=== PATIENT | male | born 1960 | race Caucasian/White ===

== ENCOUNTER → 2017-11-03 08:56 | Outpatient (CLI) | payer MEDICAID, SELFPAY ==
--- NOTE | 2017-11-03 09:01 | ECHOCS_ITS ---
Reason For Study: CHF Procedure This was a 2D Doppler, Color Flow transthoracic echocardiogram. The exam was of poor technical quality due to due to body habitus & patient position.. The study was technically difficult. Contrast injection was performed. Exam performed in department. Left Ventricle Mild concentric left ventricular hypertrophy. Based upon the 2D echocardiographic and contrast enhanced images obtained there appears to be grossly normal left ventricular size, wall motion, and systolic function. The estimated ejection fraction is 65 %. Right Ventricle Based upon the 2D echocardiographic and contrast enhanced images obtained there appears to be grossly normal right ventricular size and systolic function. Atria No doppler evidence for ASD. Mitral Valve Mitral valve not well visualized. Tricuspid Valve The tricuspid valve is not well visualized. Aortic Valve The aortic valve is not well visualized. Pulmonic Valve The pulmonic valve is not well visualized. Great Vessels The aortic root is not well visualized. Pericardium/Pleural No pericardial effusion. Medication 22 gauge I.V. with prn adaptor inserted into right arm. Diluted definity 5.0ml given slow IV push to enhance endocardial definition. MMode/2D Measurements & Calculations LVIDd: 5.7 cm IVSd: 1.3 cm LAV(MOD-bp): 61.6 ml LVIDs: 4.2 cm LVPWd: 1.5 cm LAV(MOD-bp) Indexed: 21.6 ml/m2 FS: 25.3 % LAV(MOD-sp2): 59.9 ml LAV(MOD-sp4): 55.9 ml LA A4 area: 21.0 cm2 RA A4 area: 16.7 cm2 Doppler Measurements & Calculations MV E max mehran: 105.2 cm/sec Lat Peak E' Mehran: 9.7 cm/sec Med Peak E' Mehran: 9.0 cm/sec MV A max mehran: 76.8 cm/sec E/E' lat: 10.9 E/E' med: 11.7 MV E/A: 1.4 Ao V2 max: 163.7 cm/sec LV V1 max: 121.9 cm/sec Ao max P.7 mmHg LV V1 max P.9 mmHg Interpretation Summary The study was technically difficult. Contrast injection was performed. Based upon the 2D echocardiographic and contrast enhanced images obtained there appears to be grossly normal left ventricular size, wall motion, and systolic function. The estimated ejection fraction is 65 %. Mild concentric left ventricular hypertrophy. Diastolic function: considered indeterminate. Ordering Physician: Duc Thomson Referring Physician: Duc Thomson Performed By: Karissa Duffy, HARRIET, RVT
== END ==
PROVIDERS: Family Provider Family Medicine; PCP Family Medicine; Visit Provider Internal Medicine Cardiovascular Disease
DX: I50.9 Heart failure, unspecified (principal)
CPT/HCPCS: 93306; Q9957; A4216; C8929

== ENCOUNTER 2018-03-14 09:44 | Inpatient (IN) | payer MEDICAID, SELFPAY ==
[2018-03-14] VITALS (17 sets, daily range): BP systolic 100–135; BP diastolic 42–67; PULSE 59–83; RESP 14–220; TEMP 36.7–37.3; O2SAT 87–94; BMI 53.6; BMI 50.5; BMI 53.7
--- NOTE | 2018-03-14 09:53 | EKG12_ITS ---
Test Reason : SOB Blood Pressure : / mmHG Vent. Rate : 083 BPM Atrial Rate : 083 BPM P-R Int : 166 ms QRS Dur : 094 ms QT Int : 496 ms P-R-T Axes : 064 050 054 degrees QTc Int : 582 ms Normal sinus rhythm Prolonged QT Abnormal ECG Confirmed by ISAURA FRAZIER, CELY ([id number]), editor at large YASSINE HARTMAN ([id number]) on 03/21/2018 2:12:35 PM Referred By: JHONNY Confirmed By:CELY DELAROSA MD
[2018-03-14 10:11] LABS: Bedside Glucose 159 mg/dL (70-110)
[2018-03-14] MEDS: Albuterol 2.5 MG/3 ML VIAL.NEB. INHALATION ×3 (10:16→10:35)
[2018-03-14] MEDS: Ipratropium/Albuterol Sulfate 3 ML AMPUL.NEB INHALATION ×4 (10:16→23:21)
[2018-03-14 10:30] LABS: Absolute Lymphocyte Count 0.58 X10^3/ul (0.83-4.51); Absolute Neutrophil Count 16.6 X10^3/uL (2.0-7.7); Basophil# 0.02 X10^3/uL; Basophil% 0.1 % (0-1); Differential Indicated SCAN CRITERIA MET; Eosinophil# 0.01 X10^3/uL; Eosinophils% 0.1 % (0-5); Hematocrit 43.8 % (40-54); Hemoglobin 13.5 g/dl (13.0-16.5); Lymphocyte # 0.58 X10^3/ul (4.0); Lymphocyte % 3.3 % (19-41); Mean Corp Hgb Conc 30.8 g/gl (32-36); Mean Corpuscular Volume 90.9 fL (80-94); Mean Platelet Vol. 9.1 fl (6.2-12.0); Monocyte# 0.45 X10^3/uL; Monocyte% 2.5 % (0-10); Neutrophil # 16.58 X10^3/uL (2.7-7.7); Neutrophil % 93.9 % (47-70); POSITIVE COUNT NO; POSITIVE DIFFERENTIAL YES; POSITIVE MORPHOLOGY NO; Platelet Count 216 K/mm3 (150-450); RBC Distribution Width CV 14.1 % (11.6-14.6); RBC Distribution Width SD 46.4 fl (35.1-43.9); Red Blood Count 4.82 M/mm3 (4.6-6.2); White Blood Count 17.7 K/mm3 (4.4-11.0)
[2018-03-14 10:36] LABS: Base Excess 13 mmol/L (-2 to +2); Bicarbonate 36.2 mmol/L (22-26); Blood Gas Specimen Type ART; O2 Delivery Device Nasal Can; PO2 60 mmHG (75-100); SITE R Radial; SO2 92 % (95-99); Time Given 1020; Total Carbon Dioxide 38 mmol/L; pCO2 48.8 mmHg (35-45); pH 7.48 (7.35-7.45)
[2018-03-14 10:47] LABS: Anion Gap 8 (5-15); BUN 6 mg/dL (7-18); BUN/Creat Ratio 5.5 RATIO (10-20); Calcium,Total 8.7 mg/dL (8.5-10.1); Chloride 95 mmol/L (98-107); Creatinine, Serum 1.09 mg/dL (0.70-1.30); EST Glomerular Filtration Rate 74 mL/min (>60); Est Glom Filt Rate - Afr Amer 89 mL/min (>60); Estimated Creatinine Clearance 78.68 ml/min; Glucose 160 mg/dL (74-106); Lactic Acid 3.1 mmol/L (0.4-2.0); Potassium 2.7 mmol/L (3.5-5.1); Sodium Level 138 mmol/L (136-145)
[2018-03-14 10:49] LABS: Differential Comment SCANNED
--- NOTE | 2018-03-14 11:00 | RAD_ITS ---
STUDY: X-RAY CHEST REASON FOR EXAM: Male, 57 years old. Shortness of breath. Weakness and headaches. TECHNIQUE: Single AP portable view of the chest. COMPARISON: Comparison is made with prior examination dated May 17, 2017. FINDINGS: EKG electrodes are seen. There is evidence of vascular congestion with increased markings at the lung bases with areas of confluence. This is suggestive of mild degree of CHF with bibasilar atelectasis. There is no demonstrated pleural abnormality. There is mild cardiac enlargement. Normal mediastinum and liban. Normal visualized pulmonary arteries. Normal visualized aortic arch and descending thoracic aorta. There are diffuse degenerative changes of the visualized thoracic spine. Normal visualized ribs, clavicles, and shoulders. There is no demonstrated abnormality of the visualized soft tissue structures of the upper abdomen. RAD/Chest 1 View (Portable) IMPRESSION: Master congestion. Increased markings at the lung bases with areas of confluence suggestive of a mild degree of CHF with bibasilar atelectasis. Electronically Signed: Howie Dong MD at 11:15 EDT Tel [phone], Service support ,
--- NOTE | 2018-03-14 11:30 | NURSING ---
DR GIANG FOR DR WATSON
--- NOTE | 2018-03-14 11:33 | ED.DCSUM_ITS ---
- ER Visit Summary Date of Service: 03/14/18 Chief Complaint: Shortness of breath, productive cough History of Present Illness: The patient is a 57 M who resides in a senior living because he is unable to care for himself presents with subjective fever, nasal congestion for greater than 1 week, dyspnea, productive cough of green colored sputum with dyspnea on exertion. He denies chest pain, palpitations, orthopnea or PND. He denies history of congestive heart failure. He does have history of coronary artery disease. He does have obstructive sleep apnea and does wear oxygen at night 2-3 L. He denies abdominal pain, nausea or vomiting. He does report chronic diarrhea. He has an indwelling Goetz. He does report generalized weakness and being depressed. He is on no anticoagulant. He does have history of COPD. Please read written note for complete detail Physical Examination: Vital signs noted. Of note patient O2 sat is 90% on 6 L by nasal cannula. BMI is 53.7. He has not well groomed. HEENT exam is unremarkable. Heart is regular without murmur, gallop or rub. Lungs revealed diminished breath sounds bilaterally with expiratory wheezing bilaterally. There is also rales and rhonchi noted right greater than left. Expiratory phase is increased. Abdomen is soft nontender. Bowel sounds are present. Skin appears slightly pale. Legs appear edematous however they are not pitting in nature. Neuro exam is nonfocal. Test Results: EKG sinus rhythm rate of 83 with prolonged QT interval. LA interval, QRS duration normal. [place] normal. No ischemic changes. Single view chest x-ray is rotated. In my opinion and interpretation there is an infiltrate on the right possibly increased interstitial markings on the left. White count is 17.7 thousand with 94 segs no bands. Potassium is 2.7. CO2 is elevated at 35. Glucose is 160. ABG was obtained because of concern for CO2 retention. PH 7.48, PCO2 38, PaO2 60 with a 92% saturations 6 L by nasal cannula. Lactate is elevated at 3.1. The hospitalist was paged for admission. She informed me that the radiologist read the film as congestive heart failure. I informed her he has no history of heart failure, denies orthopnea or PND. And his history is consistent with pneumonia. Emergency Department Course and Treatment: EKG, chest x-ray appropriate blood work was obtained to evaluate patient's complaint of productive cough with mayur rtness of breath. Since he is hypoxic and has history of elevated CO2 will obtain blood gas to assess acid-base status. Because there is concern for pneumonia a lactate was ordered. Since lactate was elevated blood cultures were obtained. He was treated with Zosyn and vancomycin for healthcare acquired pneumonia. Furthermore would not treat with quinolones since his QT interval is prolonged. Patient does not have severe sepsis since he only has 1 of the 5 SIRS criteria. Treatment Plan: DuoNeb followed by albuterol and antibiotics for healthcare acquired pneumonia. He received p.o. potassium for his hypokalemia. Disposition: PCU stepdown in light of patient's respiratory status and concern for deterioration Impression: 1. Respiratory failure with hypoxia 2. Healthcare acquired pneumonia 3. Exacerbation COPD with bronchospasm 4. Lactic acidosis 5. Hypokalemia 6. Hyperglycemia This note was generated with [employer] dictation software. It may contain incorrect words, spelling, and punctuation that were not noted in review of the chart prior to signing ED Disposition - Plan for ED Patient: Chief Complaint: Shortness of Breath Referrals: Nas Cadena [Primary Care Provider] -
--- NOTE | 2018-03-14 11:36 | NURSING ---
PCU RESP FAILURE, WITH HYPOXIA, HCAP, BRONCHOSPASM, COPD, LACTIC ACIDOSIS PAINTSIL
--- NOTE | 2018-03-14 12:44 | HP.PCM_ITS ---
Problem List (1) Acute and chronic respiratory failure with hypoxia Status: Acute (2) COPD with acute exacerbation Status: Acute (3) Lactic acidosis Status: Acute (4) Hypertension Status: Chronic Qualifiers: Hypertension type: essential hypertension Qualified Code(s): I10 - Essential (primary) hypertension (5) Hyperlipidemia Status: Chronic Qualifiers: Hyperlipidemia type: unspecified Qualified Code(s): E78.5 - Hyperlipidemia, unspecified (6) COPD (chronic obstructive pulmonary disease) Status: Chronic Qualifiers: COPD type: unspecified COPD Qualified Code(s): J44.9 - Chronic obstructive pulmonary disease, unspecified (7) Tobacco use disorder Status: Chronic (8) Morbid obesity Status: Chronic History of Present Illness Date of Admission: 03/14/18 Chief Complaint: Shortness of breath, cough, productive of greenish sputum- 1 day The patient is a 57 year old M with multiple comorbidities including COPD on 2 L of oxygen at night, history of CAD status post CABG, stent, DAVION , hypertension, hyperlipidemia, chronic indwelling Goetz catheter of unknown etiology who comes in with complaints of shortness of breath and cough productive of greenish sputum that started 1 day prior to admission. Patient has been progressively short of breath, been coughing up greenish sputum. Denies any fever or chills. He lives in a senior living, admits to upper respiratory symptoms with congestion . He denied any sick contacts recently. Vitals in the ED showed temperature of 90 9.1F, heart rate 83, blood pressure 111/ 7, respiratory rate was 14, SPO2 was 87% on 5 L, improved to 90% on 6 L. Medicine blood work showed WBC count of 17.7, Hb 13.5, platelet 216, BUN 38, potassium 3.7, bicarbonate 35, chloride 95, BUN 6, creatinine 1.09 Lactic acid on admission was 3.1, repeat was 4.4 Chest x-ray on admission reports evidence of vascular congestion, no pneumonia was reported Past Medical History Past Medical History (Chronic Problems): Chronic Problems (Last Reviewed 10/26/17 @ 10:26 by Maria Teresa Stewart) Presence of stent in coronary artery (Chronic) PTCA/BSM of Mid CX and PTCA of OM2 08/31/06; PTCA/PELON of the mid RCA ; Thrombectomy and angioplasty of the pre existing stent of the mid LCX 02/18/13 Hypertension (Chronic) Hyperlipidemia (Chronic) Atherosclerotic heart disease of [place] coronary artery without angina pectoris (Chronic) PTCA/BSM of Mid CX and PTCA of OM2 08/31/06; PTCA/PELON of the mid RCA 08/06/10; Thrombectomy and angioplasty of the pre existing stent of the mid LCX 02/18/13 COPD (chronic obstructive pulmonary disease) (Chronic) Tobacco use disorder (Chronic) Morbid obesity (Chronic) Medical History: Medical History (Last Reviewed 10/26/17 @ 10:26 by Maria Teresa Stewart) Acute MA, inferior wall (Acute) I21.19 Acute inferolateral myocardial infarction (Acute) I21.19 Hypertension (Chronic) I10 Hyperlipidemia (Chronic) E78.5 Atherosclerotic heart disease of [place] coronary artery without angina pectoris (Chronic) I25.10 PTCA/BSM of Mid CX and PTCA of OM2 08/31/06; PTCA/PELON of the mid RCA 08/06/10; Thrombectomy and angioplasty of the pre existing stent of the mid LCX 02/18/13 COPD (chronic obstructive pulmonary disease) (Chronic) J44.9 Tobacco use disorder (Chronic) F17.200 Morbid obesity (Chronic) E66.01 DDD (degenerative disc disease) Metabolic syndrome E88.81 DAVION (obstructive sleep apnea) G47.33 RLS (restless legs syndrome) G25.81 Open breast wound (Inactive) S21.009A Pure hypercholesterolemia (Inactive) E78.00 Respiratory failure with hypoxia and hypercapnia (Inactive) J96.91, J96.92 UTI (urinary tract infection) (Inactive) N39.0 Allergies rofecoxib Adverse Reaction (Unknown, Verified 03/14/18 09:49) Unknown Home Medications: Ambulatory Orders Medication Instructions Recorded RX: Clopidogrel Bisulfate [Plavix] 75 mg PO DAILY 02/11/13 RX: Isosorbide Mononitrate [Imdur] 30 mg PO DAILY 02/11/13 RX: Nitroglycerin [Nitrostat] 0.4 mg SUBLINGUAL Q5M PRN 02/11/13 RX: Albuterol Inhaler [Ventolin 2 puff INHALATION Q4H PRN PRN 09/07/13 Hfa] RX: Gabapentin 600 mg PO TID 12/20/13 RX: Sertraline HCl [Zoloft] 100 mg PO DAILY 03/06/14 RX: Ipratropium/Albuterol Sulfate 3 ml INHALATION BID 12/20/15 [Duoneb] RX: Metoprolol Tartrate [Lopressor 25 mg PO BID 12/20/15 (beta mike)] RX: Lisinopril [Zestril] 5 mg PO DAILY 12/28/16 RX: Methadone HCl 10 mg PO Q8H 12/28/16 RX: Ondansetron HCl [Zofran] 4 mg PO BID 12/28/16 RX: Acetaminophen [Tylenol] 650 mg PO Q4H PRN PRN 05/17/17 RX: Allopurinol 100 mg PO DAILY 05/17/17 RX: Aspirin [Aspirin, Baby] 81 mg PO DAILY@0800 05/17/17 RX: Loratadine 10 mg PO DAILY 05/17/17 RX: Lorazepam [Ativan] 1 mg PO QHS PRN PRN 05/17/17 RX: Oxycodone [Oxyir] 5 mg PO BID 05/17/17 cholecalciferol (vitamin D3) 50,000 unit PO TOBAR 10/26/17 50,000 unit capsule finasteride 5 mg tablet 5 mg PO QDAY 10/26/17 fludrocortisone 0.1 mg tablet 0.1 mg PO QDAY 10/26/17 guaifenesin ER 600 mg tablet, 600 mg PO Q12H 10/26/17 extended release 12 hr ipratropium-albuterol 0.5 mg-3 3 ml INHALATION Q6H PRN 10/26/17 mg(2.5 mg base)/3 mL nebulization soln metformin 500 mg tablet 500 mg PO BID 10/26/17 morphine 30 mg immediate release 30 mg PO BID tab 10/26/17 tablet omeprazole 20 mg capsule,delayed 20 mg PO QDAY cap 10/26/17 release sodium chloride 1 gram tablet 1 tab PO QDAY tab 10/26/17 tizanidine 2 mg tablet 2 mg PO TID PRN 10/26/17 Bumetanide [Bumex] 1 mg PO BID 03/14/18 Calcium Carbonate [Calcium] 500 mg PO BID 03/14/18 Ciprofloxacin 0.3% [Ciloxan] 4 drop EACH EAR BID 03/14/18 Diclofenac Sodium [Voltaren] 1 applic TOPICAL BID 03/14/18 Fluticasone 0.05% [Flonase Nasal 2 spray NASAL DAILY 03/14/18 [place]] Fluticasone/Vilanterol [Breo 1 each IH DAILY 03/14/18 Ellipta Inhaler] Guaifenesin [Cough Syrup] 10 ml PO Q6H PRN PRN 03/14/18 Linacolotide [Linzess] 145 mcg PO DAILY 03/14/18 Magnesium Hydroxide [Milk Of 30 ml PO DAILY PRN PRN 03/14/18 Magnesia] Pravastatin [Pravachol] 80 mg PO DAILY 03/14/18 RX: Potassium Chloride 10 meq PO DAILY 03/14/18 RX: Tamsulosin HCl 0.4 mg PO BID 03/14/18 Spironolactone [Aldactone] 25 mg PO BID 03/14/18 Surgical History: Surgical History (Last Reviewed 10/26/17 @ 10:26 by Maria Teresa Stewart) Presence of stent in coronary artery (Chronic) Z95.5 PTCA/BSM of Mid CX and PTCA of OM2 08/31/06; PTCA/PELON of the mid RCA 08/06/10; Thrombectomy and angioplasty of the pre existing stent of the mid LCX 02/18/13 Postsurgical percutaneous transluminal coronary angioplasty (PTCA) status Z98.61 PTCA/BSM of Mid CX and PTCA of OM2 08/31/06; PTCA/PELON of the mid RCA 08/06/10; Thrombectomy and angioplasty of the pre existing stent of the mid LCX 02/18/13 History of inguinal hernia repair Z98.890, Z87.19 History of tonsillectomy Z90.89 Surgical History: - - Thyroidectomy, septoplasty, cardiac stents x4 2007, hernia repair 2013 Psychiatric History: No pertinent psych hx Lives: Group Home Smoking Status: Former smoker Tobacco Use: Non-smoker Alcohol: None Drugs: None - *Family History Maternal Family History: Family History (Last Reviewed 10/26/17 @ 10:26 by Maria Teresa Stewart) Father Myocardial infarction, Onset Age: 39 Brother Hypertension Uncle CAD (coronary artery disease) Uncle Myocardial infarction History Items: Cancer - skin CA Paternal Family History: Family History (Last Reviewed 10/26/17 @ 10:26 by Maria Teresa Stewart) Father Myocardial infarction, Onset Age: 39 Brother Hypertension Uncle CAD (coronary artery disease) Uncle Myocardial infarction History Items: Heart Disease Sibling Family History: Family History (Last Reviewed 10/26/17 @ 10:26 by Maria Teresa Stewart) Father Myocardial infarction, Onset Age: 39 Brother Hypertension Uncle CAD (coronary artery disease) Uncle Myocardial infarction History Items: Hypertension Review of Systems Constitutional: Reports: Anorexia, Weakness, Fatigue. Denies: Chills, Fever, Weight Change Eyes: Denies: Blurred vision, Cataracts, Conjunctivae Inflammation, Pain, Redness HEENT: Denies: Difficulty Hearing, Difficulty Swallowing, Head Aches, Hearing Changes, Sinus Congestion, Sinus Drainage Cardiovascular: Reports: Orthopnea. Denies: Chest Pain, Claudication, Edema, Light Headedness, Palpitations, Paroxysmal Noc. Dyspnea Respiratory: Reports: Shortness of Breath, Shortness of breath at rest, Shortness of breath upon exertion, Sputum production, Wheezing. Denies: Cough, Hemoptysis Gastrointestinal: Denies: Abdominal Pain, Constipation, Dyspepsia, Hematemesis, Hematochezia, Nausea, Melena, Vomiting Genitourinary: Denies: Dysuria, Frequency, Incontinence, Retention Musculoskeletal: Denies: Joint Pain, Joint stiffness, Joint swelling, Joint Tenderness Skin: Denies: Rash, Wounds Neurological: Denies: Numbness, Tingling, Focal weakness Psychiatric: Denies: Anxiety, Depression, Homicidal Ideations, Suicidal Ideations Hematologic/ Lymphatic: Denies: Easy Bruising, Easy Bleeding VTE Information - Inpt Only VTE Present on Admission: No VTE Pharm Prophylaxis ordered?: Yes Patient Problems: Active and Suspected Problems (Last Reviewed 10/26/17 @ 10:26 by Maria Teresa Stewart) Acute and chronic respiratory failure with hypoxia (Acute) COPD with acute exacerbation (Acute) Lactic acidosis (Acute) - Physical Exam General: Alert, Oriented x3, Cooperative, No apparent distress, - - Obese HEENT: Atraumatic, PERRLA, EOMI, Normocephalic Oral: Moist Mucosa Neck: Supple, No JVD, Negative Carotid Bruits Lungs: Normal air movement, Diminished, Wheezes Cardiovascular: Regular rate, Regular Rhythm, Normal S1, Normal S2 Abdomen: Bowel Sounds Present, Soft, Non Tender, Non-Distended, No Hepato- splenomegaly, - - Goetz catheter in situ, tubing appears dirty Extremities: No edema Skin: No rashes, No breakdown Musculoskeletal: No Tenderness to Palpation of Joints or Extremities Lymphatic: No Cervical, Supraclavicular, or Inguinal Adenopathy Neurological: Cranial nerves II-XII grossly intact, Neuro grossly intact Psych/Mental Status: Normal Affect, Appropriate Vital Signs Temp Pulse Resp BP Pulse Ox 99.1 F 81 19 H 119/54 L 90 03/14/18 09:48 03/14/18 11:56 03/14/18 11:56 03/14/18 11:56 03/14/18 11:56 Oxygen Flow Rate (L/min) 6 Oxygen Delivery Method Nasal Cannula Weight: 174.633 kg Body Mass Index (BMI) 53.6 Finger Stick Blood Glucose 159 Laboratory Tests Past 24 Hrs 03/14/18 03/14/18 03/14/18 10:00 10:00 10:00 WBC 17.7 H RBC 4.82 Hgb 13.5 Hct 43.8 MCV 90.9 MCH 28.0 MCHC 30.8 L RDW 14.1 RDW Differential 46.4 H Plt Count 216 MPV 9.1 Immature Gran % (Auto) 0.100 Neut % (Auto) 93.9 H Lymph % (Auto) 3.3 L [place] % (Auto) 2.5 Eos % (Auto) 0.1 Baso % (Auto) 0.1 Absolute Neuts (auto) 16.6 H Absolute Lymphs (auto) 0.58 L Total Counted Not Reportable Differential Comment SCANNED Specimen Type Sample Site pH Bicarbonate Actual POC Total CO2 Base Excess O2 Saturation ABG pCO2 ABG pO2 [place] Test O2 Delivery Device Liter Flow Blood Gas Notified Whom Blood Gas Notified Time Sodium 138 Potassium 2.7 L* Chloride 95 L Carbon Dioxide 35.0 H Anion Gap 8 BUN 6 L Creatinine 1.09 Estim Creat Clear Calc 78.68 Est GFR (MDRD) Af Amer 89 Est GFR (MDRD) Non-Af 74 BUN/Creatinine Ratio 5.5 L Glucose 160 H Lactic Acid 3.1 H Calcium 8.7 03/14/18 10:29 WBC RBC Hgb Hct MCV MCH MCHC RDW RDW Differential Plt Count MPV Immature Gran % (Auto) Neut % (Auto) Lymph % (Auto) [place] % (Auto) Eos % (Auto) Baso % (Auto) Absolute Neuts (auto) Absolute Lymphs (auto) Total Counted Differential Comment Specimen Type ART Sample Site R Radial pH 7.48 H Bicarbonate Actual 36.2 H POC Total CO2 38 Base Excess 13 H O2 Saturation 92 L ABG pCO2 48.8 H ABG pO2 60 L [place] Test NA O2 Delivery Device Nasal Can Liter Flow 5.0 Blood Gas Notified Whom ED MD Blood Gas Notified Time 1020 Sodium Potassium Chloride Carbon Dioxide Anion Gap BUN Creatinine Estim Creat Clear Calc Est GFR (MDRD) Af Amer Est GFR (MDRD) Non-Af BUN/Creatinine Ratio Glucose Lactic Acid Calcium POC Glucose 03/14/18 10:03 POC Glucose 159 H Assessment/Plan All Active Problems (Last Reviewed 10/26/17 @ 10:26 by Maria Teresa Stewart) Acute and chronic respiratory failure with hypoxia (Acute) COPD with acute exacerbation (Acute) Lactic acidosis (Acute) Acute MA, inferior wall (Acute) Acute inferolateral myocardial infarction (Acute) 57 year old M with multiple comorbidities including COPD on 2 L of oxygen at night, history of CAD status post CABG, stent, DAVION , hypertension, hyperlipidemia, chronic indwelling Goetz catheter of unknown etiology who comes in with complaints of shortness of breath and cough productive of greenish sputum that started 1 day prior to admission. 1. Acute hypoxic respiratory failure secondary to acute COPD exacerbation, possible acute on chronic systolic CHF, EF 55%, on 2 L of oxygen at night, currently on 6 L, will continue same, wean off oxygen 2. Acute COPD exacerbation, doubt pneumonia, repeat x-ray in a.m., given IV vancomycin and Zosyn, will continue with IV Levaquin, IV steroids, breathing treatment as needed 3. Acute on chronic systolic CHF, EF 55%, last 2D echo was in 2017, Bnpep is 200.4, patient is super morbidly obese will get 2D echo, will give 1 dose of Lasix 40 mg IV x1, will continue on home Lasix dose, daily weight, strict I's and O's, CHF protocol 4. Hypokalemia, severe, replaced in the ED, recheck 5. Hypomagnesemia, mild, replace, recheck in a.m. 6. Hypertension, controlled, continue home regimen 7. Gout on allopurinol 8. Chronic indwelling Goetz catheter, unclear reason, will continue same, continue also on Flomax 9. Elevated lactic acid likely related to hypoxia, doubt septic shock, will trend lactic acid, patient received IV vancomycin and Zosyn, repeat chest x-ray in the a.m., blood cultures are pending 10. Type II DM, on metformin, metformin held, will start on insulin sliding scale with Accu-Cheks 11. CAD status post stents, status post CABG, on aspirin, Plavix, isosorbide mononitrate, lisinopril, 12. Orthostatic hypotension, on fludrocortisone, continue same 13. Super morbid obesity, BMI 50.5, diet and exercise is recommended 14. Chronic Pain syndrome, on methadone, morphine, gabapentin, will monitor for lethargy 15. DVT PPx -heparin subcu Code Visit Inpatient E&M: 28786 Init Hosp L3
[2018-03-14 14:10] LABS: Reflex Lactate? Y
[2018-03-14 15:09] LABS: Lactic Acid 4.4 mmol/L (0.4-2.0)
[2018-03-14 15:17] LABS: Magnesium 1.7 mg/dL (1.6-2.6)
[2018-03-14 15:27] LABS: BNP,B-Type NATRIURETIC PEPTIDE 200.4 pg/mL (0-100)
[2018-03-14 17:01] LABS: Bedside Glucose 147 mg/dL (70-110)
[2018-03-14] MEDS: levoFLOXacin IV 500 MG/100 ML BAG 100 MG IV (17:15)
[2018-03-14] MEDS: Tamsulosin HCl 0.4 MG Capsule PO (17:20)
[2018-03-14] MEDS: Calcium (Elemental) 500 MG Tablet PO (17:20)
[2018-03-14] MEDS: Gabapentin 600 MG Tablet PO ×2 (17:20→21:17)
[2018-03-14] MEDS: Furosemide 40 MG/4 ML Vial IV (18:54)
[2018-03-14 19:27] LABS: Anion Gap 7 (5-15); BUN 9 mg/dL (7-18); Calcium,Total 8.3 mg/dL (8.5-10.1); Chloride 95 mmol/L (98-107); EST Glomerular Filtration Rate 81 mL/min (>60); Est Glom Filt Rate - Afr Amer 99 mL/min (>60); Estimated Creatinine Clearance 85.76 ml/min; Glucose 164 mg/dL (74-106); Potassium 2.8 mmol/L (3.5-5.1); Sodium Level 138 mmol/L (136-145)
[2018-03-14] MEDS: Acetaminophen 325 MG Tablet 650 MG PO (20:13)
[2018-03-14] MEDS: Ondansetron ODT 4 MG Tablet PO (20:23)
[2018-03-14 21:06] LABS: Bedside Glucose 190 mg/dL (70-110)
[2018-03-14] MEDS: guaiFENesin 600 MG Tablet PO (21:17)
[2018-03-14] MEDS: Spironolactone 25 MG Tablet PO (21:17)
[2018-03-14] MEDS: Pravastatin 80 MG Tablet PO (21:17)
[2018-03-14] MEDS: Metoprolol Tartrate 25 MG Tablet PO (21:17)
[2018-03-15] VITALS (18 sets, daily range): BP systolic 122–151; BP diastolic 52–82; PULSE 49–66; RESP 16–19; TEMP 36.5–36.7; O2SAT 91–96
[2018-03-15] MEDS: LORazepam 1 MG Tablet PO (00:22)
[2018-03-15] MEDS: Gabapentin 600 MG Tablet PO ×3 (05:33→22:24)
--- NOTE | 2018-03-15 05:55 | RAD_ITS ---
STUDY: X-RAY CHEST REASON FOR EXAM: Male, 57 years old. Shortness of breath. TECHNIQUE: Single AP portable view of the chest. COMPARISON: Comparison is made with prior study dated March 14, 2018. FINDINGS: EKG electrodes are seen. Persistent mild degree of CHF. I suspect a loculated fluid in the medial aspect of the right major fissure. Persistent mild degree of increased markings at the lung bases suggestive basilar atelectasis. There is mild cardiac enlargement. Normal mediastinum and liban. Normal visualized pulmonary arteries. Normal visualized aortic arch and descending thoracic aorta. There are diffuse degenerative changes of the visualized thoracic spine. Normal visualized ribs, clavicles, and shoulders. There is no demonstrated abnormality of the visualized soft tissue structures of the upper abdomen. RAD/Chest 1 View (Portable) IMPRESSION: Findings in keeping with a mild degree of CHF with bibasilar atelectasis. This is essentially unchanged. A rounded soft tissue density seen in the medial aspect of the right midlung suggestive of a possible loculated fluid in the right major fissure. Follow-up is recommended. Electronically Signed: Howie Dong MD at 9:35 EDT Tel [phone], Service support ,
[2018-03-15] MEDS: Linacolotide 145 MCG CAPSULE PO (06:52)
[2018-03-15 06:56] LABS: Bedside Glucose 159 mg/dL (70-110)
[2018-03-15] MEDS: Ipratropium/Albuterol Sulfate 3 ML AMPUL.NEB INHALATION ×5 (07:03→23:30)
[2018-03-15 07:08] LABS: Albumin, Serum 2.5 g/dL (3.2-5.0); Anion Gap 7 (5-15); BUN 11 mg/dL (7-18); BUN/Creat Ratio 12.1 RATIO (10-20); Calcium,Total 8.7 mg/dL (8.5-10.1); Chloride 99 mmol/L (98-107); Creatinine, Serum 0.91 mg/dL (0.70-1.30); EST Glomerular Filtration Rate 91 mL/min (>60); Est Glom Filt Rate - Afr Amer 110 mL/min (>60); Estimated Creatinine Clearance 94.24 ml/min; Glucose 141 mg/dL (74-106); Magnesium 2.4 mg/dL (1.6-2.6); Potassium 3.4 mmol/L (3.5-5.1); Sodium Level 140 mmol/L (136-145)
[2018-03-15] MEDS: Allopurinol 100 MG Tablet PO (08:43)
[2018-03-15] MEDS: Acetaminophen 325 MG Tablet 650 MG PO ×2 (08:43→14:28)
[2018-03-15] MEDS: Aspirin 81 MG TAB.CHEW PO (08:43)
[2018-03-15] MEDS: Tamsulosin HCl 0.4 MG Capsule PO ×2 (08:43→16:46)
[2018-03-15] MEDS: Calcium (Elemental) 500 MG Tablet PO ×2 (08:44→16:46)
[2018-03-15] MEDS: Spironolactone 25 MG Tablet PO ×2 (08:47→22:25)
[2018-03-15] MEDS: Finasteride 5 MG Tablet PO (08:47)
[2018-03-15] MEDS: Clopidogrel Bisulfate 75 MG Tablet PO (08:47)
[2018-03-15] MEDS: Pantoprazole Sodium 20 MG Tablet PO (08:47)
[2018-03-15] MEDS: Isosorbide Mononitrate 30 MG Tablet PO (08:48)
[2018-03-15] MEDS: guaiFENesin 600 MG Tablet PO ×2 (08:48→22:24)
[2018-03-15] MEDS: Fludrocortisone Acetate 0.1 MG Tablet PO (08:49)
[2018-03-15] MEDS: Ondansetron ODT 4 MG Tablet PO ×2 (08:49→22:34)
[2018-03-15] MEDS: Sertraline 100 MG Tablet PO (08:49)
[2018-03-15] MEDS: Metoprolol Tartrate 25 MG Tablet PO (08:51)
--- NOTE | 2018-03-15 11:51 | CASEMGMT ---
Updates faxed to Izabella Hunt, PT/OT pending. LIANE Bonilla, DATA REPORT ANALYST
--- NOTE | 2018-03-15 13:46 | CASEMGMT ---
RAMSEY spoke with Barbra at [facility] and let her know patient will probably return in a day or two per physician. Plan: d/c back to [facility] under intermediate level of care when ready. Jodi NORMAN MSW
--- NOTE | 2018-03-15 14:05 | PCM.PN.HOSP ---
Patient Problems: Active and Suspected Problems (Last Reviewed 10/26/17 @ 10:26 by Maria Teresa Stewart) Acute and chronic respiratory failure with hypoxia (Acute) COPD with acute exacerbation (Acute) Lactic acidosis (Acute) Subjective: Patient was seen and examined. Denied any new complaints. Feels slightly better. No acute events overnight. Objective: Physical Exam General: Alert, Oriented x3, Cooperative, No apparent distress, - - Obese, on 6 L oxygen HEENT: Atraumatic, PERRLA, EOMI, Normocephalic Oral: Moist Mucosa Neck: Supple, No JVD, Negative Carotid Bruits Lungs: Normal air movement, Diminished, Wheezes Cardiovascular: Regular rate, Regular Rhythm, Normal S1, Normal S2 Abdomen: Bowel Sounds Present, Soft, Non Tender, Non-Distended, No Hepato-splenomegaly, - - Goetz catheter in situ, tubing appears dirty Extremities: No edema Skin: No rashes, No breakdown Musculoskeletal: No Tenderness to Palpation of Joints or Extremities Lymphatic: No Cervical, Supraclavicular, or Inguinal Adenopathy Neurological: Cranial nerves II-XII grossly intact, Neuro grossly intact Psych/Mental Status: Normal Affect, Appropriate Vitals/I&O's: Vital Signs Temp Pulse Resp BP Pulse Ox 97.7 F L 55 L 18 137/54 H 91 03/15/18 10:16 03/15/18 11:10 03/15/18 11:10 03/15/18 10:16 03/15/18 11:10 Oxygen Flow Rate (L/min) 6 Oxygen Delivery Method Nasal Cannula Weight: 164.2 kg Body Mass Index (BMI) 50.5 Finger Stick Blood Glucose 159 Intake and Output for Last 24 Hours 03/13/18 03/14/18 03/15/18 23:59 23:59 23:59 Intake Total 820 / 820 300 / 300 Output Total 4500 / 4500 950 / 950 Balance -3680 / -3680 -650 / -650 Microbiology Past 72 Hours 03/14/18 19:10 Mucosa - Nose Respiratory Panel (PCR) - Final Laboratory Results 03/14/18 10:00: B-Natriuretic Peptide 200.4 H 03/14/18 10:00: Magnesium 1.7 03/14/18 14:20: Lactic Acid 4.4 H* 03/14/18 16:54: POC Glucose 147 H 03/14/18 18:46: Sodium 138, Potassium 2.8 L, Chloride 95 L, Carbon Dioxide 36.0 H, Anion Gap 7, BUN 9, Creatinine 1.00, Estim Creat Clear Calc 85.76, Est GFR (MDRD) Af Amer 99, Est GFR (MDRD) Non-Af 81, BUN/Creatinine Ratio 9.0 L, Glucose 164 H, Calcium 8.3 L 03/14/18 21:01: POC Glucose 190 H 03/15/18 06:10: Sodium 140, Potassium 3.4 L, Chloride 99, Carbon Dioxide 34.0 H, Anion Gap 7, BUN 11, Creatinine 0.91, Estim Creat Clear Calc 94.24, Est GFR (MDRD) Af Amer 110, Est GFR (MDRD) Non-Af 91, BUN/Creatinine Ratio 12.1, Glucose 141 H, Calcium 8.7, Magnesium 2.4, Albumin 2.5 L 03/15/18 06:50: POC Glucose 159 H Current Medications Acetaminophen (Tylenol) 650 mg PO Q4H PRN PRN PRN Reason: PAIN.FEVER Last Admin: 03/15/18 08:43 Dose: 650 mg Albuterol/Ipratropium (Duoneb) 3 ml INHALATION Q6H PRN PRN Reason: SOB &/OR WHEEZING Albuterol/Ipratropium (Duoneb) 3 ml INHALATION Q4H.RT [facility] Last Admin: 03/15/18 11:10 Dose: 3 ml [facility] Last Admin: 03/15/18 08:43 Dose: 100 mg Aspirin (Aspirin, Baby) 81 mg PO DAILY@0800 [facility] Last Admin: 03/15/18 08:43 Dose: 81 mg Calcium Carbonate (Os-Roberto 500) [facility] Last Admin: 03/15/18 08:44 Dose: 500 mg Clopidogrel Bisulfate (Plavix) 75 mg PO DAILY [facility] Last Admin: 03/15/18 08:47 Dose: 75 mg Ergocalciferol (Vitamin D) 50,000 unit PO Howell@1000 [facility] Finasteride (Proscar) 5 mg PO DAILY [facility] Last Admin: 03/15/18 08:47 Dose: 5 mg Fludrocortisone Acetate (Florinef) 0.1 mg PO DAILY [facility] Last Admin: 03/15/18 08:49 Dose: 0.1 mg Furosemide (Lasix) 40 mg IV BID@1000,1800 [facility] Gabapentin (Neurontin) 600 mg PO TID [facility] Last Admin: 03/15/18 05:33 Dose: 600 mg Guaifenesin (Robitussin) 10 ml PO Q6H PRN PRN PRN Reason: COUGH Guaifenesin (Mucinex) 600 mg PO Q12H [facility] Last Admin: 03/15/18 08:48 Dose: 600 mg Levofloxacin (Levaquin Iv) 500 mg in 100 mls @ 100 mls/hr IV Q24H [facility] Last Admin: 03/14/18 17:15 Dose: 100 mls/hr Isosorbide Mononitrate (Imdur) 30 mg PO DAILY [facility] Last Admin: 03/15/18 08:48 Dose: 30 mg Linaclotide (Linzess) 145 mcg PO DAILY@0730 [facility] Last Admin: 03/15/18 06:52 Dose: 145 mcg Lorazepam (Ativan) 1 mg PO QHS PRN PRN PRN Reason: SLEEP Last Admin: 03/15/18 00:22 Dose: 1 mg Magnesium Hydroxide (Milk Of Magnesia) 30 ml PO DAILY PRN PRN PRN Reason: Constipation Methylprednisolone (Solu-Medrol) 40 mg IV Q8 [facility] Last Admin: 03/15/18 05:33 Dose: 40 mg Metoprolol Tartrate (Lopressor (Beta Tyron)) 25 mg PO BID [facility] Last Admin: 03/15/18 08:51 Dose: 25 mg Morphine Sulfate (Ms Contin) 30 mg PO BID [facility] Last Admin: 03/15/18 09:00 Dose: 30 mg Nitroglycerin (Nitrostat) 0.4 mg SUBLINGUAL Q5M PRN PRN Reason: Chest Pain Ondansetron HCl (Zofran Odt) 4 mg PO BID [facility] Last Admin: 03/15/18 08:49 Dose: 4 mg Pantoprazole Sodium (Protonix) 20 mg PO DAILY [facility] Last Admin: 03/15/18 08:47 Dose: 20 mg Potassium Chloride (K-Dur) [facility] Pravastatin Sodium (Pravachol) 80 mg PO 2200 [facility] Last Admin: 03/14/18 21:17 Dose: 80 mg Sertraline HCl (Zoloft) 100 mg PO DAILY [facility] Last Admin: 03/15/18 08:49 Dose: 100 mg Sodium Chloride () 5 - 30 ml IV UD PRN PRN Reason: SALINE FLUSH Spironolactone (Aldactone) 25 mg PO BID [facility] Last Admin: 03/15/18 08:47 Dose: 25 mg Tamsulosin HCl (Flomax) [facility] Last Admin: 03/15/18 08:43 Dose: 0.4 mg Tizanidine HCl (Zanaflex) 2 mg PO TID PRN PRN Reason: MUSCLE SPASM Medical Necessity - Tobacco Use Smoking Status: Former smoker Tobacco Use: Non-smoker Assessment/Plan All Active Problems (Last Reviewed 10/26/17 @ 10:26 by Maria Teresa Stewart) Acute and chronic respiratory failure with hypoxia (Acute) COPD with acute exacerbation (Acute) Lactic acidosis (Acute) Acute NE, inferior wall (Acute) Acute inferolateral myocardial infarction (Acute) 57 year old M with multiple comorbidities including COPD on 2 L of oxygen at night, history of CAD status post CABG, stent, DAVION , hypertension, hyperlipidemia, chronic indwelling Goetz catheter of unknown etiology who comes in with complaints of shortness of breath and cough productive of greenish sputum that started 1 day prior to admission. 1. Acute hypoxic respiratory failure secondary to acute COPD exacerbation, possible acute on chronic systolic CHF, EF 55%, on 2 L of oxygen at night, remains on 6 L, will continue same, wean off oxygen 2. Acute COPD exacerbation, doubt pneumonia, repeat x-ray does not confirm pneumonia, will continue with IV Levaquin, IV steroids, breathing treatment as needed 3. Acute on chronic systolic CHF, EF 55%, last 2D echo was in 2017, Bnpep is 200.4, patient is super morbidly obese Diuresed well, will continue on Lasix 40 mg IV twice daily, daily weights, strict I's and O's, CHF protocol 4. Hypokalemia, 3.4 today, will replace, recheck in a.m. 5. Hypomagnesemia, resolved 6. Hypertension, controlled, continue home regimen 7. Gout on allopurinol 8. Chronic indwelling Goetz catheter, unclear reason, will continue same, continue also on Flomax 9. Elevated lactic acid likely related to hypoxia, doubt septic shock, stable 10. Type II DM, on metformin, metformin held, sugars are stable, continue on insulin sliding scale with Accu-Cheks 11. CAD status post stents, status post CABG, on aspirin, Plavix, isosorbide mononitrate, lisinopril, 12. Orthostatic hypotension, on fludrocortisone, continue same 13. Super morbid obesity, BMI 50.5, diet and exercise is recommended 14. Chronic Pain syndrome, on methadone, morphine, gabapentin, will monitor for lethargy 15. DVT PPx -heparin subcu Code Visit Inpatient E&M: 84045 Subs Hosp L2
--- NOTE | 2018-03-15 14:10 | PN_ITS ---
Patient Problems: Active and Suspected Problems (Last Reviewed 10/26/17 @ 10:26 by Maria Teresa Stewart) Acute and chronic respiratory failure with hypoxia (Acute) COPD with acute exacerbation (Acute) Lactic acidosis (Acute) Subjective: Patient was seen and examined. Denied any new complaints. Feels slightly better. No acute events overnight. Objective: Physical Exam General: Alert, Oriented x3, Cooperative, No apparent distress, - - Obese, on 6 L oxygen HEENT: Atraumatic, PERRLA, EOMI, Normocephalic Oral: Moist Mucosa Neck: Supple, No JVD, Negative Carotid Bruits Lungs: Normal air movement, Diminished, Wheezes Cardiovascular: Regular rate, Regular Rhythm, Normal S1, Normal S2 Abdomen: Bowel Sounds Present, Soft, Non Tender, Non-Distended, No Hepato- splenomegaly, - - Goetz catheter in situ, tubing appears dirty Extremities: No edema Skin: No rashes, No breakdown Musculoskeletal: No Tenderness to Palpation of Joints or Extremities Lymphatic: No Cervical, Supraclavicular, or Inguinal Adenopathy Neurological: Cranial nerves II-XII grossly intact, Neuro grossly intact Psych/Mental Status: Normal Affect, Appropriate Vitals/I&O's: Vital Signs Temp Pulse Resp BP Pulse Ox 97.7 F L 55 L 18 137/54 H 91 03/15/18 10:16 03/15/18 11:10 03/15/18 11:10 03/15/18 10:16 03/15/18 11:10 Oxygen Flow Rate (L/min) 6 Oxygen Delivery Method Nasal Cannula Weight: 164.2 kg Body Mass Index (BMI) 50.5 Finger Stick Blood Glucose 159 Intake and Output for Last 24 Hours 03/13/18 03/14/18 03/15/18 23:59 23:59 23:59 Intake Total 820 / 820 300 / 300 Output Total 4500 / 4500 950 / 950 Balance -3680 / -3680 -650 / -650 Microbiology Past 72 Hours 03/14/18 19:10 Mucosa - Nose Respiratory Panel (PCR) - Final Laboratory Results 03/14/18 10:00: B-Natriuretic Peptide 200.4 H 03/14/18 10:00: Magnesium 1.7 03/14/18 14:20: Lactic Acid 4.4 H* 03/14/18 16:54: POC Glucose 147 H 03/14/18 18:46: Sodium 138, Potassium 2.8 L, Chloride 95 L, Carbon Dioxide 36.0 H, Anion Gap 7, BUN 9, Creatinine 1.00, Estim Creat Clear Calc 85.76, Est GFR (MDRD) Af Amer 99, Est GFR (MDRD) Non-Af 81, BUN/Creatinine Ratio 9.0 L, Glucose 164 H, Calcium 8.3 L 03/14/18 21:01: POC Glucose 190 H 03/15/18 06:10: Sodium 140, Potassium 3.4 L, Chloride 99, Carbon Dioxide 34.0 H, Anion Gap 7, BUN 11, Creatinine 0.91, Estim Creat Clear Calc 94.24, Est GFR (MDRD) Af Amer 110, Est GFR (MDRD) Non-Af 91, BUN/Creatinine Ratio 12.1, Glucose 141 H, Calcium 8.7, Magnesium 2.4, Albumin 2.5 L 03/15/18 06:50: POC Glucose 159 H Current Medications Acetaminophen (Tylenol) 650 mg PO Q4H PRN PRN PRN Reason: PAIN.FEVER Last Admin: 03/15/18 08:43 Dose: 650 mg Albuterol/Ipratropium (Duoneb) 3 ml INHALATION Q6H PRN PRN Reason: SOB &/OR WHEEZING Albuterol/Ipratropium (Duoneb) 3 ml INHALATION Q4H.RT [facility] Last Admin: 03/15/18 11:10 Dose: 3 ml Allopurin[facility] ([facility]oprim) [facility] Last Admin: 03/15/18 08:43 Dose: 100 mg Aspirin (Aspirin, Baby) 81 mg PO DAILY@0800 [facility] Last Admin: 03/15/18 08:43 Dose: 81 mg Calcium Carbonate (Os-Roberto 500) [facility] Last Admin: 03/15/18 08:44 Dose: 500 mg Clopidogrel Bisulfate (Plavix) 75 mg PO DAILY [facility] Last Admin: 03/15/18 08:47 Dose: 75 mg Ergocalciferol (Vitamin D) 50,000 unit PO Howell@1000 [facility] Finasteride (Proscar) 5 mg PO DAILY [facility] Last Admin: 03/15/18 08:47 Dose: 5 mg Fludrocortisone Acetate (Florinef) 0.1 mg PO DAILY [facility] Last Admin: 03/15/18 08:49 Dose: 0.1 mg Furosemide (Lasix) 40 mg IV BID@1000,1800 [facility] Gabapentin (Neurontin) 600 mg PO TID [facility] Last Admin: 03/15/18 05:33 Dose: 600 mg Guaifenesin (Robitussin) 10 ml PO Q6H PRN PRN PRN Reason: COUGH Guaifenesin (Mucinex) 600 mg PO Q12H [facility] Last Admin: 03/15/18 08:48 Dose: 600 mg Levofloxacin (Levaquin Iv) 500 mg in 100 mls @ 100 mls/hr IV Q24H [facility] Last Admin: 03/14/18 17:15 Dose: 100 mls/hr Isosorbide Mononitrate (Imdur) 30 mg PO DAILY [facility] Last Admin: 03/15/18 08:48 Dose: 30 mg Linaclotide (Linzess) 145 mcg PO DAILY@0730 [facility] Last Admin: 03/15/18 06:52 Dose: 145 mcg Lorazepam (Ativan) 1 mg PO QHS PRN PRN PRN Reason: SLEEP Last Admin: 03/15/18 00:22 Dose: 1 mg Magnesium Hydroxide (Milk Of Magnesia) 30 ml PO DAILY PRN PRN PRN Reason: Constipation Methylprednisolone (Solu-Medrol) 40 mg IV Q8 [facility] Last Admin: 03/15/18 05:33 Dose: 40 mg Metoprolol Tartrate (Lopressor (Beta Tyron)) 25 mg PO BID [facility] Last Admin: 03/15/18 08:51 Dose: 25 mg Morphine Sulfate (Ms Contin) 30 mg PO BID [facility] Last Admin: 03/15/18 09:00 Dose: 30 mg Nitroglycerin (Nitrostat) 0.4 mg SUBLINGUAL Q5M PRN PRN Reason: Chest Pain Ondansetron HCl (Zofran Odt) 4 mg PO BID [facility] Last Admin: 03/15/18 08:49 Dose: 4 mg Pantoprazole Sodium (Protonix) 20 mg PO DAILY [facility] Last Admin: 03/15/18 08:47 Dose: 20 mg Potassium Chloride (K-Dur) [facility]q [facility] Pravastatin Sodium (Pravachol) 80 mg PO 2200 [facility] Last Admin: 03/14/18 21:17 Dose: 80 mg Sertraline HCl (Zoloft) 100 mg PO DAILY [facility] Last Admin: 03/15/18 08:49 Dose: 100 mg Sodium Chloride () 5 - 30 ml IV UD PRN PRN Reason: SALINE FLUSH Spironolactone (Aldactone) 25 mg PO BID [facility] Last Admin: 03/15/18 08:47 Dose: 25 mg Tamsulosin HCl (Flomax) 0.[facility] Last Admin: 03/15/18 08:43 Dose: 0.4 mg Tizanidine HCl (Zanaflex) 2 mg PO TID PRN PRN Reason: MUSCLE SPASM Medical Necessity - Tobacco Use Smoking Status: Former smoker Tobacco Use: Non-smoker Assessment/Plan All Active Problems (Last Reviewed 10/26/17 @ 10:26 by Maria Teresa Stewart) Acute and chronic respiratory failure with hypoxia (Acute) COPD with acute exacerbation (Acute) Lactic acidosis (Acute) Acute [place], inferior wall (Acute) Acute inferolateral myocardial infarction (Acute) 57 year old M with multiple comorbidities including COPD on 2 L of oxygen at night, history of CAD status post CABG, stent, DAVION , hypertension, hyperlipidemia, chronic indwelling Goetz catheter of unknown etiology who comes in with complaints of shortness of breath and cough productive of greenish sputum that started 1 day prior to admission. 1. Acute hypoxic respiratory failure secondary to acute COPD exacerbation, possible acute on chronic systolic CHF, EF 55%, on 2 L of oxygen at night, remains on 6 L, will continue same, wean off oxygen 2. Acute COPD exacerbation, doubt pneumonia, repeat x-ray does not confirm pneumonia, will continue with IV Levaquin, IV steroids, breathing treatment as needed 3. Acute on chronic systolic CHF, EF 55%, last 2D echo was in 2017, Bnpep is 200.4, patient is super morbidly obese Diuresed well, will continue on Lasix 40 mg IV twice daily, daily weights, strict I's and O's, CHF protocol 4. Hypokalemia, 3.4 today, will replace, recheck in a.m. 5. Hypomagnesemia, resolved 6. Hypertension, controlled, continue home regimen 7. Gout on allopurinol 8. Chronic indwelling Goetz catheter, unclear reason, will continue same, continue also on Flomax 9. Elevated lactic acid likely related to hypoxia, doubt septic shock, stable 10. Type II DM, on metformin, metformin held, sugars are stable, continue on insulin sliding scale with Accu-Cheks 11. CAD status post stents, status post CABG, on aspirin, Plavix, isosorbide mononitrate, lisinopril, 12. Orthostatic hypotension, on fludrocortisone, continue same 13. Super morbid obesity, BMI 50.5, diet and exercise is recommended 14. Chronic Pain syndrome, on methadone, morphine, gabapentin, will monitor for lethargy 15. DVT PPx -heparin subcu Code Visit Inpatient E&M: 26639 Subs Hosp L2
[2018-03-15] MEDS: 0.9% NaCl Peripheral Flush Adult/Peds IV ×3 (14:17→22:24)
[2018-03-15] MEDS: Furosemide 40 MG/4 ML Vial IV (17:20)
[2018-03-15] MEDS: levoFLOXacin IV 500 MG/100 ML BAG 100 MG IV (22:23)
[2018-03-15] MEDS: Heparin Injection (Vial) 5,000 UNIT/ML VIAL 5000 UNIT SC (22:24)
[2018-03-15] MEDS: Pravastatin 80 MG Tablet PO (22:24)
[2018-03-15 23:16] LABS: Bedside Glucose 192 mg/dL (70-110)
[2018-03-16] VITALS (8 sets, daily range): BP systolic 100–153; BP diastolic 45–67; PULSE 55–68; RESP 16–18; TEMP 36.6–36.7; O2SAT 90–95
[2018-03-16] MEDS: Acetaminophen 325 MG Tablet 650 MG PO (00:12)
[2018-03-16] MEDS: LORazepam 1 MG Tablet PO (00:12)
[2018-03-16] MEDS: Gabapentin 600 MG Tablet PO (05:42)
[2018-03-16] MEDS: Heparin Injection (Vial) 5,000 UNIT/ML VIAL 5000 UNIT SC (05:42)
[2018-03-16] MEDS: tiZANidine HCl 2 MG Tablet PO (05:42)
[2018-03-16] MEDS: 0.9% NaCl Peripheral Flush Adult/Peds IV ×2 (05:42→08:20)
[2018-03-16 06:02] LABS: Absolute Lymphocyte Count 0.76 X10^3/ul (0.83-4.51); Absolute Neutrophil Count 11.8 X10^3/uL (2.0-7.7); Basophil# 0.01 X10^3/uL; Basophil% 0.1 % (0-1); Hematocrit 40.7 % (40-54); Hemoglobin 12.6 g/dl (13.0-16.5); Lymphocyte # 0.76 X10^3/ul (4.0); Lymphocyte % 5.9 % (19-41); Mean Corpuscular Volume 90.4 fL (80-94); Mean Platelet Vol. 9.2 fl (6.2-12.0); Monocyte# 0.31 X10^3/uL; Monocyte% 2.4 % (0-10); Neutrophil # 11.81 X10^3/uL (2.7-7.7); Neutrophil % 91.4 % (47-70); Platelet Count 229 K/mm3 (150-450); RBC Distribution Width CV 13.9 % (11.6-14.6); RBC Distribution Width SD 45.4 fl (35.1-43.9); White Blood Count 12.9 K/mm3 (4.4-11.0)
[2018-03-16 06:03] LABS: POSITIVE COUNT NO; POSITIVE DIFFERENTIAL NO; POSITIVE MORPHOLOGY NO
[2018-03-16 06:28] LABS: Anion Gap 7 (5-15); BUN 18 mg/dL (7-18); BUN/Creat Ratio 20.3 RATIO (10-20); Calcium,Total 8.6 mg/dL (8.5-10.1); Chloride 97 mmol/L (98-107); Creatinine, Serum 0.89 mg/dL (0.70-1.30); EST Glomerular Filtration Rate 94 mL/min (>60); Est Glom Filt Rate - Afr Amer 113 mL/min (>60); Estimated Creatinine Clearance 96.36 ml/min; Glucose 150 mg/dL (74-106); Sodium Level 139 mmol/L (136-145)
[2018-03-16 07:01] LABS: Bedside Glucose 136 mg/dL (70-110)
[2018-03-16] MEDS: Ipratropium/Albuterol Sulfate 3 ML AMPUL.NEB INHALATION ×2 (07:12→10:43)
[2018-03-16] MEDS: Aspirin 81 MG TAB.CHEW PO (08:01)
[2018-03-16] MEDS: Linacolotide 145 MCG CAPSULE PO (08:02)
[2018-03-16] MEDS: Calcium (Elemental) 500 MG Tablet PO (08:02)
[2018-03-16] MEDS: Tamsulosin HCl 0.4 MG Capsule PO (08:03)
[2018-03-16] MEDS: Allopurinol 100 MG Tablet PO (08:03)
[2018-03-16] MEDS: Spironolactone 25 MG Tablet PO (08:04)
[2018-03-16] MEDS: Fludrocortisone Acetate 0.1 MG Tablet PO (08:04)
[2018-03-16] MEDS: Pantoprazole Sodium 20 MG Tablet PO (08:04)
[2018-03-16] MEDS: Finasteride 5 MG Tablet PO (08:05)
[2018-03-16] MEDS: guaiFENesin 600 MG Tablet PO (08:05)
[2018-03-16] MEDS: Metoprolol Tartrate 25 MG Tablet PO (08:05)
[2018-03-16] MEDS: Furosemide 40 MG/4 ML Vial IV (08:06)
[2018-03-16] MEDS: Isosorbide Mononitrate 30 MG Tablet PO (08:06)
[2018-03-16] MEDS: Ondansetron ODT 4 MG Tablet PO (08:07)
[2018-03-16] MEDS: Clopidogrel Bisulfate 75 MG Tablet PO (08:07)
[2018-03-16] MEDS: Sertraline 100 MG Tablet PO (08:07)
--- NOTE | 2018-03-16 11:32 | CPS ---
Nurse made me aware that pt. is weaning down oxygen, per order from physician. Weaned from 6L to 4L and then to 2L before entering the room. Pulse ox check at 2L was 90%. Around 11:12 pt. was took off oxygen nurse made me aware again of change
[2018-03-16 11:35] LABS: Bedside Glucose 240 mg/dL (70-110)
--- NOTE | 2018-03-16 12:22 | NURSING ---
gradually weaned o2 current pulse ox 89% on ra dr martinez notified
--- NOTE | 2018-03-16 12:40 | PCM.TXEXTCAR ---
- Diet 03/14/18 15:03 Diabetic [Diet: Calorie Controlled] Is pt able to select menu?: Yes How many daily calories?: 1800 calorie - Routine Orders/Code Status O2 Liters per Minute: 0-2L especially at night O2 Frequency: Continuous Keep PO Greater than or Equal to (%): 94 Routine Lab Work: CBC - within 3 days, BMP - within 3 days - Wound(s) Right inner thigh Wound Type: Area of concern-no visible open wound Coccyx Wound Type: No visible wound - Therapies Weight Bearing: Weight bearing as tolerated Physical Therapy: Eval and Treat Occupational Therapy: Eval and Treat Speech Therapy: Eval and Treat - Problem/Diagnosis (1) Acute and chronic respiratory failure with hypoxia Status: Acute Current Visit: Yes (2) COPD with acute exacerbation Status: Acute Current Visit: Yes (3) Lactic acidosis Status: Acute Current Visit: Yes (4) Hypertension Status: Chronic Current Visit: No (5) Hyperlipidemia Status: Chronic Current Visit: No (6) COPD (chronic obstructive pulmonary disease) Status: Chronic Current Visit: No (7) Tobacco use disorder Status: Chronic Current Visit: No (8) Morbid obesity Status: Chronic Current Visit: No - Allergies/Procedures Done in Hospital Allergies/Adverse Reactions: Allergies rofecoxib Adverse Reaction (Unknown, Verified 03/14/18 09:49) Unknown Procedures: None - Type of Care/Length of Stay Estimated LOS: More Than 30 Days Type of Care Needed: Intermediate Rehab Potential: Fair Prognosis: Fair - Additional Orders/Day of Discharge Additional Orders: Daily weights, low salt diet, fluid restriction to 1800mls. Encourage use of incentive spirometer Day of Discharge: 03/16/18 - Dietary and Speech Recommendations Dietitian Recommendations/Changes: Rec diet change to 1800 calorie controlled, cardiac, low sodium. Rec outpatient wt loss program if pt interested. - Follow Up Care Primary Care Physician: Nas Cadena [Primary Care Provider] - Please follow up with your Primary Care Physician in: within 2 weeks
--- NOTE | 2018-03-16 12:51 | PCM.DC.SUM ---
Discharge Date and Diagnosis Date of Admission: 03/14/18 Date of Discharge: 03/16/18 - Primary Discharge Diagnosis Active and Suspected Problems (Last Reviewed 10/26/17 @ 10:26 by Maria Teresa Stewart) Acute and chronic respiratory failure with hypoxia (Acute) COPD with acute exacerbation (Acute) Lactic acidosis (Acute) Acute COPD exacerbation Acute on chronic systolic CHF - Secondary Discharge Diagnosis Chronic Problems (Last Reviewed 10/26/17 @ 10:26 by Maria Teresa Stewart) Presence of stent in coronary artery (Chronic) PTCA/BSM of Mid CX and PTCA of OM2 08/31/06; PTCA/PELON of the mid RCA 08/06/10; Thrombectomy and angioplasty of the pre existing stent of the mid LCX 02/18/13 Hypertension (Chronic) Hyperlipidemia (Chronic) Atherosclerotic heart disease of [place] coronary artery without angina pectoris (Chronic) PTCA/BSM of Mid CX and PTCA of OM2 08/31/06; PTCA/PELON of the mid RCA 08/06/10; Thrombectomy and angioplasty of the pre existing stent of the mid LCX 02/18/13 COPD (chronic obstructive pulmonary disease) (Chronic) Tobacco use disorder (Chronic) Morbid obesity (Chronic) Hospital Course and Treatment Imaging Results: Clinical Impression(s) from Imaging Studies Chest X-Ray 03/14/18 11:00 IMPRESSION: Master congestion. Increased markings at the lung bases with areas of confluence suggestive of a mild degree of CHF with bibasilar atelectasis. Electronically Signed: Howie Dong MD at 11:15 EDT Tel [phone], Service support , Chest X-Ray 03/15/18 05:55 IMPRESSION: Findings in keeping with a mild degree of CHF with bibasilar atelectasis. This is essentially unchanged. A rounded soft tissue density seen in the medial aspect of the right midlung suggestive of a possible loculated fluid in the right major fissure. Follow-up is recommended. Electronically Signed: Howie Dong MD at 9:35 EDT Tel [phone], Service support , None Operations: None Procedures: None Summary of Care Provided: 57 year old M with multiple comorbidities including COPD on 2 L of oxygen at night, history of CAD status post CABG, stent, DAVION , hypertension, hyperlipidemia, chronic indwelling Goetz catheter of unknown etiology who comes in with complaints of shortness of breath and cough productive of greenish sputum that started 1 day prior to admission. His management was as follows: 1. Acute hypoxic respiratory failure secondary to acute COPD exacerbation, possible acute on chronic systolic CHF, EF 55%, on 2 L of oxygen at night, resolved with diuresis, IV steroids and breathing treatments. 2. Acute COPD exacerbation, no HCAP seen on chest x-ray x 2, managed on IV Levaquin, and discharged to complete 5 days total antibiotic 3. Acute on chronic systolic CHF, EF 55%, last 2D echo was in 2017, Bnpep is 200.4, patient is super morbidly obese, diuresed well on IV Lasix, discharged on Bumex 2 mg p.o. twice daily, will need to continue daily weights, strict I's and O's, CHF protocol 4. Hypokalemia, resolved with replacement. 5. Hypomagnesemia, resolved Subjective: Patient was seen and examined. He feels better. No more SOB, chest pain or fever or chills. Diuresing very well. Patient had progressively improved to room air, saturating at 89% Objective: Physical Exam General: Alert, Oriented x3, Cooperative, No apparent distress, on room air, saturating well HEENT: Atraumatic, PERRLA, EOMI, Normocephalic Oral: Moist Mucosa Neck: Supple, No JVD, Negative Carotid Bruits Lungs: Normal air movement, Diminished, Wheezes Cardiovascular: Regular rate, Regular Rhythm, Normal S1, Normal S2 Abdomen: Bowel Sounds Present, Soft, Non Tender, Non-Distended, No Hepato-splenomegaly, - - Goetz catheter in situ, tubing appears dirty Extremities: No edema Skin: No rashes, No breakdown Musculoskeletal: No Tenderness to Palpation of Joints or Extremities Lymphatic: No Cervical, Supraclavicular, or Inguinal Adenopathy Neurological: Cranial nerves II-XII grossly intact, Neuro grossly intact Psych/Mental Status: Normal Affect, Appropriate - Physical Exam Vital Signs Temp Pulse Resp BP Pulse Ox 98.1 F 61 18 153/59 H 90 03/16/18 10:00 03/16/18 10:43 03/16/18 10:43 03/16/18 10:00 03/16/18 10:43 Oxygen Flow Rate (L/min) 2 Oxygen Delivery Method Nasal Cannula Weight: 164.2 kg Body Mass Index (BMI) 50.5 Finger Stick Blood Glucose 159 Intake and Output for Last 24 Hours 03/14/18 03/15/18 03/16/18 23:59 23:59 23:59 Intake Total 820 / 820 1478 / 1478 500 / 500 Output Total 4500 / 4500 3450 / 3450 2750 / 2750 Balance -3680 / -3680 -1972 / -1971 -2250 / -2250 Microbiology Past 72 Hours 03/14/18 19:10 Respiratory Panel (PCR) - Final Mucosa - Nose Laboratory Tests Past 24 Hrs 03/16/18 03/16/18 05:40 05:40 WBC 12.9 H RBC 4.50 L Hgb 12.6 L Hct 40.7 MCV 90.4 MCH 28.0 MCHC 31.0 L RDW 13.9 RDW Differential 45.4 H Plt Count 229 MPV 9.2 Immature Gran % (Auto) 0.200 Neut % (Auto) 91.4 H Lymph % (Auto) 5.9 L [place] % (Auto) 2.4 Eos % (Auto) 0.0 Baso % (Auto) 0.1 Absolute Neuts (auto) 11.8 H Absolute Lymphs (auto) 0.76 L Total Counted Not Reportable Sodium 139 Potassium 4.0 Chloride 97 L Carbon Dioxide 35.0 H Anion Gap 7 BUN 18 Creatinine 0.89 Estim Creat Clear Calc 96.36 Est GFR (MDRD) Af Amer 113 Est GFR (MDRD) Non-Af 94 BUN/Creatinine Ratio 20.3 H Glucose 150 H Calcium 8.6 POC Glucose 03/16/18 03/16/18 03/15/18 11:23 06:46 22:06 POC Glucose 240 H 136 H 192 H Discharge Diet: Low fat/ Low Cholesterol, 6 Cup Fluid Restriction, 2000 mg Sodium Diet Home Medications: Medications to take at Discharge Clopidogrel Bisulfate [Plavix] 75 mg PO DAILY 02/11/13 Isosorbide Mononitrate [Imdur] 30 mg PO DAILY 02/11/13 Nitroglycerin [Nitrostat] 0.4 mg SUBLINGUAL Q5M PRN 02/11/13 Albuterol Inhaler [Ventolin Hfa] 2 puff INHALATION Q4H PRN PRN 09/07/13 Gabapentin 600 mg PO TID 12/20/13 Sertraline HCl [Zoloft] 100 mg PO DAILY 03/06/14 Ipratropium/Albuterol Sulfate [Duoneb] 3 ml INHALATION BID 12/20/15 Metoprolol Tartrate [Lopressor (beta mike)] 25 mg PO BID 12/20/15 Lisinopril [Zestril] 5 mg PO DAILY 12/28/16 Methadone HCl 10 mg PO Q8H 12/28/16 Ondansetron HCl [Zofran] 4 mg PO BID 12/28/16 Acetaminophen [Tylenol] 650 mg PO Q4H PRN PRN 05/17/17 Allopurinol 100 mg PO DAILY 05/17/17 Aspirin [Aspirin, Baby] 81 mg PO DAILY@0800 05/17/17 Loratadine 10 mg PO DAILY 05/17/17 Lorazepam [Ativan] 1 mg PO QHS PRN PRN 05/17/17 Oxycodone [Oxyir] 5 mg PO BID 05/17/17 cholecalciferol (vitamin D3) 50,000 unit capsule 50,000 unit PO TOBAR 10/26/17 finasteride 5 mg tablet 5 mg PO QDAY 10/26/17 fludrocortisone 0.1 mg tablet 0.1 mg PO QDAY 10/26/17 guaifenesin ER 600 mg tablet, extended release 12 hr 600 mg PO Q12H 10/26/17 ipratropium-albuterol 0.5 mg-3 mg(2.5 mg base)/3 mL nebulization soln 3 ml INHALATION Q6H PRN 10/26/17 metformin 500 mg tablet 500 mg PO BID 10/26/17 morphine 30 mg immediate release tablet 30 mg PO BID tab 10/26/17 omeprazole 20 mg capsule,delayed release 20 mg PO QDAY cap 10/26/17 sodium chloride 1 gram tablet 1 tab PO QDAY tab 10/26/17 tizanidine 2 mg tablet 2 mg PO TID PRN 10/26/17 Calcium Carbonate [Calcium] 500 mg PO BID 03/14/18 Ciprofloxacin 0.3% [Ciloxan] 4 drop EACH EAR BID 03/14/18 Diclofenac Sodium [Voltaren] 1 applic TOPICAL BID 03/14/18 Fluticasone 0.05% [Flonase Nasal [place]] 2 spray NASAL DAILY 03/14/18 Fluticasone/Vilanterol [Breo Ellipta 100-25 Mcg INH] 1 each IH DAILY 03/14/18 Guaifenesin [Cough Syrup] 10 ml PO Q6H PRN PRN 03/14/18 Linacolotide [Linzess] 145 mcg PO DAILY 03/14/18 Magnesium Hydroxide [Milk Of Magnesia] 30 ml PO DAILY PRN PRN 03/14/18 Potassium Chloride 10 meq PO DAILY 03/14/18 Pravastatin [Pravachol] 80 mg PO DAILY 03/14/18 Spironolactone [Aldactone] 25 mg PO BID 03/14/18 Tamsulosin HCl 0.4 mg PO BID 03/14/18 Bumetanide [Bumex] 2 mg PO BID #60 tablet 03/16/18 Prednisone 10 mg PO UD #30 tablet 03/16/18 Following Prescrptions Were Given to Patient: Prednisone 10 mg PO UD #30 tablet Bumetanide [Bumex] 2 mg PO BID #60 tablet Primary Care Physician: Nas Cadena [Primary Care Provider] - Please follow up with your Primary Care Physician in: within 2 weeks Disposition: [facility] facility Minutes spent on discharge:: 45 Patient Condition:: Stable Medical Necessity - Tobacco Use Smoking Status: Former smoker Tobacco Use: Non-smoker Meaningful Use Info Meaningful Use Diagnoses (Choose all that apply): CHF - CHF SVETA/ARB ordered at discharge?: Yes Documented LVEF (%): 55 Code Visit Inpatient E&M: 97862 Disch Hosp
--- NOTE | 2018-03-16 13:06 | NURSING ---
report called to lavelle @[facility] for transfer back
== END 2018-03-16 14:00 | disposition intermediate care facility (04) | DRG 133 ==
LOC: ED 10:49 → PCU 11:50
PROVIDERS: Admitting Provider Internal Medicine; Emergency Provider Emergency Medicine; Family Provider Family Medicine; PCP Family Medicine; Visit Provider Internal Medicine
DX: J96.21 Acute and chronic respiratory failure with hypoxia (principal); Z99.81 Dependence on supplemental oxygen; J44.1 Chronic obstructive pulmonary disease with (acute) exacerbation; I11.0 Hypertensive heart disease with heart failure; I50.23 Acute on chronic systolic (congestive) heart failure; E66.01 Morbid (severe) obesity due to excess calories; Z68.43 Body mass index [BMI] 50.0-59.9, adult; E83.42 Hypomagnesemia; E87.2 Acidosis; E87.6 Hypokalemia; E11.9 Type 2 diabetes mellitus without complications; M10.9 Gout, unspecified; G89.4 Chronic pain syndrome; I25.10 Atherosclerotic heart disease of native coronary artery without angina pectoris; Z95.5 Presence of coronary angioplasty implant and graft; Z79.891 Long term (current) use of opiate analgesic; E78.5 Hyperlipidemia, unspecified; Z95.1 Presence of aortocoronary bypass graft; G47.33 Obstructive sleep apnea (adult) (pediatric); Z79.84 Long term (current) use of oral hypoglycemic drugs; Z87.891 Personal history of nicotine dependence; I95.1 Orthostatic hypotension
CPT/HCPCS: 36415; 36600; 71045; 80048; 82040; 82803; 82962; 83605; 83735; 83880; 85025; 87040; 87633; 93005; 94640; 97162; 97165; 99285; 99406; J7040; J7050; A4216; J1940

== ENCOUNTER 2018-07-09 21:13 | Inpatient (IN) | payer MEDICAID, SELFPAY ==
[2018-04-23 10:14] VITALS: BMI 47.1
[2018-07-09 21:14] VITALS: BP 102/55; PULSE 52; RESP 18; TEMP 36.6; O2SAT 91; BMI 47.7
--- NOTE | 2018-07-09 21:26 | EKG12_ITS ---
Test Reason : SOB Blood Pressure : / mmHG Vent. Rate : 049 BPM Atrial Rate : 049 BPM P-R Int : 148 ms QRS Dur : 092 ms QT Int : 486 ms P-R-T Axes : 055 055 035 degrees QTc Int : 439 ms Sinus bradycardia Otherwise normal ECG Confirmed by RAJ FRAZIER, MARIA ISABEL ([id number]), editor managing newspaper FABI GHOTRA ([id number]) on 07/11/2018 10:08:35 AM Referred By: JHONNY Confirmed By:MARIA ISABEL ANTHONY MD
--- NOTE | 2018-07-09 21:40 | RAD_ITS ---
STUDY: X-RAY CHEST REASON FOR EXAM: Male, 57 years old. Confusion TECHNIQUE: Single frontal view of the chest. COMPARISON: March 15, 2018 FINDINGS: Mild edema. There is no demonstrated pleural abnormality. Mild cardiomegaly. Normal mediastinum and liban. Normal visualized pulmonary arteries. Normal visualized aortic arch and descending thoracic aorta. Normal visualized thoracic spine. Normal visualized ribs, clavicles, and shoulders. There is no demonstrated abnormality of the visualized soft tissue structures of the upper abdomen. RAD/Chest 1 View (Portable) IMPRESSION: Mild CHF Electronically Signed: Juan C Trinidad MD at 22:18 EST , Service support ,
[2018-07-09 21:46] LABS: Allen Test POS; Base Excess 5 mmol/L (-2 to +2); Bicarbonate 30.8 mmol/L (22-26); Blood Gas Specimen Type ART; O2 Delivery Device Nasal Can; PO2 82 mmHG (75-100); SITE R Radial; SO2 95 % (95-99); Total Carbon Dioxide 32 mmol/L; pCO2 54.9 mmHg (35-45); pH 7.36 (7.35-7.45)
[2018-07-09 22:00] LABS: Anion Gap 7 (5-15); BUN 51 mg/dL (7-18); BUN/Creat Ratio 32.3 RATIO (10-20); Calcium,Total 8.3 mg/dL (8.5-10.1); Chloride 97 mmol/L (98-107); Creatinine, Serum 1.58 mg/dL (0.70-1.30); EST Glomerular Filtration Rate 48 mL/min (>60); Est Glom Filt Rate - Afr Amer 58 mL/min (>60); Estimated Creatinine Clearance 52.62 ml/min; Glucose 105 mg/dL (74-106); Potassium 4.3 mmol/L (3.5-5.1); Sodium Level 133 mmol/L (136-145)
[2018-07-09 22:06] LABS: Absolute Lymphocyte Count 0.83 X10^3/ul (0.83-4.51); Absolute Neutrophil Count 4.9 X10^3/uL (2.0-7.7); Basophil# 0.02 X10^3/uL; Basophil% 0.3 % (0-1); Eosinophil# 0.02 X10^3/uL; Eosinophils% 0.3 % (0-5); Hematocrit 34.5 % (40-54); Lymphocyte # 0.83 X10^3/ul (4.0); Lymphocyte % 13.8 % (19-41); Mean Corp Hgb Conc 31.9 g/gl (32-36); Mean Corpuscular Hgb 27.8 pg (27.0-32.0); Mean Corpuscular Volume 87.1 fL (80-94); Mean Platelet Vol. 9.2 fl (6.2-12.0); Monocyte# 0.24 X10^3/uL; Neutrophil % 81.3 % (47-70); Platelet Count 155 K/mm3 (150-450); RBC Distribution Width CV 14.1 % (11.6-14.6); RBC Distribution Width SD 44.2 fl (35.1-43.9); Red Blood Count 3.96 M/mm3 (4.6-6.2)
[2018-07-09 22:07] LABS: POSITIVE COUNT NO; POSITIVE DIFFERENTIAL NO; POSITIVE MORPHOLOGY NO
[2018-07-09 22:16] VITALS: BP 111/65; PULSE 52; RESP 16; TEMP 36.6; O2SAT 94
[2018-07-09 22:25] LABS: Lactic Acid 1.1 mmol/L (0.4-2.0)
--- NOTE | 2018-07-09 22:45 | ED.VIS.GEN ---
History of Present Illness Chief Complaint: General Illness Detail of Chief Complaint: Not feeling well and confusion Informant: Patient, Family, Desktop Publisher, SNF Onset: Days Context: Gradual Onset Timing: Continuous, Intermittent, - - Not feeling well has been since Monday. Confusion was noted today by family and nursing staff. Also had systolic blood pressure of 80 at the [facility]. Quality: Generalized vague symptoms Location: Nursing facility Current Severity: Mild Maximum Severity: Moderate Worsened by: Unknown Relieved by: Nothing Associated Symptoms: Cough slightly productive Narrative: Patient is a middle-aged male with multiple medical problems which include coronary disease with multiple stents, congestive heart failure, obstructive sleep apnea, COPD, acute on chronic CO2 retention and hypoxia requiring oxygen at 3 L, diabetes type 2, hypertension, hypercholesterolemia. He presents with not feeling well since Monday. Today he was noted to be confused. He has really no complaints other than I do not feel well and cough. He was unaware that he was confused. He resides at a [facility]. He states he is unable to ambulate. He is not a good informant. Prior similar symptoms: Yes Recent Illness/Hospitalization: No Past Medical History - Allergies and Home Meds Allergies/Adverse Reactions: Allergies rofecoxib Adverse Reaction (Unknown, Verified 04/23/18 10:14) Unknown Primary Care Physician: Dav Wright,Out of [Primary Care Provider] - Past Medical History: - - Coronary disease, congestive heart failure, hypertension, hypercholesterolemia, type 2 diabetes, respiratory failure with chronic hypercapnia and hypoxia, inability to ambulate Surgical History: - - Thyroidectomy, septoplasty, cardiac stents x4 2007, hernia repair 2013 Lives: Jail Smoking Status: Former smoker - Family History Sibling Family History: Family History (Last Reviewed 04/23/18 @ 10:24 by Maria Teresa Stewart) Father Myocardial infarction, Onset Age: 39 Brother Hypertension Uncle CAD (coronary artery disease) Uncle Myocardial infarction Family History: Reports: Hypertension Maternal Family History: Family History (Last Reviewed 04/23/18 @ 10:24 by Maria Teresa Stewart) Father Myocardial infarction, Onset Age: 39 Brother Hypertension Uncle CAD (coronary artery disease) Uncle Myocardial infarction Family History: Reports: Cancer - skin CA Paternal Family History: Family History (Last Reviewed 04/23/18 @ 10:24 by Maria Teresa Stewart) Father Myocardial infarction, Onset Age: 39 Brother Hypertension Uncle CAD (coronary artery disease) Uncle Myocardial infarction Family History: Reports: Heart Disease Review of Systems ROS: Unable to Obtain General: Reports: Malaise Respiratory: Reports: Dyspnea, Cough, Sputum Neurological: Reports: Weakness Psych: Reports: Depression Hematologic: Denies: Easy bruising Allergy: Denies: Uticaria, Swelling of the mouth, Swelling of the tongue Physical Exam Vital Signs/Narrative: Vital Signs Temp Pulse Resp BP Pulse Ox 07/09/18 22:16 97.8 F 52 L 16 111/65 94 07/09/18 21:14 97.9 F 52 L 18 102/55 L 91 Inital Vital Signs reviewed: Yes General: Well nourished, Well developed, Obese, Unkempt Head: Normocephalic, Atraumatic Eyes: Perrl, EOMI, Pale conjunctiva. Negative for: Scleral icterus ENT: Moist mucous membranes, No rhinorrhea, TM's clear, Nasal congestion, Sinus tenderness Neck: Supple, Nontender, No lymphadenopathy Cardiovascular: Regular rhythm, No murmurs, Normal S1, Normal S2, Bradycardia Respiratory: CTA bilaterally - End inspiratory rales consistent with COPD, Decreased Air Movement. Negative for: No distress, Rhonchi, Wheezing, Chest tenderness Abdomen: Soft, Nontender, Nondistended, Normal bowel sounds Back: Nontender Extremities: Nontender, Edema. Negative for: Calf Tenderness Skin: No rash, Pallor. Negative for: Cyanosis, Jaundice Neurological: Alert, Cranial nerves II-XII grossly intact, Normal Strength - Upper extremities. Bilateral weakness lower extremities, chronic, Confused. Negative for: Oriented x3, Normal Gait Psychological: Normal affect Diagnostic/Tx/Re-eval Chest X-Ray - ED: 1 View, Read by ED Physician, Cardiomegaly, CHF ABG reveals a pH 7.36, PCO2 of 54.9, PaO2 of 82 bicarb of 31 with an O2 saturation 93% on 5 L by nasal cannula. This is consistent with chronic CO2 retention and chronic hypoxia. Creatinine was 0.89 March 16, 2018. Today the creatinine is 1.58. Troponin is normal. Lactate is normal. BNP was added. - EKG Initial EKG Interpretation: Sinus Rhythm - Ventricular rate 49 with a normal [place] interval, Q jain and QT interval. [place] is normal. There is no ischemic changes noted. - Medical Decision Making To evaluate patient's hypoxia and confusion will obtain ABG to determine if patient is retaining CO2. Chest x-ray was obtained in light of history of CHF and COPD with end inspiratory rales. Patient appears pale will obtain a CBC with differential to assess H&H as well as white count and differential. Since patient is hypotensive we will obtain electrolytes to assess renal function and to assess electrolytes since he complains of vague symptoms. Because patient became hypotensive after 500 cc bolus and x-ray reveals CHF contacted Dr. Robert regarding treatment with dopamine since he is bradycardic. He requested not to initiate dopamine. He agrees with not treating with Lasix even though clinically patient is fluid overloaded. Agrees with placement and stepdown unit for close monitoring. - Critical Care Time Critical care time (excluding procedures): 30-74 minutes, Discussing w/Patient &/or Family/Endoscopy Support Specialist, Discussing w/Consultants ED Disposition - Plan for ED Patient: Disposition: Acute Care Hospital [facility] Diagnosis: Hypotension arterial, Acute exacerbation of congestive heart failure, Acute kidney injury, Respiratory failure with hypoxia and hypercapnia Referrals: [facility] Doctor,Out of [Primary Care Provider] -
--- NOTE | 2018-07-09 22:48 | HP.PCM_ITS ---
Problem List (1) Acute encephalopathy Status: Acute (2) Heart failure Status: Acute History of Present Illness Date of Admission: 07/09/18 Chief Complaint: confusion and hypotension The patient is a 57 year old M who lives at a correction in for a significant history of CAD status post stent; his COPD on chronic oxygen therapy; hypertension; hyperlipidemia; morbid obesity with metabolic syndrome; obstructive sleep apnea; chronic pain on multiple pain medications; and restless leg syndrome who presented to the emergency department with a 1 week history of confusion and hypotension. His family reported that patient has been talking weird. Emergency department doctor reported that the patient's heart rate was in the emergency department was in the 40s and his systolic blood pressure was in the 80s for which reason patient received IV bolus of normal saline. ABG showed PO2 of 82+ patient was on 5 L. PCO2 was 54.9. Case was discussed with cardiology Dr. Robert and a decision was made to get a BNP and to admit patient to PCU stepdown unit. Because of low blood pressure patient did not get Lasix at the ED but rather was given IV fluid bolus. The patient is a 57 year old M who lives at a correction in for a significant history of CAD status post stent; his COPD on chronic oxygen therapy; hypertension; hyperlipidemia; morbid obesity with metabolic syndrome; obstructive sleep apnea; chronic pain on multiple pain medications; and restless leg syndrome who presented to the emergency department with a 1 week history of confusion and hypotension and found to have bilateral opacities on chest x-ray; severely elevated creatinine; bradycardia and hypotension. Probable exacerbation of heart failure with preserved ejection fraction. From review of old records: Echocardiogram on 11/03/2017 showed a left ventricular ejection fraction of 65%. Because of body habitus the exams was of poor technical quality. BNP is pending. Will order echocardiogram. Discussed putting patient on a BiPAP but he declined stating that in the past and has not been able to tolerate BiPAP. We discussed the case with cardiology. Acute encephalopathy Diagnosis diagnosis include encephalopathy from multiple sedating pain medication; heart failure; or metabolic derangements. Notably his BUN is elevated and cannot rule out encephalopathy from uremia. We will obtain a TSH; and vitamin B12 Trend BMP. AK I On admission his creatinine was 1.58 Review of old records shows baseline creatinine of around 1 Likely prerenal or intrinsic renal from cardiorenal syndrome. Management of heart failure as above Trend BMP. Avoid nephrotoxins. Anemia On presentation his hemoglobin was 11.0. Review of old records shows baseline hemoglobin around 13.5-14.5. We will get iron studies including ferritin. Vitamin B12 ordered. TSH ordered. Hyponatremia On presentation his sodium was 133. Review of old records shows pretty much a normal sodium. On home sodium will hold because of CHF. Chronic pain Patient reports chronic pain in the right hip. On home methadone; morphine; oxycodone; gabapentin and tizanidine. Would hold metformin, oxycodone. Tizanidine. We will reduce the dose of methadone at this time. We will reduce gabapentin dose especially as patient has VARSHA. Titrate pain medication as necessary. Diabetes mellitus On presentation blood glucose was within goal. Since it is too early in admission we will hold home metformin. Placed on correction scale insulin. Prophylaxis Subcutaneous heparin Past Medical History Past Medical History (Chronic Problems): Chronic Problems (Last Reviewed 07/09/18 @ 23:48 by Mick Choi MD) Acute exacerbation of congestive heart failure (Chronic) Presence of stent in coronary artery (Chronic) PTCA/BSM of Mid CX and PTCA of OM2 08/31/06; PTCA/PELON of the mid RCA 08/06/10; Thrombectomy and angioplasty of the pre existing stent of the mid LCX 02/18/13 Hypertension (Chronic) Hyperlipidemia (Chronic) Atherosclerotic heart disease of nikolai coronary artery without angina pectoris (Chronic) PTCA/BSM of Mid CX and PTCA of OM2 08/31/06; PTCA/PELON of the mid RCA 08/06/10; Thrombectomy and angioplasty of the pre existing stent of the mid LCX 02/18/13 COPD (chronic obstructive pulmonary disease) (Chronic) Tobacco use disorder (Chronic) Morbid obesity (Chronic) Medical History: Medical History (Last Reviewed 07/09/18 @ 23:48 by Mick Choi MD) Acute VT, inferior wall (Acute) I21.19 Acute inferolateral myocardial infarction (Acute) I21.19 Hypertension (Chronic) I10 Hyperlipidemia (Chronic) E78.5 Atherosclerotic heart disease of nikolai coronary artery without angina pectoris (Chronic) I25.10 PTCA/BSM of Mid CX and PTCA of OM2 08/31/06; PTCA/PELON of the mid RCA 08/06/10; Thrombectomy and angioplasty of the pre existing stent of the mid LCX 02/18/13 COPD (chronic obstructive pulmonary disease) (Chronic) J44.9 Tobacco use disorder (Chronic) F17.200 Morbid obesity (Chronic) E66.01 DDD (degenerative disc disease) Metabolic syndrome E88.81 DAVION (obstructive sleep apnea) G47.33 RLS (restless legs syndrome) G25.81 Open breast wound (Inactive) S21.009A Pure hypercholesterolemia (Inactive) E78.00 Respiratory failure with hypoxia and hypercapnia (Inactive) J96.91, J96.92 UTI (urinary tract infection) (Inactive) N39.0 Allergies rofecoxib Adverse Reaction (Unknown, Verified 04/23/18 10:14) Unknown Home Medications: Ambulatory Orders Medication Instructions Recorded Clopidogrel Bisulfate [Plavix] 75 mg PO DAILY 02/11/13 Isosorbide Mononitrate [Imdur] 30 mg PO DAILY 02/11/13 Nitroglycerin [Nitrostat] 0.4 mg SUBLINGUAL Q5M PRN 02/11/13 Gabapentin 600 mg PO TID 12/20/13 Sertraline HCl [Zoloft] 100 mg PO DAILY 03/06/14 Ipratropium/Albuterol Sulfate 3 ml INHALATION BID 12/20/15 [Duoneb] Lisinopril [Zestril] 5 mg PO DAILY 12/28/16 Methadone HCl 10 mg PO Q8H 12/28/16 Ondansetron HCl [Zofran] 4 mg PO BID 12/28/16 Acetaminophen [Tylenol] 650 mg PO Q4H PRN PRN 05/17/17 Allopurinol 100 mg PO DAILY 05/17/17 Aspirin [Aspirin, Baby] 81 mg PO DAILY@0800 05/17/17 Loratadine 10 mg PO DAILY 05/17/17 Lorazepam [Ativan] 1 mg PO QHS PRN PRN 05/17/17 Oxycodone [Oxyir] 5 mg PO BID 05/17/17 finasteride 5 mg tablet 5 mg PO QDAY 10/26/17 fludrocortisone 0.1 mg tablet 0.1 mg PO QDAY 10/26/17 ipratropium-albuterol 0.5 mg-3 3 ml INHALATION Q6H PRN 10/26/17 mg(2.5 mg base)/3 mL nebulization soln morphine 30 mg immediate release 30 mg PO BID tab 10/26/17 tablet omeprazole 20 mg capsule,delayed 20 mg PO QDAY cap 10/26/17 release sodium chloride 1 gram tablet 1 tab PO QDAY tab 10/26/17 tizanidine 2 mg tablet 2 mg PO TID PRN 10/26/17 Fluticasone 0.05% [Flonase Nasal 2 spray NASAL DAILY 03/14/18 [place]] Guaifenesin [Cough Syrup] 10 ml PO Q6H PRN PRN 03/14/18 Linacolotide [Linzess] 145 mcg PO DAILY 03/14/18 Magnesium Hydroxide [Milk Of 30 ml PO DAILY PRN PRN 03/14/18 Magnesia] Potassium Chloride 10 meq PO DAILY 03/14/18 Pravastatin [Pravachol] 80 mg PO DAILY 03/14/18 Spironolactone [Aldactone] 25 mg PO BID 03/14/18 Bumetanide [Bumex] 2 mg PO BID #60 tab 03/16/18 fluticasone 100 mcg-vilanterol 25 1 inh INHALATION DAILY 04/23/18 mcg/dose powder for inhalation metformin 500 mg tablet 1,000 mg PO BID tab 04/23/18 metoprolol tartrate 25 mg tablet 25 mg PO BID 04/23/18 tamsulosin 0.4 mg capsule 0.4 mg PO BID cap 04/23/18 Albuterol Inhaler [Ventolin Hfa 1 puff INHALATION Q4H PRN PRN 07/09/18 (SP)] Ergocalciferol [Vitamin D] 50,000 unit PO Q7D 07/09/18 Surgical History: Surgical History (Last Reviewed 07/09/18 @ 23:48 by Mick Choi MD) Presence of stent in coronary artery (Chronic) Z95.5 PTCA/BSM of Mid CX and PTCA of OM2 08/31/06; PTCA/PELON of the mid RCA 08/06/10; Thrombectomy and angioplasty of the pre existing stent of the mid LCX 02/18/13 Postsurgical percutaneous transluminal coronary angioplasty (PTCA) status Z98.61 PTCA/BSM of Mid CX and PTCA of OM2 08/31/06; PTCA/PELON of the mid RCA 08/06/10; Thrombectomy and angioplasty of the pre existing stent of the mid LCX 02/18/13 History of inguinal hernia repair Z98.890, Z87.19 History of tonsillectomy Z90.89 Surgical History: - - Thyroidectomy, septoplasty, cardiac stents x4 2007, hernia repair 2012 Psychiatric History: No pertinent psych hx Lives: Group Home Smoking Status: Former smoker - *Family History Sibling Family History: Family History (Last Reviewed 07/09/18 @ 23:48 by Mick Choi MD) Father Myocardial infarction, Onset Age: 39 Brother Hypertension Uncle CAD (coronary artery disease) Uncle Myocardial infarction History Items: Hypertension Maternal Family History: Family History (Last Reviewed 07/09/18 @ 23:48 by Mick Choi MD) Father Myocardial infarction, Onset Age: 39 Brother Hypertension Uncle CAD (coronary artery disease) Uncle Myocardial infarction History Items: Cancer - skin CA Paternal Family History: Family History (Last Reviewed 07/09/18 @ 23:48 by Mick Choi MD) Father Myocardial infarction, Onset Age: 39 Brother Hypertension Uncle CAD (coronary artery disease) Uncle Myocardial infarction History Items: Heart Disease Review of Systems Constitutional: Denies: Chills, Fever HEENT: Denies: Head Aches, Sinus Congestion, Sinus Drainage Cardiovascular: Denies: Chest Pain, Palpitations Respiratory: Reports: Cough, Sputum production Gastrointestinal: Denies: Abdominal Pain, Nausea, Vomiting Genitourinary: Denies: Dysuria Musculoskeletal: Denies: Joint Pain, Joint Tenderness Skin: Denies: Rash, Wounds Neurological: Denies: Numbness, Tingling, Focal weakness Psychiatric: Denies: Anxiety, Depression, Homicidal Ideations, Suicidal Ideations Hematologic/ Lymphatic: Denies: Easy Bruising, Easy Bleeding VTE Information - Inpt Only VTE Present on Admission: No VTE Mechan Device Prophylaxis: None VTE Pharm Prophylaxis ordered?: Yes Patient Problems: Active and Suspected Problems (Last Reviewed 07/09/18 @ 23:48 by Mick hCoi MD) Hypotension arterial (Acute) Acute kidney injury (Acute) Respiratory failure with hypoxia and hypercapnia (Acute) Acute encephalopathy (Acute) Heart failure (Acute) - Physical Exam General: Alert, Oriented x3, Cooperative HEENT: Atraumatic, PERRLA, EOMI, Normocephalic Neck: Supple, No JVD, Negative Carotid Bruits Lungs: Normal air movement, Rales Cardiovascular: No murmurs, Bradycardic Abdomen: Bowel Sounds Present, Soft, Non Tender, Obese Extremities: No edema, Capillary Refill Less than 3 Seconds Skin: No rashes, No breakdown Musculoskeletal: No Tenderness to Palpation of Joints or Extremities Neurological: Neuro grossly intact Psych/Mental Status: Depressed Vital Signs Temp Pulse Resp BP Pulse Ox 97.8 F 52 L 16 111/65 94 07/09/18 22:16 07/09/18 22:16 07/09/18 22:16 07/09/18 22:16 07/09/18 22:16 Oxygen Flow Rate (L/min) 5 Oxygen Delivery Method Nasal Cannula Weight: 151.1 kg Body Mass Index (BMI) 47.7 Finger Stick Blood Glucose 159 Laboratory Tests Past 24 Hrs 07/09/18 07/09/18 07/09/18 21:38 21:38 21:38 WBC 6.0 RBC 3.96 L Hgb 11.0 L Hct 34.5 L MCV 87.1 MCH 27.8 MCHC 31.9 L RDW 14.1 RDW Differential 44.2 H Plt Count 155 MPV 9.2 Immature Gran % (Auto) 0.300 Neut % (Auto) 81.3 H Lymph % (Auto) 13.8 L [place] % (Auto) 4.0 Eos % (Auto) 0.3 Baso % (Auto) 0.3 Absolute Neuts (auto) 4.9 Absolute Lymphs (auto) 0.83 Total Counted Not Reportable Specimen Type Sample Site pH Bicarbonate Actual POC Total CO2 Base Excess O2 Saturation ABG pCO2 ABG pO2 [place] Test O2 Delivery Device Liter Flow Blood Gas Notified Whom Sodium 133 L Potassium 4.3 Chloride 97 L Carbon Dioxide 29.0 Anion Gap 7 BUN 51 H Creatinine 1.58 H Estim Creat Clear Calc 52.62 Est GFR (MDRD) Af Amer 58 L Est GFR (MDRD) Non-Af 48 L BUN/Creatinine Ratio 32.3 H Glucose 105 Lactic Acid 1.1 Calcium 8.3 L 07/09/18 21:41 WBC RBC Hgb Hct MCV MCH MCHC RDW RDW Differential Plt Count MPV Immature Gran % (Auto) Neut % (Auto) Lymph % (Auto) [place] % (Auto) Eos % (Auto) Baso % (Auto) Absolute Neuts (auto) Absolute Lymphs (auto) Total Counted Specimen Type ART Sample Site R Radial pH 7.36 Bicarbonate Actual 30.8 H POC Total CO2 32 Base Excess 5 H O2 Saturation 95 ABG pCO2 54.9 H ABG pO2 82 [place] Test POS O2 Delivery Device Nasal Can Liter Flow 5.0 Blood Gas Notified Whom ED Sodium Potassium Chloride Carbon Dioxide Anion Gap BUN Creatinine Estim Creat Clear Calc Est GFR (MDRD) Af Amer Est GFR (MDRD) Non-Af BUN/Creatinine Ratio Glucose Lactic Acid Calcium Assessment/Plan All Active Problems (Last Reviewed 07/09/18 @ 23:48 by Mick Choi MD) Acute and chronic respiratory failure with hypoxia (Acute) COPD with acute exacerbation (Acute) Lactic acidosis (Acute) Hypotension arterial (Acute) Acute kidney injury (Acute) Respiratory failure with hypoxia and hypercapnia (Acute) Acute encephalopathy (Acute) Heart failure (Acute) Acute VT, inferior wall (Acute) Acute inferolateral myocardial infarction (Acute) The patient is a 57 year old M who lives at a correction and with a significant history of CAD status post stent; COPD on chronic oxygen therapy; hypertension; hyperlipidemia; morbid obesity with metabolic syndrome; obstructive sleep apnea; chronic pain on multiple pain medications; and restless leg syndrome who presented to the emergency department with a 1 week history of confusion and hypotension and found to have bilateral opacities on chest x-ray; severely elevated creatinine; bradycardia and hypotension. Probable exacerbation of heart failure with preserved ejection fraction. Independent review of chest x-ray showed mild bilateral infiltrates and cardiomegaly. Review of previous chest x-ray shows chronic cardiomegaly and mild bilateral infiltrates . From review of old records: Echocardiogram on 11/03/2017 showed a left ventricular ejection fraction of 65%. Because of body habitus the exams was of poor technical quality. BNP is 121.1 review of old records shows that on 03/14/2018 his BNP was 200.4. Previous BNP has been unremarkable. Will order echocardiogram. Discussed putting patient on a BiPAP but he declined stating that in the past and has not been able to tolerate BiPAP. Patient was discuss with cardiology. Would hold diuretics and beta-blockers at this time and cardiology will see patient in a.m. Daily weights Strict intake and output. Since his blood pressure picked up somewhat to 103/53 fluid restriction of 1,500ml/day was initiated. Acute encephalopathy Diagnosis diagnosis include encephalopathy from multiple sedating pain medication; heart failure; or metabolic derangements. Notably his BUN is elevated and cannot rule out encephalopathy from uremia. We will obtain a TSH; and vitamin B12 Trend BMP. VARSHA On admission his creatinine was 1.58 Review of old records shows baseline creatinine of around 1 Likely prerenal or intrinsic renal from cardiorenal syndrome. Management of heart failure as above Trend BMP. Avoid nephrotoxins. Anemia On presentation his hemoglobin was 11.0. Review of old records shows baseline hemoglobin around 13.5-14.5. We will get iron studies including ferritin. Vitamin B12 ordered. TSH ordered. Hyponatremia On presentation his sodium was 133. Review of old records shows pretty much a normal sodium. On home sodium will hold because of CHF. Chronic pain Patient reports chronic pain in the right hip. On home methadone; morphine; oxycodone; gabapentin and tizanidine. Would hold morphine, oxycodone and prn Tizanidine. We will reduce the dose of methadone at this time. We will reduce gabapentin dose especially as patient has VARSHA. Titrate pain medication as necessary. Diabetes mellitus On presentation blood glucose was within goal. Since it is too early in admission we will hold home metformin. We will do Accu-Chek q. before meals at bedtime and place on correction scale insulin regimen. COPD Does not appear to be in exacerbation. As needed DuoNeb continued. Adrenal insufficiency Florinef continued Would hold home salt tablets because of CHF. BPH Tamsulosin, held because of hypotension Finasteride continued Gout Allopurinol continued CAD with stent Dual antiplatelet therapy with aspirin and Plavix continued Imdur, metoprolol; lisinopril and Aldactone held because of hypotension Irritable bowel disease Linzess continued Depression Zoloft continued DVT Prophylaxis Subcutaneous heparin Code Visit Inpatient E&M: 08723 Init Hosp L3
--- NOTE | 2018-07-09 22:49 | ED.DCSUM_ITS ---
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 Confusion was noted today by family and nursing staff. Also had systolic blood pressure of 80 at the care home. Quality: Generalized vague symptoms Location: Nursing facility Current Severity: Mild Maximum Severity: Moderate Worsened by: Unknown Relieved by: Nothing Associated Symptoms: Cough slightly productive Narrative: Patient is a middle-aged male with multiple medical problems which include coronary disease with multiple stents, congestive heart failure, obstructive sleep apnea, COPD, acute on chronic CO2 retention and hypoxia requiring oxygen at 3 L, diabetes type 2, hypertension, hypercholesterolemia. He presents with not feeling well since Monday. Today he was noted to be confused. He has really no complaints other than I do not feel well and cough. He was unaware that he was confused. He resides at a care home. He states he is unable to ambulate. He is not a good informant. Prior similar symptoms: Yes Recent Illness/Hospitalization: No Past Medical History - Allergies and Home Meds Allergies/Adverse Reactions: Allergies rofecoxib Adverse Reaction (Unknown, Verified 04/23/18 10:14) Unknown Primary Care Physician: Dav Wright,Out of [Primary Care Provider] - Past Medical History: - - Coronary disease, congestive heart failure, hypertension, hypercholesterolemia, type 2 diabetes, respiratory failure with chronic hypercapnia and hypoxia, inability to ambulate Surgical History: - - Thyroidectomy, septoplasty, cardiac stents x4 2007, hernia repair 2013 Lives: Skilled Nursing Smoking Status: Former smoker - Family History Sibling Family History: Family History (Last Reviewed 04/23/18 @ 10:24 by Maria Teresa Stewart) Father Myocardial infarction, Onset Age: 39 Brother Hypertension Uncle CAD (coronary artery disease) Uncle Myocardial infarction Family History: Reports: Hypertension Maternal Family History: Family History (Last Reviewed 04/23/18 @ 10:24 by Maria Teresa Stewart) Father Myocardial infarction, Onset Age: 39 Brother Hypertension Uncle CAD (coronary artery disease) Uncle Myocardial infarction Family History: Reports: Cancer - skin CA Paternal Family History: Family History (Last Reviewed 04/23/18 @ 10:24 by Maria Teresa Stewart) Father Myocardial infarction, Onset Age: 39 Brother Hypertension Uncle CAD (coronary artery disease) Uncle Myocardial infarction Family History: Reports: Heart Disease Review of Systems ROS: Unable to Obtain General: Reports: Malaise Respiratory: Reports: Dyspnea, Cough, Sputum Neurological: Reports: Weakness Psych: Reports: Depression Hematologic: Denies: Easy bruising Allergy: Denies: Uticaria, Swelling of the mouth, Swelling of the tongue Physical Exam Vital Signs/Narrative: Vital Signs Temp Pulse Resp BP Pulse Ox 07/09/18 22:16 97.8 F 52 L 16 111/65 94 07/09/18 21:14 97.9 F 52 L 18 102/55 L 91 Inital Vital Signs reviewed: Yes General: Well nourished, Well developed, Obese, Unkempt Head: Normocephalic, Atraumatic Eyes: Perrl, EOMI, Pale conjunctiva. Negative for: Scleral icterus ENT: Moist mucous membranes, No rhinorrhea, TM's clear, Nasal congestion, Sinus tenderness Neck: Supple, Nontender, No lymphadenopathy Cardiovascular: Regular rhythm, No murmurs, Normal S1, Normal S2, Bradycardia Respiratory: CTA bilaterally - End inspiratory rales consistent with COPD, Decreased Air Movement. Negative for: No distress, Rhonchi, Wheezing, Chest tenderness Abdomen: Soft, Nontender, Nondistended, Normal bowel sounds Back: Nontender Extremities: Nontender, Edema. Negative for: Calf Tenderness Skin: No rash, Pallor. Negative for: Cyanosis, Jaundice Neurological: Alert, Cranial nerves II-XII grossly intact, Normal Strength - Upper extremities. Bilateral weakness lower extremities, chronic, Confused. Negative for: Oriented x3, Normal Gait Psychological: Normal affect Diagnostic/Tx/Re-eval Chest X-Ray - ED: 1 View, Read by ED Physician, Cardiomegaly, CHF ABG reveals a pH 7.36, PCO2 of 54.9, PaO2 of 82 bicarb of 31 with an O2 saturation 93% on 5 L by nasal cannula. This is consistent with chronic CO2 retention and chronic hypoxia. Creatinine was 0.89 March 16, 2018. Today the creatinine is 1.58. Troponin is normal. Lactate is normal. BNP was added. - EKG Initial EKG Interpretation: Sinus Rhythm - Ventricular rate 49 with a normal ND interval, Q adventism and QT interval. [place] is normal. There is no ischemic changes noted. - Medical Decision Making To evaluate patient's hypoxia and confusion will obtain ABG to determine if patient is retaining CO2. Chest x-ray was obtained in light of history of CHF and COPD with end inspiratory rales. Patient appears pale will obtain a CBC with differential to assess H&H as well as white count and differential. Since patient is hypotensive we will obtain electrolytes to assess renal function and to assess electrolytes since he complains of vague symptoms. Because patient became hypotensive after 500 cc bolus and x-ray reveals CHF contacted Dr. Robert regarding treatment with dopamine since he is bradycardic. He requested not to initiate dopamine. He agrees with not treating with Lasix even though clinically patient is fluid overloaded. Agrees with placement and stepdown unit for close monitoring. 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 Doctor,Out of [Primary Care Provider] -
[2018-07-09 23:33] VITALS: BP 103/53; PULSE 55; RESP 16; TEMP 36.4; O2SAT 92
[2018-07-09 23:35] LABS: BNP,B-Type NATRIURETIC PEPTIDE 121.1 pg/mL (0-100)
[2018-07-10] VITALS (18 sets, daily range): BP systolic 101–130; BP diastolic 51–67; PULSE 53–81; RESP 16–20; TEMP 35.6–36.9; O2SAT 90–94; BMI 44.4
--- NOTE | 2018-07-10 00:03 | ECHOCS_ITS ---
Reason For Study: CHF Procedure This was a 2D Doppler, Color Flow transthoracic echocardiogram. Technically difficult study due to patient body habitus. Patient was scanned supine. The study was technically difficult. Contrast injection was performed. Exam performed portable in patient room. Left Ventricle Normal LV size. Left ventricular systolic function is normal. The estimated ejection fraction is 65 %. Unable to assess diastolic dysfunction. No regional wall motion abnormalities noted. Right Ventricle Normal RV size. Normal systolic function. Atria Normal left atrium. Normal right atrium. No doppler evidence for ASD. Mitral Valve There is no mitral annular calcification. Normal mitral valve. Tricuspid Valve Normal tricuspid valve. Aortic Valve The aortic valve is not well visualized. Pulmonic Valve The pulmonic valve is not well visualized. Great Vessels The aortic root is not well visualized. Pericardium/Pleural No pericardial effusion. Medication Diluted definity 4ml given slow IV push to enhance endocardial definition. MMode/2D Measurements & Calculations LVIDd: 5.1 cm FS: 37.7 % LAV(MOD-sp4): 80.7 ml LVIDs: 3.2 cm LA A4 area: 24.6 cm2 Time Measurements MV dec time: 0.26 sec Doppler Measurements & Calculations MV E max mehran: 108.4 cm/sec Lat Peak E' Mehran: 11.9 cm/sec Med Peak E' Mehran: 8.4 cm/sec MV A max mehran: 93.6 cm/sec E/E' lat: 9.1 E/E' med: 12.9 MV E/A: 1.2 MV V2 max: 123.3 cm/sec MV P1/2t max mehran: 120.4 cm/sec Ao V2 max: 174.3 cm/sec MV max P.1 mmHg MV P1/2t: 123.0 msec Ao max P.2 mmHg MV V2 mean: 72.5 cm/sec MV dec slope: 286.6 cm/sec2 MV mean P.4 mmHg MV V2 VTI: 45.1 cm MVA(P1/2t): 1.8 cm2 PA V2 max: 158.9 cm/sec Interpretation Summary The study was technically difficult. Contrast injection was performed. Left ventricular systolic function is normal. The estimated ejection fraction is 65 %. Unable to assess diastolic dysfunction. Ordering Physician: Mick Choi Referring Physician: Toi Cadena Performed By: Javier Bettencourt RCS
[2018-07-10] MEDS: Acetaminophen 325 MG Tablet 650 MG PO ×2 (01:09→21:39)
--- NOTE | 2018-07-10 01:40 | NURSING ---
Dr. Robert called in and was given update on pt. No new orders.
[2018-07-10 03:36] LABS: Bedside Glucose 98 mg/dL (70-110)
[2018-07-10 07:00] LABS: Anion Gap 10 (5-15); BUN 45 mg/dL (7-18); BUN/Creat Ratio 36.6 RATIO (10-20); Calcium,Total 8.2 mg/dL (8.5-10.1); Chloride 100 mmol/L (98-107); Creatinine, Serum 1.23 mg/dL (0.70-1.30); EST Glomerular Filtration Rate 64 mL/min (>60); Est Glom Filt Rate - Afr Amer 78 mL/min (>60); Estimated Creatinine Clearance 69.72 ml/min; Ferritin 831 ng/mL (26-388); Glucose 81 mg/dL (74-106); Iron 27 ug/dL (65-175); Iron Binding Capacity,Total 214 ug/dL (250-450); PERCENT IRON SATURATION 12.6 % (15.0-55.0); Potassium 4.1 mmol/L (3.5-5.1); Sodium Level 140 mmol/L (136-145); Thyroid Stim Hormone (TSH) 1.67 uIU/mL (0.358-3.74)
[2018-07-10] MEDS: Albuterol 2.5 MG/3 ML VIAL.NEB. INHALATION ×3 (07:00→18:56)
[2018-07-10] MEDS: Budesonide Respules 0.5 MG/2 ML AMPUL.NEB. INHALATION ×2 (07:00→18:56)
[2018-07-10] MEDS: Heparin Injection (Vial) 5,000 UNIT/ML VIAL 5000 UNIT SC ×3 (07:10→21:37)
--- NOTE | 2018-07-10 07:13 | PCM.CONS.C ---
Reason for Consult Date of Consultation: 07/10/18 Reason for Consultation: Evaluation of cardiac status History of Present Illness: The patient is a 57 year old M with a past medical history consisting of coronary artery disease, obesity, obstructive lung disease who presented to the emergency room yesterday brought in from the intermediate after generally not feeling well. He denied any chest pain, but he had some shortness of breath. He had no dizziness or diaphoresis no near syncope or syncope. He generally felt weak. He has been compliant with his medications. As you know he does have a history of coronary artery diseasewith angioplasty and bare-metal stenting of the mid circumflex artery and PTCA of the second obtuse marginal branch in 2006, drug-eluting stent placement to the mid right coronary artery in 2010, and angioplasty of the circumflex artery in 2012. His last echocardiogram was in 2018 which demonstrated preserved ejection fraction of 65%. I was called from the emergency room because he was mildly hypotensive but minimally symptomatic and also bradycardic. A decision was made to place him in the progressive care unit. He had a mildly elevated natruretic peptide level. His blood pressure improved with a fluid bolus. This morning he appears to be much more alert and feeling better. [] Past Medical History Allergies/Adverse Reactions: Allergies rofecoxib Adverse Reaction (Unknown, Verified 04/23/18 10:14) Unknown Home Medications: Ambulatory Orders Medication Instructions Recorded Clopidogrel Bisulfate [Plavix] 75 mg PO DAILY 02/11/13 Isosorbide Mononitrate [Imdur] 30 mg PO DAILY 02/11/13 Nitroglycerin [Nitrostat] 0.4 mg SUBLINGUAL Q5M PRN 02/11/13 Gabapentin 600 mg PO TID 12/20/13 Sertraline HCl [Zoloft] 100 mg PO DAILY 03/06/14 Ipratropium/Albuterol Sulfate 3 ml INHALATION BID 12/20/15 [Duoneb] Lisinopril [Zestril] 5 mg PO DAILY 12/28/16 Methadone HCl 10 mg PO Q8H 12/28/16 Ondansetron HCl [Zofran] 4 mg PO BID 12/28/16 Acetaminophen [Tylenol] 650 mg PO Q4H PRN PRN 05/17/17 Allopurinol 100 mg PO DAILY 05/17/17 Aspirin [Aspirin, Baby] 81 mg PO DAILY@0800 05/17/17 Loratadine 10 mg PO DAILY 05/17/17 Lorazepam [Ativan] 1 mg PO QHS PRN PRN 05/17/17 Oxycodone [Oxyir] 5 mg PO BID 05/17/17 finasteride 5 mg tablet 5 mg PO QDAY 10/26/17 fludrocortisone 0.1 mg tablet 0.1 mg PO QDAY 10/26/17 ipratropium-albuterol 0.5 mg-3 3 ml INHALATION Q6H PRN 10/26/17 mg(2.5 mg base)/3 mL nebulization soln morphine 30 mg immediate release 30 mg PO BID tab 10/26/17 tablet omeprazole 20 mg capsule,delayed 20 mg PO QDAY cap 10/26/17 release sodium chloride 1 gram tablet 1 tab PO QDAY tab 10/26/17 tizanidine 2 mg tablet 2 mg PO TID PRN 10/26/17 Fluticasone 0.05% [Flonase Nasal 2 spray NASAL DAILY 03/14/18 [place]] Guaifenesin [Cough Syrup] 10 ml PO Q6H PRN PRN 03/14/18 Linacolotide [Linzess] 145 mcg PO DAILY 03/14/18 Magnesium Hydroxide [Milk Of 30 ml PO DAILY PRN PRN 03/14/18 Magnesia] Potassium Chloride 10 meq PO DAILY 03/14/18 Pravastatin [Pravachol] 80 mg PO DAILY 03/14/18 Spironolactone [Aldactone] 25 mg PO BID 03/14/18 Bumetanide [Bumex] 2 mg PO BID #60 tab 03/16/18 fluticasone 100 mcg-vilanterol 25 1 inh INHALATION DAILY 04/23/18 mcg/dose powder for inhalation metformin 500 mg tablet 1,000 mg PO BID tab 04/23/18 metoprolol tartrate 25 mg tablet 25 mg PO BID 04/23/18 tamsulosin 0.4 mg capsule 0.4 mg PO BID cap 04/23/18 Albuterol Inhaler [Ventolin Hfa 1 puff INHALATION Q4H PRN PRN 07/09/18 (SP)] Ergocalciferol [Vitamin D] 50,000 unit PO Q7D 07/09/18 Past Medical History (Chronic Problems): Chronic Problems (Last Reviewed 07/09/18 @ 23:48 by Mick Choi MD) Acute exacerbation of congestive heart failure (Chronic) Presence of stent in coronary artery (Chronic) PTCA/BSM of Mid CX and PTCA of OM2 08/31/06; PTCA/PELON of the mid RCA 08/06/10; Thrombectomy and angioplasty of the pre existing stent of the mid LCX 02/18/13 Hypertension (Chronic) Hyperlipidemia (Chronic) Atherosclerotic heart disease of [place] coronary artery without angina pectoris (Chronic) PTCA/BSM of Mid CX and PTCA of OM2 08/31/06; PTCA/PELON of the mid RCA 08/06/10; Thrombectomy and angioplasty of the pre existing stent of the mid LCX 02/18/13 COPD (chronic obstructive pulmonary disease) (Chronic) Tobacco use disorder (Chronic) Morbid obesity (Chronic) Surgical History: - - Thyroidectomy, septoplasty, cardiac stents x4 2007, hernia repair 2012 Psychiatric History: No pertinent psych hx - *Family History Sibling Family History: Family History (Last Reviewed 07/09/18 @ 23:48 by Mick Choi MD) Father Myocardial infarction, Onset Age: 39 Brother Hypertension Uncle CAD (coronary artery disease) Uncle Myocardial infarction History Items: Hypertension Maternal Family History: Family History (Last Reviewed 07/09/18 @ 23:48 by Mick Choi MD) Father Myocardial infarction, Onset Age: 39 Brother Hypertension Uncle CAD (coronary artery disease) Uncle Myocardial infarction History Items: Cancer - skin CA Paternal Family History: Family History (Last Reviewed 07/09/18 @ 23:48 by Mick Choi MD) Father Myocardial infarction, Onset Age: 39 Brother Hypertension Uncle CAD (coronary artery disease) Uncle Myocardial infarction History Items: Heart Disease Lives: Care Home Smoking Status: Former smoker Alcohol: None Drugs: None Review of Systems - Review of Systems General: Reports: Fatigue, Malaise. Denies: Fever, Night Sweats HEENT: Denies: Vision Change Cardiovascular: Denies: Chest Discomfort, Shortness of Breath, Orthopnea, PND, Peripheral Edema, Palpitations, Lightheadedness, Dizziness, Near Syncope, Syncope Respiratory: Denies: Cough, Sputum Production, Hemoptysis Gastrointestinal: Denies: Hematemesis, Hematochezia, Melena Genitourinary: Denies: Dysuria, Hematuria Muscoloskeletal: Denies: Myalgias Skin: Denies: Rash Neurological: Denies: Dizziness Psychiatric: Denies: Anxiety Endocrine: Denies: Unexplained Weight Loss Hematologic/ Lymphatic: Denies: Anemia Subjectve: Pleasant gentleman in no apparent distress lying in bed on 5 L O2 Objective: Vital Signs Temp Pulse Resp BP Pulse Ox 97.9 F 61 18 118/61 92 07/10/18 04:35 07/10/18 04:35 07/10/18 04:35 07/10/18 04:35 07/10/18 04:35 Oxygen Flow Rate (L/min) 4 Oxygen Delivery Method Nasal Cannula Weight: 328 lb 0.765 oz Body Mass Index (BMI) 44.4 Finger Stick Blood Glucose 159 General: Awake, Alert, Oriented x 3 HEENT: PERRL, EOMI, Sclera Non Icteric Neck: Supple, Good ROM, No Lymph Node Enlargement Lungs: Rhonchi Cardiovascular: Regular Rhythm, Normal S1, Normal S2, No Murmurs, No Rubs, No Gallops Vascular: No Carotid Bruits, Normal Femoral Pulses, Normal Radial Pulses, Normal Dorsalis Pedal Pulse, Normal Posterior Tibial Pulses Abdomen: Bowel Sounds Present, Soft, Non Tender, No HSM, No Organomegaly, Obese Extremities: No Cyanosis, No Clubbing, Bilateral Edema +1 Neurological: No Focal Motor or Sensory Deficit Psych/Mental Status: Appropriate 07/09/18 21:38: WBC 6.0, RBC 3.96 L, Hgb 11.0 L, Hct 34.5 L, MCV 87.1, MCH 27.8, MCHC 31.9 L, RDW 14.1, RDW Differential 44.2 H, Plt Count 155, MPV 9.2, Immature Gran % (Auto) 0.300, Neut % (Auto) 81.3 H, Lymph % (Auto) 13.8 L, [place] % (Auto) 4.0, Eos % (Auto) 0.3, Baso % (Auto) 0.3, Absolute Neuts (auto) 4.9, Total Counted Not Reportable 07/09/18 21:38: Sodium 133 L, Potassium 4.3, Chloride 97 L, Carbon Dioxide 29.0, Anion Gap 7, BUN 51 H, Creatinine 1.58 H, Est GFR (MDRD) Af Amer 58 L, Est GFR (MDRD) Non-Af 48 L, BUN/Creatinine Ratio 32.3 H, Glucose 105, Calcium 8.3 L 07/09/18 21:38: Lactic Acid 1.1 07/09/18 21:38: B-Natriuretic Peptide 121.1 H 07/09/18 21:41: pH 7.36, Bicarbonate Actual 30.8 H, POC Total CO2 32, Base Excess 5 H, O2 Saturation 95, ABG pCO2 54.9 H, ABG pO2 82, Henrique Test POS 07/10/18 05:40: Sodium 140, Potassium 4.1, Chloride 100, Carbon Dioxide 30.0, Anion Gap 10, BUN 45 H, Creatinine 1.23, Est GFR (MDRD) Af Amer 78, Est GFR (MDRD) Non-Af 64, BUN/Creatinine Ratio 36.6 H, Glucose 81, Calcium 8.2 L, Iron 27 L, TIBC 214 L, Iron Saturation 12.6 L, Ferritin 831 H Rhythm: EKG: ECHO: Stress Test: Cardiac Cath: PCI: CT Surgery: Holter monitor: EPS: PPM: CXR: Chest CT Scan: Assessment/Plan 1. Mild hypotension I suspect that even though his natruretic peptide is elevated he may be on the dehydrated side. He appears to have improved with a fluid bolus with improvement in his renal indices as well as his blood pressure. I would recommend that we reduce his blood pressure medication and optimize his therapy and see how he is doing. 2. Coronary artery disease Patient has known coronary artery disease. However the above does not appear to be a manifestation of that. We will continue to optimize medical care. 3. Shortness of breath I suspect the above is on the basis of obstructive lung disease as well as mild diastolic dysfunction. Need a repeat echocardiogram to reassess his left ventricular function. Thank you for allowing me to participate in the care of your patient. Please don't hesitate to call if any issues arise
--- NOTE | 2018-07-10 07:18 | CON.PCM_ITS ---
Reason for Consult Date of Consultation: 07/10/18 Reason for Consultation: Evaluation of cardiac status History of Present Illness: The patient is a 57 year old M with a past medical history consisting of coronary artery disease, obesity, obstructive lung disease who presented to the emergency room yesterday brought in from the care home after generally not feeling well. He denied any chest pain, but he had some shortness of breath. He had no dizziness or diaphoresis no near syncope or syncope. He generally felt weak. He has been compliant with his medications. As you know he does have a history of coronary artery diseasewith angioplasty and bare-metal stenting of the mid circumflex artery and PTCA of the second obtuse marginal branch in 2006, drug-eluting stent placement to the mid right coronary artery in 2010, and angioplasty of the circumflex artery in 2012. His last echocardiogram was in 2018 which demonstrated preserved ejection fraction of 65%. I was called from the emergency room because he was mildly hypotensive but minimally symptomatic and also bradycardic. A decision was made to place him in the progressive care unit. He had a mildly elevated natruretic peptide level. His blood pressure improved with a fluid bolus. This morning he appears to be much more alert and feeling better. [] Past Medical History Allergies/Adverse Reactions: Allergies rofecoxib Adverse Reaction (Unknown, Verified 04/23/18 10:14) Unknown Home Medications: Ambulatory Orders Medication Instructions Recorded Clopidogrel Bisulfate [Plavix] 75 mg PO DAILY 02/11/13 Isosorbide Mononitrate [Imdur] 30 mg PO DAILY 02/11/13 Nitroglycerin [Nitrostat] 0.4 mg SUBLINGUAL Q5M PRN 02/11/13 Gabapentin 600 mg PO TID 12/20/13 Sertraline HCl [Zoloft] 100 mg PO DAILY 03/06/14 Ipratropium/Albuterol Sulfate 3 ml INHALATION BID 12/20/15 [Duoneb] Lisinopril [Zestril] 5 mg PO DAILY 12/28/16 Methadone HCl 10 mg PO Q8H 12/28/16 Ondansetron HCl [Zofran] 4 mg PO BID 12/28/16 Acetaminophen [Tylenol] 650 mg PO Q4H PRN PRN 05/17/17 Allopurinol 100 mg PO DAILY 05/17/17 Aspirin [Aspirin, Baby] 81 mg PO DAILY@0800 05/17/17 Loratadine 10 mg PO DAILY 05/17/17 Lorazepam [Ativan] 1 mg PO QHS PRN PRN 05/17/17 Oxycodone [Oxyir] 5 mg PO BID 05/17/17 finasteride 5 mg tablet 5 mg PO QDAY 10/26/17 fludrocortisone 0.1 mg tablet 0.1 mg PO QDAY 10/26/17 ipratropium-albuterol 0.5 mg-3 3 ml INHALATION Q6H PRN 10/26/17 mg(2.5 mg base)/3 mL nebulization soln morphine 30 mg immediate release 30 mg PO BID tab 10/26/17 tablet omeprazole 20 mg capsule,delayed 20 mg PO QDAY cap 10/26/17 release sodium chloride 1 gram tablet 1 tab PO QDAY tab 10/26/17 tizanidine 2 mg tablet 2 mg PO TID PRN 10/26/17 Fluticasone 0.05% [Flonase Nasal 2 spray NASAL DAILY 03/14/18 [place]] Guaifenesin [Cough Syrup] 10 ml PO Q6H PRN PRN 03/14/18 Linacolotide [Linzess] 145 mcg PO DAILY 03/14/18 Magnesium Hydroxide [Milk Of 30 ml PO DAILY PRN PRN 03/14/18 Magnesia] Potassium Chloride 10 meq PO DAILY 03/14/18 Pravastatin [Pravachol] 80 mg PO DAILY 03/14/18 Spironolactone [Aldactone] 25 mg PO BID 03/14/18 Bumetanide [Bumex] 2 mg PO BID #60 tab 03/16/18 fluticasone 100 mcg-vilanterol 25 1 inh INHALATION DAILY 04/23/18 mcg/dose powder for inhalation metformin 500 mg tablet 1,000 mg PO BID tab 04/23/18 metoprolol tartrate 25 mg tablet 25 mg PO BID 04/23/18 tamsulosin 0.4 mg capsule 0.4 mg PO BID cap 04/23/18 Albuterol Inhaler [Ventolin Hfa 1 puff INHALATION Q4H PRN PRN 07/09/18 (SP)] Ergocalciferol [Vitamin D] 50,000 unit PO Q7D 07/09/18 Past Medical History (Chronic Problems): Chronic Problems (Last Reviewed 07/09/18 @ 23:48 by Mick Choi MD) Acute exacerbation of congestive heart failure (Chronic) Presence of stent in coronary artery (Chronic) PTCA/BSM of Mid CX and PTCA of OM2 08/31/06; PTCA/PELON of the mid RCA 08/06/10; Thrombectomy and angioplasty of the pre existing stent of the mid LCX 02/18/13 Hypertension (Chronic) Hyperlipidemia (Chronic) Atherosclerotic heart disease of [place] coronary artery without angina pectoris (Chronic) PTCA/BSM of Mid CX and PTCA of OM2 08/31/06; PTCA/PELON of the mid RCA 08/06/10; Thrombectomy and angioplasty of the pre existing stent of the mid LCX 02/18/13 COPD (chronic obstructive pulmonary disease) (Chronic) Tobacco use disorder (Chronic) Morbid obesity (Chronic) Surgical History: - - Thyroidectomy, septoplasty, cardiac stents x4 2007, hernia repair 2012 Psychiatric History: No pertinent psych hx - *Family History Sibling Family History: Family History (Last Reviewed 07/09/18 @ 23:48 by Mick Choi MD) Father Myocardial infarction, Onset Age: 39 Brother Hypertension Uncle CAD (coronary artery disease) Uncle Myocardial infarction History Items: Hypertension Maternal Family History: Family History (Last Reviewed 07/09/18 @ 23:48 by Mick Choi MD) Father Myocardial infarction, Onset Age: 39 Brother Hypertension Uncle CAD (coronary artery disease) Uncle Myocardial infarction History Items: Cancer - skin CA Paternal Family History: Family History (Last Reviewed 07/09/18 @ 23:48 by Mick Choi MD) Father Myocardial infarction, Onset Age: 39 Brother Hypertension Uncle CAD (coronary artery disease) Uncle Myocardial infarction History Items: Heart Disease Lives: [facility] Smoking Status: Former smoker Alcohol: None Drugs: None Review of Systems - Review of Systems General: Reports: Fatigue, Malaise. Denies: Fever, Night Sweats HEENT: Denies: Vision Change Cardiovascular: Denies: Chest Discomfort, Shortness of Breath, Orthopnea, PND, Peripheral Edema, Palpitations, Lightheadedness, Dizziness, Near Syncope, Syncope Respiratory: Denies: Cough, Sputum Production, Hemoptysis Gastrointestinal: Denies: Hematemesis, Hematochezia, Melena Genitourinary: Denies: Dysuria, Hematuria Muscoloskeletal: Denies: Myalgias Skin: Denies: Rash Neurological: Denies: Dizziness Psychiatric: Denies: Anxiety Endocrine: Denies: Unexplained Weight Loss Hematologic/ Lymphatic: Denies: Anemia Subjectve: Pleasant gentleman in no apparent distress lying in bed on 5 L O2 Objective: Vital Signs Temp Pulse Resp BP Pulse Ox 97.9 F 61 18 118/61 92 07/10/18 04:35 07/10/18 04:35 07/10/18 04:35 07/10/18 04:35 07/10/18 04:35 Oxygen Flow Rate (L/min) 4 Oxygen Delivery Method Nasal Cannula Weight: 328 lb 0.765 oz Body Mass Index (BMI) 44.4 Finger Stick Blood Glucose 159 General: Awake, Alert, Oriented x 3 HEENT: PERRL, EOMI, Sclera Non Icteric Neck: Supple, Good ROM, No Lymph Node Enlargement Lungs: Rhonchi Cardiovascular: Regular Rhythm, Normal S1, Normal S2, No Murmurs, No Rubs, No Gallops Vascular: No Carotid Bruits, Normal Femoral Pulses, Normal Radial Pulses, Normal Dorsalis Pedal Pulse, Normal Posterior Tibial Pulses Abdomen: Bowel Sounds Present, Soft, Non Tender, No HSM, No Organomegaly, Obese Extremities: No Cyanosis, No Clubbing, Bilateral Edema +1 Neurological: No Focal Motor or Sensory Deficit Psych/Mental Status: Appropriate 07/09/18 21:38: WBC 6.0, RBC 3.96 L, Hgb 11.0 L, Hct 34.5 L, MCV 87.1, MCH 27.8, MCHC 31.9 L, RDW 14.1, RDW Differential 44.2 H, Plt Count 155, MPV 9.2, Immature Gran % (Auto) 0.300, Neut % (Auto) 81.3 H, Lymph % (Auto) 13.8 L, [place] % (Auto) 4.0, Eos % (Auto) 0.3, Baso % (Auto) 0.3, Absolute Neuts (auto) 4.9, Total Counted Not Reportable 07/09/18 21:38: Sodium 133 L, Potassium 4.3, Chloride 97 L, Carbon Dioxide 29.0, Anion Gap 7, BUN 51 H, Creatinine 1.58 H, Est GFR (MDRD) Af Amer 58 L, Est GFR (MDRD) Non-Af 48 L, BUN/Creatinine Ratio 32.3 H, Glucose 105, Calcium 8.3 L 07/09/18 21:38: Lactic Acid 1.1 07/09/18 21:38: B-Natriuretic Peptide 121.1 H 07/09/18 21:41: pH 7.36, Bicarbonate Actual 30.8 H, POC Total CO2 32, Base Excess 5 H, O2 Saturation 95, ABG pCO2 54.9 H, ABG pO2 82, Henrique Test POS 07/10/18 05:40: Sodium 140, Potassium 4.1, Chloride 100, Carbon Dioxide 30.0, Anion Gap 10, BUN 45 H, Creatinine 1.23, Est GFR (MDRD) Af Amer 78, Est GFR (MDRD) Non-Af 64, BUN/Creatinine Ratio 36.6 H, Glucose 81, Calcium 8.2 L, Iron 27 L, TIBC 214 L, Iron Saturation 12.6 L, Ferritin 831 H Rhythm: EKG: ECHO: Stress Test: Cardiac Cath: PCI: CT Surgery: Holter monitor: EPS: PPM: CXR: Chest CT Scan: Assessment/Plan 1. Mild hypotension * I suspect that even though his natruretic peptide is elevated he may be on the dehydrated side. He appears to have improved with a fluid bolus with improvement in his renal indices as well as his blood pressure. I would recommend that we reduce his blood pressure medication and optimize his therapy and see how he is doing. * 2. Coronary artery disease * Patient has known coronary artery disease. However the above does not appear to be a manifestation of that. * We will continue to optimize medical care. * 3. Shortness of breath * I suspect the above is on the basis of obstructive lung disease as well as mild diastolic dysfunction. * Need a repeat echocardiogram to reassess his left ventricular function. * * Thank you for allowing me to participate in the care of your patient. Please don't hesitate to call if any issues arise
[2018-07-10 07:20] LABS: Bedside Glucose 96 mg/dL (70-110)
[2018-07-10] MEDS: Aspirin 81 MG TAB.CHEW PO (08:30)
[2018-07-10] MEDS: Allopurinol 100 MG Tablet PO (08:30)
[2018-07-10] MEDS: Gabapentin 100 MG Capsule PO ×3 (08:31→17:11)
[2018-07-10] MEDS: Linacolotide 145 MCG CAPSULE PO (08:31)
[2018-07-10] MEDS: Menthol/Lanolin/Calamine/Znox 113 GM Tube 1 APPLIC TOPICAL ×2 (09:37→21:37)
[2018-07-10] MEDS: Loratadine 10 MG Tablet PO (09:38)
[2018-07-10] MEDS: Finasteride 5 MG Tablet PO (09:38)
[2018-07-10] MEDS: Fludrocortisone Acetate 0.1 MG Tablet PO (09:38)
[2018-07-10] MEDS: Clopidogrel Bisulfate 75 MG Tablet PO (09:38)
[2018-07-10] MEDS: Fluticasone 0.05% 1 SPRAY NASAL.SRY 2 SPRAY NASAL (09:38)
[2018-07-10] MEDS: Nystatin Powder 15gm Bottle 1 APPLIC TOPICAL ×2 (09:38→21:37)
[2018-07-10] MEDS: Sertraline 100 MG Tablet PO (09:39)
[2018-07-10] MEDS: Ondansetron ODT 4 MG Tablet PO ×2 (09:39→21:38)
[2018-07-10] MEDS: Pantoprazole Sodium 20 MG Tablet PO (09:56)
--- NOTE | 2018-07-10 10:40 | CASEMGMT ---
Patient is from [facility]. faxed updates to [facility]. Jodi [employer]
--- NOTE | 2018-07-10 10:44 | PN_ITS ---
Patient Problems: Active and Suspected Problems (Last Reviewed 07/09/18 @ 23:48 by Mick Choi MD) Hypotension arterial (Acute) Acute kidney injury (Acute) Respiratory failure with hypoxia and hypercapnia (Acute) Acute encephalopathy (Acute) Heart failure (Acute) Subjective: The patient is a 57-year-old male with a past medical history of coronary artery disease, depression, multiple stents, COPD, chronic respiratory failure on chronic oxygen therapy, hypertension, hyperlipidemia, audible bowel syndrome, morbid obesity, DAVION, osteoarthritis with chronic pain syndrome(on MS Contin, oxycodone and Methadone) and restless leg who presented to the emergency department at [facility] on 07/09/2018 with a one-week history of confusion and hypotension. He lives in a senior living. No signs of presentation to the emergency room are temperature 97.9, pulse rate 52, blood pressure 102/55, respiratory rate 18 and he was 91% saturated on a 4 L nasal cannula. CBC showed a normal white blood cell count of 6.0 with 81% neutrophils. Hemoglobin was low at 11 and the platelets were within normal limits at 155,000. There were normochromic normocytic indices and the RDW was normal. An ABG done on a 5 L nasal cannula showed a pH of 7.36, PCO2 of 55 and a PO2 of 82. Sodium was low at 133 and the BUN was 51 with a creatinine of 1.58. Creatinine in March 2018 was 0.89. BNP was 121. TSH was normal. Chest x-ray showed increased pulmonary vascular congestion vs diffuse interstitial infiltrates......BNP is only 121. He is on Bumex 2 mg BID at the AR and also on Aldactone. He was admitted to the hospital and the Metoprolol and Bumex were held and IV fluids were ordered. Narcotics were held and the Gabapentin was decreased to 100 mg TID. He was seen in consult by Dr. Robert today. He feels he was dehydrated and the pt has improved with fluids. ARF has improved. States he is feeling better today. Tells me that he has been having a cough productive of dark yellow sputum....did not cough while I was in the room. - Physical Exam General: Alert, Oriented x3, Cooperative, No apparent distress, Well developed, Well nourished - morbidly obese, - - watching TV, looks much older that stated age HEENT: Atraumatic, PERRLA, EOMI, Normocephalic Oral: Dry Mucosa Lungs: Clear to auscultation - anterior and lateral Cardiovascular: Regular rate, Regular Rhythm, Normal S1, Normal S2, No murmurs Abdomen: Soft, Non Tender, Non-Distended, Obese Extremities: No clubbing, No cyanosis, Edema - 1+ BL Skin: No rashes, No breakdown Neurological: Cranial nerves II-XII grossly intact, Neuro grossly intact Psych/Mental Status: Flat Affect Vital Signs Temp Pulse Resp BP Pulse Ox 97.5 F L 60 16 109/53 L 91 07/10/18 09:15 07/10/18 09:15 07/10/18 09:15 07/10/18 09:15 07/10/18 09:15 Oxygen Flow Rate (L/min) 4 Oxygen Delivery Method Nasal Cannula Weight: 328 lb 0.765 oz Body Mass Index (BMI) 44.4 Finger Stick Blood Glucose 159 Intake and Output for Last 24 Hours 07/08/18 07/09/18 07/10/18 23:59 23:59 23:59 Intake Total 240 / 240 Output Total 1350 / 1350 Balance -1110 / -1110 Laboratory Tests Past 24 Hrs 07/09/18 07/09/18 07/09/18 21:38 21:38 21:38 WBC 6.0 RBC 3.96 L Hgb 11.0 L Hct 34.5 L MCV 87.1 MCH 27.8 MCHC 31.9 L RDW 14.1 RDW Differential 44.2 H Plt Count 155 MPV 9.2 Immature Gran % (Auto) 0.300 Neut % (Auto) 81.3 H Lymph % (Auto) 13.8 L [place] % (Auto) 4.0 Eos % (Auto) 0.3 Baso % (Auto) 0.3 Absolute Neuts (auto) 4.9 Absolute Lymphs (auto) 0.83 Total Counted Not Reportable Specimen Type Sample Site pH Bicarbonate Actual POC Total CO2 Base Excess O2 Saturation ABG pCO2 ABG pO2 [place] Test O2 Delivery Device Liter Flow Blood Gas Notified Whom Sodium 133 L Potassium 4.3 Chloride 97 L Carbon Dioxide 29.0 Anion Gap 7 BUN 51 H Creatinine 1.58 H Estim Creat Clear Calc 52.62 Est GFR (MDRD) Af Amer 58 L Est GFR (MDRD) Non-Af 48 L BUN/Creatinine Ratio 32.3 H Glucose 105 Lactic Acid 1.1 Calcium 8.3 L Iron TIBC Iron Saturation Ferritin B-Natriuretic Peptide Vitamin B12 Folate TSH 07/09/18 07/09/18 07/10/18 21:38 21:41 05:40 WBC RBC Hgb Hct MCV MCH MCHC RDW RDW Differential Plt Count MPV Immature Gran % (Auto) Neut % (Auto) Lymph % (Auto) [place] % (Auto) Eos % (Auto) Baso % (Auto) Absolute Neuts (auto) Absolute Lymphs (auto) Total Counted Specimen Type ART Sample Site R Radial pH 7.36 Bicarbonate Actual 30.8 H POC Total CO2 32 Base Excess 5 H O2 Saturation 95 ABG pCO2 54.9 H ABG pO2 82 [place] Test POS O2 Delivery Device Nasal Can Liter Flow 5.0 Blood Gas Notified Whom ED MD Sodium Potassium Chloride Carbon Dioxide Anion Gap BUN Creatinine Estim Creat Clear Calc Est GFR (MDRD) Af Amer Est GFR (MDRD) Non-Af BUN/Creatinine Ratio Glucose Lactic Acid Calcium Iron TIBC Iron Saturation Ferritin B-Natriuretic Peptide 121.1 H Vitamin B12 Pending Folate TSH 07/10/18 05:40 WBC RBC Hgb Hct MCV MCH MCHC RDW RDW Differential Plt Count MPV Immature Gran % (Auto) Neut % (Auto) Lymph % (Auto) [place] % (Auto) Eos % (Auto) Baso % (Auto) Absolute Neuts (auto) Absolute Lymphs (auto) Total Counted Specimen Type Sample Site pH Bicarbonate Actual POC Total CO2 Base Excess O2 Saturation ABG pCO2 ABG pO2 [place] Test O2 Delivery Device Liter Flow Blood Gas Notified Whom Sodium 140 Potassium 4.1 Chloride 100 Carbon Dioxide 30.0 Anion Gap 10 BUN 45 H Creatinine 1.23 Estim Creat Clear Calc 69.72 Est GFR (MDRD) Af Amer 78 Est GFR (MDRD) Non-Af 64 BUN/Creatinine Ratio 36.6 H Glucose 81 Lactic Acid Calcium 8.2 L Iron 27 L TIBC 214 L Iron Saturation 12.6 L Ferritin 831 H B-Natriuretic Peptide Vitamin B12 Folate 4.50 TSH 1.67 POC Glucose 07/10/18 07/10/18 07:07 03:25 POC Glucose 96 98 Medical Necessity - Tobacco Use Smoking Status: Former smoker Assessment/Plan All Active Problems (Last Reviewed 07/09/18 @ 23:48 by Mick Choi MD) Acute and chronic respiratory failure with hypoxia (Acute) COPD with acute exacerbation (Acute) Lactic acidosis (Acute) Hypotension arterial (Acute) Acute kidney injury (Acute) Respiratory failure with hypoxia and hypercapnia (Acute) Acute encephalopathy (Acute) Heart failure (Acute) Acute [place], inferior wall (Acute) Acute inferolateral myocardial infarction (Acute) Impression 1. confusion/toxic encephalopathy associated with bradycardia and hypotension - suspect secondary to dehydration resulting in ARF that lead to to accumulation of MS Contin. Improving with hydration 2. Coronary artery disease 3. Depression 4. History of multiple PTCAs/stents in the past 5. Morbid obesity 6. COPD 7. Chronic combined respiratory failure on oxygen 8. DAVION 9. Osteoarthritis 10. Chronic pain syndrome on methadone, oxycodone and MS Contin routinely 11. Restless leg 12. Hypertension 13. Hyperlipidemia 14. Irritable bowel syndrome 15. Hypotension due to dehydration and likely to unintentional OD with MS Contin due to ARF 16. Normochromic normocytic anemia with a normal RDW - likely anemia of CD......iron studies are not consistent with iron deficiency. Can be worked up as an OP 17. ARF due to dehydration Continue to hold the MS Contin continue Methadone continue the reduced dose of Gabapentin Restart the Lopressor when the HR improves recheck lab in the a.m. Titrate the oxygen to maintain his oxygen saturation between 89 and 93% Bumex will likely hang around for a while due to the ARF.....continue the NS at 60 cc/hr X 2 Liters. Fluid balance is actually been negative since admission. Sputum culture and respiratory panel Code Visit Inpatient E&M: 82476 Subs Hosp L3
[2018-07-10 11:22] LABS: Vitamin B12 513 pg/mL (211-911)
[2018-07-10 13:31] LABS: Bedside Glucose 115 mg/dL (70-110)
[2018-07-10] MEDS: 0.9% Normal Saline 1,000 ML 60 ML IV (15:43)
[2018-07-10 17:51] LABS: Bedside Glucose 117 mg/dL (70-110)
[2018-07-10] MEDS: Pravastatin 80 MG Tablet PO (21:38)
[2018-07-10 22:11] LABS: Bedside Glucose 110 mg/dL (70-110)
[2018-07-11] VITALS (17 sets, daily range): BP systolic 135–163; BP diastolic 61–107; PULSE 52–90; RESP 18–25; TEMP 35.8–36.4; O2SAT 91–94
[2018-07-11] MEDS: Acetaminophen 325 MG Tablet 650 MG PO (04:30)
[2018-07-11] MEDS: Heparin Injection (Vial) 5,000 UNIT/ML VIAL 5000 UNIT SC ×3 (05:02→22:18)
[2018-07-11 06:05] LABS: Bedside Glucose 109 mg/dL (70-110)
[2018-07-11 06:46] LABS: Anion Gap 10 (5-15); BUN 18 mg/dL (7-18); Calcium,Total 8.6 mg/dL (8.5-10.1); Chloride 103 mmol/L (98-107); Creatinine, Serum 0.72 mg/dL (0.70-1.30); EST Glomerular Filtration Rate 119 mL/min (>60); Est Glom Filt Rate - Afr Amer 144 mL/min (>60); Estimated Creatinine Clearance 119.11 ml/min; Glucose 120 mg/dL (74-106); Phosphorus 2.1 mg/dL (2.5-4.9); Potassium 3.9 mmol/L (3.5-5.1); Sodium Level 142 mmol/L (136-145)
[2018-07-11] MEDS: Albuterol 2.5 MG/3 ML VIAL.NEB. INHALATION ×3 (06:54→19:13)
[2018-07-11] MEDS: Budesonide Respules 0.5 MG/2 ML AMPUL.NEB. INHALATION ×2 (06:54→19:13)
[2018-07-11] MEDS: Fluticasone 0.05% 1 SPRAY NASAL.SRY 2 SPRAY NASAL (08:06)
[2018-07-11] MEDS: Clopidogrel Bisulfate 75 MG Tablet PO (08:07)
[2018-07-11] MEDS: Ondansetron ODT 4 MG Tablet PO ×2 (08:07→22:14)
[2018-07-11] MEDS: Allopurinol 100 MG Tablet PO (08:07)
[2018-07-11] MEDS: Sertraline 100 MG Tablet PO (08:07)
[2018-07-11] MEDS: 0.9% Normal Saline 1,000 ML 60 ML IV (08:07)
[2018-07-11] MEDS: Loratadine 10 MG Tablet PO (08:08)
[2018-07-11] MEDS: Linacolotide 145 MCG CAPSULE PO (08:08)
[2018-07-11] MEDS: Aspirin 81 MG TAB.CHEW PO (08:08)
[2018-07-11] MEDS: Fludrocortisone Acetate 0.1 MG Tablet PO (08:08)
[2018-07-11] MEDS: Gabapentin 100 MG Capsule PO (08:08)
[2018-07-11] MEDS: Finasteride 5 MG Tablet PO (08:10)
[2018-07-11] MEDS: Menthol/Lanolin/Calamine/Znox 113 GM Tube 1 APPLIC TOPICAL ×2 (08:10→22:16)
[2018-07-11] MEDS: Nystatin Powder 15gm Bottle 1 APPLIC TOPICAL ×2 (08:10→22:15)
[2018-07-11] MEDS: Pantoprazole Sodium 20 MG Tablet PO (09:21)
--- NOTE | 2018-07-11 10:42 | PN.CARD_ITS ---
Subjectve: The patient states he feels better overall. He notes his main concern at this time is being uncomfortable in his current air mattress/bed. Objective: Vital Signs Temp Pulse Resp BP Pulse Ox 96.5 F L 55 L 18 135/63 H 92 07/11/18 09:26 07/11/18 09:26 07/11/18 09:26 07/11/18 09:26 07/11/18 09:26 Oxygen Flow Rate (L/min) 3 Oxygen Delivery Method Nasal Cannula Weight: 320 lb 5.306 oz Body Mass Index (BMI) 44.4 Finger Stick Blood Glucose 159 Intake and Output for Last 24 Hours 07/09/18 07/10/18 07/11/18 23:59 23:59 23:59 Intake Total 1545 / 1545 462 / 462 Output Total 3575 / 3575 575 / 575 Balance -2029 / -2029 -113 / -113 General: Awake, Alert, Oriented x 3, Cooperative, No Acute Distress, Obese HEENT: Atraumatic, Normocephalic, PERRL, EOMI, Sclera Non Icteric Oral: Moist Mucosa Neck: Supple, Good ROM, No JVD Lungs: - - No obvious rales or rhonchi Cardiovascular: Regular Rhythm, Normal S1, Normal S2 Abdomen: Bowel Sounds Present, Soft, Non Tender, Obese Extremities: No edema Psych/Mental Status: Appropriate 07/11/18 05:55: Sodium 142, Potassium 3.9, Chloride 103, Carbon Dioxide 29.0, Anion Gap 10, BUN 18, Creatinine 0.72, Est GFR (MDRD) Af Amer 144, Est GFR (MD RD) Non-Af 119, BUN/Creatinine Ratio 25.0 H, Glucose 120 H, Calcium 8.6, Phosphorus 2.1 L, Magnesium 2.0 Rhythm: Sinus rhythm Echocardiogram: Interpretation Summary The study was technically difficult. Contrast injection was performed. Left ventricular systolic function is normal. The estimated ejection fraction is 65 %. Unable to assess diastolic dysfunction. Medical Necessity - Tobacco Use Smoking Status: Former smoker Assessment/Plan 1. CAD status post PCI-remote The present time the patient does not appear to have any acute symptoms with respect to his underlying CAD process. He has been evaluated with a transthoracic echocardiogram. His overall left ventricular wall motion and systolic function appear to be preserved. At the present time he should continue risk factor modification medical therapy as deemed appropriate. 2. Hyperlipidemia He will need to continue risk factor evaluation and care. 3. Hypertension He will need to continue medical management with adjustment of medicines as deemed appropriate as he progresses through his current clinical course. 4. COPD He will continue evaluation care by internal medicine. 5. Hypotension/dehydration The patient appears to be improving with gentle IV hydration with both his vital signs and his renal function. Overall, from a cardiac standpoint, the patient does not appear at this time to require additional cardiac diagnostic studies/therapeutic intervention. Once he is stabilized from his noncardiac conditions then he can continue cardiovascular medical therapy with adjustment based upon his vital signs, renal function, etc. This note was generated using a voice recognition system and there may be incorrect words, spelling or punctuation that were not noted when reviewing the office note prior to saving.
[2018-07-11 11:45] LABS: Bedside Glucose 131 mg/dL (70-110)
--- NOTE | 2018-07-11 11:51 | CASEMGMT ---
RAMSEY faxed updates to [facility] letting them know patient is positive for the Flu. Jodi NORMAN SHAKER WASHER
--- NOTE | 2018-07-11 14:07 | CASEMGMT ---
Patient does not have a Healthcare POA or Healthcare LW Jodi NORMAN PURSE SEINING HAND
--- NOTE | 2018-07-11 18:13 | PCM.PROGNOTE ---
Patient Problems: Active and Suspected Problems (Last Reviewed 07/09/18 @ 23:48 by Mick Choi MD) Hypotension arterial (Acute) Acute kidney injury (Acute) Respiratory failure with hypoxia and hypercapnia (Acute) Acute encephalopathy (Acute) Heart failure (Acute) Subjective: All events of the past 24 hours of been reviewed. Afebrile since admission Hypotension has resolved the blood pressure is starting to climb. The most recent blood pressure was 163/69. He is 93% saturated on 3 L nasal cannula which is his baseline Fluid balance since admission is -2103. All lab was personally reviewed. BMP is unremarkable and the creatinine today is 0.72, down from 1.58 at admission. The BUN/creatinine ratio is still 25. Respiratory panel was positive for influenza A-subtype H3 Telemetry shows normal sinus rhythm with one 5 beat run of nonsustained ventricular tachycardia last evening. He is complaining of diarrhea but he had a formed stool today and although he c/o nausea to me he did not complain of this to nursing He is c/o not being comfortable in the bed. His cough is weak and he has a poor inspiratory effort. Echocardiogram was a technically very difficult study secondary to the patient's body habitus and inability to move in the bed. The ejection fraction was normal at 65%. Objective: PHYSICAL EXAM: GENERAL: alert, many somatic complaints today, does not appear to be in any distress, weak cough ORAL: moist mucosa, no mucosal lesions NECK: supple, trachea midline LUNGS: CTA anterior, symmetric chest expansion, poor inspiratory effort, weak cough, no conversational dyspnea, not tachypneic, no accessory muscle use HEART: RRR, Normal S1 and S2, no rub, no gallop, distant heart sounds ABDOMEN: soft, complaining of tenderness in the left upper quadrant but has no guarding, ND, BS present, no masses appreciated EXTREMITIES: no edema, no cyanosis, no calf tenderness, stasis hyperpigmentation of both lower extremities distally SKIN: No rashes, no breakdown NEUROLOGIC: no focal neurologic deficits PSYCH: Flat affect - Physical Exam Vital Signs Temp Pulse Resp BP Pulse Ox 97.0 F L 52 L 18 163/69 H 93 07/11/18 16:02 07/11/18 16:20 07/11/18 16:02 07/11/18 16:02 07/11/18 16:02 Oxygen Flow Rate (L/min) 3 Oxygen Delivery Method Nasal Cannula Weight: 320 lb 5.306 oz Body Mass Index (BMI) 44.4 Finger Stick Blood Glucose 159 Intake and Output for Last 24 Hours 07/09/18 07/10/18 07/11/18 23:59 23:59 23:59 Intake Total 1545 / 1545 1102 / 1102 Output Total 3575 / 3575 1175 / 1175 Balance -2030 / -2030 -73 / -73 Microbiology Past 72 Hours 07/11/18 09:20 Gram Stain - Final Sputum, Expectorated/Coughed 07/10/18 13:40 Respiratory Panel (PCR) - Final Mucosa - Nasopharyngeal Influenza A (Subtype H3) Laboratory Tests Past 24 Hrs 07/11/18 05:55 Sodium 142 Potassium 3.9 Chloride 103 Carbon Dioxide 29.0 Anion Gap 10 BUN 18 Creatinine 0.72 Estim Creat Clear Calc 119.11 Est GFR (MDRD) Af Amer 144 Est GFR (MDRD) Non-Af 119 BUN/Creatinine Ratio 25.0 H Glucose 120 H Calcium 8.6 Phosphorus 2.1 L Magnesium 2.0 POC Glucose 07/11/18 07/11/18 07/10/18 11:27 04:58 21:44 POC Glucose 131 H 109 110 Medical Necessity - Tobacco Use Smoking Status: Former smoker Assessment/Plan All Active Problems (Last Reviewed 07/09/18 @ 23:48 by Mick Choi MD) Acute and chronic respiratory failure with hypoxia (Acute) COPD with acute exacerbation (Acute) Lactic acidosis (Acute) Hypotension arterial (Acute) Acute kidney injury (Acute) Respiratory failure with hypoxia and hypercapnia (Acute) Acute encephalopathy (Acute) Heart failure (Acute) Acute [place], inferior wall (Acute) Acute inferolateral myocardial infarction (Acute) Impression 1. confusion/toxic encephalopathy associated with bradycardia and hypotension - suspect secondary to dehydration resulting in ARF that lead to to accumulation of MS Contin. Improving with hydration.....seems to be back to his baseline 2. Coronary artery disease 3. Depression 4. History of multiple PTCAs/stents in the past 5. Morbid obesity 6. COPD 7. Chronic combined respiratory failure on oxygen 8. DAVION 9. Osteoarthritis 10. Chronic pain syndrome on methadone, oxycodone and MS Contin routinely 11. Restless leg 12. Hypertension 13. Hyperlipidemia 14. Irritable bowel syndrome 15. Hypotension due to dehydration and likely to unintentional OD with MS Contin due to ARF 16. Normochromic normocytic anemia with a normal RDW - likely anemia of CD......iron studies are not consistent with iron deficiency. Can be worked up as an OP 17. ARF due to dehydration - resolved 18. NSVT restart MS Contin at 15 mg Q12H Restart Flomax, lisinopril, DC Go[place] in the a.m. for voiding trial Pt is ready for DC back to the NH....if they will take him back with the FLU SX were present for 1 week prior to presenting to the ER so Tamiflu is not indicated Appreciate Dr. Thomson's input today Code Visit Inpatient E&M: 17936 Subs Hosp L2
[2018-07-11] MEDS: Ondansetron 4 MG/2 ML Vial IV (20:04)
[2018-07-11 21:50] LABS: Bedside Glucose 108 mg/dL (70-110)
[2018-07-11] MEDS: Pravastatin 80 MG Tablet PO (22:15)
[2018-07-11] MEDS: Tamsulosin HCl 0.4 MG Capsule PO (22:18)
[2018-07-11 22:40] LABS: Bedside Glucose 109 mg/dL (70-110)
[2018-07-12] VITALS (18 sets, daily range): BP systolic 137–169; BP diastolic 57–74; PULSE 48–66; RESP 18–24; TEMP 36.1–36.8; O2SAT 86–95
[2018-07-12] MEDS: Ondansetron 4 MG/2 ML Vial IV ×2 (04:32→18:06)
[2018-07-12] MEDS: 0.9% NaCl Peripheral Flush Adult/Peds IV (04:33)
[2018-07-12] MEDS: Heparin Injection (Vial) 5,000 UNIT/ML VIAL 5000 UNIT SC ×3 (05:01→22:56)
[2018-07-12] MEDS: Budesonide Respules 0.5 MG/2 ML AMPUL.NEB. INHALATION ×2 (05:14→19:24)
[2018-07-12] MEDS: Albuterol 2.5 MG/3 ML VIAL.NEB. INHALATION ×3 (05:14→19:24)
[2018-07-12] MEDS: Linacolotide 145 MCG CAPSULE PO (06:01)
[2018-07-12 07:01] LABS: Bedside Glucose 139 mg/dL (70-110)
--- NOTE | 2018-07-12 09:17 | PCM.PN.CARD ---
Subjectve: The patient denies any ongoing chest discomfort or worsening shortness of breath or dyspnea. Objective: Vital Signs Temp Pulse Resp BP Pulse Ox 97.3 F L 56 L 24 H 151/71 H 94 07/12/18 04:00 07/12/18 07:39 07/12/18 05:15 07/12/18 04:00 07/12/18 05:16 Oxygen Flow Rate (L/min) 4 Oxygen Delivery Method Nasal Cannula Weight: 319 lb 14.252 oz Body Mass Index (BMI) 44.4 Finger Stick Blood Glucose 159 Intake and Output for Last 24 Hours 07/10/18 07/11/18 07/12/18 23:59 23:59 23:59 Intake Total 1545 / 1545 1810 / 1810 275 / 275 Output Total 3575 / 3575 1425 / 1425 350 / 350 Balance -2029 / -2030 385 / 385 -75 / -75 General: Awake, Alert, Oriented x 3, Cooperative, No Acute Distress, Obese HEENT: Atraumatic, Normocephalic, PERRL, EOMI, Sclera Non Icteric Oral: Moist Mucosa Neck: Supple, Good ROM, No JVD Lungs: - - No obvious rales or rhonchi Cardiovascular: Regular Rhythm, Normal S1, Normal S2 Abdomen: Bowel Sounds Present, Soft, Non Tender Extremities: No edema Psych/Mental Status: Appropriate Rhythm:sinus rhythm Medical Necessity - Tobacco Use Smoking Status: Former smoker Assessment/Plan 1. CAD status post PCI-remote The present time the patient does not appear to have any acute symptoms with respect to his underlying CAD process. He has been evaluated with a transthoracic echocardiogram. His overall left ventricular wall motion and systolic function appear to be preserved. At the present time he should continue risk factor modification medical therapy as deemed appropriate. 2. Hyperlipidemia He will need to continue risk factor evaluation and care. 3. Hypertension He will need to continue medical management with adjustment of medicines as deemed appropriate as he progresses through his current clinical course. 4. COPD He will continue evaluation care by internal medicine. 5. Hypotension/dehydration The patient appears to be improving with gentle IV hydration with both his vital signs and his renal function. overall, he will continue medical management. Temporally made to reintroduce his beta mike therapy-at low dose-with followup of his heart rate and blood pressure. This note was generated using a voice recognition system and there may be incorrect words, spelling or punctuation that were not noted when reviewing the office note prior to saving.
[2018-07-12] MEDS: Metoprolol Tartrate 25 MG Tablet 12.5 MG PO ×2 (10:48→22:59)
[2018-07-12] MEDS: Gabapentin 100 MG Capsule PO ×3 (10:48→18:06)
[2018-07-12] MEDS: Fluticasone 0.05% 1 SPRAY NASAL.SRY 2 SPRAY NASAL (10:48)
[2018-07-12] MEDS: Aspirin 81 MG TAB.CHEW PO (10:48)
[2018-07-12] MEDS: Lisinopril 5 MG Tablet PO (10:49)
[2018-07-12] MEDS: Allopurinol 100 MG Tablet PO (10:49)
[2018-07-12] MEDS: Fludrocortisone Acetate 0.1 MG Tablet PO (10:49)
[2018-07-12] MEDS: Finasteride 5 MG Tablet PO (10:49)
[2018-07-12] MEDS: Tamsulosin HCl 0.4 MG Capsule PO ×2 (10:49→22:58)
[2018-07-12] MEDS: morphine SR 15 MG Tablet PO ×2 (10:49→22:58)
[2018-07-12] MEDS: Sertraline 100 MG Tablet PO (10:49)
[2018-07-12] MEDS: Loratadine 10 MG Tablet PO (10:49)
[2018-07-12] MEDS: Clopidogrel Bisulfate 75 MG Tablet PO (10:49)
[2018-07-12] MEDS: Isosorbide Mononitrate 30 MG Tablet PO (10:49)
[2018-07-12] MEDS: Ondansetron ODT 4 MG Tablet PO ×2 (10:49→22:58)
[2018-07-12] MEDS: Menthol/Lanolin/Calamine/Znox 113 GM Tube 1 APPLIC TOPICAL ×2 (10:50→22:53)
[2018-07-12] MEDS: Nystatin Powder 15gm Bottle 1 APPLIC TOPICAL ×2 (10:50→22:52)
[2018-07-12] MEDS: Pantoprazole Sodium 20 MG Tablet PO (10:56)
[2018-07-12 12:10] LABS: Bedside Glucose 127 mg/dL (70-110)
--- NOTE | 2018-07-12 13:11 | CASEMGMT ---
RAMSEY called and left a message for Barbra to call RAMSEY back. RAMSEY will inquire if they are able to take patient back with the flu. Jodi NORMAN MSW
--- NOTE | 2018-07-12 14:42 | CASEMGMT ---
Barbra from [facility] called back and said pt is fine to discharge back to [facility] with the flu. RAMSEY let Barbra know pt will return today, just waiting for discharge orders. Once orders are completed SW will fax and set up transport to take pt back. LIANE Bonilla, [employer] OUTFITTING SUPERVISOR
[2018-07-12 16:21] LABS: Bedside Glucose 111 mg/dL (70-110)
--- NOTE | 2018-07-12 16:39 | PN_ITS ---
Patient Problems: Active and Suspected Problems (Last Reviewed 07/09/18 @ 23:48 by Mick Choi MD) Hypotension arterial (Acute) Acute kidney injury (Acute) Respiratory failure with hypoxia and hypercapnia (Acute) Acute encephalopathy (Acute) Heart failure (Acute) Subjective: All events of the past 24 hours of been reviewed. Sputum culture has 3+ white blood cells and is growing staph aureus- sensitivities are pending Afebrile since admission Vital signs stable 93% on a 4 L nasal cannula Fluid balance since admission is -1650 NAD, lying in bed, breathing is not labored. Objective: PHYSICAL EXAM: GENERAL: alert, oriented X 3, Cooperative, NAD looks older than stated age ORAL: moist mucosa, no mucosal lesions NECK: No JVD, supple, trachea midline LUNGS: CTA, symmetric chest expansion, diminished, no conversational dyspnea, shallow respirations, no accessory muscle use, not tachypneic HEART: RRR, Normal S1 and S2, no rub, no gallop ABDOMEN: soft, NT, ND, BS present, no guarding with palpation, obese EXTREMITIES: no edema, no cyanosis, no calf tenderness SKIN: No rashes, no breakdown NEUROLOGIC: no focal neurologic deficits PSYCH: Flat affect, does not do much to help himself and relies on nursing for any change in position.....has not been up to a chair - Physical Exam Vital Signs Temp Pulse Resp BP Pulse Ox 96.9 F L 55 L 18 137/61 H 93 07/12/18 15:04 07/12/18 15:45 07/12/18 15:04 07/12/18 15:04 07/12/18 15:04 Oxygen Flow Rate (L/min) 4 Oxygen Delivery Method Nasal Cannula Weight: 319 lb 14.252 oz Body Mass Index (BMI) 44.4 Finger Stick Blood Glucose 159 Intake and Output for Last 24 Hours 07/10/18 07/11/18 07/12/18 23:59 23:59 23:59 Intake Total 1545 / 1545 1810 / 1810 645 / 645 Output Total 3575 / 3575 1425 / 1425 650 / 650 Balance -2029 / -2029 385 / 385 -5 / -5 Microbiology Past 72 Hours 07/11/18 09:20 Gram Stain - Final Sputum, Expectorated/Coughed Respiratory Culture - Preliminary Staphylococcus aureus 07/10/18 13:40 Respiratory Panel (PCR) - Final Mucosa - Nasopharyngeal Influenza A (Subtype H3) POC Glucose 07/12/18 07/12/18 07/12/18 16:14 11:50 06:53 POC Glucose 111 H 127 H 139 H 07/11/18 07/11/18 22:13 16:26 POC Glucose 109 108 Medical Necessity - Tobacco Use Smoking Status: Former smoker Assessment/Plan All Active Problems (Last Reviewed 07/09/18 @ 23:48 by Mick Choi MD) Acute and chronic respiratory failure with hypoxia (Acute) COPD with acute exacerbation (Acute) Lactic acidosis (Acute) Hypotension arterial (Acute) Acute kidney injury (Acute) Respiratory failure with hypoxia and hypercapnia (Acute) Acute encephalopathy (Acute) Heart failure (Acute) Acute [place], inferior wall (Acute) Acute inferolateral myocardial infarction (Acute) Impression 1. confusion/toxic encephalopathy associated with bradycardia and hypotension - suspect secondary to dehydration resulting in ARF that lead to to accumulation of MS Contin. Improving with hydration.....seems to be back to his baseline. To lerating the restart of MS Contin at a lower dose with no change in the mental status 2. Coronary artery disease 3. Depression 4. History of multiple PTCAs/stents in the past 5. Morbid obesity 6. COPD 7. Chronic combined respiratory failure on oxygen 8. DAVION 9. Osteoarthritis 10. Chronic pain syndrome on methadone, oxycodone and MS Contin routinely 11. Restless leg 12. Hypertension 13. Hyperlipidemia 14. Irritable bowel syndrome 15. Hypotension due to dehydration and likely to unintentional OD with MS Contin due to ARF 16. Normochromic normocytic anemia with a normal RDW - likely anemia of CD......iron studies are not consistent with iron deficiency. Can be worked up as an OP 17. ARF due to dehydration - resolved 18. NSVT 19. Influenza A not started on Tamiflu because he had had symptoms for at least one week prior to being brought to the emergency room 20. Staph aureus in the sputum with 3+ white blood cells 21. Diabetes mellitus type 2-blood sugars have been well controlled in the hospital 22. Chronic narcotic dependence Consult pharmacy to start vancomycin -await the sensitivities CXR in the AM Recheck lab in the a.m. Continues to decrease despite holding Bumex.
--- NOTE | 2018-07-12 16:47 | PCM.RX.CS ---
Consult Pharmacy has been consulted to manage selected antiobiotic: Vancomycin Type of Consult: New start Suspected Infection: Other Prior Doses of Antibiotics Received/Current Regimen: NONE Labs: Sodium 142 mmol/L (136-145) 07/11/18 05:55 Potassium 3.9 mmol/L (3.5-5.1) 07/11/18 05:55 Chloride 103 mmol/L (98-107) 07/11/18 05:55 Carbon Dioxide 29.0 mmol/L (21.0-32.0) 07/11/18 05:55 Anion Gap 10 (5-15) 07/11/18 05:55 BUN 18 mg/dL (7-18) 07/11/18 05:55 Creatinine 0.72 mg/dL (0.70-1.30) 07/11/18 05:55 Est GFR (MDRD) Af Amer 144 mL/min (>60) 07/11/18 05:55 Est GFR (MDRD) Non-Af 119 mL/min (>60) 07/11/18 05:55 BUN/Creatinine Ratio 25.0 RATIO (10-20) H 07/11/18 05:55 Glucose 120 mg/dL (74-106) H 07/11/18 05:55 Microbiology: Microbiology 07/11/18 09:20 Sputum, Expectorated/Coughed Gram Stain - Final 07/11/18 09:20 Sputum, Expectorated/Coughed Respiratory Culture - Preliminary Staphylococcus aureus 07/10/18 13:40 Mucosa - Nasopharyngeal Respiratory Panel (PCR) - Final Influenza A (Subtype H3) Weight used for dosin kg Estimated Creatinine Clearance: 119 ML/MIN Goal Trough: 15-20 mcg/mL Pharmacy Plan for Drug Dosing: PLAN/RECOMMENDATIONS 1. Vancomycin 2000mg Loading dose 07/12/18 @ 1700 (administering 2- 1000mg bags over 1hr x2 times) 2. Scheduled vancomycin 1500mg IV Q8hr per protocol 3. Trough scheduled 07/13/18 @1630, prior to 4th total vancomycin dose 4. Pharmacy Service will continue to monitor and adjust dosing as required.
[2018-07-12] MEDS: Acetaminophen 325 MG Tablet 650 MG PO (18:17)
[2018-07-12 22:55] LABS: Bedside Glucose 122 mg/dL (70-110)
[2018-07-12] MEDS: Pravastatin 80 MG Tablet PO (22:58)
[2018-07-13] VITALS (18 sets, daily range): BP systolic 144–153; BP diastolic 60–75; PULSE 54–75; RESP 16–18; TEMP 36.6–37.2; O2SAT 91–96
[2018-07-13] MEDS: Acetaminophen 325 MG Tablet 650 MG PO (01:19)
--- NOTE | 2018-07-13 05:55 | RAD_ITS ---
STUDY: X-RAY CHEST REASON FOR EXAM: Male, 57 years old. Shortness of breath. TECHNIQUE: Single AP portable view of the chest. COMPARISON: Comparison is made with prior study dated July 09, 2018. FINDINGS: EKG electrodes are seen. Since prior examination, there has been progressive infiltrate at the left lung base as well as in the lateral aspect of the left upper lobe. Stable appearance of the right lung. There is no demonstrated pleural abnormality. Normal size heart. Normal mediastinum and liban. Normal visualized pulmonary arteries. Normal visualized aortic arch and descending thoracic aorta. There are diffuse degenerative changes of the visualized thoracic spine. Normal visualized ribs, clavicles, and shoulders. There is no demonstrated abnormality of the visualized soft tissue structures of the upper abdomen. RAD/Chest 1 View (Portable) IMPRESSION: Progressive infiltrate in the left lung base as well as in the lateral aspect of the left upper lobe. Electronically Signed: Howie Dong, at 10:09 EST , Service support ,
[2018-07-13] MEDS: Heparin Injection (Vial) 5,000 UNIT/ML VIAL 5000 UNIT SC ×3 (06:14→21:13)
[2018-07-13] MEDS: Budesonide Respules 0.5 MG/2 ML AMPUL.NEB. INHALATION ×2 (06:44→20:40)
[2018-07-13] MEDS: Albuterol 2.5 MG/3 ML VIAL.NEB. INHALATION ×3 (06:44→20:30)
[2018-07-13 07:05] LABS: Bedside Glucose 137 mg/dL (70-110)
[2018-07-13 07:09] LABS: Absolute Neutrophil Count 11.3 X10^3/uL (2.0-7.7); Basophil# 0.02 X10^3/uL; Basophil% 0.2 % (0-1); Hematocrit 41.7 % (40-54); Lymphocyte % 5.6 % (19-41); Mean Corp Hgb Conc 31.2 g/gl (32-36); Mean Corpuscular Hgb 27.4 pg (27.0-32.0); Mean Corpuscular Volume 87.8 fL (80-94); Mean Platelet Vol. 9.1 fl (6.2-12.0); Monocyte# 0.47 X10^3/uL; Monocyte% 3.7 % (0-10); Platelet Count 311 K/mm3 (150-450); RBC Distribution Width CV 14.6 % (11.6-14.6); RBC Distribution Width SD 46.4 fl (35.1-43.9); Red Blood Count 4.75 M/mm3 (4.6-6.2); White Blood Count 12.6 K/mm3 (4.4-11.0)
[2018-07-13 07:13] LABS: POSITIVE COUNT NO; POSITIVE DIFFERENTIAL NO; POSITIVE MORPHOLOGY NO
[2018-07-13 07:15] LABS: ALB/GLOB Ratio 0.4 RATIO (0.9-2.4); AST(SGOT) 43 U/L (15-37); Alanine Aminotransfer ALT/SGPT 20 U/L (16-61); Albumin, Serum 2.6 g/dL (3.2-5.0); Alkaline Phosphatase 185 U/L (45-117); Anion Gap 9 (5-15); BUN 11 mg/dL (7-18); BUN/Creat Ratio 10.1 RATIO (10-20); Calcium,Total 8.5 mg/dL (8.5-10.1); Chloride 105 mmol/L (98-107); Creatinine, Serum 1.09 mg/dL (0.70-1.30); EST Glomerular Filtration Rate 74 mL/min (>60); Est Glom Filt Rate - Afr Amer 89 mL/min (>60); Estimated Creatinine Clearance 78.68 ml/min; Globulin 5.8 g/dL (2.2-4.2); Glucose 119 mg/dL (74-106); Magnesium 1.7 mg/dL (1.6-2.6); Phosphorus 2.7 mg/dL (2.5-4.9); Potassium 3.7 mmol/L (3.5-5.1); Protein, Total 8.4 g/dL (6.4-8.2); Sodium Level 141 mmol/L (136-145)
--- NOTE | 2018-07-13 08:28 | PN.CARD_ITS ---
Subjectve: The patient denies ongoing chest discomfort. He has a cough. He states he has felt warm. Objective: Vital Signs Temp Pulse Resp BP Pulse Ox 98.2 F 73 18 153/60 H 91 07/13/18 03:01 07/13/18 07:44 07/13/18 07:37 07/13/18 03:01 07/13/18 06:44 Oxygen Flow Rate (L/min) 4 Oxygen Delivery Method Nasal Cannula Weight: 316 lb 5.813 oz Body Mass Index (BMI) 44.4 Finger Stick Blood Glucose 159 Intake and Output for Last 24 Hours 07/11/18 07/12/18 07/13/18 23:59 23:59 23:59 Intake Total 1810 / 1810 1380 / 1380 1157 / 1157 Output Total 1425 / 1425 950 / 950 225 / 225 Balance 385 / 385 430 / 430 932 / 932 General: Awake, Alert, Oriented x 3, Cooperative, No Acute Distress, Obese HEENT: Atraumatic, Normocephalic, PERRL, EOMI, Sclera Non Icteric Oral: Moist Mucosa Neck: Supple, Good ROM, No JVD Lungs: Expiratory Wheezes-Rashid Cardiovascular: Regular Rhythm, Normal S1, Normal S2 Abdomen: Bowel Sounds Present, Soft, Non Tender, Obese Extremities: No edema Psych/Mental Status: Appropriate 07/13/18 06:25: WBC 12.6 H, RBC 4.75, Hgb 13.0, Hct 41.7, MCV 87.8, MCH 27.4, MCHC 31.2 L, RDW 14.6, RDW Differential 46.4 H, Plt Count 311, MPV 9.1, Immature Gran % (Auto) 0.500, Neut % (Auto) 90.0 H, Lymph % (Auto) 5.6 L, [place] % (Auto) 3.7, Eos % (Auto) 0.0, Baso % (Auto) 0.2, Absolute Neuts (auto) 11.3 H, Total Counted Not Reportable 07/13/18 06:25: Sodium 141, Potassium 3.7, Chloride 105, Carbon Dioxide 27.0, Anion Gap 9, BUN 11, Creatinine 1.09, Est GFR (MDRD) Af Amer 89, Est GFR (MDRD) Non-Af 74, BUN/Creatinine Ratio 10.1, Glucose 119 H, Calcium 8.5, Phosphorus 2.7, Magnesium 1.7, Total Bilirubin 0.70 Rhythm:Sinus rhythm Medical Necessity - Tobacco Use Smoking Status: Former smoker Assessment/Plan 1. CAD status post PCI-remote The present time the patient does not appear to have any acute symptoms with respect to his underlying CAD process. He has been evaluated with a transthoracic echocardiogram. His overall left ventricular wall motion and systolic function appear to be preserved. At the present time he should continue risk factor modification medical therapy as deemed appropriate. 2. Hyperlipidemia He will need to continue risk factor evaluation and care. 3. Hypertension He will need to continue medical management with adjustment of medicines as deemed appropriate as he progresses through his current clinical course. 4. COPD He will continue evaluation care by internal medicine. 5. Hypotension/dehydration The patient appears to be improving with gentle IV hydration with both his vital signs and his renal function. overall, he will continue medical management. His beta blockers have been reintroduced. Thus far there has been no adverse ev ents. Overall he will continue cardiovascular medical management with adjustment as needed. There were no immediate plans for additional cardiac diagnostic studies or therapeutic intervention. He can be reassessed from a cardiovascular standpoint as needed. This note was generated using a voice recognition system and there may be incorrect words, spelling or punctuation that were not noted when reviewing the office note prior to saving.
[2018-07-13] MEDS: morphine SR 15 MG Tablet PO ×2 (10:00→21:13)
[2018-07-13] MEDS: Gabapentin 100 MG Capsule PO ×3 (10:01→17:07)
[2018-07-13] MEDS: Allopurinol 100 MG Tablet PO (10:01)
[2018-07-13] MEDS: Aspirin 81 MG TAB.CHEW PO (10:01)
[2018-07-13] MEDS: Fluticasone 0.05% 1 SPRAY NASAL.SRY 2 SPRAY NASAL (10:02)
[2018-07-13] MEDS: Loratadine 10 MG Tablet PO (10:02)
[2018-07-13] MEDS: Fludrocortisone Acetate 0.1 MG Tablet PO (10:02)
[2018-07-13] MEDS: Sertraline 100 MG Tablet PO (10:02)
[2018-07-13] MEDS: Clopidogrel Bisulfate 75 MG Tablet PO (10:03)
[2018-07-13] MEDS: Metoprolol Tartrate 25 MG Tablet PO ×2 (10:03→21:13)
[2018-07-13] MEDS: Ondansetron ODT 4 MG Tablet PO ×2 (10:04→21:14)
[2018-07-13] MEDS: Finasteride 5 MG Tablet PO (10:04)
[2018-07-13] MEDS: Lisinopril 5 MG Tablet PO (10:04)
[2018-07-13] MEDS: Nystatin Powder 15gm Bottle 1 APPLIC TOPICAL ×2 (10:07→21:12)
[2018-07-13] MEDS: Pantoprazole Sodium 20 MG Tablet PO (10:07)
[2018-07-13] MEDS: Tamsulosin HCl 0.4 MG Capsule PO ×2 (10:09→21:13)
[2018-07-13] MEDS: Isosorbide Mononitrate 30 MG Tablet PO (10:09)
[2018-07-13] MEDS: Menthol/Lanolin/Calamine/Znox 113 GM Tube 1 APPLIC TOPICAL ×2 (10:10→21:12)
--- NOTE | 2018-07-13 10:56 | PCM.PROGNOTE ---
Patient Problems: Active and Suspected Problems (Last Reviewed 07/09/18 @ 23:48 by Mick Choi MD) Hypotension arterial (Acute) Acute kidney injury (Acute) Respiratory failure with hypoxia and hypercapnia (Acute) Acute encephalopathy (Acute) Heart failure (Acute) Subjective: Day #2 vancomycin All events of the past 24 hours of been reviewed. Afebrile since admission. Blood pressures are ranging from 137/61-160 9/74. Oral intake is still poor Telemetry shows normal sinus rhythm/sinus bradycardia with occasional PVC Currently 91% on 4 L nasal cannula Chest x-ray shows new infiltrates in the left base and lateral aspect of the left upper lobe. No pleural effusions. No significant pulmonary vascular congestion. Sputum culture is positive for 3+ MRSA White blood cell count today is up to 12.6 with 90% neutrophils. Hemoglobin and platelets are within normal limits. BMP is unremarkable. Blood sugars are very well controlled Objective: GENERAL: alert, oriented X 3, Cooperative, NAD looks older than stated age, flat affect ORAL: moist mucosa, no mucosal lesions NECK: No JVD, supple, trachea midline LUNGS: CTA, symmetric chest expansion, diminished, no conversational dyspnea, shallow respirations, no accessory muscle use, not tachypneic, not coughing while I am in the room HEART: RRR, Normal S1 and S2, no rub, no gallop ABDOMEN: soft, NT, ND, BS present, no guarding with palpation, obese EXTREMITIES: no edema, no cyanosis, no calf tenderness SKIN: No rashes, no breakdown NEUROLOGIC: no focal neurologic deficits PSYCH: Flat affect, does not do much to help himself and relies on nursing for any change in position.....has not been up to a chair - Physical Exam Vital Signs Temp Pulse Resp BP Pulse Ox 98.2 F 62 18 149/75 H 91 07/13/18 03:01 07/13/18 10:03 07/13/18 07:37 07/13/18 10:03 07/13/18 06:44 Oxygen Flow Rate (L/min) 4 Oxygen Delivery Method Nasal Cannula Weight: 316 lb 5.813 oz Body Mass Index (BMI) 44.4 Finger Stick Blood Glucose 159 Intake and Output for Last 24 Hours 07/11/18 07/12/18 07/13/18 23:59 23:59 23:59 Intake Total 1810 / 1810 1380 / 1380 1157 / 1157 Output Total 1425 / 1425 950 / 950 225 / 225 Balance 385 / 385 430 / 430 932 / 932 Microbiology Past 72 Hours 07/11/18 09:20 Gram Stain - Final Sputum, Expectorated/Coughed Respiratory Culture - Final Meth. resistant Staph. aureus 07/10/18 13:40 Respiratory Panel (PCR) - Final Mucosa - Nasopharyngeal Influenza A (Subtype H3) Laboratory Tests Past 24 Hrs 07/13/18 07/13/18 06:25 06:25 WBC 12.6 H RBC 4.75 Hgb 13.0 Hct 41.7 MCV 87.8 MCH 27.4 MCHC 31.2 L RDW 14.6 RDW Differential 46.4 H Plt Count 311 MPV 9.1 Immature Gran % (Auto) 0.500 Neut % (Auto) 90.0 H Lymph % (Auto) 5.6 L [place] % (Auto) 3.7 Eos % (Auto) 0.0 Baso % (Auto) 0.2 Absolute Neuts (auto) 11.3 H Absolute Lymphs (auto) 0.70 L Total Counted Not Reportable Sodium 141 Potassium 3.7 Chloride 105 Carbon Dioxide 27.0 Anion Gap 9 BUN 11 Creatinine 1.09 Estim Creat Clear Calc 78.68 Est GFR (MDRD) Af Amer 89 Est GFR (MDRD) Non-Af 74 BUN/Creatinine Ratio 10.1 Glucose 119 H Calcium 8.5 Phosphorus 2.7 Magnesium 1.7 Total Bilirubin 0.70 AST 43 H ALT 20 Alkaline Phosphatase 185 H Total Protein 8.4 H Albumin 2.6 L Globulin 5.8 H Albumin/Globulin Ratio 0.4 L POC Glucose 07/13/18 07/12/18 07/12/18 06:58 22:48 16:14 POC Glucose 137 H 122 H 111 H 07/12/18 11:50 POC Glucose 127 H Medical Necessity - Tobacco Use Smoking Status: Former smoker Assessment/Plan All Active Problems (Last Reviewed 07/09/18 @ 23:48 by Mick Choi MD) Acute and chronic respiratory failure with hypoxia (Acute) COPD with acute exacerbation (Acute) Lactic acidosis (Acute) Hypotension arterial (Acute) Acute kidney injury (Acute) Respiratory failure with hypoxia and hypercapnia (Acute) Acute encephalopathy (Acute) Heart failure (Acute) Acute VT, inferior wall (Acute) Acute inferolateral myocardial infarction (Acute) Impression 1. confusion/toxic encephalopathy associated with bradycardia and hypotension - suspect secondary to dehydration resulting in ARF that lead to to accumulation of MS Contin. Improving with hydration.....seems to be back to his baseline. Tolerating the restart of MS Contin at a lower dose with no change in the mental status. Tolerating restarting the MS Contin at 15 mg every 12 hours without any altered mental status in the past 24 hours 2. Coronary artery disease 3. Depression 4. History of multiple PTCAs/stents in the past 5. Morbid obesity 6. COPD 7. Chronic combined respiratory failure on oxygen 8. DAVION 9. Osteoarthritis 10. Chronic pain syndrome on methadone, oxycodone and MS Contin routinely 11. Restless leg 12. Hypertension 13. Hyperlipidemia 14. Irritable bowel syndrome 15. Hypotension due to dehydration and likely to unintentional OD with MS Contin due to ARF 16. Normochromic normocytic anemia with a normal RDW - likely anemia of CD......iron studies are not consistent with iron deficiency. Can be worked up as an OP 17. ARF due to dehydration - resolved 18. NSVT 19. Influenza A not started on Tamiflu because he had had symptoms for at least one week prior to being brought to the emergency room 20. MRSA pneumonia post influenza 21. Chronic narcotic dependence Continue vancomycin Continue current care Transition to Zyvox in the a.m. if doing well Code Visit Inpatient E&M: 25019 Subs Hosp L2
[2018-07-13 11:30] LABS: Bedside Glucose 122 mg/dL (70-110)
--- NOTE | 2018-07-13 14:01 | CASEMGMT ---
RAMSEY called [facility] and spoke with Stuart. RAMSEY let her know patient may be coming back over the weekend. RAMSEY She thanked RAMSEY for the update. Green sheet on chart. Plan: d/c back to [facility] when ready. Jodi NORMAN MSW
[2018-07-13 16:26] LABS: Bedside Glucose 100 mg/dL (70-110)
[2018-07-13 18:14] LABS: Vancomycin, Trough Level 35.7 ug/mL (5.0-15.0)
--- NOTE | 2018-07-13 19:55 | PCM.RX.CS ---
Consult Pharmacy has been consulted to manage selected antiobiotic: Vancomycin Type of Consult: Follow-up Suspected Infection: Pneumonia Prior Doses of Antibiotics Received/Current Regimen: Vancomycin 2000mg IV x1 dose 07/12/18 and Vancomycin 1500mg IV q8h x3 doses Labs: Sodium 141 mmol/L (136-145) 07/13/18 06:25 Potassium 3.7 mmol/L (3.5-5.1) 07/13/18 06:25 Chloride 105 mmol/L (98-107) 07/13/18 06:25 Carbon Dioxide 27.0 mmol/L (21.0-32.0) 07/13/18 06:25 Anion Gap 9 (5-15) 07/13/18 06:25 BUN 11 mg/dL (7-18) 07/13/18 06:25 Creatinine 1.09 mg/dL (0.70-1.30) 07/13/18 06:25 Est GFR (MDRD) Af Amer 89 mL/min (>60) 07/13/18 06:25 Est GFR (MDRD) Non-Af 74 mL/min (>60) 07/13/18 06:25 BUN/Creatinine Ratio 10.1 RATIO (10-20) 07/13/18 06:25 Glucose 119 mg/dL (74-106) H 07/13/18 06:25 Vancomycin Trough 35.7 ug/mL (5.0-15.0) H 07/13/18 16:55 Microbiology: Microbiology 07/11/18 09:20 Sputum, Expectorated/Coughed Gram Stain - Final 07/11/18 09:20 Sputum, Expectorated/Coughed Respiratory Culture - Final Meth. resistant Staph. aureus 07/10/18 13:40 Mucosa - Nasopharyngeal Respiratory Panel (PCR) - Final Influenza A (Subtype H3) Weight used for dosin kg Estimated Creatinine Clearance: 78.7ml/min Goal Trough: 15-20 mcg/mL Pharmacy Plan for Drug Dosing: Recommend holding Vancomycin and checking a random level on 07/14/18 at 1200 due to trough level of 35.7 Pharmacy Service will continue to monitor and adjust dosing as required. Follow-Up Labs: Trough Vancomycin - random level Labs to be done on [date and time ordered]: vancomycin random level 07/14/18 at 1200
[2018-07-13] MEDS: Pravastatin 80 MG Tablet PO (21:14)
[2018-07-13 21:25] LABS: Bedside Glucose 126 mg/dL (70-110)
[2018-07-14] VITALS (17 sets, daily range): BP systolic 140–170; BP diastolic 59–99; PULSE 51–80; RESP 16–20; TEMP 36.2–37.2; O2SAT 86–93
--- NOTE | 2018-07-14 05:55 | EKG12_ITS ---
Test Reason : Blood Pressure : / mmHG Vent. Rate : 058 BPM Atrial Rate : 258 BPM P-R Int : 000 ms QRS Dur : 090 ms QT Int : 506 ms P-R-T Axes : 000 060 048 degrees QTc Int : 496 ms Normal sinus rhythm Prolonged QT Abnormal ECG When compared with ECG of 09-JUL-2018 21:33, Junctional rhythm has replaced Sinus rhythm Non-specific change in ST segment in Lateral leads QT has lengthened Confirmed by ISAURA FRAZIER, CELY ([id number]), editorial assistant YASSINE HARTMAN ([id number]) on 07/17/2018 1:16:19 PM Referred By: Confirmed By:CELY DELAROSA MD
[2018-07-14] MEDS: Heparin Injection (Vial) 5,000 UNIT/ML VIAL 5000 UNIT SC ×3 (06:00→23:56)
[2018-07-14 07:05] LABS: Bedside Glucose 117 mg/dL (70-110)
[2018-07-14] MEDS: Albuterol 2.5 MG/3 ML VIAL.NEB. INHALATION ×3 (07:17→21:18)
[2018-07-14] MEDS: Budesonide Respules 0.5 MG/2 ML AMPUL.NEB. INHALATION ×2 (07:18→21:18)
[2018-07-14] MEDS: Aspirin 81 MG TAB.CHEW PO (10:07)
[2018-07-14] MEDS: Loratadine 10 MG Tablet PO (10:08)
[2018-07-14] MEDS: Allopurinol 100 MG Tablet PO (10:08)
[2018-07-14] MEDS: Fluticasone 0.05% 1 SPRAY NASAL.SRY 2 SPRAY NASAL (10:08)
[2018-07-14] MEDS: Menthol/Lanolin/Calamine/Znox 113 GM Tube 1 APPLIC TOPICAL ×2 (10:08→23:52)
[2018-07-14] MEDS: Gabapentin 100 MG Capsule PO ×3 (10:08→17:33)
[2018-07-14] MEDS: Tamsulosin HCl 0.4 MG Capsule PO ×2 (10:08→23:55)
[2018-07-14] MEDS: Fludrocortisone Acetate 0.1 MG Tablet PO (10:09)
[2018-07-14] MEDS: Isosorbide Mononitrate 30 MG Tablet PO (10:09)
[2018-07-14] MEDS: Metoprolol Tartrate 25 MG Tablet PO ×2 (10:09→23:54)
[2018-07-14] MEDS: Sertraline 100 MG Tablet PO (10:10)
[2018-07-14] MEDS: morphine SR 15 MG Tablet PO ×2 (10:10→23:55)
[2018-07-14] MEDS: Ondansetron ODT 4 MG Tablet PO (10:10)
[2018-07-14] MEDS: Lisinopril 5 MG Tablet PO (10:10)
[2018-07-14] MEDS: Finasteride 5 MG Tablet PO (10:10)
[2018-07-14] MEDS: Clopidogrel Bisulfate 75 MG Tablet PO (10:10)
[2018-07-14] MEDS: Nystatin Powder 15gm Bottle 1 APPLIC TOPICAL ×2 (10:11→23:52)
[2018-07-14] MEDS: Pantoprazole Sodium 20 MG Tablet PO (10:11)
[2018-07-14 11:41] LABS: Bedside Glucose 99 mg/dL (70-110)
[2018-07-14 12:58] LABS: Vancomycin, Random Level 15.6 ug/mL (0.0-15.0)
--- NOTE | 2018-07-14 13:07 | CPS ---
Patient stopped the treatment after a few minutes.
--- NOTE | 2018-07-14 14:55 | PCM.RX.CS ---
Consult Pharmacy has been consulted to manage selected antiobiotic: Vancomycin Type of Consult: Follow-up Suspected Infection: Other Prior Doses of Antibiotics Received/Current Regimen: Previously, the patient was on 1500mg IV q8h but this has been held since yesterday as the trough that was drawn came back as 35.7 yesterday. The last dose of 1500mg was given yesterday at 17:07. Labs: Sodium 141 mmol/L (136-145) 07/13/18 06:25 Potassium 3.7 mmol/L (3.5-5.1) 07/13/18 06:25 Chloride 105 mmol/L (98-107) 07/13/18 06:25 Carbon Dioxide 27.0 mmol/L (21.0-32.0) 07/13/18 06:25 Anion Gap 9 (5-15) 07/13/18 06:25 BUN 11 mg/dL (7-18) 07/13/18 06:25 Creatinine 1.09 mg/dL (0.70-1.30) 07/13/18 06:25 Est GFR (MDRD) Af Amer 89 mL/min (>60) 07/13/18 06:25 Est GFR (MDRD) Non-Af 74 mL/min (>60) 07/13/18 06:25 BUN/Creatinine Ratio 10.1 RATIO (10-20) 07/13/18 06:25 Glucose 119 mg/dL (74-106) H 07/13/18 06:25 Vancomycin Trough 35.7 ug/mL (5.0-15.0) H 07/13/18 16:55 Random Vancomycin 15.6 ug/mL (0.0-15.0) H 07/14/18 11:40 Microbiology: Microbiology 07/11/18 09:20 Sputum, Expectorated/Coughed Gram Stain - Final 07/11/18 09:20 Sputum, Expectorated/Coughed Respiratory Culture - Final Meth. resistant Staph. aureus 07/10/18 13:40 Mucosa - Nasopharyngeal Respiratory Panel (PCR) - Final Influenza A (Subtype H3) Goal Trough: 15-20 mcg/mL Pharmacy Plan for Drug Dosing: The random level that was drawn today at 11:40 came back as 15.6. Since it is now back below 20 mg/L, per protocol, we can restart at a newly calculated dose of 1000mg IV q12h. A trough will be obtained before the 4th dose. Pharmacy Service will continue to monitor and adjust dosing as required. Follow-Up Labs: Trough Vancomycin Labs to be done on [date and time ordered]: 07/16/18 at 03:30
--- NOTE | 2018-07-14 15:17 | PCM.PROGNOTE ---
Patient Problems: Active and Suspected Problems (Last Reviewed 07/09/18 @ 23:48 by Mick Choi MD) Hypotension arterial (Acute) Acute kidney injury (Acute) Respiratory failure with hypoxia and hypercapnia (Acute) Acute encephalopathy (Acute) Heart failure (Acute) Subjective: Day #3 vancomycin All events the past 24 hours been reviewed. Systolic blood pressures are mildly increased. He is 91%-92% saturated on a 4 L nasal cannula with a respiratory rate of 18. He was 86% on room air at rest. Oral intake continues to be poor. His weight continues to decrease from 328 pounds on 07/10/2018 to 314 pounds today. Rare cough No complaints Objective: - Physical Exam General: Alert, Oriented x3, Cooperative, flat affect, watching TV in bed HEENT: Atraumatic, PERRLA, EOMI, Normocephalic Neck: Supple, No JVD, Negative Carotid Bruits Lungs: Diminished breath sounds with poor inspiratory effort, Cardiovascular: No murmurs, Bradycardic Abdomen: Bowel Sounds Present, Soft, Non Tender, Obese Extremities: No edema, Capillary Refill Less than 3 Seconds Skin: No rashes, No breakdown Musculoskeletal: No Tenderness to Palpation of Joints or Extremities Neurological: Neuro grossly intact Psych/Mental Status: Depressed - Physical Exam Vital Signs Temp Pulse Resp BP Pulse Ox 98.9 F 54 L 18 170/72 H 91 07/14/18 10:04 07/14/18 13:07 07/14/18 13:07 07/14/18 10:04 07/14/18 13:08 Oxygen Flow Rate (L/min) 4 Oxygen Delivery Method Nasal Cannula Weight: 313 lb 15.012 oz Body Mass Index (BMI) 44.4 Finger Stick Blood Glucose 159 Intake and Output for Last 24 Hours 07/12/18 07/13/18 07/14/18 23:59 23:59 23:59 Intake Total 1380 / 1380 2958 / 2958 420 / 420 Output Total 950 / 950 1000 / 1000 550 / 550 Balance 430 / 430 1957 / 1957 -130 / -130 Microbiology Past 72 Hours 07/11/18 09:20 Gram Stain - Final Sputum, Expectorated/Coughed Respiratory Culture - Final Meth. resistant Staph. aureus Laboratory Tests Past 24 Hrs 07/13/18 07/14/18 16:55 11:40 Vancomycin Trough 35.7 H Random Vancomycin 15.6 H POC Glucose 07/14/18 07/14/18 07/13/18 11:32 06:39 21:11 POC Glucose 99 117 H 126 H 07/13/18 16:20 POC Glucose 100 Medical Necessity - Tobacco Use Smoking Status: Former smoker Assessment/Plan All Active Problems (Last Reviewed 07/09/18 @ 23:48 by Mick Choi MD) Acute and chronic respiratory failure with hypoxia (Acute) COPD with acute exacerbation (Acute) Lactic acidosis (Acute) Hypotension arterial (Acute) Acute kidney injury (Acute) Respiratory failure with hypoxia and hypercapnia (Acute) Acute encephalopathy (Acute) Heart failure (Acute) Acute PA, inferior wall (Acute) Acute inferolateral myocardial infarction (Acute) Impression 1. confusion/toxic encephalopathy associated with bradycardia and hypotension - suspect secondary to dehydration resulting in ARF that lead to to accumulation of MS Contin. Improving with hydration.....seems to be back to his baseline. Tolerating the restart of MS Contin at a lower dose with no change in the mental status. Tolerating restarting the MS Contin at 15 mg every 12 hours without any altered mental status in the past 24 hours 2. Coronary artery disease 3. Depression 4. History of multiple PTCAs/stents in the past 5. Morbid obesity 6. COPD 7. Chronic combined respiratory failure on oxygen 8. DAVION 9. Osteoarthritis 10. Chronic pain syndrome on methadone, oxycodone and MS Contin routinely 11. Restless leg 12. Hypertension 13. Hyperlipidemia 14. Irritable bowel syndrome 15. Hypotension due to dehydration and likely to unintentional OD with MS Contin due to ARF 16. Normochromic normocytic anemia with a normal RDW - likely anemia of CD......iron studies are not consistent with iron deficiency. Can be worked up as an OP 17. ARF due to dehydration - resolved 18. NSVT 19. Influenza A not started on Tamiflu because he had had symptoms for at least one week prior to being brought to the emergency room 20. MRSA pneumonia post influenza 21. Chronic narcotic dependence Continue vancomycin Will need 7 more days of Vanco - will have a PICC line inserted tomorrow. Recheck the lab in the AM Repeat CXR in the AM DC the accuchecks and the SSI Possible transfer to the [place] tomorrow to finish a 10 day course of Vanco
[2018-07-14] MEDS: Vancomycin IV 1,000 MG/200 ML BAG 200 MG IV (16:07)
[2018-07-14] MEDS: Pravastatin 80 MG Tablet PO (23:55)
[2018-07-15] VITALS (16 sets, daily range): BP systolic 128–151; BP diastolic 58–67; PULSE 50–64; RESP 16–20; TEMP 36.2–37.2; O2SAT 91–95
[2018-07-15] MEDS: Ondansetron ODT 4 MG Tablet PO ×2 (00:24→09:42)
--- NOTE | 2018-07-15 00:51 | RAD_ITS ---
HISTORY: Line placement. EXAM/TECHNIQUE: XR Chest 1 View: COMPARISON: 07/13/18 CXR FINDINGS: # of images incl. paperwork: 2 Interval placement of right PICC, tip distal SVC. No apparent pneumothorax. Multifocal pulmonary opacities bilaterally are similar to previous. RAD/CXR for Line Placement IMPRESSION: Interval placement of right PICC, tip distal SVC. at 0153 Reported and signed by: Yasir Crump MD Electronically Signed: Yasir Crump, at 1:52 EST Tel , Service support ,
[2018-07-15] MEDS: Vancomycin IV 1,000 MG/200 ML BAG 200 MG IV ×2 (03:40→18:38)
[2018-07-15 06:30] LABS: Erythrocyte Sedimentation Rate 80 mm/hr (0-20)
[2018-07-15 06:35] LABS: Absolute Lymphocyte Count 0.85 X10^3/ul (0.83-4.51); Absolute Neutrophil Count 11.3 X10^3/uL (2.0-7.7); Basophil# 0.02 X10^3/uL; Basophil% 0.2 % (0-1); Eosinophil# 0.02 X10^3/uL; Eosinophils% 0.2 % (0-5); Hematocrit 36.6 % (40-54); Hemoglobin 11.3 g/dl (13.0-16.5); Lymphocyte # 0.85 X10^3/ul (4.0); Lymphocyte % 6.7 % (19-41); Mean Corp Hgb Conc 30.9 g/gl (32-36); Mean Corpuscular Hgb 26.6 pg (27.0-32.0); Mean Corpuscular Volume 86.1 fL (80-94); Mean Platelet Vol. 9.2 fl (6.2-12.0); Monocyte# 0.53 X10^3/uL; Monocyte% 4.2 % (0-10); Neutrophil # 11.25 X10^3/uL (2.7-7.7); Neutrophil % 88.2 % (47-70); Platelet Count 287 K/mm3 (150-450); RBC Distribution Width CV 14.6 % (11.6-14.6); RBC Distribution Width SD 45.8 fl (35.1-43.9); Red Blood Count 4.25 M/mm3 (4.6-6.2); White Blood Count 12.7 K/mm3 (4.4-11.0)
[2018-07-15 06:37] LABS: POSITIVE COUNT NO; POSITIVE DIFFERENTIAL NO; POSITIVE MORPHOLOGY NO
[2018-07-15] MEDS: Heparin Injection (Vial) 5,000 UNIT/ML VIAL 5000 UNIT SC ×3 (06:40→23:25)
[2018-07-15 06:58] LABS: Anion Gap 11 (5-15); BUN 15 mg/dL (7-18); BUN/Creat Ratio 19.3 RATIO (10-20); Calcium,Total 8.3 mg/dL (8.5-10.1); Chloride 106 mmol/L (98-107); Creatinine, Serum 0.78 mg/dL (0.70-1.30); EST Glomerular Filtration Rate 109 mL/min (>60); Est Glom Filt Rate - Afr Amer 132 mL/min (>60); Estimated Creatinine Clearance 108.61 ml/min; Glucose 109 mg/dL (74-106); Magnesium 1.8 mg/dL (1.6-2.6); Phosphorus 3.5 mg/dL (2.5-4.9); Potassium 3.1 mmol/L (3.5-5.1); Sodium Level 143 mmol/L (136-145)
[2018-07-15] MEDS: Albuterol 2.5 MG/3 ML VIAL.NEB. INHALATION ×2 (08:19→19:15)
[2018-07-15] MEDS: Budesonide Respules 0.5 MG/2 ML AMPUL.NEB. INHALATION ×2 (08:19→19:15)
[2018-07-15] MEDS: Fludrocortisone Acetate 0.1 MG Tablet PO (09:41)
[2018-07-15] MEDS: Loratadine 10 MG Tablet PO (09:41)
[2018-07-15] MEDS: Aspirin 81 MG TAB.CHEW PO (09:41)
[2018-07-15] MEDS: Isosorbide Mononitrate 30 MG Tablet PO (09:41)
[2018-07-15] MEDS: Finasteride 5 MG Tablet PO (09:41)
[2018-07-15] MEDS: morphine SR 15 MG Tablet PO ×2 (09:41→23:27)
[2018-07-15] MEDS: Pantoprazole Sodium 20 MG Tablet PO (09:41)
[2018-07-15] MEDS: Clopidogrel Bisulfate 75 MG Tablet PO (09:41)
[2018-07-15] MEDS: Sertraline 100 MG Tablet PO (09:41)
[2018-07-15] MEDS: Allopurinol 100 MG Tablet PO (09:41)
[2018-07-15] MEDS: Lisinopril 5 MG Tablet PO (09:41)
[2018-07-15] MEDS: Tamsulosin HCl 0.4 MG Capsule PO ×2 (09:42→23:26)
[2018-07-15] MEDS: Fluticasone 0.05% 1 SPRAY NASAL.SRY 2 SPRAY NASAL (09:42)
[2018-07-15] MEDS: Menthol/Lanolin/Calamine/Znox 113 GM Tube 1 APPLIC TOPICAL ×2 (09:42→23:25)
[2018-07-15] MEDS: Metoprolol Tartrate 25 MG Tablet PO ×2 (09:42→23:26)
[2018-07-15] MEDS: Gabapentin 100 MG Capsule PO ×2 (09:42→13:28)
[2018-07-15] MEDS: Nystatin Powder 15gm Bottle 1 APPLIC TOPICAL ×2 (09:43→23:25)
--- NOTE | 2018-07-15 15:56 | PN_ITS ---
Patient Problems: Active and Suspected Problems (Last Reviewed 07/09/18 @ 23:48 by Mick Choi MD) Hypotension arterial (Acute) Acute kidney injury (Acute) Respiratory failure with hypoxia and hypercapnia (Acute) Acute encephalopathy (Acute) Heart failure (Acute) Subjective: The patient is a 57-year-old male with a past medical history of coronary artery disease, depression, multiple stents, COPD, chronic respiratory failure on chronic oxygen therapy, hypertension, hyperlipidemia, audible bowel syndrome, morbid obesity, DAVION, osteoarthritis with chronic pain syndrome(on MS Contin, oxycodone and Methadone) and restless leg who presented to the emergency department at [facility] on 07/09/2018 with a one-week history of confusion and hypotension. He lives in a half-way. He was diagnosed with Influenza a In the ED. The confusion was though to be due to dehydration with ARF in a pt on MS Contin......The drug was held for a few days and restarted at a lower dose and the mental status changes have resolved. Sputum culture grew MRSA and CXR showed new infiltrates and he has been on Vancomycin. PICC line was inserted on 3.. All events the past 24 hours been reviewed. Afebrile since admission. Blood pressures are stable with systolic mildly increased. 93% on a 4 L nasal cannula today with a respiratory rate of 18. Fluid balance is +982 since admission. White blood cell count today is 12.7 with 88% neutrophils. Hemoglobin is 11.3 which is stable. Sed rate today is 80. Platelets are within normal limits. Potassium is low at 3.1 but the remainder of the BMP is unremarkable. - Physical Exam General: Alert, Oriented x3, Cooperative HEENT: PERRLA, EOMI, Normocephalic, - - the left parotid gland is swollen and firm and swelling extends into the tragus of the left ear and down into the neck. The Left EAC is patent and there is no DC from the ear. the canal is reddened and dry and flakey. The TM appears normal Oral: No Gingival or Mucosal Lesions/ Ulcerations, Dry Mucosa, - - edentulous. The floor of the mouth is soft and there is no swelling of the uvula. Lungs: Clear to auscultation, No rhonchi, No wheeze, No rales, Diminished Cardiovascular: Regular rate, Regular Rhythm, Normal S1, Normal S2, No Gallop Abdomen: Bowel Sounds Present, Soft, Non Tender, Non-Distended, Obese Extremities: No clubbing, No cyanosis, Edema - mild Skin: No rashes, No breakdown Neurological: Cranial nerves II-XII grossly intact, Neuro grossly intact Psych/Mental Status: Normal Affect, Appropriate Vital Signs Temp Pulse Resp BP Pulse Ox 97.5 F L 50 L 18 149/67 H 93 07/15/18 09:48 07/15/18 15:00 07/15/18 09:48 07/15/18 09:48 07/15/18 09:48 Oxygen Flow Rate (L/min) 4 Oxygen Delivery Method Nasal Cannula Weight: 316 lb 2.286 oz Body Mass Index (BMI) 44.4 Finger Stick Blood Glucose 159 Intake and Output for Last 24 Hours 07/13/18 07/14/18 07/15/18 23:59 23:59 23:59 Intake Total 2958 / 2958 850 / 850 989 / 989 Output Total 1000 / 1000 825 / 825 775 / 775 Balance 1957 / 1957 25 214 / 214 Microbiology Past 72 Hours 07/11/18 09:20 Gram Stain - Final Sputum, Expectorated/Coughed Respiratory Culture - Final Meth. resistant Staph. aureus Laboratory Tests Past 24 Hrs 07/15/18 07/15/18 05:25 05:25 WBC 12.7 H RBC 4.25 L Hgb 11.3 L Hct 36.6 L MCV 86.1 MCH 26.6 L MCHC 30.9 L RDW 14.6 RDW Differential 45.8 H Plt Count 287 MPV 9.2 Immature Gran % (Auto) 0.500 Neut % (Auto) 88.2 H Lymph % (Auto) 6.7 L [place] % (Auto) 4.2 Eos % (Auto) 0.2 Baso % (Auto) 0.2 Absolute Neuts (auto) 11.3 H Absolute Lymphs (auto) 0.85 Total Counted Not Reportable ESR 80 H Sodium 143 Potassium 3.1 L Chloride 106 Carbon Dioxide 26.0 Anion Gap 11 BUN 15 Creatinine 0.78 Estim Creat Clear Calc 108.61 Est GFR (MDRD) Af Amer 132 Est GFR (MDRD) Non-Af 109 BUN/Creatinine Ratio 19.3 Glucose 109 H Calcium 8.3 L Phosphorus 3.5 Magnesium 1.8 Medical Necessity - Tobacco Use Smoking Status: Former smoker Assessment/Plan All Active Problems (Last Reviewed 07/09/18 @ 23:48 by Mick Choi MD) Acute and chronic respiratory failure with hypoxia (Acute) COPD with acute exacerbation (Acute) Lactic acidosis (Acute) Hypotension arterial (Acute) Acute kidney injury (Acute) Respiratory failure with hypoxia and hypercapnia (Acute) Acute encephalopathy (Acute) Heart failure (Acute) Acute LA, inferior wall (Acute) Acute inferolateral myocardial infarction (Acute) Impression 1. confusion/toxic encephalopathy associated with bradycardia and hypotension - suspect secondary to dehydration resulting in ARF that lead to to accumulation of MS Contin. Improving with hydration.....seems to be back to his baseline. Tolerating the restart of MS Contin at a lower dose with no change in the mental status. Tolerating restarting the MS Contin at 15 mg every 12 hours without any altered mental status in the past 24 hours 2. Coronary artery disease 3. Depression 4. History of multiple PTCAs/stents in the past 5. Morbid obesity 6. COPD 7. Chronic combined respiratory failure on oxygen 8. DAVION 9. Osteoarthritis 10. Chronic pain syndrome on methadone, oxycodone and MS Contin routinely 11. Restless leg 12. Hypertension 13. Hyperlipidemia 14. Irritable bowel syndrome 15. Hypotension due to dehydration and likely to unintentional OD with MS Contin due to ARF 16. Normochromic normocytic anemia with a normal RDW - likely anemia of CD......iron studies are not consistent with iron deficiency. Can be worked up as an OP 17. ARF due to dehydration - resolved 18. NSVT 19. Influenza A not started on Tamiflu because he had had symptoms for at least one week prior to being brought to the emergency room 20. MRSA pneumonia post influenza 21. Chronic narcotic dependence 22. Sialadenitis - due to abscess? due to sialolith? MRSA? 23. Hypokalemia-will supplement Continue vancomycin And cefepime 2 g IV every 12 hours Blood cultures x2 now CT scan of the neck and parotid gland N.p.o. Increase methadone to 10 mg p.o. every 8 hours. Add IV fentanyl for pain control Q 3H consult Dr. Ballesteros in the AM May need to consult ENT Good mouth care Supplement potassium Recheck lab in the a.m. PT/PTT now Code Visit Inpatient E&M: 63569 Subs Hosp L3
--- NOTE | 2018-07-15 16:54 | CT_ITS ---
STUDY: CT SOFT TISSUE NECK WITHOUT CONTRAST REASON FOR EXAM: Male, 58 years old. Neck swelling extending from the parotid gland to the left ear RADIATION DOSAGE (If Supplied By Facility): CTDIvol = ( 23.95 ) mGy, DLP = ( 1375.58 ) mGycm TECHNIQUE: The patient was scanned in a multi-detector CT scanner. High resolution transaxial imaging was performed without the administration of intravenous contrast material. Sagittal and coronal images were reconstructed. Incomplete imaging of the left side of the face and neck (including parotid gland). Limited by patient motion. Patient refused additional imaging. Individualized dose optimization techniques were used for this CT. COMPARISON: None. FINDINGS: Asymmetric enlargement of the left parotid gland with adjacent fat stranding with thickening of the left platysma muscle. No focal fluid collection. Mild amount of inflammation extends to the left submandibular gland although this is likely secondary. No salivary duct calcifications are seen. Normal bilateral weave room supervisor spaces. Normal bilateral parapharyngeal spaces. Normal bilateral carotid spaces. Normal bilateral sublingual and submandibular glands and spaces. Normal visualized nasopharynx. Normal retropharyngeal space. Normal perivertebral space. Normal visualized bilateral faucial tonsils. The visualized tongue, tongue base and oropharynx are normal. The visualized cervical lymph nodes (levels I-) are within normal size limits, and maintain normal morphology. There is no demonstrated solid or cystic mass lesion. Normal epiglottis, bilateral vallecula and hypopharynx. The pre-epiglottic and paraglottic adipose spaces are normal. Normal visualized bilateral piriform sinuses, aryepiglottic folds, vocal cords, and arytenoid-cricoid articulations. Normal subglottic trachea. Normal bilateral lobes of the thyroid gland. Normal visualized paranasal sinuses. There is multilevel degenerative changes of the cervical spine. There are patchy infiltrates involving the bilateral upper lobes, partially visualized. CT/Soft Tissue Neck without Contr IMPRESSION: 1. Left parotiditis and adjacent reactive inflammation such but no focal fluid collection. No salivary duct calcifications are seen. 2. Patchy bilateral pulmonary infiltrates partially visualized. Electronically Signed: Earl Huang MD at 19:12 EST , Service support ,
[2018-07-15] MEDS: fentaNYL 100 MCG/2 ML Ampul 25 MCG IV (17:38)
[2018-07-15 18:07] LABS: International Normalized Ratio 1.6; Prothrombin Time (Protime)PT. 18.7 SECONDS (11.7-14.9)
[2018-07-15 18:08] LABS: Partial Thromboplast Time 36.7 Seconds (24.1-36.2)
[2018-07-15] MEDS: Pravastatin 80 MG Tablet PO (23:26)
[2018-07-15] MEDS: Methadone 10 MG Tablet PO (23:27)
[2018-07-16] VITALS (14 sets, daily range): BP systolic 120–146; BP diastolic 59–74; PULSE 53–86; RESP 16–18; TEMP 36.6–36.8; O2SAT 92–95
[2018-07-16 03:47] LABS: Hematocrit 34.2 % (40-54); Hemoglobin 10.7 g/dl (13.0-16.5); Mean Corp Hgb Conc 31.3 g/gl (32-36); Mean Corpuscular Hgb 27.1 pg (27.0-32.0); Mean Corpuscular Volume 86.6 fL (80-94); Mean Platelet Vol. 8.5 fl (6.2-12.0); Platelet Count 273 K/mm3 (150-450); RBC Distribution Width CV 14.5 % (11.6-14.6); Red Blood Count 3.95 M/mm3 (4.6-6.2); White Blood Count 12.4 K/mm3 (4.4-11.0)
[2018-07-16 03:48] LABS: Scan Indicated on CBC? Y/N NO
[2018-07-16 03:59] LABS: ALB/GLOB Ratio 0.4 RATIO (0.9-2.4); AST(SGOT) 35 U/L (15-37); Alanine Aminotransfer ALT/SGPT 21 U/L (16-61); Albumin, Serum 2.1 g/dL (3.2-5.0); Alkaline Phosphatase 208 U/L (45-117); Anion Gap 9 (5-15); BUN 14 mg/dL (7-18); BUN/Creat Ratio 18.4 RATIO (10-20); Chloride 106 mmol/L (98-107); Creatinine, Serum 0.76 mg/dL (0.70-1.30); EST Glomerular Filtration Rate 112 mL/min (>60); Est Glom Filt Rate - Afr Amer 135 mL/min (>60); Estimated Creatinine Clearance 111.46 ml/min; Globulin 5.3 g/dL (2.2-4.2); Glucose 110 mg/dL (74-106); Magnesium 1.8 mg/dL (1.6-2.6); Phosphorus 3.7 mg/dL (2.5-4.9); Potassium 3.3 mmol/L (3.5-5.1); Protein, Total 7.4 g/dL (6.4-8.2); Sodium Level 142 mmol/L (136-145)
[2018-07-16 04:07] LABS: Vancomycin, Trough Level 14.6 ug/mL (5.0-15.0)
[2018-07-16] MEDS: Vancomycin IV 1,000 MG/200 ML BAG 200 MG IV (04:08)
--- NOTE | 2018-07-16 04:54 | PCM.RX.CS ---
Consult Pharmacy has been consulted to manage selected antiobiotic: Vancomycin Type of Consult: Follow-up Suspected Infection: Pneumonia Labs: Sodium 142 mmol/L (136-145) 07/16/18 03:26 Potassium 3.3 mmol/L (3.5-5.1) L 07/16/18 03:26 Chloride 106 mmol/L (98-107) 07/16/18 03:26 Carbon Dioxide 27.0 mmol/L (21.0-32.0) 07/16/18 03:26 Anion Gap 9 (5-15) 07/16/18 03:26 BUN 14 mg/dL (7-18) 07/16/18 03:26 Creatinine 0.76 mg/dL (0.70-1.30) 07/16/18 03:26 Est GFR (MDRD) Af Amer 135 mL/min (>60) 07/16/18 03:26 Est GFR (MDRD) Non-Af 112 mL/min (>60) 07/16/18 03:26 BUN/Creatinine Ratio 18.4 RATIO (10-20) 07/16/18 03:26 Glucose 110 mg/dL (74-106) H 07/16/18 03:26 Vancomycin Trough 14.6 ug/mL (5.0-15.0) 07/16/18 03:26 Random Vancomycin 15.6 ug/mL (0.0-15.0) H 07/14/18 11:40 Microbiology: Microbiology 07/11/18 09:20 Sputum, Expectorated/Coughed Gram Stain - Final 07/11/18 09:20 Sputum, Expectorated/Coughed Respiratory Culture - Final Meth. resistant Staph. aureus 07/10/18 13:40 Mucosa - Nasopharyngeal Respiratory Panel (PCR) - Final Influenza A (Subtype H3) Goal Trough: 15-20 mcg/mL Pharmacy Plan for Drug Dosing: Pharmacy Service will continue to monitor and adjust dosing as required. Medications Vancomycin HCl (Vancomycin) 1,000 mg in 200 mls @ 200 mls/hr IV Q12H KATE Last Admin: 07/16/18 04:08 Dose: 200 mls/hr TROUGH 14.6 NO CHANGES Follow-Up Labs: Trough Vancomycin Labs to be done on [date and time ordered]: 07/20 @ 0400
[2018-07-16] MEDS: Heparin Injection (Vial) 5,000 UNIT/ML VIAL 5000 UNIT SC ×3 (05:23→23:04)
[2018-07-16] MEDS: Methadone 10 MG Tablet PO ×3 (05:23→23:04)
[2018-07-16] MEDS: Albuterol 2.5 MG/3 ML VIAL.NEB. INHALATION ×2 (07:21→13:19)
[2018-07-16] MEDS: Budesonide Respules 0.5 MG/2 ML AMPUL.NEB. INHALATION (07:21)
[2018-07-16] MEDS: Lisinopril 5 MG Tablet PO (09:25)
[2018-07-16] MEDS: Clopidogrel Bisulfate 75 MG Tablet PO (09:25)
[2018-07-16] MEDS: Pantoprazole Sodium 20 MG Tablet PO (09:30)
[2018-07-16] MEDS: morphine SR 15 MG Tablet PO ×2 (09:31→23:04)
[2018-07-16] MEDS: Loratadine 10 MG Tablet PO (09:33)
[2018-07-16] MEDS: Metoprolol Tartrate 25 MG Tablet PO ×2 (09:33→23:04)
[2018-07-16] MEDS: Isosorbide Mononitrate 30 MG Tablet PO (09:33)
[2018-07-16] MEDS: Allopurinol 100 MG Tablet PO (09:33)
[2018-07-16] MEDS: Menthol/Lanolin/Calamine/Znox 113 GM Tube 1 APPLIC TOPICAL ×2 (09:33→23:02)
[2018-07-16] MEDS: Sertraline 100 MG Tablet PO (09:33)
[2018-07-16] MEDS: Fludrocortisone Acetate 0.1 MG Tablet PO (09:33)
[2018-07-16] MEDS: Tamsulosin HCl 0.4 MG Capsule PO ×2 (09:33→23:05)
[2018-07-16] MEDS: Gabapentin 100 MG Capsule PO ×3 (09:33→16:19)
[2018-07-16] MEDS: Aspirin 81 MG TAB.CHEW PO (09:33)
[2018-07-16] MEDS: Fluticasone 0.05% 1 SPRAY NASAL.SRY 2 SPRAY NASAL (09:34)
[2018-07-16] MEDS: Nystatin Powder 15gm Bottle 1 APPLIC TOPICAL ×2 (09:34→23:03)
[2018-07-16] MEDS: Finasteride 5 MG Tablet PO (09:38)
--- NOTE | 2018-07-16 13:55 | PCM.HP.ID ---
Problem List (1) Acute encephalopathy Status: Acute Reason for Consult: parotitis Consulted by: Dr. Rodriguez History of Present Illness: The patient is a 58 [facility] who presented 07/09 with one week of cough with sputum, SOB, headache, aches, nausea, and fever. Had L sided facial pain, swelling, induration as well start around that time. No drain seen. Admitted here, dx with VARSHA, encephalopathy. Flu (+), but not treated. Found to have MRSA pneumonia, on vanc. Cefepime added for parotitis yesterday. Overall feeling better, does not think his face is improved. No prior h/o parotiditis. Full ROS performed and neg except as noted above. - Medical History Past Medical History (Chronic Problems): Chronic Problems (Last Reviewed 07/09/18 @ 23:48 by Mick Choi MD) Acute exacerbation of congestive heart failure (Chronic) Presence of stent in coronary artery (Chronic) PTCA/BSM of Mid CX and PTCA of OM2 08/31/06; PTCA/PELON of the mid RCA 08/06/10; Thrombectomy and angioplasty of the pre existing stent of the mid LCX 02/18/13 Hypertension (Chronic) Hyperlipidemia (Chronic) Atherosclerotic heart disease of [place] coronary artery without angina pectoris (Chronic) PTCA/BSM of Mid CX and PTCA of OM2 08/31/06; PTCA/PELON of the mid RCA 08/06/10; Thrombectomy and angioplasty of the pre existing stent of the mid LCX 02/18/13 COPD (chronic obstructive pulmonary disease) (Chronic) Tobacco use disorder (Chronic) Morbid obesity (Chronic) Allergies/Adverse Reactions: Allergies rofecoxib Adverse Reaction (Unknown, Verified 04/23/18 10:14) Unknown Home Medications: Ambulatory Orders Medication Instructions Recorded Clopidogrel Bisulfate [Plavix] 75 mg PO DAILY 02/11/13 Isosorbide Mononitrate [Imdur] 30 mg PO DAILY 02/11/13 Nitroglycerin [Nitrostat] 0.4 mg SUBLINGUAL Q5M PRN 02/11/13 Gabapentin 600 mg PO TID 12/20/13 Sertraline HCl [Zoloft] 100 mg PO DAILY 03/06/14 Ipratropium/Albuterol Sulfate 3 ml INHALATION BID 12/20/15 [Duoneb] Lisinopril [Zestril] 5 mg PO DAILY 12/28/16 Methadone HCl 10 mg PO Q8H 12/28/16 Ondansetron HCl [Zofran] 4 mg PO BID 12/28/16 Acetaminophen [Tylenol] 650 mg PO Q4H PRN PRN 05/17/17 Allopurinol 100 mg PO DAILY 05/17/17 Aspirin [Aspirin, Baby] 81 mg PO DAILY@0800 05/17/17 Loratadine 10 mg PO DAILY 05/17/17 Lorazepam [Ativan] 1 mg PO QHS PRN PRN 05/17/17 Oxycodone [Oxyir] 5 mg PO BID 05/17/17 finasteride 5 mg tablet 5 mg PO QDAY 10/26/17 fludrocortisone 0.1 mg tablet 0.1 mg PO QDAY 10/26/17 ipratropium-albuterol 0.5 mg-3 3 ml INHALATION Q6H PRN 10/26/17 mg(2.5 mg base)/3 mL nebulization soln morphine 30 mg immediate release 30 mg PO BID tab 10/26/17 tablet omeprazole 20 mg capsule,delayed 20 mg PO QDAY cap 10/26/17 release sodium chloride 1 gram tablet 1 tab PO QDAY tab 10/26/17 tizanidine 2 mg tablet 2 mg PO TID PRN 10/26/17 Fluticasone 0.05% [Flonase Nasal 2 spray NASAL DAILY 03/14/18 [place]] Guaifenesin [Cough Syrup] 10 ml PO Q6H PRN PRN 03/14/18 Linacolotide [Linzess] 145 mcg PO DAILY 03/14/18 Magnesium Hydroxide [Milk Of 30 ml PO DAILY PRN PRN 03/14/18 Magnesia] Potassium Chloride 10 meq PO DAILY 03/14/18 Pravastatin [Pravachol] 80 mg PO DAILY 03/14/18 Spironolactone [Aldactone] 25 mg PO BID 03/14/18 Bumetanide [Bumex] 2 mg PO BID #60 tab 03/16/18 fluticasone 100 mcg-vilanterol 25 1 inh INHALATION DAILY 04/23/18 mcg/dose powder for inhalation metformin 500 mg tablet 1,000 mg PO BID tab 04/23/18 metoprolol tartrate 25 mg tablet 25 mg PO BID 04/23/18 tamsulosin 0.4 mg capsule 0.4 mg PO BID cap 04/23/18 Albuterol Inhaler [Ventolin Hfa 1 puff INHALATION Q4H PRN PRN 07/09/18 (SP)] Ergocalciferol [Vitamin D] 50,000 unit PO Q7D 07/09/18 - Social History SMOKING STATUS:: Former smoker Vital Signs Temp Pulse Resp BP Pulse Ox 97.9 F 56 L 16 145/59 H 92 07/16/18 09:20 07/16/18 13:20 07/16/18 13:20 07/16/18 09:33 07/16/18 09:20 Oxygen Flow Rate (L/min) 4 Oxygen Delivery Method Nasal Cannula Weight: 144.3 kg Body Mass Index (BMI) 44.4 Finger Stick Blood Glucose 159 Laboratory Tests Past 24 Hrs 07/15/18 07/16/18 07/16/18 17:45 03:26 03:26 WBC 12.4 H RBC 3.95 L Hgb 10.7 L Hct 34.2 L MCV 86.6 MCH 27.1 MCHC 31.3 L RDW 14.5 RDW Differential 46.0 H Plt Count 273 MPV 8.5 PT 18.7 H INR 1.6 APTT 36.7 H Sodium Potassium Chloride Carbon Dioxide Anion Gap BUN Creatinine Estim Creat Clear Calc Est GFR (MDRD) Af Amer Est GFR (MDRD) Non-Af BUN/Creatinine Ratio Glucose Calcium Phosphorus Magnesium Total Bilirubin AST ALT Alkaline Phosphatase Total Protein Albumin Globulin Albumin/Globulin Ratio Vancomycin Trough 14.6 07/16/18 03:26 WBC RBC Hgb Hct MCV MCH MCHC RDW RDW Differential Plt Count MPV PT INR APTT Sodium 142 Potassium 3.3 L Chloride 106 Carbon Dioxide 27.0 Anion Gap 9 BUN 14 Creatinine 0.76 Estim Creat Clear Calc 111.46 Est GFR (MDRD) Af Amer 135 Est GFR (MDRD) Non-Af 112 BUN/Creatinine Ratio 18.4 Glucose 110 H Calcium 8.0 L Phosphorus 3.7 Magnesium 1.8 Total Bilirubin 0.70 AST 35 ALT 21 Alkaline Phosphatase 208 H Total Protein 7.4 Albumin 2.1 L Globulin 5.3 H Albumin/Globulin Ratio 0.4 L Vancomycin Trough - Other Studies Radiology: [] reviewed Other Studies: [] Route of nutrition/ use of supplements: [] Nutritional Intake: [] IV Site: [] Goetz Catheter: [] - Physical Exam General: Alert, Oriented x3, Cooperative, No apparent distress HEENT: Atraumatic, PERRLA, EOMI, - - L parotid area with diffuse redness, induration, mild tenderness Neck: Supple, No Nodes Lungs: Rhonchi, Wheezes Cardiovascular: No murmurs, Tachycardic Abdomen: Soft, Non Tender, Non-Distended Extremities: No edema Skin: No rashes IV Site: Peripheral, without redness Musculoskeletal: No Tenderness to Palpation of Joints or Extremities Neurological: Cranial nerves II-XII grossly intact - Assessment/Plan Antibiotics: [] Assessment/Plan: [] Active and Suspected Problems (Last Reviewed 07/09/18 @ 23:48 by Mick Choi MD) Hypotension arterial (Acute) Acute kidney injury (Acute) Respiratory failure with hypoxia and hypercapnia (Acute) Acute encephalopathy (Acute) Heart failure (Acute) MRSA pneumonia - on vanc, improving flu A - was not treated given duration of sx prior to presentation parotitis - no purulence, could be due to flu or MRSA. He reports this started prior to hospitalization, so low suspicion for pseudomonas. Will consult ENT for eval. Narrow cefepime to ceftriaxone and add flagyl for anaerobic coverage. VARSHA - improved Will follow.
--- NOTE | 2018-07-16 14:44 | PCM.PN.BLA ---
Progress Note Asked to see the patient at the request of Dr. Coley for parotitis. HPI: 58 yo white male was admitted for heart failure and pneumonia. Sputum grew MRSA. He reports having facial swelling since before the admission (approximately 1-2 weeks). [facility] He has never had this facial swelling before. He has been treated with vancomycin and recently cefepime. ID has been consulted. He also had a CT of the neck. Past Medical History Past Medical History (Chronic Problems): Chronic Problems (Last Reviewed 07/09/18 @ 23:48 by Mick Choi MD) Acute exacerbation of congestive heart failure (Chronic) Presence of stent in coronary artery (Chronic) PTCA/BSM of Mid CX and PTCA of OM2 08/31/06; PTCA/PELON of the mid RCA 08/06/10; Thrombectomy and angioplasty of the pre existing stent of the mid LCX 02/18/13 Hypertension (Chronic) Hyperlipidemia (Chronic) Atherosclerotic heart disease of [place] coronary artery without angina pectoris (Chronic) PTCA/BSM of Mid CX and PTCA of OM2 08/31/06; PTCA/PELON of the mid RCA 08/06/10; Thrombectomy and angioplasty of the pre existing stent of the mid LCX 02/18/13 COPD (chronic obstructive pulmonary disease) (Chronic) Tobacco use disorder (Chronic) Morbid obesity (Chronic) Medical History: Medical History (Last Reviewed 07/09/18 @ 23:48 by Mick Choi MD) Acute [place], inferior wall (Acute) I21.19 Acute inferolateral myocardial infarction (Acute) I21.19 Hypertension (Chronic) I10 Hyperlipidemia (Chronic) E78.5 Atherosclerotic heart disease of [place] coronary artery without angina pectoris (Chronic) I25.10 PTCA/BSM of Mid CX and PTCA of OM2 08/31/06; PTCA/PELON of the mid RCA 08/06/10; Thrombectomy and angioplasty of the pre existing stent of the mid LCX 02/18/13 COPD (chronic obstructive pulmonary disease) (Chronic) J44.9 Tobacco use disorder (Chronic) F17.200 Morbid obesity (Chronic) E66.01 DDD (degenerative disc disease) Metabolic syndrome E88.81 DAVION (obstructive sleep apnea) G47.33 RLS (restless legs syndrome) G25.81 Open breast wound (Inactive) S21.009A Pure hypercholesterolemia (Inactive) E78.00 Respiratory failure with hypoxia and hypercapnia (Inactive) J96.91, J96.92 UTI (urinary tract infection) (Inactive) N39.0 Allergies rofecoxib Adverse Reaction (Unknown, Verified 04/23/18 10:14) Unknown Home Medications: Ambulatory Orders Medication Instructions Recorded Clopidogrel Bisulfate [Plavix] 75 mg PO DAILY 02/11/13 Isosorbide Mononitrate [Imdur] 30 mg PO DAILY 02/11/13 Nitroglycerin [Nitrostat] 0.4 mg SUBLINGUAL Q5M PRN 02/11/13 Gabapentin 600 mg PO TID 12/20/13 Sertraline HCl [Zoloft] 100 mg PO DAILY 03/06/14 Ipratropium/Albuterol Sulfate 3 ml INHALATION BID 12/20/15 [Duoneb] Lisinopril [Zestril] 5 mg PO DAILY 12/28/16 Methadone HCl 10 mg PO Q8H 12/28/16 Ondansetron HCl [Zofran] 4 mg PO BID 12/28/16 Acetaminophen [Tylenol] 650 mg PO Q4H PRN PRN 05/17/17 Allopurinol 100 mg PO DAILY 05/17/17 Aspirin [Aspirin, Baby] 81 mg PO DAILY@0800 05/17/17 Loratadine 10 mg PO DAILY 05/17/17 Lorazepam [Ativan] 1 mg PO QHS PRN PRN 05/17/17 Oxycodone [Oxyir] 5 mg PO BID 05/17/17 finasteride 5 mg tablet 5 mg PO QDAY 10/26/17 fludrocortisone 0.1 mg tablet 0.1 mg PO QDAY 10/26/17 ipratropium-albuterol 0.5 mg-3 3 ml INHALATION Q6H PRN 10/26/17 mg(2.5 mg base)/3 mL nebulization soln morphine 30 mg immediate release 30 mg PO BID tab 10/26/17 tablet omeprazole 20 mg capsule,delayed 20 mg PO QDAY cap 10/26/17 release sodium chloride 1 gram tablet 1 tab PO QDAY tab 10/26/17 tizanidine 2 mg tablet 2 mg PO TID PRN 10/26/17 Fluticasone 0.05% [Flonase Nasal 2 spray NASAL DAILY 10/31/18 [place]] Guaifenesin [Cough Syrup] 10 ml PO Q6H PRN PRN 03/14/18 Linacolotide [Linzess] 145 mcg PO DAILY 03/14/18 Magnesium Hydroxide [Milk Of 30 ml PO DAILY PRN PRN 03/14/18 Magnesia] Potassium Chloride 10 meq PO DAILY 03/14/18 Pravastatin [Pravachol] 80 mg PO DAILY 03/14/18 Spironolactone [Aldactone] 25 mg PO BID 03/14/18 Bumetanide [Bumex] 2 mg PO BID #60 tab 03/16/18 fluticasone 100 mcg-vilanterol 25 1 inh INHALATION DAILY 04/23/18 mcg/dose powder for inhalation metformin 500 mg tablet 1,000 mg PO BID tab 04/23/18 metoprolol tartrate 25 mg tablet 25 mg PO BID 04/23/18 tamsulosin 0.4 mg capsule 0.4 mg PO BID cap 04/23/18 Albuterol Inhaler [Ventolin Hfa 1 puff INHALATION Q4H PRN PRN 07/09/18 (SP)] Ergocalciferol [Vitamin D] 50,000 unit PO Q7D 07/09/18 Surgical History: Surgical History (Last Reviewed 07/09/18 @ 23:48 by Mick Choi MD) Presence of stent in coronary artery (Chronic) Z95.5 PTCA/BSM of Mid CX and PTCA of OM2 08/31/06; PTCA/PELON of the mid RCA 08/06/10; Thrombectomy and angioplasty of the pre existing stent of the mid LCX 02/18/13 Postsurgical percutaneous transluminal coronary angioplasty (PTCA) status Z98.61 PTCA/BSM of Mid CX and PTCA of OM2 08/31/06; PTCA/PELON of the mid RCA 08/06/10; Thrombectomy and angioplasty of the pre existing stent of the mid LCX 02/18/13 History of inguinal hernia repair Z98.890, Z87.19 History of tonsillectomy Z90.89 Surgical History: - - Thyroidectomy, septoplasty, cardiac stents x4 2007, hernia repair 2012 Psychiatric History: No pertinent psych hx Lives: [facility] Smoking Status: Former smoker - *Family History Sibling Family History: Family History (Last Reviewed 07/09/18 @ 23:48 by Mick Choi MD) Father Myocardial infarction, Onset Age: 39 Brother Hypertension Uncle CAD (coronary artery disease) Uncle Myocardial infarction History Items: Hypertension Maternal Family History: Family History (Last Reviewed 07/09/18 @ 23:48 by Mick Choi MD) Father Myocardial infarction, Onset Age: 39 Brother Hypertension Uncle CAD (coronary artery disease) Uncle Myocardial infarction History Items: Cancer - skin CA Paternal Family History: Family History (Last Reviewed 07/09/18 @ 23:48 by Mick Choi MD) Father Myocardial infarction, Onset Age: 39 Brother Hypertension Uncle CAD (coronary artery disease) Uncle Myocardial infarction History Items: Heart Disease Review of Systems Constitutional: Denies: Chills, Fever HEENT: Denies: Head Aches, Sinus Congestion, Sinus Drainage Cardiovascular: Denies: Chest Pain, Palpitations Respiratory: Reports: Cough, Sputum production Gastrointestinal: Denies: Abdominal Pain, Nausea, Vomiting Genitourinary: Denies: Dysuria Musculoskeletal: Denies: Joint Pain, Joint Tenderness Skin: Denies: Rash, Wounds Neurological: Denies: Numbness, Tingling, Focal weakness Psychiatric: Denies: Anxiety, Depression, Homicidal Ideations, Suicidal Ideations Hematologic/ Lymphatic: Denies: Easy Bruising, Easy Bleeding PE: awake alert NAD Facial nerve is intact bilaterally. Ears- wnl nose-dry mucosa m/op very dry mucosa. + pus expressed from Stensen's duct on the left. No palpable stones. Face- Intense induration and swelling of the left parotid. Mild erythema of the skin at the lobule. CT neck- Large, inflamed parotid. No evidence of neoplasm, stone or abscess A: Acute parotitis P: He would benefit from sialagogues, hydration, parotid massage. I will defer the antibiotic choice to Infectious Disease (vancomycin has not been curative). I have instructed him on parotid massage.
--- NOTE | 2018-07-16 14:50 | PN_ITS ---
Progress Note Asked to see the patient at the request of Dr. Coley for parotitis. HPI: 58 yo white male was admitted for heart failure and pneumonia. Sputum grew MRSA. He reports having facial swelling since before the admission (approximately 1-2 weeks). He lives in a [facility]. He has never had this facial swelling before. He has been treated with vancomycin and recently cefepime. ID has been consulted. He also had a CT of the neck. Past Medical History Past Medical History (Chronic Problems): Chronic Problems (Last Reviewed 07/09/18 @ 23:48 by Mick Choi MD) Acute exacerbation of congestive heart failure (Chronic) Presence of stent in coronary artery (Chronic) PTCA/BSM of Mid CX and PTCA of OM2 08/31/06; PTCA/PELON of the mid RCA 08/06/10; Thrombectomy and angioplasty of the pre existing stent of the mid LCX 02/18/13 Hypertension (Chronic) Hyperlipidemia (Chronic) Atherosclerotic heart disease of [place] coronary artery without angina pectoris (Chronic) PTCA/BSM of Mid CX and PTCA of OM2 08/31/06; PTCA/PELON of the mid RCA 08/06/10; Thrombectomy and angioplasty of the pre existing stent of the mid LCX 02/18/13 COPD (chronic obstructive pulmonary disease) (Chronic) Tobacco use disorder (Chronic) Morbid obesity (Chronic) Medical History: Medical History (Last Reviewed 07/09/18 @ 23:48 by Mick Choi MD) Acute [place], inferior wall (Acute) I21.19 Acute inferolateral myocardial infarction (Acute) I21.19 Hypertension (Chronic) I10 Hyperlipidemia (Chronic) E78.5 Atherosclerotic heart disease of [place] coronary artery without angina pectoris (Chronic) I25.10 PTCA/BSM of Mid CX and PTCA of OM2 08/31/06; PTCA/PELON of the mid RCA 0 08/06/10; Thrombectomy and angioplasty of the pre existing stent of the mid LCX 02/18/13 COPD (chronic obstructive pulmonary disease) (Chronic) J44.9 Tobacco use disorder (Chronic) F17.200 Morbid obesity (Chronic) E66.01 DDD (degenerative disc disease) Metabolic syndrome E88.81 DAVION (obstructive sleep apnea) G47.33 RLS (restless legs syndrome) G25.81 Open breast wound (Inactive) S21.009A Pure hypercholesterolemia (Inactive) E78.00 Respiratory failure with hypoxia and hypercapnia (Inactive) J96.91, J96.92 UTI (urinary tract infection) (Inactive) N39.0 Allergies rofecoxib Adverse Reaction (Unknown, Verified 04/23/18 10:14) Unknown Home Medications: Ambulatory Orders Medication Instructions Recorded Clopidogrel Bisulfate [Plavix] 75 mg PO DAILY 02/11/13 Isosorbide Mononitrate [Imdur] 30 mg PO DAILY 02/11/13 Nitroglycerin [Nitrostat] 0.4 mg SUBLINGUAL Q5M PRN 02/11/13 Gabapentin 600 mg PO TID 12/20/13 Sertraline HCl [Zoloft] 100 mg PO DAILY 03/06/14 Ipratropium/Albuterol Sulfate 3 ml INHALATION BID 12/20/15 [Duoneb] Lisinopril [Zestril] 5 mg PO DAILY 12/28/16 Methadone HCl 10 mg PO Q8H 12/28/16 Ondansetron HCl [Zofran] 4 mg PO BID 12/28/16 Acetaminophen [Tylenol] 650 mg PO Q4H PRN PRN 05/17/17 Allopurinol 100 mg PO DAILY 05/17/17 Aspirin [Aspirin, Baby] 81 mg PO DAILY@0800 05/17/17 Loratadine 10 mg PO DAILY 05/17/17 Lorazepam [Ativan] 1 mg PO QHS PRN PRN 05/17/17 Oxycodone [Oxyir] 5 mg PO BID 05/17/17 finasteride 5 mg tablet 5 mg PO QDAY 10/26/17 fludrocortisone 0.1 mg tablet 0.1 mg PO QDAY 10/26/17 ipratropium-albuterol 0.5 mg-3 3 ml INHALATION Q6H PRN 10/26/17 mg(2.5 mg base)/3 mL nebulization soln morphine 30 mg immediate release 30 mg PO BID tab 10/26/17 tablet omeprazole 20 mg capsule,delayed 20 mg PO QDAY cap 10/26/17 release sodium chloride 1 gram tablet 1 tab PO QDAY tab 10/26/17 tizanidine 2 mg tablet 2 mg PO TID PRN 10/26/17 Fluticasone 0.05% [Flonase Nasal 2 spray NASAL DAILY 03/14/18 [place]] Guaifenesin [Cough Syrup] 10 ml PO Q6H PRN PRN 03/14/18 Linacolotide [Linzess] 145 mcg PO DAILY 03/14/18 Magnesium Hydroxide [Milk Of 30 ml PO DAILY PRN PRN 03/14/18 Magnesia] Potassium Chloride 10 meq PO DAILY 03/14/18 Pravastatin [Pravachol] 80 mg PO DAILY 03/14/18 Spironolactone [Aldactone] 25 mg PO BID 03/14/18 Bumetanide [Bumex] 2 mg PO BID #60 tab 03/16/18 fluticasone 100 mcg-vilanterol 25 1 inh INHALATION DAILY 04/23/18 mcg/dose powder for inhalation metformin 500 mg tablet 1,000 mg PO BID tab 04/23/18 metoprolol tartrate 25 mg tablet 25 mg PO BID 04/23/18 tamsulosin 0.4 mg capsule 0.4 mg PO BID cap 04/23/18 Albuterol Inhaler [Ventolin Hfa 1 puff INHALATION Q4H PRN PRN 07/09/18 (SP)] Ergocalciferol [Vitamin D] 50,000 unit PO Q7D 07/09/18 Surgical History: Surgical History (Last Reviewed 07/09/18 @ 23:48 by Mick Choi MD) Presence of stent in coronary artery (Chronic) Z95.5 PTCA/BSM of Mid CX and PTCA of OM2 08/31/06; PTCA/PELON of the mid RCA 08/06/10; Thrombectomy and angioplasty of the pre existing stent of the mid L CX 02/18/13 Postsurgical percutaneous transluminal coronary angioplasty (PTCA) status Z98.61 PTCA/BSM of Mid CX and PTCA of OM2 08/31/06; PTCA/PELON of the mid RCA 08/06/10; Thrombectomy and angioplasty of the pre existing stent of the mid LCX 02/18/13 History of inguinal hernia repair Z98.890, Z87.19 History of tonsillectomy Z90.89 Surgical History: - - Thyroidectomy, septoplasty, cardiac stents x4 2007, hernia repair 2012 Psychiatric History: No pertinent psych hx Lives: [facility] Smoking Status: Former smoker - *Family History Sibling Family History: Family History (Last Reviewed 07/09/18 @ 23:48 by Mick Choi MD) Father Myocardial infarction, Onset Age: 39 Brother Hypertension Uncle CAD (coronary artery disease) Uncle Myocardial infarction History Items: Hypertension Maternal Family History: Family History (Last Reviewed 07/09/18 @ 23:48 by Mick Choi MD) Father Myocardial infarction, Onset Age: 39 Brother Hypertension Uncle CAD (coronary artery disease) Uncle Myocardial infarction History Items: Cancer - skin CA Paternal Family History: Family History (Last Reviewed 07/09/18 @ 23:48 by Mick Choi MD) Father Myocardial infarction, Onset Age: 39 Brother Hypertension Uncle CAD (coronary artery disease) Uncle Myocardial infarction History Items: Heart Disease Review of Systems Constitutional: Denies: Chills, Fever HEENT: Denies: Head Aches, Sinus Congestion, Sinus Drainage Cardiovascular: Denies: Chest Pain, Palpitations Respiratory: Reports: Cough, Sputum production Gastrointestinal: Denies: Abdominal Pain, Nausea, Vomiting Genitourinary: Denies: Dysuria Musculoskeletal: Denies: Joint Pain, Joint Tenderness Skin: Denies: Rash, Wounds Neurological: Denies: Numbness, Tingling, Focal weakness Psychiatric: Denies: Anxiety, Depression, Homicidal Ideations, Suicidal Ideations Hematologic/ Lymphatic: Denies: Easy Bruising, Easy Bleeding PE: awake alert NAD Facial nerve is intact bilaterally. Ears- wnl nose-dry mucosa m/op very dry mucosa. + pus expressed from Stensen's duct on the left. No palpable stones. Face- Intense induration and swelling of the left parotid. Mild erythema of the skin at the lobule. CT neck- Large, inflamed parotid. No evidence of neoplasm, stone or abscess A: Acute parotitis P: He would benefit from sialagogues, hydration, parotid massage. I will defer the antibiotic choice to Infectious Disease (vancomycin has not been curative). I have instructed him on parotid massage.
--- NOTE | 2018-07-16 18:14 | PCM.PN.HOSP ---
Patient Problems: Active and Suspected Problems (Last Reviewed 07/09/18 @ 23:48 by Mick Choi MD) Hypotension arterial (Acute) Acute kidney injury (Acute) Respiratory failure with hypoxia and hypercapnia (Acute) Acute encephalopathy (Acute) Heart failure (Acute) Subjective: Feels a little bit better than he did on admission, but he does continue to have left face swelling. Denies any chest pain, shortness of breath. Vitals/I&O's: Vital Signs Temp Pulse Resp BP Pulse Ox 98.1 F 54 L 18 120/66 93 07/16/18 14:57 07/16/18 16:00 07/16/18 14:57 07/16/18 14:57 07/16/18 14:57 Oxygen Flow Rate (L/min) 4 Oxygen Delivery Method Nasal Cannula Weight: 318 lb 2.032 oz Body Mass Index (BMI) 44.4 Finger Stick Blood Glucose 159 Intake and Output for Last 24 Hours 07/14/18 07/15/18 07/16/18 23:59 23:59 23:59 Intake Total 850 / 850 989 / 989 1844 / 1844 Output Total 825 / 825 1125 / 1125 1025 / 1025 Balance -136 / -136 819 / 819 General: Alert, Oriented x3, Cooperative, No apparent distress HEENT: Atraumatic, PERRLA, EOMI, - - Left facial swelling with induration over the parotid gland Oral: Moist Mucosa Neck: Supple, No JVD, Trachea Midline Lungs: Clear to auscultation, Normal air movement, No rhonchi, No wheeze, No rales Cardiovascular: Regular rate, Regular Rhythm, Normal S1, Normal S2, No murmurs Abdomen: Soft, Non Tender, Non-Distended, No Hepato-splenomegaly Extremities: Capillary Refill Less than 3 Seconds, Edema Skin: No rashes, No breakdown Neurological: Neuro grossly intact, Sensory exam intact to light touch and pain Psych/Mental Status: Normal Affect, Appropriate Laboratory Results 07/16/18 03:26: Vancomycin Trough 14.6 07/16/18 03:26: WBC 12.4 H, RBC 3.95 L, Hgb 10.7 L, Hct 34.2 L, MCV 86.6, MCH 27.1, MCHC 31.3 L, RDW 14.5, RDW Differential 46.0 H, Plt Count 273, MPV 8.5 07/16/18 03:26: Sodium 142, Potassium 3.3 L, Chloride 106, Carbon Dioxide 27.0, Anion Gap 9, BUN 14, Creatinine 0.76, Estim Creat Clear Calc 111.46, Est GFR (MDRD) Af Amer 135, Est GFR (MDRD) Non-Af 112, BUN/Creatinine Ratio 18.4, Glucose 110 H, Calcium 8.0 L, Phosphorus 3.7, Magnesium 1.8, Total Bilirubin 0.70, AST 35, ALT 21, Alkaline Phosphatase 208 H, Total Protein 7.4, Albumin 2.1 L, Globulin 5.3 H, Albumin/Globulin Ratio 0.4 L Current Medications Acetaminophen (Tylenol) 650 mg PO Q4H PRN PRN PRN Reason: PAIN.FEVER Last Admin: 07/13/18 01:19 Dose: 650 mg Albuterol Sulfate (Ventolin Aerosols) 2.5 mg INHALATION Q6HWA.RT [facility] Last Admin: 07/16/18 13:19 Dose: 2.5 mg Albuterol/Ipratropium (Duoneb) 3 ml INHALATION Q4H PRN PRN Reason: sob/wheezing Allopurinol (Zyloprim) 100 mg PO DAILYCM [facility] Last Admin: 07/16/18 09:33 Dose: 100 mg Aspirin (Aspirin, Baby) 81 mg PO DAILY@0800 [facility] Last Admin: 07/16/18 09:33 Dose: 81 mg Budesonide (Pulmicort Aerosol) 0.5 mg INHALATION BID.RT [facility] Last Admin: 07/16/18 07:21 Dose: 0.5 mg Calamine/Phenol (Calmoseptine Ointment) 1 applic TOPICAL BID [facility]; Protocol Last Admin: 07/16/18 09:33 Dose: 1 applic Clopidogrel Bisulfate (Plavix) 75 mg PO DAILY [facility] Last Admin: 07/16/18 09:25 Dose: 75 mg Ergocalciferol (Vitamin D) 50,000 unit PO Q7D [facility] Last Admin: 07/15/18 09:41 Dose: 50,000 unit Fentanyl Citrate (Sublimaze (100mcg Ampule)) 25 mcg IV Q3H PRN PRN PRN Reason: severe 8-10 pain Finasteride (Proscar) 5 mg PO DAILY [facility] Last Admin: 07/16/18 09:38 Dose: 5 mg Fludrocortisone Acetate (Florinef) 0.1 mg PO DAILY [facility] Last Admin: 07/16/18 09:33 Dose: 0.1 mg Fluticasone Propionate (Flonase Nasal [place]) 2 spray NASAL DAILY [facility] Last Admin: 07/16/18 09:34 Dose: 2 spray Gabapentin (Neurontin) 100 mg PO TIDCM [facility] Last Admin: 07/16/18 16:19 Dose: 100 mg Guaifenesin (Robitussin) 10 ml PO Q6H PRN PRN PRN Reason: COUGH Heparin Sodium (Porcine) (Heparin Na) 5,000 unit SC Q8 [facility] Last Admin: 07/16/18 12:56 Dose: 5,000 unit Vancomycin IV Pharmacy to Dose (1 ea/ Sodium Chloride) 500 mls @ 250 mls/hr IV PRN PRN; Protocol PRN Reason: Rx to Dose Vancomycin HCl 1,000 mg/ (Dextrose) 200 mls @ 200 mls/hr IV Q12H [facility] Last Admin: 07/16/18 16:19 Dose: 200 mls/hr Ceftriaxone Sodium 2 gm/ (Sodium Chloride) 50 mls @ 100 mls/hr IV Q24 [facility] Last Admin: 07/16/18 15:07 Dose: 100 mls/hr Isosorbide Mononitrate (Imdur) 30 mg PO DAILY [facility] Last Admin: 07/16/18 09:33 Dose: 30 mg Lisinopril (Zestril) 5 mg PO DAILY [facility] Last Admin: 07/16/18 09:25 Dose: 5 mg Loratadine (Claritin) 10 mg PO DAILY [facility] Last Admin: 07/16/18 09:33 Dose: 10 mg Magnesium Hydroxide (Milk Of Magnesia) 30 ml PO DAILY PRN PRN Reason: Constipation Methadone HCl () 10 mg PO Q8 [facility] Last Admin: 07/16/18 12:56 Dose: 10 mg Metoprolol Tartrate (Lopressor (Beta Tyron)) 25 mg PO BID [facility] Last Admin: 07/16/18 09:33 Dose: 25 mg Metronidazole (Flagyl) 500 mg PO TID [facility] Morphine Sulfate (Ms Contin) 15 mg PO BID [facility] Last Admin: 07/16/18 09:31 Dose: 15 mg Nystatin (Mycostatin Powder) 1 applic TOPICAL BID [facility]; Protocol Last Admin: 07/16/18 09:34 Dose: 1 applic Pantoprazole Sodium (Protonix) 20 mg PO DAILY [facility] Last Admin: 07/16/18 09:30 Dose: 20 mg Pravastatin Sodium (Pravachol) 80 mg PO DAILY@2200 [facility] Last Admin: 07/15/18 23:26 Dose: 80 mg Sertraline HCl (Zoloft) 100 mg PO DAILY [facility] Last Admin: 07/16/18 09:33 Dose: 100 mg Sodium Chloride () 5 - 15 ml IV UD PRN PRN Reason: SALINE FLUSH Last Admin: 07/12/18 04:33 Dose: 10 ml Tamsulosin HCl (Flomax) 0.4 mg PO BID [facility] Last Admin: 07/16/18 09:33 Dose: 0.4 mg Medical Necessity - Tobacco Use Smoking Status: Former smoker Assessment/Plan All Active Problems (Last Reviewed 07/09/18 @ 23:48 by Mick Choi MD) Acute and chronic respiratory failure with hypoxia (Acute) COPD with acute exacerbation (Acute) Lactic acidosis (Acute) Hypotension arterial (Acute) Acute kidney injury (Acute) Respiratory failure with hypoxia and hypercapnia (Acute) Acute encephalopathy (Acute) Heart failure (Acute) Acute [place], inferior wall (Acute) Acute inferolateral myocardial infarction (Acute) 1. Acute hypoxic and hypercapnic respiratory failure secondary to left lower lobe pneumonia from MRSA/left parotitis/COPD -Continue with IV vancomycin, Rocephin, Flagyl -Appreciate recommendations from ID -Nothing to do for the left parotitis continue with lemon drops and facial massage -Speech therapy to evaluate patient since he was made n.p.o. if cleared by speech can resume diet -Continue with his home inhalers 2. Confusion with toxic encephalopathy has resolved 3. HTN/HLD/CAD status post stent/nonsustained VT -Appreciate cardiology input -EF is preserved -No further interventions at this time -Continue with home medications -Continue with aspirin, Plavix, lisinopril, isosorbide mononitrate, metoprolol, pravastatin 4. Chronic pain -He is on methadone which was increased to 10 mg every 8 hours -Also IV fentanyl was added for pain control every 3 hours as needed -We will likely resume his home medications on discharge 5. Gout -Stable -Continue with allopurinol 6. Depression -Stable -Tinea with Zoloft DVT: Heparin Code Visit Inpatient E&M: 90440 Subs Hosp L2
--- NOTE | 2018-07-16 18:25 | PN_ITS ---
Patient Problems: Active and Suspected Problems (Last Reviewed 07/09/18 @ 23:48 by Mick Choi MD) Hypotension arterial (Acute) Acute kidney injury (Acute) Respiratory failure with hypoxia and hypercapnia (Acute) Acute encephalopathy (Acute) Heart failure (Acute) Subjective: Feels a little bit better than he did on admission, but he does continue to have left face swelling. Denies any chest pain, shortness of breath. Vitals/I&O's: Vital Signs Temp Pulse Resp BP Pulse Ox 98.1 F 54 L 18 120/66 93 07/16/18 14:57 07/16/18 16:00 07/16/18 14:57 07/16/18 14:57 07/16/18 14:57 Oxygen Flow Rate (L/min) 4 Oxygen Delivery Method Nasal Cannula Weight: 318 lb 2.032 oz Body Mass Index (BMI) 44.4 Finger Stick Blood Glucose 159 Intake and Output for Last 24 Hours 07/14/18 07/15/18 07/16/18 23:59 23:59 23:59 Intake Total 850 / 850 989 / 989 1844 / 1844 Output Total 825 / 825 1125 / 1125 1025 / 1025 Balance -136 / -136 819 / 819 General: Alert, Oriented x3, Cooperative, No apparent distress HEENT: Atraumatic, PERRLA, EOMI, - - Left facial swelling with induration over the parotid gland Oral: Moist Mucosa Neck: Supple, No JVD, Trachea Midline Lungs: Clear to auscultation, Normal air movement, No rhonchi, No wheeze, No rales Cardiovascular: Regular rate, Regular Rhythm, Normal S1, Normal S2, No murmurs Abdomen: Soft, Non Tender, Non-Distended, No Hepato-splenomegaly Extremities: Capillary Refill Less than 3 Seconds, Edema Skin: No rashes, No breakdown Neurological: Neuro grossly intact, Sensory exam intact to light touch and pain Psych/Mental Status: Normal Affect, Appropriate Laboratory Results 07/16/18 03:26: Vancomycin Trough 14.6 07/16/18 03:26: WBC 12.4 H, RBC 3.95 L, Hgb 10.7 L, Hct 34.2 L, MCV 86.6, MCH 27.1, MCHC 31.3 L, RDW 14.5, RDW Differential 46.0 H, Plt Count 273, MPV 8.5 07/16/18 03:26: Sodium 142, Potassium 3.3 L, Chloride 106, Carbon Dioxide 27.0, Anion Gap 9, BUN 14, Creatinine 0.76, Estim Creat Clear Calc 111.46, Est GFR (MDRD) Af Amer 135, Est GFR (MDRD) Non-Af 112, BUN/Creatinine Ratio 18.4, Glucose 110 H, Calcium 8.0 L, Phosphorus 3.7, Magnesium 1.8, Total Bilirubin 0.70, AST 35, ALT 21, Alkaline Phosphatase 208 H, Total Protein 7.4, Albumin 2.1 L, Globulin 5.3 H, Albumin/Globulin Ratio 0.4 L Current Medications Acetaminophen (Tylenol) 650 mg PO Q4H PRN PRN PRN Reason: PAIN.FEVER Last Admin: 07/13/18 01:19 Dose: 650 mg Albuterol Sulfate (Ventolin Aerosols) 2.5 mg INHALATION Q6HWA.RT [facility] Last Admin: 07/16/18 13:19 Dose: 2.5 mg Albuterol/Ipratropium (Duoneb) 3 ml INHALATION Q4H PRN PRN Reason: sob/wheezing Allopurinol (Zyloprim) 100 mg PO DAILYCM [facility] Last Admin: 07/16/18 09:33 Dose: 100 mg Aspirin (Aspirin, Baby) 81 mg PO DAILY@0800 [facility] Last Admin: 07/16/18 09:33 Dose: 81 mg Budesonide (Pulmicort Aerosol) 0.5 mg INHALATION BID.RT [facility] Last Admin: 07/16/18 07:21 Dose: 0.5 mg Calamine/Phenol (Calmoseptine Ointment) 1 applic TOPICAL BID [facility]; Protocol Last Admin: 07/16/18 09:33 Dose: 1 applic Clopidogrel Bisulfate (Plavix) 75 mg PO DAILY [facility] Last Admin: 07/16/18 09:25 Dose: 75 mg Ergocalciferol (Vitamin D) 50,000 unit PO Q7D [facility] Last Admin: 07/15/18 09:41 Dose: 50,000 unit Fentanyl Citrate (Sublimaze (100mcg Ampule)) 25 mcg IV Q3H PRN PRN PRN Reason: severe 8-10 pain Finasteride (Proscar) 5 mg PO DAILY [facility] Last Admin: 07/16/18 09:38 Dose: 5 mg Fludrocortisone Acetate (Florinef) 0.1 mg PO DAILY [facility] Last Admin: 07/16/18 09:33 Dose: 0.1 mg Fluticasone Propionate (Flonase Nasal [place]) 2 spray NASAL DAILY [facility] Last Admin: 07/16/18 09:34 Dose: 2 spray Gabapentin (Neurontin) 100 mg PO TIDCM [facility] Last Admin: 07/16/18 16:19 Dose: 100 mg Guaifenesin (Robitussin) 10 ml PO Q6H PRN PRN PRN Reason: COUGH Heparin Sodium (Porcine) (Heparin Na) 5,000 unit SC Q8 [facility] Last Admin: 07/16/18 12:56 Dose: 5,000 unit Vancomycin IV Pharmacy to Dose (1 ea/ Sodium Chloride) 500 mls @ 250 mls/hr IV PRN PRN; Protocol PRN Reason: Rx to Dose Vancomycin HCl 1,000 mg/ (Dextrose) 200 mls @ 200 mls/hr IV Q12H [facility] Last Admin: 07/16/18 16:19 Dose: 200 mls/hr Ceftriaxone Sodium 2 gm/ (Sodium Chloride) 50 mls @ 100 mls/hr IV Q24 [facility] Last Admin: 07/16/18 15:07 Dose: 100 mls/hr Isosorbide Mononitrate (Imdur) 30 mg PO DAILY [facility] Last Admin: 07/16/18 09:33 Dose: 30 mg Lisinopril (Zestril) 5 mg PO DAILY [facility] Last Admin: 07/16/18 09:25 Dose: 5 mg Loratadine (Claritin) 10 mg PO DAILY [facility] Last Admin: 07/16/18 09:33 Dose: 10 mg Magnesium Hydroxide (Milk Of Magnesia) 30 ml PO DAILY PRN PRN Reason: Constipation Methadone HCl () 10 mg PO Q8 [facility] Last Admin: 07/16/18 12:56 Dose: 10 mg Metoprolol Tartrate (Lopressor (Beta Tyron)) 25 mg PO BID [facility] Last Admin: 07/16/18 09:33 Dose: 25 mg Metronidazole (Flagyl) 500 mg PO TID [facility] Morphine Sulfate (Ms Contin) 15 mg PO BID [facility] Last Admin: 07/16/18 09:31 Dose: 15 mg Nystatin (Mycostatin Powder) 1 applic TOPICAL BID [facility]; Protocol Last Admin: 07/16/18 09:34 Dose: 1 applic Pantoprazole Sodium (Protonix) 20 mg PO DAILY [facility] Last Admin: 07/16/18 09:30 Dose: 20 mg Pravastatin Sodium (Pravachol) 80 mg PO DAILY@2200 [facility] Last Admin: 07/15/18 23:26 Dose: 80 mg Sertraline HCl (Zoloft) 100 mg PO DAILY [facility] Last Admin: 07/16/18 09:33 Dose: 100 mg Sodium Chloride () 5 - 15 ml IV UD PRN PRN Reason: SALINE FLUSH Last Admin: 07/12/18 04:33 Dose: 10 ml Tamsulosin HCl (Flomax) 0.4 mg PO BID [facility] Last Admin: 07/16/18 09:33 Dose: 0.4 mg Medical Necessity - Tobacco Use Smoking Status: Former smoker Assessment/Plan All Active Problems (Last Reviewed 07/09/18 @ 23:48 by Mick Choi MD) Acute and chronic respiratory failure with hypoxia (Acute) COPD with acute exacerbation (Acute) Lactic acidosis (Acute) Hypotension arterial (Acute) Acute kidney injury (Acute) Respiratory failure with hypoxia and hypercapnia (Acute) Acute encephalopathy (Acute) Heart failure (Acute) Acute CT, inferior wall (Acute) Acute inferolateral myocardial infarction (Acute) 1. Acute hypoxic and hypercapnic respiratory failure secondary to left lower lobe pneumonia from MRSA/left parotitis/COPD -Continue with IV vancomycin, Rocephin, Flagyl -Appreciate recommendations from ID -Nothing to do for the left parotitis continue with lemon drops and facial massage -Speech therapy to evaluate patient since he was made n.p.o. if cleared by speech can resume diet -Continue with his home inhalers 2. Confusion with toxic encephalopathy has resolved 3. HTN/HLD/CAD status post stent/nonsustained VT -Appreciate cardiology input -EF is preserved -No further interventions at this time -Continue with home medications -Continue with aspirin, Plavix, lisinopril, isosorbide mononitrate, metoprolol, pravastatin 4. Chronic pain -He is on methadone which was increased to 10 mg every 8 hours -Also IV fentanyl was added for pain control every 3 hours as needed -We will likely resume his home medications on discharge 5. Gout -Stable -Continue with allopurinol 6. Depression -Stable -Tinea with Zoloft DVT: Heparin Code Visit Inpatient E&M: 63026 Subs Hosp L2
--- NOTE | 2018-07-16 19:11 | PN.CARD_ITS ---
Subjectve: The patient is awake and alert. He denies ongoing symptoms of palpitations or rapid rates. There has been no near syncope or syncope. He has had no other concerns with respect to new chest discomfort. He continues with a cough and an element of shortness of breath/dyspnea. Objective: Vital Signs Temp Pulse Resp BP Pulse Ox 98.1 F 54 L 18 120/66 93 07/16/18 14:57 07/16/18 16:00 07/16/18 14:57 07/16/18 14:57 07/16/18 14:57 Oxygen Flow Rate (L/min) 4 Oxygen Delivery Method Nasal Cannula Weight: 318 lb 2.032 oz Body Mass Index (BMI) 44.4 Finger Stick Blood Glucose 159 Intake and Output for Last 24 Hours 07/14/18 07/15/18 07/16/18 23:59 23:59 23:59 Intake Total 850 / 850 989 / 989 1844 / 1844 Output Total 825 / 825 1125 / 1125 1025 / 1025 Balance -136 / -136 819 / 819 General: Awake, Alert, Oriented x 3, Cooperative, No Acute Distress, Obese HEENT: Atraumatic, Normocephalic, PERRL, EOMI, Sclera Non Icteric Oral: Moist Mucosa Neck: Supple, Good ROM, No JVD Lungs: Rhonchi Cardiovascular: Regular Rhythm, Premature Ectopic Beats, Normal S1, Normal S2 Abdomen: Bowel Sounds Present, Soft, Non Tender Extremities: No edema Psych/Mental Status: Appropriate 07/16/18 03:26: WBC 12.4 H, RBC 3.95 L, Hgb 10.7 L, Hct 34.2 L, MCV 86.6, MCH 27.1, MCHC 31.3 L, RDW 14.5, RDW Differential 46.0 H, Plt Count 273, MPV 8.5 07/16/18 03:26: Sodium 142, Potassium 3.3 L, Chloride 106, Carbon Dioxide 27.0, Anion Gap 9, BUN 14, Creatinine 0.76, Est GFR (MDRD) Af Amer 135, Est GFR (MDRD) Non-Af 112, BUN/Creatinine Ratio 18.4, Glucose 110 H, Calcium 8.0 L, Phosphorus 3.7, Magnesium 1.8, Total Bilirubin 0.70 Rhythm:Sinus rhythm; an episode appearing compatible with ectopic atrial rhythm sinus tachycardia; an episode of a somewhat irregular none sustained wide- complex tachycardia-status post review-appearing compatible with artifact Medical Necessity - Tobacco Use Smoking Status: Former smoker Assessment/Plan 1. CAD status post PCI-remote The present time the patient does not appear to have any acute symptoms with respect to his underlying CAD process. He has been evaluated with a transthoracic echocardiogram. His overall left ventricular wall motion and systolic function appear to be preserved. At the present time he should continue risk factor modification medical therapy as deemed appropriate. 2. Hyperlipidemia He will need to continue risk factor evaluation and care. 3. Hypertension He will need to continue medical management with adjustment of medicines as deemed appropriate as he progresses through his current clinical course. 4. COPD He will continue evaluation care by internal medicine. 5. Cardiac ectopy/dysrhythmia At the present time he does have evidence of a brief episode of an ectopic atrial rhythm/tachycardia. There was also a report of a nonsustained wide complex tachycardia which status post review appeared compatible with artifact. His aforementioned findings with respect to the atrial dysrhythmia maybe secondary to his electrolyte abnormalities noticing has hypokalemia. This would be recommended he have appropriate potassium supplementation and continue his beta mkie therapy at this time. His cardiac rate and rhythm can be followed as needed. This note was generated using a voice recognition system and there may be incorrect words, spelling or punctuation that were not noted when reviewing the office note prior to saving.
[2018-07-16] MEDS: Pravastatin 80 MG Tablet PO (23:04)
[2018-07-16] MEDS: metroNIDAZOLE 500 MG Tablet PO (23:05)
[2018-07-17] VITALS (12 sets, daily range): BP systolic 119–151; BP diastolic 57–70; PULSE 51–59; RESP 16–18; TEMP 36.1–36.7; O2SAT 92–94
[2018-07-17] MEDS: metroNIDAZOLE 500 MG Tablet PO (06:06)
[2018-07-17] MEDS: Heparin Injection (Vial) 5,000 UNIT/ML VIAL 5000 UNIT SC ×2 (06:06→13:01)
[2018-07-17] MEDS: Methadone 10 MG Tablet PO ×2 (06:06→13:01)
[2018-07-17] MEDS: 0.9% NaCl Peripheral Flush Adult/Peds IV ×2 (06:50→06:54)
[2018-07-17] MEDS: Albuterol 2.5 MG/3 ML VIAL.NEB. INHALATION ×2 (07:00→13:27)
[2018-07-17] MEDS: Budesonide Respules 0.5 MG/2 ML AMPUL.NEB. INHALATION (07:00)
[2018-07-17 07:11] LABS: Absolute Lymphocyte Count 0.91 X10^3/ul (0.83-4.51); Absolute Neutrophil Count 8.4 X10^3/uL (2.0-7.7); Basophil# 0.02 X10^3/uL; Basophil% 0.2 % (0-1); Eosinophil# 0.11 X10^3/uL; Eosinophils% 1.1 % (0-5); Hematocrit 33.9 % (40-54); Hemoglobin 10.6 g/dl (13.0-16.5); Lymphocyte # 0.91 X10^3/ul (4.0); Lymphocyte % 9.1 % (19-41); Mean Corp Hgb Conc 31.3 g/gl (32-36); Mean Corpuscular Hgb 27.2 pg (27.0-32.0); Mean Corpuscular Volume 87.1 fL (80-94); Mean Platelet Vol. 8.5 fl (6.2-12.0); Monocyte# 0.57 X10^3/uL; Monocyte% 5.7 % (0-10); Neutrophil # 8.41 X10^3/uL (2.7-7.7); Neutrophil % 83.6 % (47-70); Platelet Count 260 K/mm3 (150-450); RBC Distribution Width CV 14.5 % (11.6-14.6); Red Blood Count 3.89 M/mm3 (4.6-6.2); White Blood Count 10.1 K/mm3 (4.4-11.0)
[2018-07-17 07:16] LABS: Anion Gap 8 (5-15); BUN 10 mg/dL (7-18); BUN/Creat Ratio 13.8 RATIO (10-20); Calcium,Total 7.9 mg/dL (8.5-10.1); Chloride 103 mmol/L (98-107); Creatinine, Serum 0.72 mg/dL (0.70-1.30); EST Glomerular Filtration Rate 118 mL/min (>60); Est Glom Filt Rate - Afr Amer 143 mL/min (>60); Estimated Creatinine Clearance 117.66 ml/min; Glucose 108 mg/dL (74-106); Potassium 2.9 mmol/L (3.5-5.1); Sodium Level 142 mmol/L (136-145)
[2018-07-17 07:18] LABS: POSITIVE COUNT NO; POSITIVE DIFFERENTIAL NO; POSITIVE MORPHOLOGY NO
[2018-07-17] MEDS: Gabapentin 100 MG Capsule PO ×3 (08:28→16:00)
[2018-07-17] MEDS: Clopidogrel Bisulfate 75 MG Tablet PO (08:28)
[2018-07-17] MEDS: Fludrocortisone Acetate 0.1 MG Tablet PO (08:28)
[2018-07-17] MEDS: Loratadine 10 MG Tablet PO (08:28)
[2018-07-17] MEDS: Tamsulosin HCl 0.4 MG Capsule PO (08:28)
[2018-07-17] MEDS: Lisinopril 5 MG Tablet PO (08:28)
[2018-07-17] MEDS: Isosorbide Mononitrate 30 MG Tablet PO (08:28)
[2018-07-17] MEDS: Allopurinol 100 MG Tablet PO (08:28)
[2018-07-17] MEDS: Finasteride 5 MG Tablet PO (08:28)
[2018-07-17] MEDS: Aspirin 81 MG TAB.CHEW PO (08:28)
[2018-07-17] MEDS: Sertraline 100 MG Tablet PO (08:28)
[2018-07-17] MEDS: Metoprolol Tartrate 25 MG Tablet PO (08:29)
[2018-07-17] MEDS: Nystatin Powder 15gm Bottle 1 APPLIC TOPICAL (08:37)
[2018-07-17] MEDS: Menthol/Lanolin/Calamine/Znox 113 GM Tube 1 APPLIC TOPICAL (08:37)
[2018-07-17] MEDS: morphine SR 15 MG Tablet PO (11:15)
[2018-07-17] MEDS: Pantoprazole Sodium 20 MG Tablet PO (11:16)
--- NOTE | 2018-07-17 11:16 | PCM.PN.ID ---
Patient Problems: Active and Suspected Problems (Last Reviewed 07/09/18 @ 23:48 by Mick Choi MD) Hypotension arterial (Acute) Acute kidney injury (Acute) Respiratory failure with hypoxia and hypercapnia (Acute) Acute encephalopathy (Acute) Heart failure (Acute) Subjective: Feeling better, breathing improved, face now less swollen and sore. - Physical Exam General: Alert, Cooperative, No apparent distress Lungs: Rhonchi - scattered Cardiovascular: Regular rate, Regular Rhythm Abdomen: Soft, Non Tender, Non-Distended Skin: - - L face redness and induration improved Vital Signs Temp Pulse Resp BP Pulse Ox 97.5 F L 53 L 16 133/65 H 92 07/17/18 08:17 07/17/18 08:29 07/17/18 08:17 07/17/18 08:29 07/17/18 09:59 Oxygen Flow Rate (L/min) 4 Oxygen Delivery Method Nasal Cannula Weight: 142.9 kg Body Mass Index (BMI) 44.4 Finger Stick Blood Glucose 159 Intake and Output for Last 24 Hours 07/15/18 07/16/18 07/17/18 23:59 23:59 23:59 Intake Total 989 / 989 2423 / 2423 335 / 335 Output Total 1125 / 1125 1675 / 1675 450 / 450 Balance -136 / -136 748 / 748 -115 / -115 Laboratory Tests Past 24 Hrs 07/17/18 07/17/18 06:55 06:55 WBC 10.1 RBC 3.89 L Hgb 10.6 L Hct 33.9 L MCV 87.1 MCH 27.2 MCHC 31.3 L RDW 14.5 RDW Differential 46.0 H Plt Count 260 MPV 8.5 Immature Gran % (Auto) 0.300 Neut % (Auto) 83.6 H Lymph % (Auto) 9.1 L [place] % (Auto) 5.7 Eos % (Auto) 1.1 Baso % (Auto) 0.2 Absolute Neuts (auto) 8.4 H Absolute Lymphs (auto) 0.91 Total Counted Not Reportable Sodium 142 Potassium 2.9 L Chloride 103 Carbon Dioxide 31.0 Anion Gap 8 BUN 10 Creatinine 0.72 Estim Creat Clear Calc 117.66 Est GFR (MDRD) Af Amer 143 Est GFR (MDRD) Non-Af 118 BUN/Creatinine Ratio 13.8 Glucose 108 H Calcium 7.9 L Medical Necessity - Tobacco Use Smoking Status: Former smoker Route of nutrition/ use of supplements: [] Nutritional Intake: [] IV Site: [] Goetz Catheter: [] - Assessment/Plan Antibiotics: [] Assessment/Plan: [] Active and Suspected Problems (Last Reviewed 07/09/18 @ 23:48 by Mick Choi MD) Hypotension arterial (Acute) Acute kidney injury (Acute) Respiratory failure with hypoxia and hypercapnia (Acute) Acute encephalopathy (Acute) Heart failure (Acute) MRSA pneumonia - on vanc, improving. Will change to po doxy. Ok for d/c home on doxycycline 100mg bid for 5 more days. flu A - was not treated given duration of sx prior to presentation parotitis - no purulence, could be due to flu or MRSA. Much improved today. On ceftriaxone/flagyl. Will change to po. Plan on d/c home on augmentin for 5 more days. VARSHA - improved Will follow.
[2018-07-17] MEDS: Fluticasone 0.05% 1 SPRAY NASAL.SRY 2 SPRAY NASAL (11:17)
[2018-07-17] MEDS: Amox/Clavulanate 875 MG Tablet PO (12:46)
[2018-07-17] MEDS: Doxycycline 100 MG CAPSULE PO (12:46)
--- NOTE | 2018-07-17 13:45 | PCM.TXEXTCAR ---
- Diet 07/16/18 17:03 Diet: Cardiac/Low Cholesterol Food consistency:: Puree Liquid Consistency:: Regular/Thin Dietary Modifications:: Pureed Diet Is pt able to select menu?: No Diet Comments: likes mac & cheese, no applesauce - Routine Orders/Code Status Routine Lab Work: BMP - Wound(s) Above R breast Wound Type: scabbed area groin folds Wound Type: excoriation posterior upper thighs Wound Type: Pressure Injury buttocks Wound Type: few small sheared areas - Allergies/Procedures Done in Hospital Allergies/Adverse Reactions: Allergies rofecoxib Adverse Reaction (Unknown, Verified 04/23/18 10:14) Unknown - Type of Care/Length of Stay Estimated LOS: More Than 30 Days Type of Care Needed: Intermediate Rehab Potential: Good Prognosis: Good - Additional Orders/Day of Discharge Day of Discharge: 07/17/18 - Dietary and Speech Recommendations Dietitian Recommendations/Changes: Suggest 1800 calorie/cardiac/low sodium with 1500 ml FR as able to tolerate PO nutrition. Consider consult to speech therapy as indicated. - Follow Up Care Primary Care Physician: Dav Wright,Out of [NON-STAFF] - Please follow up with your Primary Care Physician in: 3-5 days
--- NOTE | 2018-07-17 13:53 | PCM.DC.SUM ---
Discharge Date and Diagnosis - Problem List Patient Problems: Active and Suspected Problems (Last Reviewed 07/09/18 @ 23:48 by Mick Choi MD) Hypotension arterial (Acute) Acute kidney injury (Acute) Respiratory failure with hypoxia and hypercapnia (Acute) Acute encephalopathy (Acute) Heart failure (Acute) Date of Admission: 07/09/18 Date of Discharge: 07/17/18 - Primary Discharge Diagnosis Active and Suspected Problems (Last Reviewed 07/09/18 @ 23:48 by Mick Choi MD) Hypotension arterial (Acute) Acute kidney injury (Acute) Respiratory failure with hypoxia and hypercapnia (Acute) Acute encephalopathy (Acute) Heart failure (Acute) - Secondary Discharge Diagnosis Chronic Problems (Last Reviewed 07/09/18 @ 23:48 by Mick Choi MD) Acute exacerbation of congestive heart failure (Chronic) Presence of stent in coronary artery (Chronic) PTCA/BSM of Mid CX and PTCA of OM2 08/31/06; PTCA/PELON of the mid RCA 08/06/10; Thrombectomy and angioplasty of the pre existing stent of the mid LCX 02/18/13 Hypertension (Chronic) Hyperlipidemia (Chronic) Atherosclerotic heart disease of [place] coronary artery without angina pectoris (Chronic) PTCA/BSM of Mid CX and PTCA of OM2 08/31/06; PTCA/PELON of the mid RCA 08/06/10; Thrombectomy and angioplasty of the pre existing stent of the mid LCX 02/18/13 COPD (chronic obstructive pulmonary disease) (Chronic) Tobacco use disorder (Chronic) Morbid obesity (Chronic) Hospital Course and Treatment Imaging Results: CXR: IMPRESSION: Mild CHF CXR: IMPRESSION: Progressive infiltrate in the left lung base as well as in the lateral aspect of the left upper lobe. CT Neck: IMPRESSION: 1. Left parotiditis and adjacent reactive inflammation such but no focal fluid collection. No salivary duct calcifications are seen. 2. Patchy bilateral pulmonary infiltrates partially visualized. 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 Contrast injection was performed. Left ventricular systolic function is normal. The estimated ejection fraction is 65 %. Unable to assess diastolic dysfunction. Summary of Care Provided: Per HPI: The patient is a 57 year old M who lives at a snf in for a significant history of CAD status post stent; his COPD on chronic oxygen therapy; hypertension; hyperlipidemia; morbid obesity with metabolic syndrome; obstructive sleep apnea; chronic pain on multiple pain medications; and restless leg syndrome who presented to the emergency department with a 1 week history of confusion and hypotension. His family reported that patient has been talking weird. Emergency department doctor reported that the patient's heart rate was in the emergency department was in the 40s and his systolic blood pressure was in the 80s for which reason patient received IV bolus of normal saline. ABG showed PO2 of 82+ patient was on 5 L. PCO2 was 54.9. Case was discussed with cardiology Dr. Robert and a decision was made to get a BNP and to admit patient to PCU stepdown unit. Because of low blood pressure patient did not get Lasix at the ED but rather was given IV fluid bolus. Hospital Course: 1. Acute hypoxic and hypercapnic respiratory failure secondary to left lower lobe pneumonia from MRSA/left parotitis/COPD/metabolic [id number] male who lives in a snf with significant history of CAD status post stent as well as COPD on chronic oxygen presented with confusion and metabolic encephalopathy. Initially thought to be a CHF exacerbation, however his BNP was barely elevated and his echo had a normal ejection fraction. Also he did improve with fluids and cardiology did not feel that he was likely in any type of CHF exacerbation. He was continued on his cardiac meds and did have on occasion nonsustained wide-complex tachycardia which would resolve on its own. And was felt to be secondary to electrolyte abnormalities as he has had difficulty maintaining a potassium greater than 3.5. He was given a dose of potassium chloride this morning for a potassium of 2.9. Of note, infectious disease and ENT were consulted for the for the left parotitis and left MRSA pneumonia. He did receive multiple doses of vancomycin and infectious disease feels like he could be discharged on p.o. doxycycline as well as p.o. Augmentin for 5 more days. ENT did evaluate him and stated that he did not have an abscess and would likely need lemon drops and parotid massage for improvement of his left parotitis. With improvement in his oxygen saturations and his pneumonia, his metabolic encephalopathy resolved. 2. His other medical diagnoses were evaluated and his home medications were continued where appropriate Patient Problems: Active and Suspected Problems (Last Reviewed 07/09/18 @ 23:48 by Mick Choi MD) Hypotension arterial (Acute) Acute kidney injury (Acute) Respiratory failure with hypoxia and hypercapnia (Acute) Acute encephalopathy (Acute) Heart failure (Acute) Objective: General: Alert, Oriented x3, Cooperative, No apparent distress HEENT: Atraumatic, PERRLA, EOMI, - - Left facial swelling with induration over the parotid gland-improved Oral: Moist Mucosa Neck: Supple, No JVD, Trachea Midline Lungs: Clear to auscultation, Normal air movement, No rhonchi, No wheeze, No rales Cardiovascular: Regular rate, Regular Rhythm, Normal S1, Normal S2, No murmurs Abdomen: Soft, Non Tender, Non-Distended, No Hepato-splenomegaly Extremities: Capillary Refill Less than 3 Seconds, Edema Skin: No rashes, No breakdown Neurological: Neuro grossly intact, Sensory exam intact to light touch and pain Psych/Mental Status: Normal Affect, Appropriate - Physical Exam Vital Signs Temp Pulse Resp BP Pulse Ox 97.5 F L 52 L 16 133/65 H 92 07/17/18 08:17 07/17/18 13:27 07/17/18 13:27 07/17/18 08:29 07/17/18 09:59 Oxygen Flow Rate (L/min) 4 Oxygen Delivery Method Nasal Cannula Weight: 315 lb 0.649 oz Body Mass Index (BMI) 44.4 Finger Stick Blood Glucose 159 Intake and Output for Last 24 Hours 07/15/18 07/16/18 07/17/18 23:59 23:59 23:59 Intake Total 989 / 989 2423 / 2423 797 / 797 Output Total 1125 / 1125 1675 / 1675 750 / 750 Balance -136 / -136 748 / 748 47 / 47 Laboratory Tests Past 24 Hrs 07/17/18 07/17/18 06:55 06:55 WBC 10.1 RBC 3.89 L Hgb 10.6 L Hct 33.9 L MCV 87.1 MCH 27.2 MCHC 31.3 L RDW 14.5 RDW Differential 46.0 H Plt Count 260 MPV 8.5 Immature Gran % (Auto) 0.300 Neut % (Auto) 83.6 H Lymph % (Auto) 9.1 L [place] % (Auto) 5.7 Eos % (Auto) 1.1 Baso % (Auto) 0.2 Absolute Neuts (auto) 8.4 H Absolute Lymphs (auto) 0.91 Total Counted Not Reportable Sodium 142 Potassium 2.9 L Chloride 103 Carbon Dioxide 31.0 Anion Gap 8 BUN 10 Creatinine 0.72 Estim Creat Clear Calc 117.66 Est GFR (MDRD) Af Amer 143 Est GFR (MDRD) Non-Af 118 BUN/Creatinine Ratio 13.8 Glucose 108 H Calcium 7.9 L Home Medications: Medications to take at Discharge Clopidogrel Bisulfate [Plavix] 75 mg PO DAILY 02/11/13 Isosorbide Mononitrate [Imdur] 30 mg PO DAILY 02/11/13 Nitroglycerin [Nitrostat] 0.4 mg SUBLINGUAL Q5M PRN 02/11/13 Gabapentin 600 mg PO TID 12/20/13 Sertraline HCl [Zoloft] 100 mg PO DAILY 03/06/14 Ipratropium/Albuterol Sulfate [Duoneb] 3 ml INHALATION BID 12/20/15 Lisinopril [Zestril] 5 mg PO DAILY 12/28/16 Methadone HCl 10 mg PO Q8H 12/28/16 Ondansetron HCl [Zofran] 4 mg PO BID 12/28/16 Acetaminophen [Tylenol] 650 mg PO Q4H PRN PRN 05/17/17 Allopurinol 100 mg PO DAILY 05/17/17 Aspirin [Aspirin, Baby] 81 mg PO DAILY@0800 05/17/17 Loratadine 10 mg PO DAILY 05/17/17 Lorazepam [Ativan] 1 mg PO QHS PRN PRN 05/17/17 Oxycodone [Oxyir] 5 mg PO BID 05/17/17 finasteride 5 mg tablet 5 mg PO QDAY 10/26/17 fludrocortisone 0.1 mg tablet 0.1 mg PO QDAY 10/26/17 ipratropium-albuterol 0.5 mg-3 mg(2.5 mg base)/3 mL nebulization soln 3 ml INHALATION Q6H PRN 10/26/17 morphine 30 mg immediate release tablet 30 mg PO BID tab 10/26/17 omeprazole 20 mg capsule,delayed release 20 mg PO QDAY cap 10/26/17 sodium chloride 1 gram tablet 1 tab PO QDAY tab 10/26/17 tizanidine 2 mg tablet 2 mg PO TID PRN 10/26/17 Fluticasone 0.05% [Flonase Nasal [place]] 2 spray NASAL DAILY 03/14/18 Guaifenesin [Cough Syrup] 10 ml PO Q6H PRN PRN 03/14/18 Linacolotide [Linzess] 145 mcg PO DAILY 03/14/18 Magnesium Hydroxide [Milk Of Magnesia] 30 ml PO DAILY PRN PRN 03/14/18 Potassium Chloride 10 meq PO DAILY 03/14/18 Pravastatin [Pravachol] 80 mg PO DAILY 03/14/18 Spironolactone [Aldactone] 25 mg PO BID 03/14/18 Bumetanide [Bumex] 2 mg PO BID #60 tab 03/16/18 fluticasone 100 mcg-vilanterol 25 mcg/dose powder for inhalation 1 inh INHALATION DAILY 04/23/18 metformin 500 mg tablet 1,000 mg PO BID tab 04/23/18 metoprolol tartrate 25 mg tablet 25 mg PO BID 04/23/18 tamsulosin 0.4 mg capsule 0.4 mg PO BID cap 04/23/18 Albuterol Inhaler [Ventolin Hfa] 1 puff INHALATION Q4H PRN PRN 07/09/18 Ergocalciferol [Vitamin D] 50,000 unit PO Q7D 07/09/18 Amox/Clavulanate Tablet [Augmentin Tablet] 875 mg PO BID #10 tablet 07/17/18 Doxycycline 100 mg PO BID #10 capsule 07/17/18 Following Prescrptions Were Given to Patient: Amox/Clavulanate Tablet [Augmentin Tablet] 875 mg PO BID #10 tablet Doxycycline 100 mg PO BID #10 capsule Primary Care Physician: [facility] Doctor,Out of [NON-STAFF] - Please follow up with your Primary Care Physician in: 3-5 days Disposition: Assisted facility Minutes spent on discharge:: 35 Patient Condition:: Stable Medical Necessity - Tobacco Use Smoking Status: Former smoker Meaningful Use Info Meaningful Use Diagnoses (Choose all that apply): None applicable Code Visit Inpatient E&M: 78595 Disch Hosp
--- NOTE | 2018-07-17 14:00 | CASEMGMT ---
Per physician patient is ready for discharge. RAMSEY called Izabella Hunt and let Stuart know this information. Jodi NORMAN MSW
--- NOTE | 2018-07-17 14:45 | CASEMGMT ---
SW spoke with patient and he is aware he is going back to [facility] today. SW offered to call family and he said that he already told his mom. He said it wasn't necessary to call family when a time is set up. Green sheet left on chart. Plan: d/c back to [facility] under intermediate level of care. Jodi NORMAN MSW
== END 2018-07-17 17:24 | disposition intermediate care facility (04) | DRG 137 ==
LOC: ED 22:58 → PCU 23:27
PROVIDERS: Internal Medicine; Admitting Provider Hospitalist; Emergency Provider Emergency Medicine; Family Provider Family Medicine; PCP Family Medicine; Visit Provider Family Medicine
DX: J15.212 Pneumonia due to Methicillin resistant Staphylococcus aureus (principal); N17.9 Acute kidney failure, unspecified; J11.08 Influenza due to unidentified influenza virus with specified pneumonia; J96.22 Acute and chronic respiratory failure with hypercapnia; E87.1 Hypo-osmolality and hyponatremia; G93.41 Metabolic encephalopathy; E66.01 Morbid (severe) obesity due to excess calories; Z68.41 Body mass index [BMI] 40.0-44.9, adult; I47.2 Ventricular tachycardia; E86.0 Dehydration; J96.21 Acute and chronic respiratory failure with hypoxia; K11.21 Acute sialoadenitis; J10.1 Influenza due to other identified influenza virus with other respiratory manifestations; E87.6 Hypokalemia; M19.90 Unspecified osteoarthritis, unspecified site; M10.9 Gout, unspecified; N40.0 Benign prostatic hyperplasia without lower urinary tract symptoms; G89.4 Chronic pain syndrome; I25.10 Atherosclerotic heart disease of native coronary artery without angina pectoris; G47.33 Obstructive sleep apnea (adult) (pediatric); F32.9 Major depressive disorder, single episode, unspecified; K58.9 Irritable bowel syndrome, unspecified; E78.5 Hyperlipidemia, unspecified; D64.9 Anemia, unspecified; J44.0 Chronic obstructive pulmonary disease with (acute) lower respiratory infection; G25.81 Restless legs syndrome; Z87.891 Personal history of nicotine dependence; Z79.82 Long term (current) use of aspirin; Z79.891 Long term (current) use of opiate analgesic; Z79.02 Long term (current) use of antithrombotics/antiplatelets; Z79.899 Other long term (current) drug therapy; Z95.5 Presence of coronary angioplasty implant and graft; Z99.81 Dependence on supplemental oxygen; E27.40 Unspecified adrenocortical insufficiency
CPT/HCPCS: 36415; 36569; 36600; 70490; 71045; 80048; 80053; 80202; 82607; 82728; 82746; 82803; 82962; 83540; 83550; 83605; 83735; 83880; 84100; 84443; 85025; 85027; 85610; 85652; 85730; 87040; 87070; 87077; 87186; 87205; 87633; 92526; 92610; 93005; 93306; 94640; 97110; 97162; 97166; 97530; 97535; 99251; 99285; J7030; J7040; J7050; Q9957; A4216; C8929; G0463; J0696; J2405

== ENCOUNTER 2018-11-26 08:49 | Inpatient (IN) | payer MEDICAID, SELFPAY ==
[2018-07-10 00:39] VITALS: BMI 44.4
[2018-11-26] VITALS (16 sets, daily range): BP systolic 91–142; BP diastolic 45–71; PULSE 46–81; RESP 15–22; TEMP 36.6–39.6; O2SAT 87–96; BMI 43.7; BMI 42.6
--- NOTE | 2018-11-26 09:01 | EKG12_ITS ---
Test Reason : FEVER Blood Pressure : / mmHG Vent. Rate : 083 BPM Atrial Rate : 083 BPM P-R Int : 154 ms QRS Dur : 088 ms QT Int : 456 ms P-R-T Axes : 063 054 069 degrees QTc Int : 535 ms Normal sinus rhythm Nonspecific T wave abnormality Prolonged QT Abnormal ECG Confirmed by RAJ FRAZIER, MARIA ISABEL ([id number]), editor trade journal MIS TORRES ([id number]) on 11/28/2018 11:30:23 AM Referred By: AQUILINO/SAAD Confirmed By:MARIA ISABEL ANTHONY MD
--- NOTE | 2018-11-26 09:06 | ED.VISSUMM ---
- ER Visit Summary Date of Service: 11/26/18 Chief Complaint: Fevers History of Present Illness: The patient is a 58 M who presents from his nursing facility for fevers. He had a temp of 103 today. She does report some chest pain, cough, and sore throat. No other associated symptoms. Patient denies any recent illnesses or fevers. Patient has an extensive past medical history including coronary disease with stents, HI, CHF, COPD, hypertension, hyperlipidemia, respiratory failure, acute kidney injury, encephalopathy, hernia surgery, tonsil surgery. He is a former smoker. Resides in a nursing facility. Physical Examination: Temp is 103.3 and blood pressure 91/61. Heart rate 88 and respiratory rate 22. Pulse ox 90% on 4 L. Patient is alert and oriented. No acute distress. HEENT exam unremarkable. Heart regular. Lungs show wheezing with expiration and diminished breath sounds in all [place]. Abdomen soft and nontender. Goetz in place. Extremities edematous, symmetric, nontender. Back unremarkable. Moves all extremities. Test Results: EKG, sepsis labs, chest x-ray pending. Emergency Department Course and Treatment: IV access obtained. Patient placed on oxygen and monitor. Treated with IV fluid bolus, 1 L. Also received Tylenol, DuoNeb, Solu-Medrol. Repeat blood pressure 100/51, mean arterial pressure 67. We will continue to monitor. Lactate 2.9. White count 11.5. He has a UTI. Cultures are pending. Chest x-ray showed vascular congestion. Otherwise labs fairly unremarkable. His potassium was 2.7 however. Magnesium pending. He was treated with potassium replacement. Started on Rocephin. Patient will need admission for his UTI with severe sepsis and hypokalemia. Hospitalist was contacted. He appears to be stable. Treatment Plan: As above Disposition: Admission Impression: 1. UTI is concerned 2. Severe sepsis 3. Hypokalemia This note was generated with [employer] dictation software. It may contain incorrect words, spelling, and punctuation that were not noted in review of the chart prior to signing ED Disposition - Plan for ED Patient: Referrals: Nas Cadena [Primary Care Provider] -
--- NOTE | 2018-11-26 09:07 | RAD_ITS ---
STUDY: X-RAY CHEST REASON FOR EXAM: Male, 58 years old. Cough. TECHNIQUE: Single AP portable view of the chest. COMPARISON: Comparison is made with prior study dated July 13, 2018. FINDINGS: EKG electrodes are seen. Mild degree of vascular congestion. There is no demonstrated pleural abnormality. There is mild cardiac enlargement. Normal mediastinum and liban. Normal visualized pulmonary arteries. Normal visualized aortic arch and descending thoracic aorta. There are diffuse degenerative changes of the visualized thoracic spine. Normal visualized ribs, clavicles, and shoulders. There is no demonstrated abnormality of the visualized soft tissue structures of the upper abdomen. RAD/Chest 1 View (Portable) IMPRESSION: Mild degree of vascular congestion. Electronically Signed: Howie Dong, at 9:27 EDT , Service support ,
[2018-11-26] MEDS: MethylPREDNISolone 125 MG/2 ML Vial IV (09:10)
[2018-11-26] MEDS: 0.9% Normal Saline 1,000 ML 999 ML IV (09:10)
[2018-11-26] MEDS: Acetaminophen 500 MG Tablet 1000 MG PO (09:10)
[2018-11-26 09:18] LABS: Mucous, Urine 0 SEEN /hpf (<or=2+)
[2018-11-26 09:21] LABS: Color, Urine Yellow (Yellow); Glucose, Dipstick Normal (Normal); Ketone-Dipstick 5 mg/dl (Negative); Leukocyte Esterase-Dipstick 500 /ul (Negative); Nitrite-Dipstick Positive (Negative); Occult Blood-Urine 250 /ul (Negative); Protein-Dipstick 30 mg/dl (Negative); Urine Bilirubin Dipstick Negative (Negative); Urine Clarity Sl. Cloudy (Clear); Urine Urobilinogen 1 mg/dl (Normal); Urine pH 6.5 (5.0 - 8.0)
[2018-11-26 09:22] LABS: Absolute Lymphocyte Count 1.15 X10^3/ul (0.83-4.51); Absolute Neutrophil Count 9.9 X10^3/uL (2.0-7.7); Basophil# 0.02 X10^3/uL; Basophil% 0.2 % (0-1); Eosinophil# 0.04 X10^3/uL; Eosinophils% 0.3 % (0-5); Hematocrit 38.7 % (40-54); Hemoglobin 12.4 g/dl (13.0-16.5); Lymphocyte # 1.15 X10^3/ul (4.0); Mean Corpuscular Hgb 27.9 pg (27.0-32.0); Mean Platelet Vol. 8.2 fl (6.2-12.0); Monocyte# 0.34 X10^3/uL; Neutrophil # 9.93 X10^3/uL (2.7-7.7); Neutrophil % 86.2 % (47-70); Platelet Count 219 K/mm3 (150-450); RBC Distribution Width CV 15.9 % (11.6-14.6); RBC Distribution Width SD 49.6 fl (35.1-43.9); Red Blood Count 4.45 M/mm3 (4.6-6.2); White Blood Count 11.5 K/mm3 (4.4-11.0)
[2018-11-26 09:23] LABS: POSITIVE COUNT NO; POSITIVE DIFFERENTIAL NO; POSITIVE MORPHOLOGY NO
[2018-11-26 09:25] LABS: Prothrombin Time (Protime)PT. 13.4 SECONDS (11.7-14.9)
[2018-11-26 09:28] LABS: Bacteria 2+ /hpf (None Seen); Red Blood Cells-Urine 25-50 SEEN /hpf (0-5); Squamous Epithelial Cells - UA 0-5 SEEN /hpf (0-5); White Blood Cells 25-50 SEEN /hpf (0-5)
[2018-11-26] MEDS: Ceftriaxone 1 GM/50 ML BAG IV (09:45)
[2018-11-26 09:49] LABS: ALB/GLOB Ratio 0.6 RATIO (0.9-2.4); AST(SGOT) 25 U/L (15-37); Alanine Aminotransfer ALT/SGPT 28 U/L (16-61); Alkaline Phosphatase 169 U/L (45-117); Anion Gap 5 (5-15); BUN 9 mg/dL (7-18); BUN/Creat Ratio 8.2 RATIO (10-20); Calcium,Total 8.9 mg/dL (8.5-10.1); Chloride 88 mmol/L (98-107); EST Glomerular Filtration Rate 73 mL/min (>60); Est Glom Filt Rate - Afr Amer 88 mL/min (>60); Estimated Creatinine Clearance 77.01 ml/min; Glucose 100 mg/dL (74-106); Lactic Acid 2.9 mmol/L (0.4-2.0); Potassium 2.7 mmol/L (3.5-5.1); Sodium Level 133 mmol/L (136-145)
--- NOTE | 2018-11-26 09:54 | ED.RN ---
LAB CALL WITH CRITICAL RESULTS OF POTASSIUM 2.7, LACTIC ACID 2.9. RESULTS VERBALLY GIVEN TO DR. ROLLE AND SUSIE CH.
--- NOTE | 2018-11-26 10:07 | HP.PCM_ITS ---
Problem List (1) Severe sepsis Status: Acute (2) Complicated UTI (urinary tract infection) Status: Acute (3) COPD exacerbation Status: Chronic (4) Hypokalemia Status: Acute (5) Hyponatremia Status: Acute (6) CAD (coronary artery disease) Status: Chronic Qualifiers: Coronary Disease-Associated Artery/Lesion type: unspecified vessel or lesion type [place] vs. transplanted heart: unspecified whether [place] or transplanted heart Associated angina: angina presence unspecified Qualified Code(s): I25.10 - Atherosclerotic heart disease of [place] coronary artery without angina pectoris (7) Diastolic CHF Status: Chronic Qualifiers: Heart failure chronicity: chronic Qualified Code(s): I50.32 - Chronic diastolic (congestive) heart failure (8) Anxiety and depression Status: Chronic (9) DAVION (obstructive sleep apnea) Status: Chronic (10) Hypertension Status: Chronic Qualifiers: Hypertension type: essential hypertension Qualified Code(s): I10 - Essential (primary) hypertension (11) Hyperlipidemia Status: Chronic Qualifiers: Hyperlipidemia type: unspecified Qualified Code(s): E78.5 - Hyperlipidemia, unspecified (12) COPD (chronic obstructive pulmonary disease) Status: Chronic Qualifiers: COPD type: unspecified COPD Qualified Code(s): J44.9 - Chronic obstructive pulmonary disease, unspecified (13) Tobacco use disorder Status: Resolved (14) Morbid obesity Status: Chronic History of Present Illness Date of Admission: 11/26/18 Chief Complaint: Nausea, emesis, fever The patient is a 58 y/o M from [facility] w/ PMHx: Diabetes mellitus type II, Chronic Normocytic Anemia, Morbid Obesity, Chronic COPD with Chronic Hypoxic Respiratory Failure (3L-4L NC), HTN, HLD, History of Tobacco use, DAVION, CAD s/p PTCA/BSM of Mid CX and PTCA of OM2 08/31/06; PTCA/PELON of the mid RCA 08/06/10; Thrombectomy and angioplasty of the pre-existing stent of the mid LCX 02/18/13, Diastolic CHF, History of MRSA PNA who presents to the [facility] ED on 11/26/18 with history of fevers, mild cough with complaint of loose minimally productive sputum x ~ 24-48 hours with nausea as well as emesis AM prior to presentation. In the ED included T103.2, heart rate 81, BP 100/51, respiratory rate 15, 92% on 6 L nasal cannula, CBC with WC 11.5, hemoglobin 12.4, platelet 212 with left shift, unremarkable coags, CMP with sodium 133, potassium 2.7, chloride 88, carbon dioxide 40, lactic acid 2.9, alkaline phosphatase 169, troponin less than 0.015 urinalysis notable for acute UTI with pending urine culture x1 as well as blood culture x 2 per ED chest x-ray with mild evidence of vascular congestion, EKG with no acute evidence of ischemia, presented with ojeda which he has required x 3 years, cannot give last change timeline. In the ED patient ministered normal saline, Solu-Medrol, Rocephin, Tylenol, potassium 40 mg once IV initiated. Requested also ojeda catheter be changed in the ED prior to admission. Past Medical History Past Medical History (Chronic Problems): Chronic Problems (Last Reviewed 07/09/18 @ 23:48 by Mick Choi MD) Acute exacerbation of congestive heart failure (Chronic) COPD exacerbation (Chronic) CAD (coronary artery disease) (Chronic) Diastolic CHF (Chronic) Anxiety and depression (Chronic) DAVION (obstructive sleep apnea) (Chronic) Presence of stent in coronary artery (Chronic) PTCA/BSM of Mid CX and PTCA of OM2 08/31/06; PTCA/PELON of the mid RCA 08/06/10; Thrombectomy and angioplasty of the pre existing stent of the mid LCX 02/18/13 Hypertension (Chronic) Hyperlipidemia (Chronic) Atherosclerotic heart disease of [place] coronary artery without angina pectoris (Chronic) PTCA/BSM of Mid CX and PTCA of OM2 08/31/06; PTCA/PELON of the mid RCA 08/06/10; Thrombectomy and angioplasty of the pre existing stent of the mid LCX 02/18/13 COPD (chronic obstructive pulmonary disease) (Chronic) Morbid obesity (Chronic) Medical History: Medical History (Last Reviewed 07/09/18 @ 23:48 by Mick Choi MD) Acute NE, inferior wall (Acute) I21.19 Acute inferolateral myocardial infarction (Acute) I21.19 Hypertension (Chronic) I10 Hyperlipidemia (Chronic) E78.5 Atherosclerotic heart disease of [place] coronary artery without angina pectoris (Chronic) I25.10 PTCA/BSM of Mid CX and PTCA of OM2 08/31/06; PTCA/PELON of the mid RCA 08/06/10; Thrombectomy and angioplasty of the pre existing stent of the mid LCX 02/18/13 COPD (chronic obstructive pulmonary disease) (Chronic) J44.9 Tobacco use disorder (Chronic) F17.200 Morbid obesity (Chronic) E66.01 DDD (degenerative disc disease) Metabolic syndrome E88.81 DAVION (obstructive sleep apnea) G47.33 RLS (restless legs syndrome) G25.81 Open breast wound (Inactive) S21.009A Pure hypercholesterolemia (Inactive) E78.00 Respiratory failure with hypoxia and hypercapnia (Inactive) J96.91, J96.92 UTI (urinary tract infection) (Inactive) N39.0 Allergies rofecoxib Adverse Reaction (Unknown, Verified 11/26/18 08:50) Unknown Home Medications: Ambulatory Orders Medication Instructions Recorded Clopidogrel Bisulfate [Plavix] 75 mg PO DAILY 02/11/13 Isosorbide Mononitrate [Imdur] 30 mg PO DAILY 02/11/13 Nitroglycerin (INPATIENT USE) 0.4 mg SUBLINGUAL Q5M PRN 02/11/13 [Nitrostat] Gabapentin 600 mg PO BID 12/20/13 Sertraline HCl [Zoloft] 100 mg PO DAILY 03/06/14 Ipratropium/Albuterol Sulfate 3 ml INHALATION BID 12/20/15 [Duoneb] Lisinopril [Zestril] 5 mg PO DAILY 12/28/16 Methadone HCl 10 mg PO Q8H 12/28/16 Ondansetron HCl [Zofran] 4 mg PO BID 12/28/16 Acetaminophen [Tylenol] 650 mg PO Q4H PRN PRN 05/17/17 Allopurinol 100 mg PO DAILY 05/17/17 Aspirin [Aspirin, Baby] 81 mg PO DAILY@0800 05/17/17 Loratadine 10 mg PO DAILY 05/17/17 Lorazepam [Ativan] 1 mg PO QHS PRN PRN 05/17/17 Oxycodone [Oxyir] 5 mg PO BID 05/17/17 fludrocortisone 0.1 mg tablet 0.1 mg PO QDAY 10/26/17 ipratropium-albuterol 0.5 mg-3 3 ml INHALATION Q6H PRN 06/14/18 mg(2.5 mg base)/3 mL nebulization soln morphine 30 mg immediate release 30 mg PO BID tab 10/26/17 tablet omeprazole 20 mg capsule,delayed 20 mg PO QDAY cap 10/26/17 release sodium chloride 1 gram tablet 1 tab PO QDAY tab 10/26/17 tizanidine 2 mg tablet 2 mg PO TID PRN 10/26/17 Fluticasone 0.05% [Flonase Nasal 1 spray NASAL DAILY 03/14/18 [place]] Guaifenesin [Cough Syrup] 10 ml PO Q6H PRN PRN 03/14/18 Linacolotide [Linzess] 145 mcg PO DAILY 03/14/18 Magnesium Hydroxide [Milk Of 30 ml PO DAILY PRN PRN 03/14/18 Magnesia] Potassium Chloride 10 meq PO DAILY 03/14/18 Pravastatin [Pravachol] 80 mg PO DAILY 03/14/18 Spironolactone [Aldactone] 25 mg PO BID 03/14/18 Bumetanide [Bumex] 2 mg PO BID #60 tab 03/16/18 fluticasone furoate 100 1 inh INHALATION DAILY 04/23/18 mcg-vilanterol 25 mcg/dose inhalation powder metformin 500 mg tablet 1,000 mg PO BID tab 04/23/18 metoprolol tartrate 25 mg tablet 25 mg PO BID 04/23/18 tamsulosin 0.4 mg capsule 0.4 mg PO BID cap 04/23/18 Albuterol Inhaler [Ventolin Hfa] 1 puff INHALATION Q4H PRN PRN 07/09/18 Ergocalciferol [Vitamin D] 50,000 unit PO Q7D 07/09/18 Amox/Clavulanate Tablet [Augmentin 875 mg PO BID #10 tablet 07/17/18 Tablet] Doxycycline 100 mg PO BID #10 capsule 07/17/18 Surgical History: Surgical History (Last Reviewed 07/09/18 @ 23:48 by Mick Choi MD) Presence of stent in coronary artery (Chronic) Z95.5 PTCA/BSM of Mid CX and PTCA of OM2 08/31/06; PTCA/PELON of the mid RCA 08/06/10; Thrombectomy and angioplasty of the pre existing stent of the mid LCX 02/18/13 Postsurgical percutaneous transluminal coronary angioplasty (PTCA) status Z98.61 PTCA/BSM of Mid CX and PTCA of OM2 08/31/06; PTCA/PELON of the mid RCA 08/06/10; Thrombectomy and angioplasty of the pre existing stent of the mid LCX 02/18/13 History of inguinal hernia repair Z98.890, Z87.19 History of tonsillectomy Z90.89 Surgical History: - - Thyroidectomy, Septoplasty, Cardiac PCI x 4 2007, R Inguinal hernia repair 2012, T+A. Psychiatric History: Anxiety, Depression Lives: Group Home Smoking Status: Former smoker - Quit 2 years prior to current presentation. Tobacco Use: Non-smoker Alcohol: None Drugs: None - *Family History Sibling Family History: Family History (Last Reviewed 07/09/18 @ 23:48 by Mick Choi MD) Father Myocardial infarction, Onset Age: 39 Brother Hypertension Uncle CAD (coronary artery disease) Uncle Myocardial infarction History Items: Hypertension Maternal Family History: Family History (Last Reviewed 07/09/18 @ 23:48 by Mick Choi MD) Father Myocardial infarction, Onset Age: 39 Brother Hypertension Uncle CAD (coronary artery disease) Uncle Myocardial infarction History Items: Cancer - skin CA Paternal Family History: Family History (Last Reviewed 07/09/18 @ 23:48 by Mick Choi MD) Father Myocardial infarction, Onset Age: 39 Brother Hypertension Uncle CAD (coronary artery disease) Uncle Myocardial infarction History Items: Heart Disease Review of Systems Constitutional: Reports: Chills, Fever, Malaise, Weakness, Fatigue. Denies: Weight Change HEENT: Denies: Head Aches, Sinus Congestion, Sinus Drainage Cardiovascular: Denies: Chest Pain, Palpitations Respiratory: Reports: Cough, Shortness of Breath, Shortness of breath upon exertion, Sputum production, Wheezing. Denies: Shortness of breath at rest Gastrointestinal: Reports: Nausea, Vomiting. Denies: Abdominal Pain Genitourinary: Reports: - - Chronic ojeda catheter. Denies: Dysuria Musculoskeletal: Reports: Back Pain. Denies: Joint Pain, Joint Tenderness Skin: Denies: Rash, Wounds Neurological: Denies: Numbness, Tingling, Focal weakness Psychiatric: Reports: Anxiety, Depression. Denies: Homicidal Ideations, Suicidal Ideations Hematologic/ Lymphatic: Reports: Anemia, Easy Bruising, Easy Bleeding VTE Information - Inpt Only VTE Present on Admission: No VTE Mechan Device Prophylaxis: SCD's VTE Pharm Prophylaxis ordered?: Yes Patient Problems: Active and Suspected Problems (Last Reviewed 07/09/18 @ 23:48 by Mick Choi MD) Severe sepsis (Acute) Complicated UTI (urinary tract infection) (Acute) Hypokalemia (Acute) Hyponatremia (Acute) Subjective: Seated upright in the bed, fatigued appearance, flushed, notes mildly improved since initial ED presentation. Objective: Physical Examination: General: awake, alert, oriented x 3 and cooperative, seated upright in the PCU bed in no apparent distress. Skin: mildly flushed color, turgor, no icterus, cyanosis, chronic venous stasis skin changes BL LE. HEENT: AT/NC, EOMI, PERRLA, dry MM, no carotid bruits or JVD noted; however, thickened neck makes examination difficult. Lungs: Diffusely diminished BS BL, > bases, soft end expiratory wheezing posterior lung [place], moderate effort, no rales or rhonchi. Heart: regular rate and rhythm; no gallop, rub audible. Abdomen: soft, morbidly obese, NTTP, difficult to assess distention secondary to habitus, distant normal BS, unable to discern HSM secondary to habitus. Extremities: no cyanosis, clubbing, BL LE chronic venous skin changes, no edema. Neurological: patient awake, alert, oriented x 3; cognitive function intact; pupils equally reactive to light and accomodation; cranial nerves II-XII grossly normal, moving all 4 extremities, no focal deficits, strength severely globally decreased secondary to acute presentation. Psychiatric: affect appears fatigued, no acute evidence of depressive or anxiety feelings. - Physical Exam Vital Signs Temp Pulse Resp BP Pulse Ox 101 F H 81 15 100/51 L 92 11/26/18 09:59 11/26/18 09:59 11/26/18 09:59 11/26/18 09:59 11/26/18 09:59 Oxygen Flow Rate (L/min) 6 Oxygen Delivery Method Nasal Cannula Weight: 313 lb 0.902 oz Body Mass Index (BMI) 43.7 Finger Stick Blood Glucose 159 Laboratory Tests Past 24 Hrs 11/26/18 11/26/18 11/26/18 09:00 09:00 09:00 WBC 11.5 H RBC 4.45 L Hgb 12.4 L Hct 38.7 L MCV 87.0 MCH 27.9 MCHC 32.0 RDW 15.9 H RDW Differential 49.6 H Plt Count 219 MPV 8.2 Immature Gran % (Auto) 0.300 Neut % (Auto) 86.2 H Lymph % (Auto) 10.0 L [place] % (Auto) 3.0 Eos % (Auto) 0.3 Baso % (Auto) 0.2 Absolute Neuts (auto) 9.9 H Absolute Lymphs (auto) 1.15 Total Counted Not Reportable PT 13.4 INR 1.0 APTT 32.0 Sodium 133 L Potassium 2.7 L* Chloride 88 L Carbon Dioxide 40.0 H Anion Gap 5 BUN 9 Creatinine 1.10 Estim Creat Clear Calc 77.01 Est GFR (MDRD) Af Amer 88 Est GFR (MDRD) Non-Af 73 BUN/Creatinine Ratio 8.2 L Glucose 100 Lactic Acid Calcium 8.9 Total Bilirubin 1.00 AST 25 ALT 28 Alkaline Phosphatase 169 H Troponin I < 0.015 Total Protein 8.0 Albumin 3.0 L Globulin 5.0 H Albumin/Globulin Ratio 0.6 L Urine Color Urine Clarity Urine pH Ur Specific [place] Urine Protein Urine Glucose (UA) Urine Ketones Urine Occult Blood Urine Nitrite Urine Bilirubin Urine Urobilinogen Ur Leukocyte Esterase Urine RBC Urine WBC Ur Squamous Epith Cells Urine Bacteria Urine Mucus 11/26/18 11/26/18 09:00 09:05 WBC RBC Hgb Hct MCV MCH MCHC RDW RDW Differential Plt Count MPV Immature Gran % (Auto) Neut % (Auto) Lymph % (Auto) [place] % (Auto) Eos % (Auto) Baso % (Auto) Absolute Neuts (auto) Absolute Lymphs (auto) Total Counted PT INR APTT Sodium Potassium Chloride Carbon Dioxide Anion Gap BUN Creatinine Estim Creat Clear Calc Est GFR (MDRD) Af Amer Est GFR (MDRD) Non-Af BUN/Creatinine Ratio Glucose Lactic Acid 2.9 H Calcium Total Bilirubin AST ALT Alkaline Phosphatase Troponin I Total Protein Albumin Globulin Albumin/Globulin Ratio Urine Color Yellow Urine Clarity Sl. Cloudy Urine pH 6.5 Ur Specific [place] 1.010 Urine Protein 30 H Urine Glucose (UA) Normal Urine Ketones 5 H Urine Occult Blood 250 H Urine Nitrite Positive H Urine Bilirubin Negative Urine Urobilinogen 1 H Ur Leukocyte Esterase 500 H Urine RBC 25-50 SEEN Urine WBC 25-50 SEEN Ur Squamous Epith Cells 0-5 SEEN Urine Bacteria 2+ Urine Mucus 0 SEEN Assessment/Plan All Active Problems (Last Reviewed 07/09/18 @ 23:48 by Mick Choi MD) Acute and chronic respiratory failure with hypoxia (Acute) COPD with acute exacerbation (Acute) Lactic acidosis (Acute) Hypotension arterial (Acute) Acute kidney injury (Acute) Respiratory failure with hypoxia and hypercapnia (Acute) Acute encephalopathy (Acute) Heart failure (Acute) Severe sepsis (Acute) Complicated UTI (urinary tract infection) (Acute) Hypokalemia (Acute) Hyponatremia (Acute) Acute NE, inferior wall (Acute) Acute inferolateral myocardial infarction (Acute) Tobacco use disorder (Resolved) The patient is a 58 y/o M from [facility] w/ PMHx: Diabetes mellitus type II, Chronic Normocytic Anemia, Morbid Obesity, Chronic COPD with Chronic Hypoxic Respiratory Failure (3L NC), HTN, HLD, History of Tobacco use, DAVINO, CAD s/p PTCA/BSM of Mid CX and PTCA of OM2 08/31/06; PTCA/PELON of the mid RCA 08/06/10; Thrombectomy and angioplasty of the pre-existing stent of the mid LCX 02/18/13, Diastolic CHF, History of MRSA PNA who presents to the [facility] ED on 11/26/18 with history of fevers, mild cough with complaint of loose minimally productive sputum x ~ 24-48 hours with nausea as well as emesis AM prior to presentation. (1) Acute Severe Sepsis secondary to Acute Complicated Urinary Tract Infection w/ Ojeda Catheter in place from [facility] and #2: Will admit to PCU given appearance and mild hypotension although improving with IVFs, UA upon ED evaluation remarkable, pending UCx, monitor I/Os, continue IV Rocephin w/ transition as able pending sensitivities and speciation. Bld cx x 2 obtained in the ED. (2) Acute on chronic COPD exacerbation w/ Chronic Hypoxic Respiratory Failure (3L-4L-->current 6L): CXR w/ chronic changes w/ mild vascular congestion; however, notable sepsis presentation with hypotension and wheezing upon presentation with recent cough. Will maintain on oxygen with wean as tolerated to home oxygen supplementation, continue ATC duonebs, PRN albuterol, IV methylprednisolone, HOB, IS parameters, IV rocephin as noted above for UTI, requested respiratory viral panel and sputum cultures. Repeat CXR in AM to assure no developing PNA especially given history of MRSA PNA. (3) Hypokalemia: Admission K+ 2.7, supplementation given, repeat level in AM. Magnesium ordered, pending. (4) Hyponatremia, Suspected Hypovolemic: Admission Na 133, baseline normal, suspected secondary to #1, #2, mild hypovolemia with noted hypotension concurrently, continue hydration with close monitoring given CHF history and CXR mild findings as noted. (5) Chronic Diastolic CHF: Weight similar to most recent admission, chest x-ray with questionable mild vascular congestion although habitus [place], notable wheezing upon presentation with ED administration of IV Solu-Medrol, septic appearance as noted with hypotension with IV fluid necessary administration, will continue on aspirin, Plavix, statin, lisinopril, metoprolol, spironolactone, bumex with hold parameters given admission presentation with hypotension. ECHO 07/10/18 with LV systolic function normal, EF 65%, unable to assess diastolic dysfunction. (6) CAD: s/p PTCA/BSM of Mid CX and PTCA of OM2 08/31/06; PTCA/PELON of the mid RCA 08/06/10; Thrombectomy and angioplasty of the pre-existing stent of the mid LCX 02/18/13, continued asa, plavix, statin, BB, ACEI with hold parameters given admission presentation with hypotension. (7) Hypertension: Continue home regimen including Toprol, lisinopril, spironolactone, bumex, imdur, PRN hydralazine. (8) Hyperlipidemia: Continue home statin regimen. (9) Chronic normocytic anemia: Admission hemoglobin 12.4, baseline 10-12, stable, trend. (10) Chronic Pain Syndrome: We will continue home chronic pain regimen including methadone, morphine oral regimen (11) Anxiety and Depression: Continue home sertraline regimen. (12) Morbid Obesity: Weight loss and lifestyle changes encouraged, nutrition consulted. (13) Diabetes mellitus type II: Hold oral home regimen, ADA diet, accu checks w/ ISS. (14) DAVION: Notes unable to tolerate BIPAP. (15) DVT prophylaxis: SCDs, lovenox. (16) CODE status: Patient without HCPOA nor living will despite SNF status and notable comorbidities. Discussed CODE status at length including difference between FULL code, DNR-CCA and DNR-CC status. Following discussions about the differences in these status, requested Full Code status. Advanced Care Planning Face to Face Time: 16 minutes.
--- NOTE | 2018-11-26 10:23 | NURSING ---
126 UTI, SEPSIS WHITE
[2018-11-26] MEDS: Potassium Chloride 10mEq/100mL 10 MEQ/100 ML IV.SOLN. 100 MEQ IV BOLUS ×4 (10:48→13:42)
[2018-11-26 10:59] LABS: Magnesium 1.6 mg/dL (1.6-2.6)
[2018-11-26] MEDS: Finasteride 5 MG Tablet PO (12:38)
[2018-11-26] MEDS: Insulin Lispro 100 UNIT/ML INSULN.PEN SC ×3 (12:38→21:28)
[2018-11-26 12:51] LABS: Bedside Glucose 162 mg/dL (70-110)
[2018-11-26] MEDS: Ipratropium/Albuterol Sulfate 3 ML AMPUL.NEB INHALATION (13:09)
[2018-11-26 13:13] LABS: Reflex Lactate? Y
[2018-11-26] MEDS: Methadone 10 MG Tablet PO ×2 (13:19→21:35)
--- NOTE | 2018-11-26 13:22 | NURSING ---
NS at 100cc/hr- bag used from ER continues. Rescheduled next dose.
[2018-11-26 14:22] LABS: Lactic Acid 2.2 mmol/L (0.4-2.0)
[2018-11-26 16:04] LABS: Anion Gap 3 (5-15); BUN 11 mg/dL (7-18); BUN/Creat Ratio 8.3 RATIO (10-20); Calcium,Total 8.4 mg/dL (8.5-10.1); Chloride 92 mmol/L (98-107); Creatinine, Serum 1.32 mg/dL (0.70-1.30); EST Glomerular Filtration Rate 59 mL/min (>60); Est Glom Filt Rate - Afr Amer 71 mL/min (>60); Estimated Creatinine Clearance 64.18 ml/min; Glucose 305 mg/dL (74-106); Potassium 3.1 mmol/L (3.5-5.1); Sodium Level 133 mmol/L (136-145)
[2018-11-26 17:10] LABS: Bedside Glucose 244 mg/dL (70-110)
[2018-11-26] MEDS: 0.9% Normal Saline 1,000 ML 100 ML IV (19:34)
[2018-11-26] MEDS: Tamsulosin HCl 0.4 MG Capsule PO (21:36)
[2018-11-26] MEDS: Gabapentin 600 MG Tablet PO (21:36)
[2018-11-26] MEDS: Spironolactone 25 MG Tablet PO (21:36)
[2018-11-26] MEDS: Bumetanide 2 MG Tablet PO (21:36)
[2018-11-26] MEDS: Pravastatin 80 MG Tablet PO (21:36)
[2018-11-26] MEDS: oxyCODONE 5 MG Tablet PO (21:48)
[2018-11-26 21:55] LABS: Bedside Glucose 162 mg/dL (70-110)
[2018-11-27] VITALS (17 sets, daily range): BP systolic 98–130; BP diastolic 55–68; PULSE 48–68; RESP 16–19; TEMP 36.4–36.6; O2SAT 95–97
[2018-11-27] MEDS: Methadone 10 MG Tablet PO ×3 (05:39→21:04)
[2018-11-27] MEDS: 0.9% Normal Saline 1,000 ML 100 ML IV (05:39)
--- NOTE | 2018-11-27 06:23 | PN_ITS ---
Patient Problems: Active and Suspected Problems (Last Reviewed 07/09/18 @ 23:48 by Mick Choi MD) Severe sepsis (Acute) Complicated UTI (urinary tract infection) (Acute) Hypokalemia (Acute) Hyponatremia (Acute) Subjective: Patient with no acute events overnight per self and per nursing report. He feels much improved since day prior and is more alert, more interactive, resolution of prior diaphoresis and fevers. He denies any further episodes of nausea or emesis. Patient notes coughing is lessened. Patient denies fevers, chills, nausea, emesis, abdominal pain, chest pain or dyspnea. Objective: Physical Examination: General: awake, alert, oriented x 3 and cooperative, seated upright in bed, improved appearance, denies any acute complaints. Skin: mildly flushed color, turgor, no icterus, cyanosis, chronic venous stasis skin changes BL LE. HEENT: AT/NC, EOMI, PERRLA, improved MMM. Lungs: Improved, remains diminished, > bases, resolution prior soft expiratory wheezing, no rales or rhonchi. Heart: Regular rate and rhythm; no gallop, rub audible. Abdomen: soft, morbidly obese, NTTP, difficult to assess distention secondary to habitus, distant normal BS. Extremities: no cyanosis, clubbing, BL LE chronic venous skin changes, no edema. Neurological: patient awake, alert, oriented x 3; cognitive function intact; pupils equally reactive to light and accomodation; cranial nerves II-XII grossly normal, moving all 4 extremities, no focal deficits, strength improved, moderately to severely globally decreased. Psychiatric: affect appears less fatigued, improved, no acute evidence of depressive or anxiety feelings. Vitals/I&O's: Vital Signs Temp Pulse Resp BP Pulse Ox 97.9 F 54 L 18 130/66 H 95 11/27/18 03:18 11/27/18 03:18 11/27/18 03:18 11/27/18 03:18 11/27/18 03:18 Oxygen Flow Rate (L/min) 3 Oxygen Delivery Method Nasal Cannula Weight: 305 lb 8.971 oz Body Mass Index (BMI) 42.6 Finger Stick Blood Glucose 159 Intake and Output for Last 24 Hours 11/25/18 11/26/18 11/27/18 23:59 23:59 23:59 Intake Total 1484 / 1484 2308 / 2308 Output Total 1200 / 1200 4700 / 4700 Balance 284 / 284 -2392 / -2392 Microbiology Past 72 Hours 11/26/18 12:10 Sputum, Expectorated/Coughed Gram Stain - Final Laboratory Results 11/26/18 09:00: WBC 11.5 H, RBC 4.45 L, Hgb 12.4 L, Hct 38.7 L, MCV 87.0, MCH 27.9, MCHC 32.0, RDW 15.9 H, RDW Differential 49.6 H, Plt Count 219, MPV 8.2, Immature Gran % (Auto) 0.300, Neut % (Auto) 86.2 H, Lymph % (Auto) 10.0 L, [place] % (Auto) 3.0, Eos % (Auto) 0.3, Baso % (Auto) 0.2, Absolute Neuts (auto) 9.9 H, Absolute Lymphs (auto) 1.15, Total Counted Not Reportable 11/26/18 09:00: PT 13.4, INR 1.0, APTT 32.0 11/26/18 09:00: Sodium 133 L, Potassium 2.7 L*, Chloride 88 L, Carbon Dioxide 40.0 H, Anion Gap 5, BUN 9, Creatinine 1.10, Estim Creat Clear Calc 77.01, Est GFR (MDRD) Af Amer 88, Est GFR (MDRD) Non-Af 73, BUN/Creatinine Ratio 8.2 L, Glucose 100, Calcium 8.9, Total Bilirubin 1.00, AST 25, ALT 28, Alkaline P hosphatase 169 H, Troponin I < 0.015, Total Protein 8.0, Albumin 3.0 L, Globulin 5.0 H, Albumin/Globulin Ratio 0.6 L 11/26/18 09:00: Lactic Acid 2.9 H 11/26/18 09:00: Magnesium 1.6 11/26/18 09:05: Urine Color Yellow, Urine Clarity Sl. Cloudy, Urine pH 6.5, Ur Specific [place] 1.010, Urine Protein 30 H, Urine Glucose (UA) Normal, Urine Ketones 5 H, Urine Occult Blood 250 H, Urine Nitrite Positive H, Urine Bilirubin Negative, Urine Urobilinogen 1 H, Ur Leukocyte Esterase 500 H, Urine RBC 25-50 SEEN, Urine WBC 25-50 SEEN, Ur Squamous Epith Cells 0-5 SEEN, Urine Bacteria 2+, Urine Mucus 0 SEEN 11/26/18 12:07: POC Glucose 162 H 11/26/18 13:38: Lactic Acid 2.2 H 11/26/18 15:15: Sodium 133 L, Potassium 3.1 L, Chloride 92 L, Carbon Dioxide 38.0 H, Anion Gap 3 L, BUN 11, Creatinine 1.32 H, Estim Creat Clear Calc 64.18, Est GFR (MDRD) Af Amer 71, Est GFR (MDRD) Non-Af 59 L, BUN/Creatinine Ratio 8.3 L, Glucose 305 H, Calcium 8.4 L 11/26/18 16:33: POC Glucose 244 H 11/26/18 21:26: POC Glucose 162 H Current Medications Acetaminophen (Tylenol) 650 mg PO Q6H PRN PRN PRN Reason: Non-cardiac pain (mod-severe) Al Hydroxide/Mg Hydroxide (Mylanta Ii) 15 - 30 ml PO Q4H PRN PRN PRN Reason: INDIGESTION Albuterol Sulfate (Ventolin Aerosols) 2.5 mg INHALATION Q2H PRN PRN PRN Reason: dyspnea, wheezing Albuterol/Ipratropium (Duoneb) 3 ml INHALATION Q6HWA.RT [facility] Last Admin: 11/26/18 13:09 Dose: 3 ml Documented by: Allopurinol (Zyloprim) 100 mg PO DAILY [facility] Aspirin (Aspirin, Baby) 81 mg PO DAILY@0800 [facility] Bumetanide (Bumex) 2 mg PO BID [facility] Last Admin: 11/26/18 21:36 Dose: 2 mg Documented by: Clopidogrel Bisulfate (Plavix) 75 mg PO DAILY [facility] Dextrose (D50w Syringe) 0 gm IV X1 PRN; Protocol PRN Reason: Hypoglycemia Enoxaparin Sodium (Lovenox) 40 mg SC DAILY@1000 [facility] Finasteride (Proscar) 5 mg PO DAILY [facility] Last Admin: 11/26/18 12:38 Dose: 5 mg Documented by: [facility] ([facility] Fluticasone Propionate (Flonase Nasal [place]) 1 spray NASAL DAILY [facility] Gabapentin (Neurontin) 600 mg PO BID [facility] Last Admin: 11/26/18 21:36 Dose: 600 mg Documented by: Glucagon () 1 mg IM .X1 PRN PRN Reason: Hypoglycemia Guaifenesin (Robitussin) 20 ml PO Q4H PRN PRN PRN Reason: COUGH Hydralazine HCl (Apresoline Iv) 10 mg IV Q4H PRN PRN PRN Reason: SBP > 160 Sodium Chloride () 1,000 mls @ 100 mls/hr IV .Q10H [facility] Last Admin: 11/27/18 05:39 Dose: 100 mls/hr Documented by: Ceftriaxone Sodium (Rocephin) 1 gm in 50 mls @ 100 mls/hr IV Q24H [facility] Insulin Human Lispro (Humalog Kwikpen (Bkc)) 0 unit SC [facility]; Protocol Last Admin: 11/26/18 21:28 Dose: 1 unit Documented by: Isosorbide Mononitrate (Imdur) 30 mg PO DAILY [facility] Linaclotide (Linzess) 145 mcg PO DAILY [facility] Lisinopril (Zestril) 5 mg PO DAILY [facility] Loratadine (Claritin) 10 mg PO DAILY [facility] Lorazepam (Ativan) 1 mg PO QHS PRN PRN PRN Reason: SLEEP Methadone HCl () 10 mg PO Q8 [facility] Last Admin: 11/27/18 05:39 Dose: 10 mg Documented by: Methylprednisolone (Solu-Medrol) 40 mg IV Q8 [facility] Last Admin: 11/27/18 05:41 Dose: 40 mg Documented by: Metoprolol Tartrate (Lopressor (Beta Tyron)) 25 mg PO BID [facility] Last Admin: 11/26/18 21:41 Dose: Not Given Documented by: Morphine Sulfate (Ms Contin) 30 mg PO BID [facility] Last Admin: 11/26/18 21:35 Dose: 30 mg Documented by: Nitroglycerin (Nitrostat) 0.4 mg SUBLINGUAL Q5M PRN PRN Reason: CARDIAC/CHEST PAIN Ondansetron HCl (Zofran) 4 mg IV Q8H PRN PRN PRN Reason: NAUSEA/VOMITING Oxycodone HCl (Oxyir) 5 mg PO BID [facility] Last Admin: 11/26/18 21:48 Dose: 5 mg Documented by: Pantoprazole Sodium (Protonix) 20 mg PO DAILY [facility] Potassium Chloride (K-Dur) [facility] Pravastatin Sodium (Pravachol) 80 mg PO QHS [facility] Last Admin: 11/26/18 21:36 Dose: 80 mg Documented by: Sertraline HCl (Zoloft) 100 mg PO DAILY [facility] Sodium Chloride (Sodium Chloride) 1 gm PO DAILY [facility] Sodium Chloride () 10 - 40 ml IV UD PRN PRN Reason: SALINE FLUSH Spironolactone (Aldactone) 25 mg PO BID [facility] Last Admin: 11/26/18 21:36 Dose: 25 mg Documented by: Tamsulosin HCl (Flomax) 0.4 mg PO BID [facility] Last Admin: 11/26/18 21:36 Dose: 0.4 mg Documented by: Throat Lozenges (Cepacol Sore Throat Lozenge) 1 lozenge MUCOUS MEM Q2H PRN PRN PRN Reason: Sore Throat/Cough Tizanidine HCl (Zanaflex) 2 mg PO TID PRN PRN Reason: MUSCLE SPASM Trazodone HCl (Desyrel) 50 mg PO QHS PRN PRN Reason: INSOMNIA Medical Necessity - Tobacco Use Smoking Status: Former smoker - Quit 2 years prior to current presentation. Tobacco Use: Non-smoker Assessment/Plan All Active Problems (Last Reviewed 07/09/18 @ 23:48 by Mick Choi MD) Acute and chronic respiratory failure with hypoxia (Acute) COPD with acute exacerbation (Acute) Lactic acidosis (Acute) Hypotension arterial (Acute) Acute kidney injury (Acute) Respiratory failure with hypoxia and hypercapnia (Acute) Acute encephalopathy (Acute) Heart failure (Acute) Severe sepsis (Acute) Complicated UTI (urinary tract infection) (Acute) Hypokalemia (Acute) Hyponatremia (Acute) Acute [place], inferior wall (Acute) Acute inferolateral myocardial infarction (Acute) Tobacco use disorder (Resolved) The patient is a 58 y/o M from [facility] w/ PMHx: Diabetes mellitus type II, Chronic Normocytic Anemia, Morbid Obesity, Chronic COPD with Chronic Hypoxic Respiratory Failure (3L NC), HTN, HLD, History of Tobacco use, DAVION, CAD s/p PTCA/BSM of Mid CX and PTCA of OM2 08/31/06; PTCA/PELON of the mid RCA 08/06/10; Thrombectomy and angioplasty of the pre-existing stent of the mid LCX 02/18/13, Diastolic CHF, History of MRSA PNA who presents to the [facility] ED on 11/26/18 with history of fevers, mild cough with complaint of loose minimally productive sputum x ~ 24-48 hours with nausea as well as emesis AM prior to presentation. (1) Acute Severe Sepsis secondary to Acute GNR Complicated Urinary Tract Infection w/ [place] Catheter in place from SN[facility] and #2: Admitted to PCU given appearance and mild hypotension, UA upon ED evaluation remarkable, pending UCx w/ preliminary noted GNR, monitor I/Os, continued IV Rocephin w/ transition as able pending sensitivities and speciation, 11/27/18 CBC w/ WBC 12.5, similar to admit however VS improved and as noted #2 on steroids concurrently. Bld cx x 2 obtained in the ED. (2) Acute on chronic COPD exacerbation w/ Chronic Hypoxic Respiratory Failure (3L-4L-->current 6L): CXR w/ chronic changes w/ mild vascular congestion; however, notable sepsis presentation with hypotension and wheezing upon presentation with recent cough. Will maintain on oxygen with wean as tolerated to home oxygen supplementation, continue ATC duonebs, PRN albuterol, IV methylprednisolone-->11/27/18 transition to oral prednisone given improved appearance, HOB, IS parameters, IV rocephin as noted above for UTI, negative respiratory viral panel, pending sputum cultures. Repeat CXR in AM w/ similar appearance to admission. (3) Hypokalemia: Admission K+ 2.7, supplementation given, repeat level 11/27/18 K 3.3, additional supplementation given with repeat in AM. Magnesium ordered, 1.6, supplementation ordered. (4) Hyponatremia, Suspected Hypovolemic: Admission Na 133, baseline normal, suspected secondary to #1, #2, mild hypovolemia with noted hypotension concurrently, 11/27/18 Na 137, improved. Given CHF history and improved VS, presentation will hold IVFs. (5) Chronic Diastolic CHF: Weight similar to most recent admission, chest x-ray with questionable mild vascular congestion although habitus market, notable wheezing upon presentation with ED administration of IV Solu-Medrol, septic appearance as noted with hypotension with IV fluid necessary administration. 11/27/18 improved appearance with IVFs hold. Will continue on aspirin, Plavix, statin, lisinopril, metoprolol, spironolactone, bumex with hold parameters. ECHO 07/10/18 with LV systolic function normal, EF 65%, unable to assess diastolic dysfunction. (6) CAD: s/p PTCA/BSM of Mid CX and PTCA of OM2 08/31/06; PTCA/PELON of the mid RCA 08/06/10; Thrombectomy and angioplasty of the pre-existing stent of the mid LCX 02/18/13, continued asa, plavix, statin, BB, ACEI with hold parameters. (7) Hypertension: Continue home regimen including Toprol, lisinopril, spironolactone, bumex, imdur, PRN hydralazine. (8) Hyperlipidemia: Continue home statin regimen. (9) Chronic normocytic anemia: Admission hemoglobin 12.4, baseline 10-12, 11/27/18 Hgb 11.3, trend. (10) Chronic Pain Syndrome: We will continue home chronic pain regimen including methadone, morphine oral regimen (11) Anxiety and Depression: Continue home sertraline regimen. (12) Morbid Obesity: Weight loss and lifestyle changes encouraged, nutrition consulted. (13) Diabetes mellitus type II: Hold oral home regimen, ADA diet, accu checks w/ ISS. (14) DAVION: Notes unable to tolerate BIPAP. (15) DVT prophylaxis: SCDs, lovenox. (16) CODE status: Full Code. Code Visit Inpatient E&M: 32495 Subs Hosp L2
[2018-11-27] MEDS: Insulin Lispro 100 UNIT/ML INSULN.PEN SC ×2 (06:43→11:46)
[2018-11-27 06:51] LABS: Bedside Glucose 150 mg/dL (70-110)
[2018-11-27] MEDS: Ipratropium/Albuterol Sulfate 3 ML AMPUL.NEB INHALATION ×3 (07:10→18:41)
[2018-11-27 07:39] LABS: Anion Gap 4 (5-15); BUN 14 mg/dL (7-18); Calcium,Total 8.4 mg/dL (8.5-10.1); Chloride 96 mmol/L (98-107); Creatinine, Serum 0.82 mg/dL (0.70-1.30); EST Glomerular Filtration Rate 102 mL/min (>60); Est Glom Filt Rate - Afr Amer 123 mL/min (>60); Estimated Creatinine Clearance 103.31 ml/min; Glucose 136 mg/dL (74-106); Potassium 3.3 mmol/L (3.5-5.1); Sodium Level 137 mmol/L (136-145)
[2018-11-27 08:36] LABS: Absolute Lymphocyte Count 0.54 X10^3/uL (0.83-4.51); Absolute Neutrophil Count 11.6 X10^3/uL (2.0-7.7); Basophil# 0.01 X10^3/uL; Basophil% 0.1 % (0-1); Hematocrit 34.9 % (40-54); Hemoglobin 11.3 g/dL (13.0-16.5); Lymphocyte # 0.54 X10^3/ul (4.0); Lymphocyte % 4.3 % (19-41); Mean Corp Hgb Conc 32.4 g/dL (32-36); Mean Corpuscular Hgb 28.3 pg (27.0-32.0); Mean Corpuscular Volume 87.3 fL (80-94); Mean Platelet Vol. 8.4 fl (6.2-12.0); Monocyte# 0.29 X10^3/uL; Monocyte% 2.3 % (0-10); Neutrophil # 11.61 X10^3/uL (2.7-7.7); Neutrophil % 92.7 % (47-70); POSITIVE DIFFERENTIAL YES; Platelet Count 170 K/mm3 (150-450); RBC Distribution Width CV 15.6 % (11.6-14.6); RBC Distribution Width SD 49.7 fl (35.1-43.9); White Blood Count 12.5 K/mm3 (4.4-11.0)
--- NOTE | 2018-11-27 08:37 | RAD_ITS ---
STUDY: X-RAY CHEST REASON FOR EXAM: Male, 58 years old. Shortness of breath/dyspnea. TECHNIQUE: AP and lateral views of the chest. COMPARISON: Comparison is made with prior study dated November 26, 2018. FINDINGS: EKG electrodes are seen. Persistent vascular congestion and mild degree of CHF. There is been essentially no change. There is no demonstrated pleural abnormality. There is moderate cardiac enlargement. Normal mediastinum and liban. Normal visualized pulmonary arteries. Normal visualized aortic arch and descending thoracic aorta. There are diffuse degenerative changes of the visualized thoracic spine. Normal visualized ribs, clavicles, and shoulders. There is no demonstrated abnormality of the visualized soft tissue structures of the upper abdomen. RAD/Chest PA and Lateral IMPRESSION: Mild degree of vascular congestion. There has been essentially no change. Electronically Signed: Howie Dong, at 9:37 EDT , Service support ,
[2018-11-27 08:41] LABS: Differential Indicated SCAN CRITERIA MET; POSITIVE COUNT NO; POSITIVE MORPHOLOGY NO
[2018-11-27] MEDS: Fludrocortisone Acetate 0.1 MG Tablet PO (08:52)
[2018-11-27] MEDS: Aspirin 81 MG TAB.CHEW PO (08:52)
[2018-11-27] MEDS: Bumetanide 2 MG Tablet PO ×2 (08:53→21:05)
[2018-11-27] MEDS: Spironolactone 25 MG Tablet PO ×2 (08:53→21:05)
[2018-11-27] MEDS: Gabapentin 600 MG Tablet PO ×2 (08:54→21:05)
[2018-11-27] MEDS: Tamsulosin HCl 0.4 MG Capsule PO ×2 (08:54→21:05)
[2018-11-27] MEDS: oxyCODONE 5 MG Tablet PO ×2 (09:38→21:04)
[2018-11-27] MEDS: SODIUM CHLORIDE 1 GM TABLET PO (09:38)
[2018-11-27] MEDS: Isosorbide Mononitrate 30 MG Tablet PO (09:38)
[2018-11-27] MEDS: Lisinopril 5 MG Tablet PO (09:38)
[2018-11-27] MEDS: Linacolotide 145 MCG CAPSULE PO (09:39)
[2018-11-27] MEDS: Clopidogrel Bisulfate 75 MG Tablet PO (09:40)
[2018-11-27] MEDS: Allopurinol 100 MG Tablet PO (09:40)
[2018-11-27] MEDS: Sertraline 100 MG Tablet PO (09:40)
[2018-11-27] MEDS: Loratadine 10 MG Tablet PO (09:40)
[2018-11-27] MEDS: Finasteride 5 MG Tablet PO (09:40)
[2018-11-27] MEDS: Metoprolol Tartrate 25 MG Tablet PO ×2 (09:40→21:05)
[2018-11-27] MEDS: Ceftriaxone 1 GM/50 ML BAG IV (09:42)
[2018-11-27] MEDS: Fluticasone 0.05% 1 SPRAY NASAL.SRY NASAL (09:43)
[2018-11-27] MEDS: Enoxaparin 40 MG/0.4 ML Syringe SC (09:47)
--- NOTE | 2018-11-27 11:14 | CASEMGMT ---
Patient is from [facility]. faxed updates to [facility]. Jodi [employer]
[2018-11-27] MEDS: Pantoprazole Sodium 20 MG Tablet PO (11:48)
[2018-11-27 12:00] LABS: Bedside Glucose 200 mg/dL (70-110)
[2018-11-27 16:31] LABS: Bedside Glucose 120 mg/dL (70-110)
[2018-11-27] MEDS: Polyethylene Glycol 3350 17 GM PACKET PO (17:59)
[2018-11-27] MEDS: Senna/Docusate Sodium 1 Tablet 2 TABLET PO (17:59)
[2018-11-27] MEDS: Pravastatin 80 MG Tablet PO (21:05)
[2018-11-27] MEDS: Menthol/Lanolin/Calamine/Znox 113 GM Tube 1 APPLIC TOPICAL (21:09)
[2018-11-27 21:15] LABS: Bedside Glucose 102 mg/dL (70-110)
[2018-11-28] VITALS (15 sets, daily range): BP systolic 102–117; BP diastolic 54–66; PULSE 49–72; RESP 12–18; TEMP 36.6–36.8; O2SAT 92–99
[2018-11-28] MEDS: Methadone 10 MG Tablet PO ×3 (05:47→22:07)
[2018-11-28] MEDS: Menthol/Lanolin/Calamine/Znox 113 GM Tube 1 APPLIC TOPICAL ×3 (05:47→22:08)
[2018-11-28 06:13] LABS: Absolute Lymphocyte Count 1.77 X10^3/uL (0.83-4.51); Absolute Neutrophil Count 8.5 X10^3/uL (2.0-7.7); Basophil# 0.01 X10^3/uL; Basophil% 0.1 % (0-1); Eosinophil# 0.02 X10^3/uL; Eosinophils% 0.2 % (0-5); Hematocrit 35.4 % (40-54); Hemoglobin 11.4 g/dL (13.0-16.5); Lymphocyte # 1.77 X10^3/ul (4.0); Lymphocyte % 16.5 % (19-41); Mean Corp Hgb Conc 32.2 g/dL (32-36); Mean Corpuscular Hgb 28.1 pg (27.0-32.0); Mean Corpuscular Volume 87.2 fL (80-94); Mean Platelet Vol. 8.6 fl (6.2-12.0); Monocyte# 0.36 X10^3/uL; Monocyte% 3.4 % (0-10); Neutrophil # 8.52 X10^3/uL (2.7-7.7); Neutrophil % 79.2 % (47-70); Platelet Count 191 K/mm3 (150-450); RBC Distribution Width CV 15.9 % (11.6-14.6); RBC Distribution Width SD 50.5 fl (35.1-43.9); Red Blood Count 4.06 M/mm3 (4.6-6.2); White Blood Count 10.7 K/mm3 (4.4-11.0)
[2018-11-28 06:28] LABS: Anion Gap 8 (5-15); BUN 20 mg/dL (7-18); BUN/Creat Ratio 20.3 RATIO (10-20); Calcium,Total 8.6 mg/dL (8.5-10.1); Chloride 96 mmol/L (98-107); Creatinine, Serum 0.98 mg/dL (0.70-1.30); EST Glomerular Filtration Rate 83 mL/min (>60); Est Glom Filt Rate - Afr Amer 100 mL/min (>60); Estimated Creatinine Clearance 86.44 ml/min; Glucose 94 mg/dL (74-106); Sodium Level 142 mmol/L (136-145)
[2018-11-28 06:34] LABS: POSITIVE COUNT NO; POSITIVE DIFFERENTIAL NO; POSITIVE MORPHOLOGY NO
[2018-11-28 06:46] LABS: Bedside Glucose 90 mg/dL (70-110)
--- NOTE | 2018-11-28 06:53 | PCM.PN.HOSP ---
Patient Problems: Active and Suspected Problems (Last Reviewed 07/09/18 @ 23:48 by Mick Choi MD) Severe sepsis (Acute) Complicated UTI (urinary tract infection) (Acute) Hypokalemia (Acute) Hyponatremia (Acute) Subjective: Patient with no acute events overnight per self and per nursing report. Patient did have some leaking around his Goetz catheter and this was changed this morning without further event. Patient notes he is feeling improved and was eager for discharge back to senior living facility however discussed that his sputum culture had noted staph aureus as well as Haemophilus influenza with history of MRSA prior therefore antibiotic vancomycin added to regimen and noted that we would prefer we wait on infectious disease evaluation as well as final culture to which he was amenable. Patient denies fevers, chills, nausea, emesis, abdominal pain, chest pain or dyspnea. Objective: Physical Examination: General: awake, alert, oriented x 3 and cooperative, seated upright in bed, improved appearance, denies any acute complaints. Skin: mildly flushed color, turgor, no icterus, cyanosis, chronic venous stasis skin changes BL LE. HEENT: AT/NC, EOMI, PERRLA, improved MMM. Lungs: Improved, remains diminished, > bases, resolution prior soft expiratory wheezing, no rales or rhonchi. Heart: Regular rate and rhythm; no gallop, rub audible. Abdomen: soft, morbidly obese, NTTP, difficult to assess distention secondary to habitus, distant normal BS. Extremities: no cyanosis, clubbing, BL LE chronic venous skin changes, no edema. Neurological: patient awake, alert, oriented x 3; cognitive function intact; pupils equally reactive to light and accomodation; cranial nerves II-XII grossly normal, moving all 4 extremities, no focal deficits, strength improved, moderately globally decreased. Psychiatric: affect appears less fatigued, improved, no acute evidence of depressive or anxiety feelings. Vitals/I&O's: Vital Signs Temp Pulse Resp BP Pulse Ox 98.3 F 49 L 16 114/54 L 97 11/28/18 02:50 11/28/18 03:02 11/28/18 02:50 11/28/18 02:50 11/28/18 02:50 Oxygen Flow Rate (L/min) 3 Oxygen Delivery Method Nasal Cannula Weight: 304 lb 0.279 oz Body Mass Index (BMI) 42.6 Finger Stick Blood Glucose 159 Intake and Output for Last 24 Hours 11/26/18 11/27/18 11/28/18 23:59 23:59 23:59 Intake Total 1484 / 1484 3814.7 / 3814.7 Output Total 1200 / 1200 7825 / 7825 825 / 825 Balance 284 / 284 -4010.3 / -4010.3 -825 / -825 Microbiology Past 72 Hours 11/26/18 13:15 Mucosa - Nose Respiratory Panel (PCR) - Final 11/26/18 09:05 Urine Catheter - Goetz Urine Culture - Preliminary Gram negative ke 11/26/18 12:10 Sputum, Expectorated/Coughed Gram Stain - Final Laboratory Results 11/27/18 07:10: WBC 12.5 H, RBC 4.00 L, Hgb 11.3 L, Hct 34.9 L, MCV 87.3, MCH 28.3, MCHC 32.4, RDW Std Deviation 49.7 H, RDW Coeff of [place] 15.6 H, Plt Count 170, MPV 8.4, Immature Gran % (Auto) 0.600, Neut % (Auto) 92.7 H, Lymph % (Auto) 4.3 L, [place] % (Auto) 2.3, Eos % (Auto) 0.0, Baso % (Auto) 0.1, Absolute Neuts (auto) 11.6 H, Absolute Lymphs (auto) 0.54 L, Total Counted Not Reportable, Differential Comment COMMENT 11/27/18 07:10: Sodium 137, Potassium 3.3 L, Chloride 96 L, Carbon Dioxide 37.0 H, Anion Gap 4 L, BUN 14, Creatinine 0.82, Estim Creat Clear Calc 103.31, Est GFR (MDRD) Af Amer 123, Est GFR (MDRD) Non-Af 102, BUN/Creatinine Ratio 17.0, Glucose 136 H, Calcium 8.4 L 11/27/18 11:44: POC Glucose 200 H 11/27/18 16:21: POC Glucose 120 H 11/27/18 21:03: POC Glucose 102 11/28/18 05:45: WBC 10.7, RBC 4.06 L, Hgb 11.4 L, Hct 35.4 L, MCV 87.2, MCH 28.1, MCHC 32.2, RDW Std Deviation 50.5 H, RDW Coeff of [place] 15.9 H, Plt Count 191, MPV 8.6, Immature Gran % (Auto) 0.600, Neut % (Auto) 79.2 H, Lymph % (Auto) 16.5 L, [place] % (Auto) 3.4, Eos % (Auto) 0.2, Baso % (Auto) 0.1, Absolute Neuts (auto) 8.5 H, Absolute Lymphs (auto) 1.77, Total Counted Not Reportable 11/28/18 05:45: Sodium 142, Potassium 3.0 L, Chloride 96 L, Carbon Dioxide 38.0 H, Anion Gap 8, BUN 20 H, Creatinine 0.98, Estim Creat Clear Calc 86.44, Est GFR (MDRD) Af Amer 100, Est GFR (MDRD) Non-Af 83, BUN/Creatinine Ratio 20.3 H, Glucose 94, Calcium 8.6 11/28/18 06:42: POC Glucose 90 Current Medications Acetaminophen (Tylenol) 650 mg PO Q6H PRN PRN PRN Reason: Non-cardiac pain (mod-severe) Al Hydroxide/Mg Hydroxide (Mylanta Ii) 15 - 30 ml PO Q4H PRN PRN PRN Reason: INDIGESTION Albuterol Sulfate (Ventolin Aerosols) 2.5 mg INHALATION Q2H PRN PRN PRN Reason: dyspnea, wheezing Albuterol/Ipratropium (Duoneb) 3 ml INHALATION Q6HWA.RT [facility] Last Admin: 11/27/18 18:41 Dose: 3 ml Documented by: Allopurinol (Zyloprim) 100 mg PO DAILY [facility] Last Admin: 11/27/18 09:40 Dose: 100 mg Documented by: Aspirin (Aspirin, Baby) 81 mg PO DAILY@0800 [facility] Last Admin: 11/27/18 08:52 Dose: 81 mg Documented by: Bumetanide (Bumex) 2 mg PO BID [facility] Last Admin: 11/27/18 21:05 Dose: 2 mg Documented by: Calamine/Phenol (Calmoseptine Ointment) 1 applic TOPICAL TID [facility]; Protocol Last Admin: 11/28/18 05:47 Dose: 1 applicatio Documented by: Clopidogrel Bisulfate (Plavix) 75 mg PO DAILY [facility] Last Admin: 11/27/18 09:40 Dose: 75 mg Documented by: Dextrose (D50w Syringe) 0 gm IV X1 PRN; Protocol PRN Reason: Hypoglycemia Enoxaparin Sodium (Lovenox) 40 mg SC DAILY@1000 [facility] Last Admin: 11/27/18 09:47 Dose: 40 mg Documented by: Finasteride (Proscar) 5 mg PO DAILY [facility] Last Admin: 11/27/18 09:40 Dose: 5 mg Documented by: Fludrocortisone Acetate (Florinef) 0.1 mg PO DAILYCM [facility] Last Admin: 11/27/18 08:52 Dose: 0.1 mg Documented by: Fluticasone Propionate (Flonase Nasal [place]) 1 spray NASAL DAILY [facility] Last Admin: 11/27/18 09:43 Dose: 1 spray Documented by: Gabapentin (Neurontin) 600 mg PO BID [facility] Last Admin: 11/27/18 21:05 Dose: 600 mg Documented by: Glucagon () 1 mg IM .X1 PRN PRN Reason: Hypoglycemia Guaifenesin (Robitussin) 20 ml PO Q4H PRN PRN PRN Reason: COUGH Hydralazine HCl (Apresoline Iv) 10 mg IV Q4H PRN PRN PRN Reason: SBP > 160 Ceftriaxone Sodium (Rocephin) 1 gm in 50 mls @ 100 mls/hr IV Q24H [facility] Last Admin: 11/27/18 09:42 Dose: 100 mls/hr Documented by: Insulin Human Lispro (Humalog Kwikpen (Bkc)) 0 unit SC ACHS [facility]; Protocol Last Admin: 11/28/18 06:45 Dose: Not Given Documented by: Isosorbide Mononitrate (Imdur) 30 mg PO DAILY [facility] Last Admin: 11/27/18 09:38 Dose: 30 mg Documented by: Linaclotide (Linzess) 145 mcg PO DAILY [facility] Last Admin: 11/27/18 09:39 Dose: 145 mcg Documented by: Lisinopril (Zestril) 5 mg PO DAILY [facility] Last Admin: 11/27/18 09:38 Dose: 5 mg Documented by: Loratadine (Claritin) 10 mg PO DAILY [facility] Last Admin: 11/27/18 09:40 Dose: 10 mg Documented by: Lorazepam (Ativan) 1 mg PO QHS PRN PRN PRN Reason: SLEEP Methadone HCl () 10 mg PO Q8 [facility] Last Admin: 11/28/18 05:47 Dose: 10 mg Documented by: Metoprolol Tartrate (Lopressor (Beta Tyron)) 25 mg PO BID [facility] Last Admin: 11/27/18 21:05 Dose: 25 mg Documented by: Morphine Sulfate (Ms Contin) 30 mg PO BID [facility] Last Admin: 11/27/18 21:04 Dose: 30 mg Documented by: Nitroglycerin (Nitrostat) 0.4 mg SUBLINGUAL Q5M PRN PRN Reason: CARDIAC/CHEST PAIN Ondansetron HCl (Zofran) 4 mg IV Q8H PRN PRN PRN Reason: NAUSEA/VOMITING Oxycodone HCl (Oxyir) 5 mg PO BID [facility] Last Admin: 11/27/18 21:04 Dose: 5 mg Documented by: Pantoprazole Sodium (Protonix) 20 mg PO DAILY [facility] Last Admin: 11/27/18 11:48 Dose: 20 mg Documented by: Polyethylene Glycol (Miralax) 17 gm PO DAILY PRN PRN Reason: Constipation Last Admin: 11/27/18 17:59 Dose: 17 gm Documented by: Potassium Chloride (K-Dur) 10 meq PO DAILYCM [facility] Last Admin: 11/27/18 08:52 Dose: 10 meq Documented by: Potassium Chloride (K-Dur) 40 meq PO X1 ONE Stop: 11/28/18 06:52 Pravastatin Sodium (Pravachol) 80 mg PO QHS [facility] Last Admin: 11/27/18 21:05 Dose: 80 mg Documented by: Prednisone () 40 mg PO DAILY@0800 [facility] Senna/Docusate Sodium (Senokot-S, Kelly-Colace) 2 tablet PO BID [facility] Last Admin: 11/27/18 17:59 Dose: 2 tablet Documented by: Sertraline HCl (Zoloft) 100 mg PO DAILY [facility] Last Admin: 11/27/18 09:40 Dose: 100 mg Documented by: Sodium Chloride (Sodium Chloride) 1 gm PO DAILY [facility] Last Admin: 11/27/18 09:38 Dose: 1 gm Documented by: Sodium Chloride () 10 - 40 ml IV UD PRN PRN Reason: SALINE FLUSH Spironolactone (Aldactone) 25 mg PO BID [facility] Last Admin: 11/27/18 21:05 Dose: 25 mg Documented by: Tamsulosin HCl (Flomax) 0.4 mg PO BID [facility] Last Admin: 11/27/18 21:05 Dose: 0.4 mg Documented by: Throat Lozenges (Cepacol Sore Throat Lozenge) 1 lozenge MUCOUS MEM Q2H PRN PRN PRN Reason: Sore Throat/Cough Tizanidine HCl (Zanaflex) 2 mg PO TID PRN PRN Reason: MUSCLE SPASM Trazodone HCl (Desyrel) 50 mg PO QHS PRN PRN Reason: INSOMNIA Medical Necessity - Tobacco Use Smoking Status: Former smoker - Quit 2 years prior to current presentation. Tobacco Use: Non-smoker Assessment/Plan All Active Problems (Last Reviewed 07/09/18 @ 23:48 by Mick Choi MD) Acute and chronic respiratory failure with hypoxia (Acute) COPD with acute exacerbation (Acute) Lactic acidosis (Acute) Hypotension arterial (Acute) Acute kidney injury (Acute) Respiratory failure with hypoxia and hypercapnia (Acute) Acute encephalopathy (Acute) Heart failure (Acute) Severe sepsis (Acute) Complicated UTI (urinary tract infection) (Acute) Hypokalemia (Acute) Hyponatremia (Acute) Acute HI, inferior wall (Acute) Acute inferolateral myocardial infarction (Acute) Tobacco use disorder (Resolved) The patient is a 58 y/o M from [facility] w/ PMHx: Diabetes mellitus type II, Chronic Normocytic Anemia, Morbid Obesity, Chronic COPD with Chronic Hypoxic Respiratory Failure (3L NC), HTN, HLD, History of Tobacco use, DAVION, CAD s/p PTCA/BSM of Mid CX and PTCA of OM2 08/31/06; PTCA/PELON of the mid RCA 08/06/10; Thrombectomy and angioplasty of the pre-existing stent of the mid LCX 02/18/13, Diastolic CHF, History of MRSA PNA who presents to the [facility] ED on 11/26/18 with history of fevers, mild cough with complaint of loose minimally productive sputum x ~ 24-48 hours with nausea as well as emesis AM prior to presentation. (1) Acute Severe Sepsis secondary to Acute Serratia marcescens Complicated Urinary Tract Infection w/ Goetz Catheter in place from [facility] and #2: Admitted to PCU given appearance and mild hypotension, UA upon ED evaluation remarkable, pending UCx w/ preliminary noted GNR-->serratia marcescens, monitor I/Os, continued IV Rocephin, 11/27/18 CBC w/ WBC 12.5-->11/28/18 WBC 10.7 with decreased shift. Bld cx x 2 obtained in the ED and NGTD. (2) Acute on chronic Staph aureus and Haemophilus Influenzae COPD exacerbation and HCAP w/ Chronic Hypoxic Respiratory Failure (3L-4L-->current 6L): CXR w/ chronic changes w/ mild vascular congestion; however, notable sepsis presentation with hypotension and wheezing upon presentation with recent cough. Will maintain on oxygen with wean as tolerated to home oxygen supplementation, continue ATC duonebs, PRN albuterol, IV methylprednisolone-->11/27/18 transition to oral prednisone given improved appearance, HOB, IS parameters, IV rocephin as noted above for UTI w/ 11/28/18 IV vanc addition given preliminary sputum Cx results, negative respiratory viral panel, preliminary Sputum Cx w/ Staph aureus and Haemophilus Influenzae. Repeat CXR in AM w/ similar appearance to admission. ID consulted, agreed with continuation of rocephin and vancomycin. (3) Hypokalemia: Admission K+ 2.7, supplementation given, repeat level 11/27/18 K 3.3, additional supplementation given, 11/28/18 K+ 3, additional oral supplementation given, if recurrent hypokalemia will add BID routine supplementation. Magnesium ordered, 1.6, supplementation ordered. (4) Hyponatremia, Suspected Hypovolemic: Admission Na 133, baseline normal, suspected secondary to #1, #2, mild hypovolemia with noted hypotension concurrently, administered IVFs initially, improved VS w/ initially low normal BP, 11/27/18 Na 137-->11/28/18 Na 142, improved. . (5) Chronic Diastolic CHF: Weight similar to most recent admission, chest x-ray with questionable mild vascular congestion although habitus market, notable wheezing upon presentation with ED administration of IV Solu-Medrol, septic appearance as noted with hypotension with IV fluid necessary administration initially. 11/27/18 improved appearance with IVFs hold. Will continue on aspirin, Plavix, statin, lisinopril, metoprolol, spironolactone, bumex with hold parameters. ECHO 07/10/18 with LV systolic function normal, EF 65%, unable to assess diastolic dysfunction. (6) CAD: s/p PTCA/BSM of Mid CX and PTCA of OM2 08/31/06; PTCA/PELON of the mid RCA 08/06/10; Thrombectomy and angioplasty of the pre-existing stent of the mid LCX 02/18/13, continued asa, plavix, statin, BB, ACEI with hold parameters. (7) Hypertension: Continue home regimen including Toprol, lisinopril, spironolactone, bumex, imdur, PRN hydralazine. (8) Hyperlipidemia: Continue home statin regimen. (9) Chronic normocytic anemia: Admission hemoglobin 12.4, baseline 10-12, 11/28/18 Hgb 11.4, trend. (10) Chronic Pain Syndrome: We will continue home chronic pain regimen including methadone, morphine oral regimen (11) Anxiety and Depression: Continue home sertraline regimen. (12) Morbid Obesity: Weight loss and lifestyle changes encouraged, nutrition consulted. (13) Diabetes mellitus type II: Hold oral home regimen, ADA diet, accu checks w/ ISS. (14) DAVION: Notes unable to tolerate BIPAP. (15) DVT prophylaxis: SCDs, lovenox. (16) CODE status: Full Code. Code Visit Inpatient E&M: 85748 Subs Hosp L3
[2018-11-28] MEDS: Ipratropium/Albuterol Sulfate 3 ML AMPUL.NEB INHALATION ×3 (07:12→19:44)
[2018-11-28] MEDS: Senna/Docusate Sodium 1 Tablet 2 TABLET PO (08:17)
[2018-11-28] MEDS: predniSONE 20 MG Tablet 40 MG PO (08:17)
[2018-11-28] MEDS: Aspirin 81 MG TAB.CHEW PO (08:17)
[2018-11-28] MEDS: Allopurinol 100 MG Tablet PO (08:18)
[2018-11-28] MEDS: Fludrocortisone Acetate 0.1 MG Tablet PO (08:18)
[2018-11-28] MEDS: Loratadine 10 MG Tablet PO (08:18)
[2018-11-28] MEDS: Fluticasone 0.05% 1 SPRAY NASAL.SRY NASAL (08:19)
[2018-11-28] MEDS: Isosorbide Mononitrate 30 MG Tablet PO (10:16)
[2018-11-28] MEDS: Clopidogrel Bisulfate 75 MG Tablet PO (10:16)
[2018-11-28] MEDS: Finasteride 5 MG Tablet PO (10:16)
[2018-11-28] MEDS: Bumetanide 2 MG Tablet PO ×2 (10:16→22:07)
[2018-11-28] MEDS: Tamsulosin HCl 0.4 MG Capsule PO ×2 (10:17→22:07)
[2018-11-28] MEDS: Spironolactone 25 MG Tablet PO ×2 (10:17→22:07)
[2018-11-28] MEDS: Ceftriaxone 1 GM/50 ML BAG IV (10:17)
[2018-11-28] MEDS: Sertraline 100 MG Tablet PO (10:18)
[2018-11-28] MEDS: Linacolotide 145 MCG CAPSULE PO (10:18)
[2018-11-28] MEDS: Gabapentin 600 MG Tablet PO ×2 (10:19→22:06)
[2018-11-28] MEDS: oxyCODONE 5 MG Tablet PO ×2 (10:30→22:07)
[2018-11-28] MEDS: Pantoprazole Sodium 20 MG Tablet PO (10:31)
[2018-11-28] MEDS: SODIUM CHLORIDE 1 GM TABLET PO (10:31)
[2018-11-28] MEDS: Enoxaparin 40 MG/0.4 ML Syringe SC (10:32)
[2018-11-28 11:56] LABS: Bedside Glucose 148 mg/dL (70-110)
--- NOTE | 2018-11-28 12:43 | PHA.PHARE_ITS ---
Consult Pharmacy has been consulted to manage selected antiobiotic: Vancomycin Type of Consult: New start Suspected Infection: Sepsis, Other Labs: Sodium 142 mmol/L (136-145) 11/28/18 05:45 Potassium 3.0 mmol/L (3.5-5.1) L 11/28/18 05:45 Chloride 96 mmol/L (98-107) L 11/28/18 05:45 Carbon Dioxide 38.0 mmol/L (21.0-32.0) H 11/28/18 05:45 8 (5-15) 11/28/18 05:45 BUN 20 mg/dL (7-18) H 11/28/18 05:45 0.98 mg/dL (0.70-1.30) 11/28/18 05:45 Est GFR (MDRD) Af Amer 100 mL/min (>60) 11/28/18 05:45 Est GFR (MDRD) Non-Af 83 mL/min (>60) 11/28/18 05:45 20.3 RATIO (10-20) H 11/28/18 05:45 Glucose 94 mg/dL (74-106) 11/28/18 05:45 Microbiology: Microbiology 11/26/18 12:10 Sputum, Expectorated/Coughed Gram Stain - Final 11/26/18 12:10 Sputum, Expectorated/Coughed Respiratory Culture - Preliminary Staphylococcus aureus Haemophilus influenzae 11/26/18 09:10 Blood Culture (Wb) - Anticubital Right Blood Culture - Preliminary No growth in 48 hours. 11/26/18 09:00 Blood Culture (Wb) - Anticubital Left Blood Culture - Preliminary No growth in 48 hours. 11/26/18 09:05 Urine Catheter - Goetz Urine Culture - Final Serratia marcescens 11/26/18 13:15 Mucosa - Nose Respiratory Panel (PCR) - Final Weight used for dosin.9 kg Estimated Creatinine Clearance: 115 ML/MIN Goal Trough: 15-20 mcg/mL Pharmacy Plan for Drug Dosing: Give initial loading dose (25mg/kg with max of 2000mg) of 2000mg IV x1, then continue with 2000mg IV q12h. It should be noted that the CrCl of 115 ml/min was calculated using an adjusted body weight of 100.3 kg. It should also be noted that the recommended dosing for the patient's weight and CrCl per our [facility] protocol dosing would be 1500mg IV q8h but in July of 2018 that dosing for this patient resulted in a trough of 35.7 mg/L. Therefore, we will dose it this time at a 12-hour interval and obtain a trough before the 4th dose. Pharmacy Service will continue to monitor and adjust dosing as required. Follow-Up Labs: Trough Vancomycin Labs to be done on [date and time ordered]: 11/29/18 22:30
--- NOTE | 2018-11-28 15:23 | PCM.HP.ID ---
Problem List (1) Severe sepsis Status: Acute Reason for Consult: severe sepsis Consulted by: Dr. Turcios History of Present Illness: The patient is a 58 year old M with COPD, obesity, chronic ojeda, who presented 11/26 with several days of fever, chills, cough with yellow sputum different from baseline. Some SOB, some nausea. No urine changes, no abd pain. Came to ED, given ceftriaxone, vanc added. Feeling better. Full ROS performed and neg except as noted above. - Medical History Past Medical History (Chronic Problems): Chronic Problems (Last Reviewed 07/09/18 @ 23:48 by Mick Choi MD) Acute exacerbation of congestive heart failure (Chronic) COPD exacerbation (Chronic) CAD (coronary artery disease) (Chronic) Diastolic CHF (Chronic) Anxiety and depression (Chronic) DAVION (obstructive sleep apnea) (Chronic) Presence of stent in coronary artery (Chronic) PTCA/BSM of Mid CX and PTCA of OM2 08/31/06; PTCA/PELON of the mid RCA 08/06/10; Thrombectomy and angioplasty of the pre existing stent of the mid LCX 02/18/13 Hypertension (Chronic) Hyperlipidemia (Chronic) Atherosclerotic heart disease of [place] coronary artery without angina pectoris (Chronic) PTCA/BSM of Mid CX and PTCA of OM2 08/31/06; PTCA/PELON of the mid RCA 08/06/10; Thrombectomy and angioplasty of the pre existing stent of the mid LCX 02/18/13 COPD (chronic obstructive pulmonary disease) (Chronic) Morbid obesity (Chronic) Allergies/Adverse Reactions: Allergies rofecoxib Adverse Reaction (Unknown, Verified 11/26/18 08:50) Unknown Home Medications: Ambulatory Orders Medication Instructions Recorded Clopidogrel Bisulfate [Plavix] 75 mg PO DAILY 02/11/13 Isosorbide Mononitrate [Imdur] 30 mg PO DAILY 02/11/13 Nitroglycerin (INPATIENT USE) 0.4 mg SUBLINGUAL Q5M PRN 02/11/13 [Nitrostat] Gabapentin 600 mg PO BID 12/20/13 Sertraline HCl [Zoloft] 100 mg PO DAILY 03/06/14 Ipratropium/Albuterol Sulfate 3 ml INHALATION BID 12/20/15 [Duoneb] Lisinopril [Zestril] 5 mg PO DAILY 12/28/16 Methadone HCl 10 mg PO Q8H 12/28/16 Ondansetron HCl [Zofran] 4 mg PO BID 12/28/16 Acetaminophen [Tylenol] 650 mg PO Q4H PRN PRN 05/17/17 Lorazepam [Ativan] 1 mg PO QHS PRN PRN 05/17/17 Oxycodone [Oxyir] 5 mg PO BID 05/17/17 fludrocortisone 0.1 mg tablet 0.1 mg PO QDAY 10/26/17 ipratropium-albuterol 0.5 mg-3 3 ml INHALATION Q6H PRN 10/26/17 mg(2.5 mg base)/3 mL nebulization soln morphine 30 mg immediate release 30 mg PO BID tab 10/26/17 tablet tizanidine 2 mg tablet 2 mg PO TID 10/26/17 Fluticasone 0.05% [Flonase Nasal 1 spray NASAL DAILY 03/14/18 [place]] Linacolotide [Linzess] 145 mcg PO DAILY 03/14/18 Magnesium Hydroxide [Milk Of 30 ml PO DAILY PRN PRN 03/14/18 Magnesia] Pravastatin [Pravachol] 80 mg PO DAILY 03/14/18 Spironolactone [Aldactone] 25 mg PO BID 03/14/18 metformin 500 mg tablet 1,000 mg PO BID tab 04/23/18 tamsulosin 0.4 mg capsule 0.4 mg PO BID cap 04/23/18 Albuterol Inhaler [Ventolin Hfa] 1 puff INHALATION Q4H PRN PRN 07/09/18 Ergocalciferol [Vitamin D] 50,000 unit PO Q7D 07/09/18 Calcium (Elemental) [Os-Roberto 500] 500 mg PO BIDCM 11/26/18 Famotidine [Pepcid] 20 mg PO QHS 11/26/18 Ferrous Sulfate 325 mg PO DAILY 11/26/18 Finasteride 5 mg PO DAILY 11/26/18 Guaifenesin [Mucinex] 600 mg PO BID 11/26/18 Ipratropium/Albuterol Sulfate 3 ml INHALATION BID PRN PRN 11/26/18 [Duoneb] Menthol/Lanolin/Calamine/Znox 1 applic TOPICAL BID 11/26/18 [Calmoseptine Ointment] Nystatin [Nyamyc] 30 gm TP QHS 11/26/18 Prednisone 20 mg PO DAILY 11/26/18 Triamcinolone 0.1% Cream [Kenalog] 1 applic TOPICAL BID 11/26/18 - Social History SMOKING STATUS:: Former smoker Vital Signs Temp Pulse Resp BP Pulse Ox 97.9 F 55 L 16 116/55 L 96 11/28/18 14:00 11/28/18 14:00 11/28/18 14:00 11/28/18 14:00 11/28/18 14:00 Oxygen Flow Rate (L/min) 3 Oxygen Delivery Method Nasal Cannula Weight: 137.9 kg Body Mass Index (BMI) 42.6 Finger Stick Blood Glucose 159 Microbiology Past 72 Hours 11/26/18 12:10 Gram Stain - Final Sputum, Expectorated/Coughed Respiratory Culture - Preliminary Staphylococcus aureus Haemophilus influenzae 11/26/18 09:10 Blood Culture - Preliminary Blood Culture (Wb) - Anticubital Right No growth in 48 hours. 11/26/18 09:00 Blood Culture - Preliminary Blood Culture (Wb) - Anticubital Left No growth in 48 hours. 11/26/18 09:05 Urine Culture - Final Urine Catheter - Ojeda Serratia marcescens 11/26/18 13:15 Respiratory Panel (PCR) - Final Mucosa - Nose Laboratory Tests Past 24 Hrs 11/28/18 11/28/18 05:45 05:45 WBC 10.7 RBC 4.06 L Hgb 11.4 L Hct 35.4 L MCV 87.2 MCH 28.1 MCHC 32.2 RDW Std Deviation 50.5 H RDW Coeff of [place] 15.9 H Plt Count 191 MPV 8.6 Immature Gran % (Auto) 0.600 Neut % (Auto) 79.2 H Lymph % (Auto) 16.5 L [place] % (Auto) 3.4 Eos % (Auto) 0.2 Baso % (Auto) 0.1 Absolute Neuts (auto) 8.5 H Absolute Lymphs (auto) 1.77 Total Counted Not Reportable Sodium 142 Potassium 3.0 L Chloride 96 L Carbon Dioxide 38.0 H Anion Gap 8 BUN 20 H Creatinine 0.98 Estim Creat Clear Calc 86.44 Est GFR (MDRD) Af Amer 100 Est GFR (MDRD) Non-Af 83 BUN/Creatinine Ratio 20.3 H Glucose 94 Calcium 8.6 - Other Studies Radiology: [] reviewed Other Studies: [] Route of nutrition/ use of supplements: [] Nutritional Intake: [] IV Site: [] Ojeda Catheter: [] - Physical Exam General: Alert, Oriented x3, Cooperative, No apparent distress HEENT: Atraumatic, PERRLA, EOMI Neck: Supple, No Nodes Lungs: Wheezes - scattered rhonchi/wheeze Cardiovascular: Regular Rhythm, No murmurs Abdomen: Soft, Non Tender, Non-Distended Extremities: Edema Skin: No rashes IV Site: Peripheral Musculoskeletal: No Tenderness to Palpation of Joints or Extremities Neurological: Cranial nerves II-XII grossly intact - Assessment/Plan Antibiotics: [] Assessment/Plan: [] Active and Suspected Problems (Last Reviewed 07/09/18 @ 23:48 by Mick Choi MD) Severe sepsis (Acute) Complicated UTI (urinary tract infection) (Acute) Hypokalemia (Acute) Hyponatremia (Acute) severe sepsis due to suspected pneumonia and uti. Sputum cx with staph and h.flu. Ucx with serratia. Improving on vanc/ceftriaxone. Will continue. Thank you, will follow, d/w Dr. Turcios
[2018-11-28 17:06] LABS: Bedside Glucose 137 mg/dL (70-110)
[2018-11-28] MEDS: 0.9% NaCl Peripheral Flush Adult/Peds IV (18:15)
[2018-11-28] MEDS: Ondansetron 4 MG/2 ML Vial IV (18:15)
[2018-11-28] MEDS: Pravastatin 80 MG Tablet PO (22:06)
[2018-11-28] MEDS: Metoprolol Tartrate 25 MG Tablet PO (22:08)
[2018-11-28 22:25] LABS: Bedside Glucose 81 mg/dL (70-110)
[2018-11-29] VITALS (10 sets, daily range): BP systolic 108–114; BP diastolic 59–62; PULSE 46–61; RESP 16–18; TEMP 36.7–36.8; O2SAT 96–97
[2018-11-29 05:16] LABS: Absolute Lymphocyte Count 1.93 X10^3/uL (0.83-4.51); Absolute Neutrophil Count 7.1 X10^3/uL (2.0-7.7); Basophil# 0.01 X10^3/uL; Basophil% 0.1 % (0-1); Eosinophil# 0.03 X10^3/uL; Eosinophils% 0.3 % (0-5); Hematocrit 36.5 % (40-54); Hemoglobin 11.3 g/dL (13.0-16.5); Lymphocyte # 1.93 X10^3/ul (4.0); Lymphocyte % 20.3 % (19-41); Mean Corpuscular Hgb 27.8 pg (27.0-32.0); Mean Corpuscular Volume 89.7 fL (80-94); Mean Platelet Vol. 8.4 fl (6.2-12.0); Monocyte# 0.37 X10^3/uL; Monocyte% 3.9 % (0-10); Neutrophil # 7.14 X10^3/uL (2.7-7.7); Platelet Count 196 K/mm3 (150-450); RBC Distribution Width CV 15.7 % (11.6-14.6); RBC Distribution Width SD 51.7 fl (35.1-43.9); Red Blood Count 4.07 M/mm3 (4.6-6.2); White Blood Count 9.5 K/mm3 (4.4-11.0)
[2018-11-29] MEDS: Menthol/Lanolin/Calamine/Znox 113 GM Tube 1 APPLIC TOPICAL ×2 (05:23→15:14)
[2018-11-29] MEDS: Methadone 10 MG Tablet PO ×2 (05:23→15:14)
[2018-11-29 05:26] LABS: POSITIVE COUNT NO; POSITIVE DIFFERENTIAL NO; POSITIVE MORPHOLOGY NO
[2018-11-29 05:27] LABS: Anion Gap 4 (5-15); BUN 22 mg/dL (7-18); BUN/Creat Ratio 19.6 RATIO (10-20); Calcium,Total 8.5 mg/dL (8.5-10.1); Chloride 96 mmol/L (98-107); Creatinine, Serum 1.12 mg/dL (0.70-1.30); EST Glomerular Filtration Rate 71 mL/min (>60); Est Glom Filt Rate - Afr Amer 86 mL/min (>60); Estimated Creatinine Clearance 75.64 ml/min; Glucose 89 mg/dL (74-106); Potassium 3.5 mmol/L (3.5-5.1); Sodium Level 142 mmol/L (136-145)
[2018-11-29 06:40] LABS: Bedside Glucose 81 mg/dL (70-110)
--- NOTE | 2018-11-29 07:29 | PN_ITS ---
Patient Problems: Active and Suspected Problems (Last Reviewed 07/09/18 @ 23:48 by Mick Choi MD) Severe sepsis (Acute) Complicated UTI (urinary tract infection) (Acute) Hypokalemia (Acute) Hyponatremia (Acute) Vitals/I&O's: Vital Signs Temp Pulse Resp BP Pulse Ox 98.0 F 56 L 18 109/59 L 97 11/29/18 04:00 11/29/18 04:00 11/29/18 04:00 11/29/18 04:00 11/29/18 04:00 Oxygen Flow Rate (L/min) 3 Oxygen Delivery Method Nasal Cannula Weight: 298 lb 8.094 oz Body Mass Index (BMI) 42.6 Finger Stick Blood Glucose 159 Intake and Output for Last 24 Hours 11/27/18 11/28/18 11/29/18 23:59 23:59 23:59 Intake Total 3814.7 / 3814.7 2436 / 2436 929 / 929 Output Total 7825 / 7825 2725 / 2725 3200 / 3200 Balance -4010.3 / -4010.3 -289 / -289 -2271 / -2271 Microbiology Past 72 Hours 11/26/18 12:10 Sputum, Expectorated/Coughed Gram Stain - Final 11/26/18 12:10 Sputum, Expectorated/Coughed Respiratory Culture - Preliminary Staphylococcus aureus Haemophilus influenzae 11/26/18 09:10 Blood Culture (Wb) - Anticubital Right Blood Culture - Preliminary No growth in 48 hours. 11/26/18 09:00 Blood Culture (Wb) - Anticubital Left Blood Culture - Preliminary No growth in 48 hours. 11/26/18 09:05 Urine Catheter - Goetz Urine Culture - Final Serratia marcescens 11/26/18 13:15 Mucosa - Nose Respiratory Panel (PCR) - Final Laboratory Results 11/28/18 11:23: POC Glucose 148 H 11/28/18 17:00: POC Glucose 137 H 11/28/18 22:18: POC Glucose 81 11/29/18 05:00: WBC 9.5, RBC 4.07 L, Hgb 11.3 L, Hct 36.5 L, MCV 89.7, MCH 27.8, MCHC 31.0 L, RDW Std Deviation 51.7 H, RDW Coeff of [place] 15.7 H, Plt Count 196, MPV 8.4, Immature Gran % (Auto) 0.400, Neut % (Auto) 75.0 H, Lymph % (Auto) 20.3, [place] % (Auto) 3.9, Eos % (Auto) 0.3, Baso % (Auto) 0.1, Absolute Neuts (auto) 7.1, Absolute Lymphs (auto) 1.93, Total Counted Not Reportable 11/29/18 05:00: Sodium 142, Potassium 3.5, Chloride 96 L, Carbon Dioxide 42.0 H, Anion Gap 4 L, BUN 22 H, Creatinine 1.12, Estim Creat Clear Calc 75.64, Est GFR (MDRD) Af Amer 86, Est GFR (MDRD) Non-Af 71, BUN/Creatinine Ratio 19.6, Glucose 89, Calcium 8.5 11/29/18 06:33: POC Glucose 81 Current Medications Acetaminophen (Tylenol) 650 mg PO Q6H PRN PRN PRN Reason: Non-cardiac pain (mod-severe) Al Hydroxide/Mg Hydroxide (Mylanta Ii) 15 - 30 ml PO Q4H PRN PRN PRN Reason: INDIGESTION Albuterol Sulfate (Ventolin Aerosols) 2.5 mg INHALATION Q2H PRN PRN PRN Reason: dyspnea, wheezing Albuterol/Ipratropium (Duoneb) 3 ml INHALATION Q6HWA.RT [facility] Last Admin: 11/28/18 19:44 Dose: 3 ml Documented by: Allopurinol (Zyloprim) 100 mg PO DAILY [facility] Last Admin: 11/28/18 08:18 Dose: 100 mg Documented by: Aspirin (Aspirin, Baby) 81 mg PO DAILY@0800 [facility] Last Admin: 11/28/18 08:17 Dose: 81 mg Documented by: Bumetanide (Bumex) 2 mg PO BID [facility] Last Admin: 11/28/18 22:07 Dose: 2 mg Documented by: Calamine/Phenol (Calmoseptine Ointment) 1 applic TOPICAL TID [facility]; Protocol Last Admin: 11/29/18 05:23 Dose: 1 applicatio Documented by: Clopidogrel Bisulfate (Plavix) 75 mg PO DAILY [facility] Last Admin: 11/28/18 10:16 Dose: 75 mg Documented by: Dextrose (D50w Syringe) 0 gm IV X1 PRN; Protocol PRN Reason: Hypoglycemia Enoxaparin Sodium (Lovenox) 40 mg SC DAILY@1000 [facility] Last Admin: 11/28/18 10:32 Dose: 40 mg Documented by: Finasteride (Proscar) 5 mg PO DAILY [facility] Last Admin: 11/28/18 10:16 Dose: 5 mg Documented by: Fludrocortisone Acetate (Florinef) 0.1 mg PO DAILYCM [facility] Last Admin: 11/28/18 08:18 Dose: 0.1 mg Documented by: Fluticasone Propionate (Flonase Nasal [place]) 1 spray NASAL DAILY [facility] Last Admin: 11/28/18 08:19 Dose: 1 spray Documented by: Gabapentin (Neurontin) 600 mg PO BID [facility] Last Admin: 11/28/18 22:06 Dose: 600 mg Documented by: Glucagon () 1 mg IM .X1 PRN PRN Reason: Hypoglycemia Guaifenesin (Robitussin) 20 ml PO Q4H PRN PRN PRN Reason: COUGH Hydralazine HCl (Apresoline Iv) 10 mg IV Q4H PRN PRN PRN Reason: SBP > 160 Ceftriaxone Sodium (Rocephin) 1 gm in 50 mls @ 100 mls/hr IV Q24H [facility] Last Admin: 11/28/18 10:17 Dose: 100 mls/hr Documented by: Vancomycin IV Pharmacy to Dose (1 ea/ Sodium Chloride) 500 mls @ 250 mls/hr IV X1 PRN; Protocol PRN Reason: Rx to Dose Vancomycin HCl 2,000 mg/ (Sodium Chloride) 540 mls @ 250 mls/hr IV Q12H [facility] Last Admin: 11/28/18 22:26 Dose: 250 mls/hr Documented by: Insulin Human Lispro (Humalog Kwikpen (Bkc)) 0 unit SC ACHS [facility]; Protocol Last Admin: 11/29/18 06:34 Dose: Not Given Documented by: Isosorbide Mononitrate (Imdur) 30 mg PO DAILY [facility] Last Admin: 11/28/18 10:16 Dose: 30 mg Documented by: Linaclotide (Linzess) 145 mcg PO DAILY [facility] Last Admin: 11/28/18 10:18 Dose: 145 mcg Documented by: Lisinopril (Zestril) 5 mg PO DAILY [facility] Last Admin: 11/28/18 10:18 Dose: Not Given Documented by: Loratadine (Claritin) 10 mg PO DAILY [facility] Last Admin: 11/28/18 08:18 Dose: 10 mg Documented by: Lorazepam (Ativan) 1 mg PO QHS PRN PRN PRN Reason: SLEEP Methadone HCl () 10 mg PO Q8 [facility] Last Admin: 11/29/18 05:23 Dose: 10 mg Documented by: Metoprolol Tartrate (Lopressor (Beta Tyron)) 25 mg PO BID [facility] Last Admin: 11/28/18 22:08 Dose: 25 mg Documented by: Morphine Sulfate (Ms Contin) 30 mg PO BID [facility] Last Admin: 11/28/18 22:07 Dose: 30 mg Documented by: Nitroglycerin (Nitrostat) 0.4 mg SUBLINGUAL Q5M PRN PRN Reason: CARDIAC/CHEST PAIN Ondansetron HCl (Zofran) 4 mg IV Q8H PRN PRN PRN Reason: NAUSEA/VOMITING Last Admin: 11/28/18 18:15 Dose: 4 mg Documented by: Oxycodone HCl (Oxyir) 5 mg PO BID [facility] Last Admin: 11/28/18 22:07 Dose: 5 mg Documented by: Pantoprazole Sodium (Protonix) 20 mg PO DAILY [facility] Last Admin: 11/28/18 10:31 Dose: 20 mg Documented by: Polyethylene Glycol (Miralax) 17 gm PO DAILY PRN PRN Reason: Constipation Last Admin: 11/27/18 17:59 Dose: 17 gm Documented by: [facility] Admin: 11/28/18 08:18 Dose: 10 meq Documented by: Pravastatin Sodium (Pravachol) 80 mg PO QHS [facility] Last Admin: 11/28/18 22:06 Dose: 80 mg Documented by: Prednisone () 40 mg PO DAILY@0800 [facility] Last Admin: 11/28/18 08:17 Dose: 40 mg Documented by: Senna/Docusate Sodium (Senokot-S, Kelly-Colace) 2 tablet PO BID [facility] Last Admin: 11/28/18 22:09 Dose: Not Given Documented by: Sertraline HCl (Zoloft) 100 mg PO DAILY [facility] Last Admin: 11/28/18 10:18 Dose: 100 mg Documented by: Sodium Chloride (Sodium Chloride) 1 gm PO DAILY [facility] Last Admin: 11/28/18 10:31 Dose: 1 gm Documented by: Sodium Chloride () 10 - 40 ml IV UD PRN PRN Reason: SALINE FLUSH Last Admin: 11/28/18 18:15 Dose: 10 ml Documented by: Spironolactone (Aldactone) 25 mg PO BID [facility] Last Admin: 11/28/18 22:07 Dose: 25 mg Documented by: Tamsulosin HCl (Flomax) 0.4 mg PO BID [facility] Last Admin: 11/28/18 22:07 Dose: 0.4 mg Documented by: Throat Lozenges (Cepacol Sore Throat Lozenge) 1 lozenge MUCOUS MEM Q2H PRN PRN PRN Reason: Sore Throat/Cough Tizanidine HCl (Zanaflex) 2 mg PO TID PRN PRN Reason: MUSCLE SPASM Trazodone HCl (Desyrel) 50 mg PO QHS PRN PRN Reason: INSOMNIA Medical Necessity - Tobacco Use Smoking Status: Former smoker - Quit 2 years prior to current presentation. Tobacco Use: Non-smoker Assessment/Plan All Active Problems (Last Reviewed 07/09/18 @ 23:48 by Mick Choi MD) Acute and chronic respiratory failure with hypoxia (Acute) COPD with acute exacerbation (Acute) Lactic acidosis (Acute) Hypotension arterial (Acute) Acute kidney injury (Acute) Respiratory failure with hypoxia and hypercapnia (Acute) Acute encephalopathy (Acute) Heart failure (Acute) Severe sepsis (Acute) Complicated UTI (urinary tract infection) (Acute) Hypokalemia (Acute) Hyponatremia (Acute) Acute NH, inferior wall (Acute) Acute inferolateral myocardial infarction (Acute) Tobacco use disorder (Resolved)
[2018-11-29] MEDS: Ipratropium/Albuterol Sulfate 3 ML AMPUL.NEB INHALATION ×2 (07:33→13:30)
[2018-11-29] MEDS: oxyCODONE 5 MG Tablet PO (10:50)
[2018-11-29] MEDS: Lisinopril 5 MG Tablet PO (10:51)
[2018-11-29] MEDS: Aspirin 81 MG TAB.CHEW PO (10:51)
[2018-11-29] MEDS: Sertraline 100 MG Tablet PO (10:51)
[2018-11-29] MEDS: Pantoprazole Sodium 20 MG Tablet PO (10:51)
[2018-11-29] MEDS: SODIUM CHLORIDE 1 GM TABLET PO (10:52)
[2018-11-29] MEDS: Finasteride 5 MG Tablet PO (10:53)
[2018-11-29] MEDS: Clopidogrel Bisulfate 75 MG Tablet PO (10:53)
[2018-11-29] MEDS: Doxycycline 100 MG CAPSULE PO (10:53)
[2018-11-29] MEDS: Fludrocortisone Acetate 0.1 MG Tablet PO (10:53)
[2018-11-29] MEDS: Gabapentin 600 MG Tablet PO (10:53)
[2018-11-29] MEDS: Enoxaparin 40 MG/0.4 ML Syringe SC (10:53)
[2018-11-29] MEDS: Linacolotide 145 MCG CAPSULE PO (10:53)
[2018-11-29] MEDS: Spironolactone 25 MG Tablet PO (10:54)
[2018-11-29] MEDS: Tamsulosin HCl 0.4 MG Capsule PO (10:54)
[2018-11-29] MEDS: Cefdinir 300 MG Capsule PO (10:54)
[2018-11-29] MEDS: predniSONE 20 MG Tablet 40 MG PO (10:54)
[2018-11-29] MEDS: Loratadine 10 MG Tablet PO (10:54)
[2018-11-29] MEDS: Bumetanide 2 MG Tablet PO (10:54)
[2018-11-29] MEDS: Allopurinol 100 MG Tablet PO (10:54)
[2018-11-29] MEDS: Fluticasone 0.05% 1 SPRAY NASAL.SRY NASAL (10:55)
--- NOTE | 2018-11-29 10:57 | PCM.PN.ID ---
Patient Problems: Active and Suspected Problems (Last Reviewed 07/09/18 @ 23:48 by Mick Choi MD) Severe sepsis (Acute) Complicated UTI (urinary tract infection) (Acute) Hypokalemia (Acute) Hyponatremia (Acute) Subjective: Feeling back to baseline. No fever, no purulent sputum, no n/v/d. - Physical Exam General: Alert, Cooperative, No apparent distress Lungs: Clear to auscultation, Normal air movement Cardiovascular: Regular rate, Regular Rhythm Abdomen: Soft, Non Tender, Non-Distended Skin: No rashes Vital Signs Temp Pulse Resp BP Pulse Ox 98.1 F 52 L 16 108/60 96 11/29/18 10:48 11/29/18 10:48 11/29/18 10:48 11/29/18 10:48 11/29/18 10:48 Oxygen Flow Rate (L/min) 3 Oxygen Delivery Method Nasal Cannula Weight: 135.4 kg Body Mass Index (BMI) 42.6 Finger Stick Blood Glucose 159 Intake and Output for Last 24 Hours 11/27/18 11/28/18 11/29/18 23:59 23:59 23:59 Intake Total 3814.7 / 3814.7 2436 / 2436 929 / 929 Output Total 7825 / 7825 2725 / 2725 3200 / 3200 Balance -4010.3 / -4010.3 -289 / -289 -2271 / -2271 Microbiology Past 72 Hours 11/26/18 12:10 Gram Stain - Final Sputum, Expectorated/Coughed Respiratory Culture - Final Meth. resistant Staph. aureus Haemophilus influenzae 11/26/18 09:10 Blood Culture - Preliminary Blood Culture (Wb) - Anticubital Right No growth in 48 hours. 11/26/18 09:00 Blood Culture - Preliminary Blood Culture (Wb) - Anticubital Left No growth in 48 hours. 11/26/18 09:05 Urine Culture - Final Urine Catheter - Go[place] Serratia marcescens 11/26/18 13:15 Respiratory Panel (PCR) - Final Mucosa - Nose Laboratory Tests Past 24 Hrs 11/29/18 11/29/18 05:00 05:00 WBC 9.5 RBC 4.07 L Hgb 11.3 L Hct 36.5 L MCV 89.7 MCH 27.8 MCHC 31.0 L RDW Std Deviation 51.7 H RDW Coeff of [place] 15.7 H Plt Count 196 MPV 8.4 Immature Gran % (Auto) 0.400 Neut % (Auto) 75.0 H Lymph % (Auto) 20.3 [place] % (Auto) 3.9 Eos % (Auto) 0.3 Baso % (Auto) 0.1 Absolute Neuts (auto) 7.1 Absolute Lymphs (auto) 1.93 Total Counted Not Reportable Sodium 142 Potassium 3.5 Chloride 96 L Carbon Dioxide 42.0 H Anion Gap 4 L BUN 22 H Creatinine 1.12 Estim Creat Clear Calc 75.64 Est GFR (MDRD) Af Amer 86 Est GFR (MDRD) Non-Af 71 BUN/Creatinine Ratio 19.6 Glucose 89 Calcium 8.5 POC Glucose 11/29/18 11/28/18 11/28/18 06:33 22:18 17:00 POC Glucose 81 81 137 H 11/28/18 11:23 POC Glucose 148 H Medical Necessity - Tobacco Use Smoking Status: Former smoker - Quit 2 years prior to current presentation. Tobacco Use: Non-smoker Route of nutrition/ use of supplements: [] Nutritional Intake: [] IV Site: [] Goezt Catheter: [] - Assessment/Plan Antibiotics: [] Assessment/Plan: [] Active and Suspected Problems (Last Reviewed 07/09/18 @ 23:48 by Mick Choi MD) Severe sepsis (Acute) Complicated UTI (urinary tract infection) (Acute) Hypokalemia (Acute) Hyponatremia (Acute) severe sepsis due to suspected pneumonia and uti. Sputum cx with rare MRSA and h.flu. Ucx with serratia. Improving on vanc/ceftriaxone. Ok for d/c home on po doxy/omnicef for 3 more days. Will follow as needed
--- NOTE | 2018-11-29 11:52 | PCM.TXEXTCAR ---
- Diet 11/26/18 11:50 Diet: Cardiac: Calorie-Controlled Food consistency:: Regular Liquid Consistency:: Regular/Thin How many daily calories?: 1800 calorie - Routine Orders/Code Status Enema Type: Fleetz Enema Frequency: Daily PRN Suppository Type: Dulcolax 10mg Suppository Frequency: Daily PRN Change Ojeda Catheter: Per facility protocol, last changed 11/28/18 O2 Liters per Minute: 3 O2 Frequency: Continuous Keep PO Greater than or Equal to (%): 92 Routine Lab Work: - - Repeat CBC, BMP within 1 week. Code Status: Full Code - Wound(s) right posterior leg Wound Type: Pressure Injury - Suggestions for Active Care Change Position every (hours): 2 Hours to sit in a chair: 6 Times a day to sit in chair: 3 - Therapies Weight Bearing: Full weight bearing Physical Therapy: Eval and Treat Occupational Therapy: Eval and Treat - Problem/Diagnosis (1) Severe sepsis Status: Acute Current Visit: Yes (2) Complicated UTI (urinary tract infection) Status: Acute Current Visit: Yes (3) COPD exacerbation Status: Chronic Current Visit: Yes (4) Hypokalemia Status: Acute Current Visit: Yes (5) Hyponatremia Status: Acute Current Visit: Yes (6) CAD (coronary artery disease) Status: Chronic Current Visit: Yes (7) Diastolic CHF Status: Chronic Current Visit: Yes (8) Anxiety and depression Status: Chronic Current Visit: Yes (9) DAVION (obstructive sleep apnea) Status: Chronic Current Visit: Yes (10) Hypertension Status: Chronic Current Visit: No (11) Hyperlipidemia Status: Chronic Current Visit: No (12) COPD (chronic obstructive pulmonary disease) Status: Chronic Current Visit: No (13) Tobacco use disorder Status: Resolved Current Visit: No (14) Morbid obesity Status: Chronic Current Visit: No - Allergies/Procedures Done in Hospital Allergies/Adverse Reactions: Allergies rofecoxib Adverse Reaction (Unknown, Verified 11/26/18 08:50) Unknown Procedures: EKG - Type of Care/Length of Stay Estimated LOS: Convalescent Care Less Than 30 days Type of Care Needed: Skilled Rehab Potential: Good Prognosis: Good - Additional Orders/Day of Discharge Additional Orders: (1) Continue to encourage BIPAP attempts q HS, has prior never been able to tolerate. (2) Change ojeda per facility protocol. (3) HOB parameters. (4) Aspiration and fall precautions. (5) IS 10x/hr 7a-7p with encouraged q 2 hour deep cough H&P will serve as current which was dated: 11/26/18 Day of Discharge: 11/29/18 - Follow Up Care Primary Care Physician: Nas Cadena [Primary Care Provider] - Please follow up with your Primary Care Physician in: Follow-up within 3-5 days discharge.
--- NOTE | 2018-11-29 11:57 | DS.PCM_ITS ---
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 COPD exacerbation and HCAP w/ Chronic Hypoxic Respiratory Failure (3L-4L-->current 6L) (3) Hypokalemia (4) Hyponatremia, Suspected Hypovolemic (5) Chronic Diastolic CHF (6) CAD (7) Hypertension (8) Hyperlipidemia (9) Chronic normocytic anemia (10) Chronic Pain Syndrome (11) Anxiety and Depression (12) Morbid Obesity (13) Diabetes mellitus type II (14) DAVION with inability to tolerate BIPAP/CPAP - Secondary Discharge Diagnosis Chronic Problems (Last Reviewed 07/09/18 @ 23:48 by Mick Choi MD) Acute exacerbation of congestive heart failure (Chronic) COPD exacerbation (Chronic) CAD (coronary artery disease) (Chronic) Diastolic CHF (Chronic) Anxiety and depression (Chronic) DAVION (obstructive sleep apnea) (Chronic) Presence of stent in coronary artery (Chronic) PTCA/BSM of Mid CX and PTCA of OM2 08/31/06; PTCA/PELON of the mid RCA 08/06/10; Thrombectomy and angioplasty of the pre existing stent of the mid LCX 02/18/13 Hypertension (Chronic) Hyperlipidemia (Chronic) Atherosclerotic heart disease of kaibab coronary artery without angina pectoris (Chronic) PTCA/BSM of Mid CX and PTCA of OM2 08/31/06; PTCA/PELON of the mid RCA 08/06/10; Thrombectomy and angioplasty of the pre existing stent of the mid LCX 02/18/13 COPD (chronic obstructive pulmonary disease) (Chronic) Morbid obesity (Chronic) Hospital Course and Treatment Dr. Ballesteros Infectious disease Operations: None Procedures: EKG Summary of Care Provided: The patient is a 58 y/o M from SNF w/ PMHx: Diabetes mellitus type II, Chronic Normocytic Anemia, Morbid Obesity, Chronic COPD with Chronic Hypoxic Respiratory Failure (3L NC), HTN, HLD, History of Tobacco use, DAVION, CAD s/p PTCA/BSM of Mid CX and PTCA of OM2 08/31/06; PTCA/PELON of the mid RCA 08/06/10; Thrombectomy and angioplasty of the pre-existing stent of the mid LCX 02/18/13, Diastolic CHF, History of MRSA PNA who presented to the [facility] ED on 11/26/18 with history of fevers, mild cough with complaint of loose minimally productive sputum x ~ 24-48 hours with nausea as well as emesis AM prior to presentation. Admitted to PCU given appearance and mild hypotension upon initial presentation, UA upon ED evaluation remarkable, UCx w/ serratia marcescens, monitor I/Os, continued IV Rocephin, 11/27/18 CBC w/ WBC 12.5-->11/29/18 WBC 19.6 with resolved shift. CXR w/ chronic changes w/ mild vascular congestion; however, notable sepsis presentation with hypotension and wheezing upon presentation with recent cough. Will maintain on oxygen with wean as tolerated to home oxygen supplementation, continue ATC duonebs, PRN albuterol, IV methylprednisolone-->11/27/18 transition to oral prednisone given improved appearance, HOB, IS parameters, IV rocephin as noted above for UTI w/ 11/28/18 IV vanc addition given preliminary sputum Cx GPC clusters with eventual Sputum Cx w/ MRSA and Haemophils influenza, negative resp iratory viral panel. ID consulted during admission given notable history with initial agreement to continuation of rocephin and vancomyci-->11/29/18 transition upon discharge to Doxycycline and Omnicef x 3 additional days. Admission K+ 2.7, supplementation given, repeat level 11/27/18 K 3.3, additional supplementation given, 11/28/18 K+ 3, additional oral supplementation given with resolution. Admission Na 133, baseline normal, suspected secondary to #1, #2, mild hypovolemia with noted hypotension concurrently, administered IVFs initially, improved VS w/ initially low normal BP, 11/27/18 Na 137-->11/28/18 Na 142, improved. During admission given Chronic Diastolic CHF, noted weight similar to most recent admission, chest x-ray with questionable mild vascular congestion although habitus market, notable wheezing upon presentation with ED administration of IV Solu-Medrol, septic appearance as noted with hypotension with IV fluid necessary administration initially. 11/27/18 improved appearance wi th IVFs hold. Patient continued on aspirin, Plavix, statin, lisinopril, spironolactone, bumex with hold parameters. From prior list had continue metoprolol but once clarified discontinued is no longer taking. Of note, ECHO 07/10/18 with LV systolic function normal, EF 65%, unable to assess diastolic dysfunction. Patient discharged to custodial facility in stable, improved condition with continued antibiotic therapies as noted with steroid taper and continued aerosol regimen. DAY OF DISCHARGE PROGRESS NOTE: Subjective: Patient without acute event overnight per self and nursing report. Patient notes he is doing well, breathing with greater ease, no fatigue, tolerating diet with no recurrent nausea or emesis. Patient denies fever, chills, nausea, emesis, abdominal pain, chest pain or dyspnea. Patient agreeable to discharge to SNF. Patient will be discharged with follow-up with primary care physician within 3-5 days. Objective: T 90.1, heart rate 52, BP 108/60, respiratory rate 16, 96% on 3 L nasal cannula. Physical Examination: General: awake, alert, oriented x 3 and cooperative, seated upright in bed, improved appearance, denies any acute complaints. Skin: mildly flushed color, turgor, no icterus, cyanosis, chronic venous stasis skin changes BL LE. HEENT: AT/NC, EOMI, PERRLA, improved MMM. Lungs: Improved, remains diminished, > bases, resolution prior soft expiratory wheezing, no rales or rhonchi. Heart: Regular rate and rhythm; no gallop, rub audible. Abdomen: soft, morbidly obese, NTTP, difficult to assess distention secondary to habitus, distant normal BS. Extremities: no cyanosis, clubbing, BL LE chronic venous skin changes, no edema. Neurological: patient awake, alert, oriented x 3; cognitive function intact; pupils equally reactive to light and accomodation; cranial nerves II-XII grossly normal, moving all 4 extremities, no focal deficits, strength improved, moderately globally decreased. Psychiatric: affect appears less fatigued, improved, no acute evidence of depressive or anxiety feelings. Assessment and Plan: Please see hospital summary above. Patient Problems: Active and Suspected Problems (Last Reviewed 07/09/18 @ 23:48 by Mick Choi MD) Severe sepsis (Acute) Complicated UTI (urinary tract infection) (Acute) Hypokalemia (Acute) Hyponatremia (Acute) - Physical Exam Vital Signs Temp Pulse Resp BP Pulse Ox 98.1 F 52 L 16 108/60 96 11/29/18 10:48 11/29/18 10:53 11/29/18 10:48 11/29/18 10:53 11/29/18 10:48 Oxygen Flow Rate (L/min) 3 Oxygen Delivery Method Nasal Cannula Weight: 298 lb 8.094 oz Body Mass Index (BMI) 42.6 Finger Stick Blood Glucose 159 Intake and Output for Last 24 Hours 11/27/18 11/28/18 11/29/18 23:59 23:59 23:59 Intake Total 3814.7 / 3814.7 2436 / 2436 1179 / 1179 Output Total 7825 / 7825 2725 / 2725 3650 / 3650 Balance -4010.3 / -4010.3 -289 / -289 -2471 / -2471 Microbiology Past 72 Hours 11/26/18 12:10 Gram Stain - Final Sputum, Expectorated/Coughed Respiratory Culture - Final Meth. resistant Staph. aureus Haemophilus influenzae 11/26/18 09:10 Blood Culture - Preliminary Blood Culture (Wb) - Anticubital Right No growth in 48 hours. 11/26/18 09:00 Blood Culture - Preliminary Blood Culture (Wb) - Anticubital Left No growth in 48 hours. 11/26/18 09:05 Urine Culture - Final Urine Catheter - Goetz Serratia marcescens 11/26/18 13:15 Respiratory Panel (PCR) - Final Mucosa - Nose Laboratory Tests Past 24 Hrs 11/29/18 11/29/18 05:00 05:00 WBC 9.5 RBC 4.07 L Hgb 11.3 L Hct 36.5 L MCV 89.7 MCH 27.8 MCHC 31.0 L RDW Std Deviation 51.7 H RDW Coeff of [place] 15.7 H Plt Count 196 MPV 8.4 Immature Gran % (Auto) 0.400 Neut % (Auto) 75.0 H Lymph % (Auto) 20.3 [place] % (Auto) 3.9 Eos % (Auto) 0.3 Baso % (Auto) 0.1 Absolute Neuts (auto) 7.1 Absolute Lymphs (auto) 1.93 Total Counted Not Reportable Sodium 142 Potassium 3.5 Chloride 96 L Carbon Dioxide 42.0 H Anion Gap 4 L BUN 22 H Creatinine 1.12 Estim Creat Clear Calc 75.64 Est GFR (MDRD) Af Amer 86 Est GFR (MDRD) Non-Af 71 BUN/Creatinine Ratio 19.6 Glucose 89 Calcium 8.5 POC Glucose 11/29/18 11/28/18 11/28/18 06:33 22:18 17:00 POC Glucose 81 81 137 H Home Medications: Medications to take at Discharge Clopidogrel Bisulfate [Plavix] 75 mg PO DAILY 02/11/13 Isosorbide Mononitrate [Imdur] 30 mg PO DAILY 02/11/13 Nitroglycerin (INPATIENT USE) [Nitrostat] 0.4 mg SUBLINGUAL Q5M PRN 02/11/13 Gabapentin 600 mg PO BID 12/20/13 Sertraline HCl [Zoloft] 100 mg PO DAILY 03/06/14 Ipratropium/Albuterol Sulfate [Duoneb] 3 ml INHALATION BID 12/20/15 Lisinopril [Zestril] 5 mg PO DAILY 12/28/16 Methadone HCl 10 mg PO Q8H 12/28/16 Ondansetron HCl [Zofran] 4 mg PO BID 12/28/16 Acetaminophen [Tylenol] 650 mg PO Q4H PRN PRN 05/17/17 Oxycodone [Oxyir] 5 mg PO BID 05/17/17 fludrocortisone 0.1 mg tablet 0.1 mg PO QDAY 10/26/17 ipratropium-albuterol 0.5 mg-3 mg(2.5 mg base)/3 mL nebulization soln 3 ml INHALATION Q6H PRN 10/26/17 morphine 30 mg immediate release tablet 30 mg PO BID tab 10/26/17 tizanidine 2 mg tablet 2 mg PO TID 10/26/17 Fluticasone 0.05% [Flonase Nasal [place]] 1 spray NASAL DAILY 03/14/18 Linacolotide [Linzess] 145 mcg PO DAILY 03/14/18 Magnesium Hydroxide [Milk Of Magnesia] 30 ml PO DAILY PRN PRN 03/14/18 Pravastatin [Pravachol] 80 mg PO DAILY 03/14/18 Spironolactone [Aldactone] 25 mg PO BID 03/14/18 metformin 500 mg tablet 1,000 mg PO BID tab 04/23/18 tamsulosin 0.4 mg capsule 0.4 mg PO BID cap 04/23/18 Albuterol Inhaler [Ventolin Hfa] 1 puff INHALATION Q4H PRN PRN 07/09/18 Ergocalciferol [Vitamin D] 50,000 unit PO Q7D 07/09/18 Calcium (Elemental) [Os-Roberto 500] 500 mg PO BIDCM 11/26/18 Famotidine [Pepcid] 20 mg PO QHS 11/26/18 Ferrous Sulfate 325 mg PO DAILY 11/26/18 Finasteride 5 mg PO DAILY 11/26/18 Guaifenesin [Mucinex] 600 mg PO BID 11/26/18 Ipratropium/Albuterol Sulfate [Duoneb] 3 ml INHALATION BID PRN PRN 11/26/18 Menthol/Lanolin/Calamine/Znox [Calmoseptine Ointment] 1 applic TOPICAL BID 11/26/18 Nystatin [Nyamyc] 30 gm TP QHS 11/26/18 Triamcinolone 0.1% Cream [Kenalog] 1 applic TOPICAL BID 11/26/18 Acetaminophen [Tylenol Tablet] 650 mg PO Q6H PRN PRN tab 11/29/18 Allopurinol [Zyloprim] 100 mg PO DAILY tab 11/29/18 Aspirin [Aspirin, Baby] 81 mg PO DAILY@0800 tab.chew 11/29/18 Bumetanide [Bumex] 2 mg PO DAILY tab 11/29/18 Cefdinir [Omnicef [equiv]] 300 mg PO Q12 #6 cap 11/29/18 Doxycycline 100 mg PO BID #6 cap 11/29/18 Finasteride [Proscar] 5 mg PO DAILY tab 11/29/18 Guaifenesin [Robitussin] 20 ml PO Q4H PRN PRN udc 11/29/18 Insulin Lispro [Humalog KwikPen] See Protocol SUBCUT ACHS insuln.pen 11/29/18 Lorazepam [Ativan] 1 mg PO QHS PRN PRN #5 tab 11/29/18 Menthol/Lanolin/Calamine/Znox [Calmoseptine Ointment] 1 applic TOPICAL TID tube 11/29/18 Prednisone 10 mg PO UD #30 tab 11/29/18 Following Prescrptions Were Given to Patient: Lorazepam [Ativan] 1 mg PO QHS PRN PRN #5 tab PRN Reason: Sleep Prescription Printed Doxycycline 100 mg PO BID #6 cap Cefdinir [Omnicef [equiv]] 300 mg PO Q12 #6 cap Prednisone 10 mg PO UD #30 tab Primary Care Physician: Nas Cadena [Primary Care Provider] - Please follow up with your Primary Care Physician in: Follow-up within 3-5 days discharge. Disposition: Correction facility Minutes spent on discharge:: 35 Patient Condition:: Good Medical Necessity - Tobacco Use Smoking Status: Former smoker - Quit 2 years prior to current presentation. Tobacco Use: Non-smoker Meaningful Use Info Meaningful Use Diagnoses (Choose all that apply): None applicable Code Visit Inpatient E&M: 84018 Disch Hosp
[2018-11-29 12:15] LABS: Bedside Glucose 74 mg/dL (70-110)
--- NOTE | 2018-11-29 16:08 | CASEMGMT ---
Patient is ready for discharge back to [facility]. RAMSEY called [facility] and arranged for bariatric cot for 630p. RAMSEY called [facility] and let patient's RN know he will be returning at 630. RAMSEY faxed orders. RAMSEY notified RN, corporate secretary, patient and his family member present in his room. Plan: d/c back to [facility] under intermediate level of care. [facility] transported him via bariatric cot. Jodi NORMAN MSW
[2018-11-29 16:46] LABS: Bedside Glucose 132 mg/dL (70-110)
== END 2018-11-29 19:18 | DRG 466 ==
LOC: ED 09:13 → PCU 10:34
PROVIDERS: Admitting Provider Family Medicine; Emergency Provider Emergency Medicine; Family Provider Family Medicine; PCP Family Medicine; Visit Provider Family Medicine
DX: T83.511A Infection and inflammatory reaction due to indwelling urethral catheter, initial encounter (principal); A41.4 Sepsis due to anaerobes; N39.0 Urinary tract infection, site not specified; Y84.6 Urinary catheterization as the cause of abnormal reaction of the patient, or of later complication, without mention of misadventure at the time of the procedure; E87.6 Hypokalemia; J44.1 Chronic obstructive pulmonary disease with (acute) exacerbation; J14 Pneumonia due to Hemophilus influenzae; J15.212 Pneumonia due to Methicillin resistant Staphylococcus aureus; Y95 Nosocomial condition; Z99.81 Dependence on supplemental oxygen; R65.20 Severe sepsis without septic shock; G47.33 Obstructive sleep apnea (adult) (pediatric); E66.01 Morbid (severe) obesity due to excess calories; Z68.41 Body mass index [BMI] 40.0-44.9, adult; I50.32 Chronic diastolic (congestive) heart failure; I11.0 Hypertensive heart disease with heart failure; J44.0 Chronic obstructive pulmonary disease with (acute) lower respiratory infection; E78.5 Hyperlipidemia, unspecified; E87.1 Hypo-osmolality and hyponatremia; G89.4 Chronic pain syndrome; J96.11 Chronic respiratory failure with hypoxia; F32.9 Major depressive disorder, single episode, unspecified; F41.9 Anxiety disorder, unspecified; E11.9 Type 2 diabetes mellitus without complications; D64.9 Anemia, unspecified; I25.10 Atherosclerotic heart disease of native coronary artery without angina pectoris; Z95.5 Presence of coronary angioplasty implant and graft; Z79.84 Long term (current) use of oral hypoglycemic drugs; Z87.891 Personal history of nicotine dependence
CPT/HCPCS: 36415; 71045; 71046; 80048; 80053; 81001; 82962; 83605; 83735; 84484; 85025; 85610; 85730; 87040; 87070; 87077; 87086; 87088; 87186; 87205; 87633; 93005; 94640; 97802; 99251; 99285; J7030; J7040; A4216; G0463; J2405

== ENCOUNTER 2019-03-27 08:23 | Inpatient (IN) | payer MEDICAID, SELFPAY ==
[2018-11-26 11:23] VITALS: BMI 42.6
[2019-03-27] VITALS (24 sets, daily range): BP systolic 72–149; BP diastolic 26–119; PULSE 59–83; RESP 12–21; TEMP 36.9–38.2; O2SAT 91–96; BMI 48.4; BMI 47.3; BMI 48.5
--- NOTE | 2019-03-27 08:35 | EKG12_ITS ---
Test Reason : GEN ILLNESS Blood Pressure : / mmHG Vent. Rate : 077 BPM Atrial Rate : 077 BPM P-R Int : 172 ms QRS Dur : 082 ms QT Int : 356 ms P-R-T Axes : 058 043 027 degrees QTc Int : 402 ms Normal sinus rhythm Low voltage QRS Nonspecific ST and T wave abnormality Abnormal ECG Confirmed by RENETTA FRAZIER, KITA ([id number]), editor newspaper YASSINE HARTMAN ([id number]) on 04/02/2019 1:07:54 PM Referred By: Shivani Eng Confirmed By:KIRK JACKSON MD
--- NOTE | 2019-03-27 08:35 | RAD_ITS ---
STUDY: X-RAY CHEST REASON FOR EXAM: Male, 58 years old. Cough. TECHNIQUE: Single AP portable view of the chest. COMPARISON: Comparison is made with prior examination dated November 27, 2018. FINDINGS: EKG electrodes are seen. There is evidence of vascular congestion and mild degree of CHF. There is no demonstrated pleural abnormality. There is moderate cardiac enlargement. Normal mediastinum and liban. Normal visualized pulmonary arteries. Normal visualized aortic arch and descending thoracic aorta. Normal visualized thoracic spine. Normal visualized ribs, clavicles, and shoulders. There is no demonstrated abnormality of the visualized soft tissue structures of the upper abdomen. RAD/Chest 1 View (Portable) IMPRESSION: Vascular congestion in keeping with a mild degree of CHF. Cardiomegaly. Electronically Signed: Howie Dong, at 9:37 EST , Service support ,
--- NOTE | 2019-03-27 08:38 | ED.VIS.GEN ---
History of Present Illness Chief Complaint: General Illness Detail of Chief Complaint: Cough and not feeling well Onset: Days - 6 days Context: Gradual Onset Current Severity: Mild Maximum Severity: Moderate Narrative: Patient presents from [facility] with 6-day history of just not quite feeling right. He does report cough and some mild nausea. He has not noted a fever. Past Medical History - Allergies and Home Meds Allergies/Adverse Reactions: Allergies rofecoxib Adverse Reaction (Unknown, Verified 03/27/19 08:29) Unknown Primary Care Physician: NOT,DEFINED [NON-STAFF] - Prior records reviewed: Yes Past Medical History: - - Coronary disease, cardiac stents, [place], CHF, COPD, hypertension, high cholesterol Surgical History: - - Thyroidectomy, Septoplasty, Cardiac PCI x 4 2007, R Inguinal hernia repair 2012, T+A. Lives: [facility] Smoking Status: Former smoker - Family History Sibling Family History: Family History (Last Reviewed 07/09/18 @ 23:48 by Mick Choi MD) Father Myocardial infarction, Onset Age: 39 Brother Hypertension Uncle CAD (coronary artery disease) Uncle Myocardial infarction Family History: Reports: Hypertension Maternal Family History: Family History (Last Reviewed 07/09/18 @ 23:48 by Mick Choi MD) Father Myocardial infarction, Onset Age: 39 Brother Hypertension Uncle CAD (coronary artery disease) Uncle Myocardial infarction Family History: Reports: Cancer - skin CA Paternal Family History: Family History (Last Reviewed 07/09/18 @ 23:48 by Mick Choi MD) Father Myocardial infarction, Onset Age: 39 Brother Hypertension Uncle CAD (coronary artery disease) Uncle Myocardial infarction Family History: Reports: Heart Disease Review of Systems General: Denies: Chills, Fever ENT: Denies: Bilateral ear pain Cardiovascular: Denies: Chest pain, Palpitations Respiratory: Reports: Dyspnea, Cough. Denies: Sputum Gastrointestinal: Reports: Nausea. Denies: Abdominal pain, Vomiting, Diarrhea Genitourinary: Denies: Dysuria Musculoskeletal: Denies: Back pain, Extremity Pain Skin: Denies: Rash Neurological: Denies: Headache Endocrine: Denies: Polyuria, Polydipsia Allergy: Denies: Uticaria Physical Exam Vital Signs/Narrative: Vital Signs Temp Pulse Resp BP Pulse Ox 03/27/19 08:25 100.7 F H 82 16 108/97 H 91 Inital Vital Signs reviewed: Yes General: Well nourished, Well developed Head: Normocephalic ENT: Moist mucous membranes Neck: Supple Cardiovascular: Regular rate, Regular rhythm Respiratory: No distress, Diminished Abdomen: Soft, Nontender, Hypoactive bowel sounds Extremities: - - 2+ edema bilateral lower extremities. Skin: Normal color Neurological: Alert, Oriented x3 Psychological: Normal affect Diagnostic/Tx/Re-eval Impressions Chest X-Ray 03/27/19 08:35 IMPRESSION: Vascular congestion in keeping with a mild degree of CHF. Cardiomegaly. Electronically Signed: Howie Singerwhit, at 9:37 EST , Service support , 03/27/19 08:35 Chest 1 View (Portable) [RAD] Stat Laboratory Results 03/27/19 03/27/19 03/27/19 09:00 09:00 09:00 WBC 13.8 H RBC 3.64 L Hgb 10.1 L Hct 31.6 L MCV 86.8 MCH 27.7 MCHC 32.0 RDW Std Deviation 47.6 H RDW Coeff of [place] 15.0 H Plt Count 180 MPV 8.7 Immature Gran % (Auto) 0.600 Neut % (Auto) 89.0 H Lymph % (Auto) 6.3 L [place] % (Auto) 3.3 Eos % (Auto) 0.4 Baso % (Auto) 0.4 Absolute Neuts (auto) 12.3 H Absolute Lymphs (auto) 0.87 Nucleated RBC % 0 PT 13.9 INR 1.1 APTT 36.7 H Sodium 128 L Potassium 5.3 H Chloride 91 L Carbon Dioxide 31.0 Anion Gap 6 BUN 38 H Creatinine 3.14 H Estim Creat Clear Calc 26.98 Est GFR (MDRD) Af Amer 26 L Est GFR (MDRD) Non-Af 22 L BUN/Creatinine Ratio 12.1 Glucose 101 Lactic Acid Calcium 9.8 Total Bilirubin 0.60 AST 27 ALT 37 Alkaline Phosphatase 125 H Total Protein 6.9 Albumin 2.7 L Globulin 4.2 Albumin/Globulin Ratio 0.6 L Urine Color Urine Clarity Urine pH Ur Specific [place] Urine Protein Urine Glucose (UA) Urine Ketones Urine Occult Blood Urine Nitrite Urine Bilirubin Urine Urobilinogen Ur Leukocyte Esterase Urine RBC Urine WBC Ur Squamous Epith Cells Urine Bacteria Urine Mucus 03/27/19 03/27/19 09:00 11:10 WBC RBC Hgb Hct MCV MCH MCHC RDW Std Deviation RDW Coeff of [place] Plt Count MPV Immature Gran % (Auto) Neut % (Auto) Lymph % (Auto) [place] % (Auto) Eos % (Auto) Baso % (Auto) Absolute Neuts (auto) Absolute Lymphs (auto) Nucleated RBC % PT INR APTT Sodium Potassium Chloride Carbon Dioxide Anion Gap BUN Creatinine Estim Creat Clear Calc Est GFR (MDRD) Af Amer Est GFR (MDRD) Non-Af BUN/Creatinine Ratio Glucose Lactic Acid 1.5 Calcium Total Bilirubin AST ALT Alkaline Phosphatase Total Protein Albumin Globulin Albumin/Globulin Ratio Urine Color Yellow Urine Clarity Sl. Cloudy Urine pH 5.0 Ur Specific [place] 1.020 Urine Protein 30 H Urine Glucose (UA) Normal Urine Ketones 5 H Urine Occult Blood 250 H Urine Nitrite Negative Urine Bilirubin 3 H Urine Urobilinogen Normal Ur Leukocyte Esterase 500 H Urine RBC 25-50 SEEN Urine WBC 25-50 SEEN Ur Squamous Epith Cells 0-5 SEEN Urine Bacteria 2+ Urine Mucus 0 SEEN - EKG Initial EKG Interpretation: Sinus Rhythm - Sinus at 77 with no acute ischemia. - Medical Decision Making Patient was initially given IV fluids but then they were stopped when chest x-ray showed mild CHF. Patient was noted to drop his blood pressure into the 70s systolic. He is responding to fluid boluses. MAP has been greater than 65 throughout his ED stay. Renal function is noted to be worse than baseline. We were unable to get urine out of his existing Goetz catheter. Goetz catheter was replaced and urine does show sign of infection. He is given a dose of IV Rocephin and will be admitted. ED Disposition - Plan for ED Patient: Disposition: Home or Assisted Living Diagnosis: Cystitis, Sepsis Referrals: NOT,DEFINED [NON-STAFF] -
[2019-03-27] MEDS: Acetaminophen 325 MG Tablet 650 MG PO (09:13)
[2019-03-27] MEDS: 0.9% Normal Saline 1,000 ML 150 ML IV ×3 (09:13→17:47)
[2019-03-27 09:17] LABS: Absolute Lymphocyte Count 0.87 X10^3/uL (0.83-4.51); Absolute Neutrophil Count 12.3 X10^3/uL (2.0-7.7); Basophil# 0.06 X10^3/uL; Basophil% 0.4 % (0-1); Eosinophil# 0.05 X10^3/uL; Eosinophils% 0.4 % (0-5); Hematocrit 31.6 % (40-54); Hemoglobin 10.1 g/dL (13.0-16.5); Lymphocyte # 0.87 X10^3/ul (4.0); Lymphocyte % 6.3 % (19-41); Mean Corpuscular Hgb 27.7 pg (27.0-32.0); Mean Corpuscular Volume 86.8 fL (80-94); Mean Platelet Vol. 8.7 fl (6.2-12.0); Monocyte# 0.46 X10^3/uL; Monocyte% 3.3 % (0-10); NRBC Flagged by Analyzer 0 % (0-5); Neutrophil # 12.29 X10^3/uL (2.7-7.7); Platelet Count 180 K/mm3 (150-450); RBC Distribution Width SD 47.6 fl (35.1-43.9); Red Blood Count 3.64 M/mm3 (4.6-6.2); White Blood Count 13.8 K/mm3 (4.4-11.0)
[2019-03-27 09:32] LABS: ALB/GLOB Ratio 0.6 RATIO (0.9-2.4); AST(SGOT) 27 U/L (15-37); Alanine Aminotransfer ALT/SGPT 37 U/L (16-61); Albumin, Serum 2.7 g/dL (3.2-5.0); Alkaline Phosphatase 125 U/L (45-117); Anion Gap 6 (5-15); BUN 38 mg/dL (7-18); BUN/Creat Ratio 12.1 RATIO (10-20); Calcium,Total 9.8 mg/dL (8.5-10.1); Chloride 91 mmol/L (98-107); Creatinine, Serum 3.14 mg/dL (0.70-1.30); EST Glomerular Filtration Rate 22 mL/min (>60); Est Glom Filt Rate - Afr Amer 26 mL/min (>60); Estimated Creatinine Clearance 26.98 ml/min; Globulin 4.2 g/dL (2.2-4.2); Glucose 101 mg/dL (74-106); International Normalized Ratio 1.1; Potassium 5.3 mmol/L (3.5-5.1); Protein, Total 6.9 g/dL (6.4-8.2); Prothrombin Time (Protime)PT. 13.9 SECONDS (11.7-14.9); Sodium Level 128 mmol/L (136-145)
[2019-03-27 09:33] LABS: Partial Thromboplast Time 36.7 Seconds (24.1-36.2)
[2019-03-27 09:37] LABS: Lactic Acid 1.5 mmol/L (0.4-2.0)
[2019-03-27 11:12] LABS: Mucous, Urine 0 SEEN /hpf (<or=2+)
[2019-03-27 11:26] LABS: Color, Urine Yellow (Yellow); Glucose, Dipstick Normal (Normal); Ketone-Dipstick 5 mg/dl (Negative); Leukocyte Esterase-Dipstick 500 /ul (Negative); Nitrite-Dipstick Negative (Negative); Occult Blood-Urine 250 /ul (Negative); Protein-Dipstick 30 mg/dl (Negative); Urine Clarity Sl. Cloudy (Clear); Urine Urobilinogen Normal (Normal)
[2019-03-27 11:27] LABS: Urine Bilirubin Dipstick 3 mg/dL (Negative)
[2019-03-27 11:34] LABS: Bacteria 2+ /hpf (None Seen); Red Blood Cells-Urine 25-50 SEEN /hpf (0-5); Squamous Epithelial Cells - UA 0-5 SEEN /hpf (0-5); White Blood Cells 25-50 SEEN /hpf (0-5)
--- NOTE | 2019-03-27 12:02 | PCM.HP.STD ---
Problem List (1) Complicated UTI (urinary tract infection) Status: Acute (2) Hyponatremia Status: Acute (3) CAD (coronary artery disease) Status: Chronic Qualifiers: Coronary Disease-Associated Artery/Lesion type: unspecified vessel or lesion type [place] vs. transplanted heart: unspecified whether [place] or transplanted heart Associated angina: angina presence unspecified Qualified Code(s): I25.10 - Atherosclerotic heart disease of [place] coronary artery without angina pectoris (4) Anxiety and depression Status: Chronic (5) DAVION (obstructive sleep apnea) Status: Chronic (6) Hypertension Status: Chronic Qualifiers: Hypertension type: essential hypertension Qualified Code(s): I10 - Essential (primary) hypertension (7) Hyperlipidemia Status: Chronic Qualifiers: Hyperlipidemia type: unspecified Qualified Code(s): E78.5 - Hyperlipidemia, unspecified History of Present Illness Date of Admission: 03/27/19 Chief Complaint: Confusion, fever - 2 days The patient is a 58 year old M with multiple comorbidities, including hypertension, hyperlipidemia, anxiety/depression, type II DM, super morbid obesity, resident in a penit[facility], immobile who was acting confused yesterday had some associated cough and nausea. There was no fever reported in the penitentiary. But on arrival to the emergency department, he had a fever of 100.7. Patient is confused and unable to answer my questions fully. His mother is at the bedside. Temperature on arrival was 100.7, heart rate 82, blood pressure 108/97, respiratory rate was 16, SPO2 was 91% on 4 L of oxygen. His admitting blood work with a BC count of 13.8, hemoglobin 10.1, platelet count 180, INR 1.1, sodium 128, potassium 5.3, chloride 91, bicarbonate 31, BUN 38, creatinine 3.14, lactic acid is 1.5 UA shows cloudy urine, occult blood 250, leukocyte esterase 500, WBC count 25-50. Admitting chest x-ray showed vascular congestion suggestive of CHF, mild, cardiomegaly. Past Medical History Past Medical History (Chronic Problems): Chronic Problems (Last Reviewed 07/09/18 @ 23:48 by Mick Choi MD) Acute exacerbation of congestive heart failure (Chronic) COPD exacerbation (Chronic) CAD (coronary artery disease) (Chronic) Diastolic CHF (Chronic) Anxiety and depression (Chronic) DAVION (obstructive sleep apnea) (Chronic) Presence of stent in coronary artery (Chronic) PTCA/BSM of Mid CX and PTCA of OM2 08/31/06; PTCA/PELON of the mid RCA 08/06/10; Thrombectomy and angioplasty of the pre existing stent of the mid LCX 02/18/13 Hypertension (Chronic) Hyperlipidemia (Chronic) Atherosclerotic heart disease of [place] coronary artery without angina pectoris (Chronic) PTCA/BSM of Mid CX and PTCA of OM2 08/31/06; PTCA/PELON of the mid RCA 08/06/10; Thrombectomy and angioplasty of the pre existing stent of the mid LCX 02/18/13 COPD (chronic obstructive pulmonary disease) (Chronic) Morbid obesity (Chronic) Medical History: Medical History (Last Reviewed 07/09/18 @ 23:48 by Mick Choi MD) Acute MA, inferior wall (Acute) I21.19 Acute inferolateral myocardial infarction (Acute) I21.19 Hypertension (Chronic) I10 Hyperlipidemia (Chronic) E78.5 Atherosclerotic heart disease of [place] coronary artery without angina pectoris (Chronic) I25.10 PTCA/BSM of Mid CX and PTCA of OM2 08/31/06; PTCA/PELON of the mid RCA 08/06/10; Thrombectomy and angioplasty of the pre existing stent of the mid LCX 02/18/13 COPD (chronic obstructive pulmonary disease) (Chronic) J44.9 Tobacco use disorder (Resolved) F17.200 Morbid obesity (Chronic) E66.01 DDD (degenerative disc disease) Metabolic syndrome E88.81 DAVION (obstructive sleep apnea) G47.33 RLS (restless legs syndrome) G25.81 Open breast wound (Inactive) S21.009A Pure hypercholesterolemia (Inactive) E78.00 Respiratory failure with hypoxia and hypercapnia (Inactive) J96.91, J96.92 UTI (urinary tract infection) (Inactive) N39.0 Allergies rofecoxib Adverse Reaction (Unknown, Verified 03/27/19 08:29) Unknown Home Medications: Ambulatory Orders Medication Instructions Recorded Clopidogrel Bisulfate [Plavix] 75 mg PO DAILY 02/11/13 Isosorbide Mononitrate [Imdur] 30 mg PO DAILY 02/11/13 Nitroglycerin (INPATIENT USE) 0.4 mg SUBLINGUAL Q5M PRN 02/11/13 [Nitrostat] Gabapentin 600 mg PO BID 12/20/13 Sertraline HCl [Zoloft] 100 mg PO DAILY 03/06/14 Ipratropium/Albuterol Sulfate 3 ml INHALATION BID 12/20/15 [Duoneb] Lisinopril [Zestril] 5 mg PO DAILY 12/28/16 Methadone HCl 10 mg PO Q8H 12/28/16 Ondansetron HCl [Zofran] 4 mg PO BID 12/28/16 Acetaminophen [Tylenol] 650 mg PO Q4H PRN PRN 05/17/17 Oxycodone [Oxyir] 5 mg PO BID 05/17/17 fludrocortisone 0.1 mg tablet 0.1 mg PO QDAY 10/26/17 ipratropium-albuterol 0.5 mg-3 3 ml INHALATION Q6H PRN 10/26/17 mg(2.5 mg base)/3 mL nebulization soln morphine 30 mg immediate release 30 mg PO BID tab 10/26/17 tablet tizanidine 2 mg tablet 2 mg PO TID 10/26/17 Fluticasone 0.05% [Flonase Nasal 1 spray NASAL DAILY 03/14/18 [place]] Magnesium Hydroxide [Milk Of 30 ml PO DAILY PRN PRN 03/14/18 Magnesia] Pravastatin [Pravachol] 80 mg PO DAILY 03/14/18 Spironolactone [Aldactone] 25 mg PO BID 03/14/18 metformin 500 mg tablet 1,000 mg PO BID tab 04/23/18 tamsulosin 0.4 mg capsule 0.4 mg PO BID cap 04/23/18 Ergocalciferol [Vitamin D] 50,000 unit PO Q7D 07/09/18 Famotidine [Pepcid] 20 mg PO QHS 11/26/18 Ferrous Sulfate 325 mg PO DAILY 11/26/18 Finasteride 5 mg PO DAILY 11/26/18 Guaifenesin [Mucinex] 600 mg PO BID 11/26/18 Ipratropium/Albuterol Sulfate 3 ml INHALATION BID PRN PRN 11/26/18 [Duoneb] Nystatin [Nyamyc] 30 gm TP QHS 11/26/18 Acetaminophen [Tylenol Tablet] 650 mg PO Q6H PRN PRN tab 11/29/18 Allopurinol [Zyloprim] 100 mg PO DAILY tab 11/29/18 Aspirin [Aspirin, Baby] 81 mg PO DAILY@0800 tab.chew 11/29/18 Bumetanide [Bumex] 2 mg PO DAILY tab 11/29/18 Calcium Carbonate/Vitamin D3 1 ea PO BID 03/27/19 [Calcium 600 + Vit D Caplet] DiphenhydrAMINE [Benadryl] 50 mg PO QHS PRN 03/27/19 Fluticasone/Vilanterol [Breo 1 ea IH DAILY 03/27/19 Ellipta Inhaler] Guaifenesin [Cough Syrup] 10 ml PO Q6H PRN PRN 03/27/19 Guaifenesin [Robitussin] 20 ml PO Q4H PRN PRN 03/27/19 Lorazepam [Ativan] 1 mg PO QHS 03/27/19 Menthol [Biofreeze] 1 applic TP DAILY 03/27/19 Mupirocin Calcium [Bactroban Cream] 1 applic TOPICAL BID 03/27/19 Nystatin Powder [Mycostatin Powder] 1 applic TOPICAL QHS 03/27/19 Oxymetazoline HCl [Nasal [place]] 30 ml NS 4X/DAY PRN 03/27/19 Phenazopyridine HCl [Pyridium] 200 mg PO TID 03/27/19 Prednisone 20 mg PO DAILY 03/27/19 Senna [Senokot] 1 tab PO BID 03/27/19 Surgical History: Surgical History (Last Reviewed 07/09/18 @ 23:48 by Mick Choi MD) Presence of stent in coronary artery (Chronic) Z95.5 PTCA/BSM of Mid CX and PTCA of OM2 08/31/06; PTCA/PELON of the mid RCA 08/06/10; Thrombectomy and angioplasty of the pre existing stent of the mid LCX 02/18/13 Postsurgical percutaneous transluminal coronary angioplasty (PTCA) status Z98.61 PTCA/BSM of Mid CX and PTCA of OM2 08/31/06; PTCA/PELON of the mid RCA 08/06/10; Thrombectomy and angioplasty of the pre existing stent of the mid LCX 02/18/13 History of inguinal hernia repair Z98.890, Z87.19 History of tonsillectomy Z90.89 Surgical History: - - Thyroidectomy, Septoplasty, Cardiac PCI x 4 2007, R Inguinal hernia repair 2013, T+A. Psychiatric History: Anxiety, Depression Lives: Senior Living Smoking Status: Former smoker Tobacco Use: Non-smoker Alcohol: None Drugs: None - *Family History Sibling Family History: Family History (Last Reviewed 07/09/18 @ 23:48 by Mick Choi MD) Father Myocardial infarction, Onset Age: 39 Brother Hypertension Uncle CAD (coronary artery disease) Uncle Myocardial infarction History Items: Hypertension Maternal Family History: Family History (Last Reviewed 07/09/18 @ 23:48 by Mick Choi MD) Father Myocardial infarction, Onset Age: 39 Brother Hypertension Uncle CAD (coronary artery disease) Uncle Myocardial infarction History Items: Cancer - skin CA Paternal Family History: Family History (Last Reviewed 07/09/18 @ 23:48 by Mick Choi MD) Father Myocardial infarction, Onset Age: 39 Brother Hypertension Uncle CAD (coronary artery disease) Uncle Myocardial infarction History Items: Heart Disease Review of Systems Unable to obtain accurate/complete ROS d/t: unable to answer on account of confusion VTE Information - Inpt Only VTE Present on Admission: No VTE Pharm Prophylaxis ordered?: Yes Patient Problems: Active and Suspected Problems (Last Reviewed 07/09/18 @ 23:48 by Mick Choi MD) Cystitis (Acute) Sepsis (Acute) - Physical Exam Vitals/I&O's: Vital Signs Temp Pulse Resp BP Pulse Ox 98.7 F 83 18 76/61 L 92 03/27/19 10:33 03/27/19 10:47 03/27/19 10:47 03/27/19 10:47 03/27/19 10:47 Oxygen Flow Rate (L/min) 3 Oxygen Delivery Method Nasal Cannula Weight: 157.7 kg Body Mass Index (BMI) 48.4 Finger Stick Blood Glucose 159 Intake and Output for Last 24 Hours 03/25/19 03/26/19 03/27/19 23:59 23:59 23:59 Intake Total 607.25 / 607.25 Balance 607.25 / 607.25 General: Alert, Cooperative, No apparent distress, Confused, - - super morbidly obese, on 4L oxygen HEENT: Atraumatic, PERRLA, EOMI, Normocephalic Oral: Moist Mucosa Neck: Supple Lungs: Clear to auscultation, Normal air movement Cardiovascular: Regular rate, Regular Rhythm, Normal S1, Normal S2, No murmurs Abdomen: Bowel Sounds Present, Soft, Non Tender, Non-Distended, No Hepato-splenomegaly Extremities: Edema - bilateral +1 Skin: No rashes Musculoskeletal: No Tenderness to Palpation of Joints or Extremities Lymphatic: No Cervical, Supraclavicular, or Inguinal Adenopathy Neurological: Cranial nerves II-XII grossly intact, Neuro grossly intact Psych/Mental Status: Normal Affect, Appropriate Laboratory Results 03/27/19 09:00: WBC 13.8 H, RBC 3.64 L, Hgb 10.1 L, Hct 31.6 L, MCV 86.8, MCH 27.7, MCHC 32.0, RDW Std Deviation 47.6 H, RDW Coeff of [place] 15.0 H, Plt Count 180, MPV 8.7, Immature Gran % (Auto) 0.600, Neut % (Auto) 89.0 H, Lymph % (Auto) 6.3 L, [place] % (Auto) 3.3, Eos % (Auto) 0.4, Baso % (Auto) 0.4, Absolute Neuts (auto) 12.3 H, Absolute Lymphs (auto) 0.87, Nucleated RBC % 0 03/27/19 09:00: PT 13.9, INR 1.1, APTT 36.7 H 03/27/19 09:00: Sodium 128 L, Potassium 5.3 H, Chloride 91 L, Carbon Dioxide 31.0, Anion Gap 6, BUN 38 H, Creatinine 3.14 H, Estim Creat Clear Calc 26.98, Est GFR (MDRD) Af Amer 26 L, Est GFR (MDRD) Non-Af 22 L, BUN/Creatinine Ratio 12.1, Glucose 101, Calcium 9.8, Total Bilirubin 0.60, AST 27, ALT 37, Alkaline Phosphatase 125 H, Total Protein 6.9, Albumin 2.7 L, Globulin 4.2, Albumin/Globulin Ratio 0.6 L 03/27/19 09:00: Lactic Acid 1.5 03/27/19 11:10: Urine Color Yellow, Urine Clarity Sl. Cloudy, Urine pH 5.0, Ur Specific [place] 1.020, Urine Protein 30 H, Urine Glucose (UA) Normal, Urine Ketones 5 H, Urine Occult Blood 250 H, Urine Nitrite Negative, Urine Bilirubin 3 H, Urine Urobilinogen Normal, Ur Leukocyte Esterase 500 H, Urine RBC 25-50 SEEN, Urine WBC 25-50 SEEN, Ur Squamous Epith Cells 0-5 SEEN, Urine Bacteria 2+, Urine Mucus 0 SEEN Current Medications Sodium Chloride () 1,000 mls @ 150 mls/hr IV .Q6H40M [facility] Last Admin: 03/27/19 11:43 Dose: 150 mls/hr Documented by: Ceftriaxone Sodium (Rocephin) 1 gm in 50 mls @ 100 mls/hr IV X1 ONE Stop: 03/27/19 12:04 Assessment/Plan All Active Problems (Last Reviewed 07/09/18 @ 23:48 by Mick Choi MD) Acute and chronic respiratory failure with hypoxia (Acute) COPD with acute exacerbation (Acute) Lactic acidosis (Acute) Hypotension arterial (Acute) Acute kidney injury (Acute) Respiratory failure with hypoxia and hypercapnia (Acute) Acute encephalopathy (Acute) Heart failure (Acute) Severe sepsis (Acute) Complicated UTI (urinary tract infection) (Acute) Hypokalemia (Acute) Hyponatremia (Acute) Cystitis (Acute) Sepsis (Acute) Acute MA, inferior wall (Acute) Acute inferolateral myocardial infarction (Acute) Tobacco use disorder (Resolved) 58 year old M with multiple comorbidities, including hypertension, hyperlipidemia, anxiety/depression, type II DM, super morbid obesity, resident in a penitentiary, immobile who was acting confused yesterday had some associated cough and nausea. 1. Acute metabolic encephalopathy likely secondary to underlying UTI, management as below We will continue to monitor mentation 2. Hypotension, probable septic shock/dehydration/adrenal insufficiency Would continue on IV fluids, IV hydrocortisone, monitor vitals closely 3. Acute complicated UTI, h/o serratia, will continue on IV ceftriaxone Repeat blood work in am VARSHA on CKD stage 3, admitting creatinine is 3.14, baseline creatinine is around 1.1 Likely prerenal, will check for urine sodium, urine creatinine, IV fluids Renal ultrasound, repeat blood work in a.m. 4. Hyperkalemia with acute kidney injury, will repeat blood work 5. Hypertension, will hold home meds 6. Chronic opioid dependence, on methadone, morphine and oxycodone Will hold morphine, oxycodone on account of hypotension, Decrease methadone dose to 5 mg p.o. q. 8 on account of above May resume home regimen when patient is more alert, and not hypotensive 7. Super morbid obesity, BMI 48.5, lifestyle modification recommended 8. DVT prophylaxis with heparin subcu 9. GI prophylaxis with famotidine 10. Code Status - [facility] Code Visit Inpatient E&M: 13055 Init Hosp L3
--- NOTE | 2019-03-27 12:04 | NURSING ---
ICU 3 HYPOTENSION PAINTSIL
[2019-03-27] MEDS: Ceftriaxone 1 GM/50 ML BAG IV (12:21)
--- NOTE | 2019-03-27 13:32 | ECHOCS_ITS ---
Reason For Study: HYPOTENSION Procedure This was a 2D Doppler, Color Flow transthoracic echocardiogram. The study was technically difficult. Exam performed portable in ICU/CCU. Left Ventricle Normal size and thickness. The estimated ejection fraction is 65 %. Normal diastology for age. No regional wall motion abnormalities noted. Right Ventricle Moderately dilated right ventricle. Normal systolic function. Atria Normal left atrium. The right atrium is moderately enlarged. Normal atrial septum. Mitral Valve The mitral valve is structurally normal. No prolapse or stenosis seen. Tricuspid Valve Normal tricuspid valve. Unable to estimate RV systolic pressure due to insufficient tricuspid regurgitant envelope. Pulmonic Valve Normal pulmonic valve. Great Vessels Normal aortic root. Normal arch. Normal inferior vena cava. Inferior vena cava collapse with sniff. Pericardium/Pleural No pericardial effusion. Medication Diluted definity 3ml given slow IV push to enhance endocardial definition. MMode/2D Measurements & Calculations LVIDd: 5.2 cm IVSd: 0.81 cm Ao root diam: 3.2 cm LVIDs: 3.4 cm LVPWd: 0.88 cm RVDd: 4.4 cm FS: 34.7 % LAV(MOD-bp): 52.8 ml LVAd ap4: 28.4 cm2 SV(MOD-sp4): 56.6 ml LAV(MOD-bp) Indexed: 20.0 ml/m2 EDV(MOD-sp4): 79.8 ml LAV(MOD-sp2): 47.6 ml EDV(sp4-el): 82.1 ml LAV(MOD-sp4): 54.6 ml LVAs ap4: 13.3 cm2 ESV(MOD-sp4): 23.3 ml ESV(sp4-el): 22.6 ml EF(MOD-sp4): 70.8 % EF(sp4-el): 72.4 % SV(sp4-el): 59.4 ml LA A4 area: 20.9 cm2 LA dimension(2D): 4.6 cm RA A4 area: 24.0 cm2 Time Measurements MV dec time: 0.22 sec Doppler Measurements & Calculations MV E max mehran: 108.9 cm/sec Lat Peak E' Mehran: 11.3 cm/sec Med Peak E' Mehran: 8.9 cm/sec MV A max mehran: 102.8 cm/sec E/E' lat: 9.6 E/E' med: 12.2 MV E/A: 1.1 Ao V2 max: 155.1 cm/sec LV V1 max: 127.5 cm/sec PA V2 max: 128.2 cm/sec Ao max P.6 mmHg LV V1 max P.5 mmHg Interpretation Summary The estimated ejection fraction is 65 %. Normal diastology for age. Moderately dilated right ventricle. The right atrium is moderately enlarged. Unable to estimate RV systolic pressure due to insufficient tricuspid regurgitant envelope. Compared to echo report dated 07/10/2018, no appreciable changes noted. The study was technically difficult. Contrast injection was performed. Ordering Physician: Shivani Eng Referring Physician: TOMAS SANTOS Performed By: Isatu De Luna RDCS
--- NOTE | 2019-03-27 13:48 | CASEMGMT ---
SW reviewed chart, pt is here from [facility]. SW spoke w/pt and pt's mother Alanna in the room. Discharge plan will be for pt to return to [facility] when pt is ready. RAMSEY will send clinical updates to [facility] tomorrow when more information is available. LIANE Bonilla
[2019-03-27 14:14] LABS: BNP,B-Type NATRIURETIC PEPTIDE 44.5 pg/mL (0-100)
--- NOTE | 2019-03-27 14:34 | US_ITS ---
STUDY: RENAL ULTRASOUND - COMPLETE REASON FOR EXAM: Male, 58 years old. Acute renal failure TECHNIQUE: Ultrasound evaluation of the kidneys was performed with real-time and static fisher-scale imaging. COMPARISON: None. FINDINGS: RIGHT KIDNEY: Normal location of the right kidney, which is normal in size. The right kidney measures 9.7 x 5.2 x 5.9 cm. There is a normal cortex of the right kidney. The renal cortex measures 0.9 cm. There is no right renal mass or cyst. There are no right renal calculi. There is no right hydronephrosis. DISTAL RIGHT URETER: There is non-visualization of the distal right ureter. There is no demonstrated right ureterovesical junction calculus. There is a visualized right ureteral jet. LEFT KIDNEY: Normal location of the left kidney, which is normal in size. The left kidney measures 11.1 x 5.9 x 6.1 cm. There is a normal cortex of the left kidney. The renal cortex measures 1.3 cm. There is no left renal mass or cyst. There are no left renal calculi. There is no left hydronephrosis. DISTAL LEFT URETER: There is non-visualization of the distal left ureter. There is no demonstrated left ureterovesical junction calculus. There is a visualized left ureteral jet. Diffusely increased cortical echoes are seen consistent with nonspecific renal parenchymal disease BLADDER: Empty containing Goetz catheter Incidental finding of nonspecific splenomegaly US/Kidney and Bladder IMPRESSION: Nonspecific renal parenchymal disease. No evidence for hydronephrosis Incidental finding of nonspecific splenomegaly Electronically Signed: Pete Bran MD at 17:58 EST , Service support ,
--- NOTE | 2019-03-27 14:35 | PCM.CON.CC ---
Problem List (1) Acute and chronic respiratory failure with hypoxia Status: Acute (2) Hypotension arterial Status: Acute (3) Acute kidney injury Status: Acute (4) Respiratory failure with hypoxia and hypercapnia Status: Acute (5) Acute encephalopathy Status: Acute (6) Severe sepsis Status: Acute (7) Complicated UTI (urinary tract infection) Status: Acute (8) Anxiety and depression Status: Chronic (9) DAVION (obstructive sleep apnea) Status: Chronic (10) Acute WA, inferior wall Status: Acute (11) Acute inferolateral myocardial infarction Status: Acute (12) Presence of stent in coronary artery Status: Chronic Comment: PTCA/BSM of Mid CX and PTCA of OM2 08/31/06; PTCA/PELON of the mid RCA 08/06/10; Thrombectomy and angioplasty of the pre existing stent of the mid LCX 02/18/13 (13) Hypertension Status: Chronic Qualifiers: Hypertension type: essential hypertension Qualified Code(s): I10 - Essential (primary) hypertension (14) Hyperlipidemia Status: Chronic Qualifiers: Hyperlipidemia type: unspecified Qualified Code(s): E78.5 - Hyperlipidemia, unspecified (15) Atherosclerotic heart disease of [place] coronary artery without angina pectoris Status: Chronic Qualifiers: [place] vs. transplanted heart: [place] heart Qualified Code(s): I25.10 - Atherosclerotic heart disease of [place] coronary artery without angina pectoris Comment: PTCA/BSM of Mid CX and PTCA of OM2 08/31/06; PTCA/PELON of the mid RCA 08/06/10; Thrombectomy and angioplasty of the pre existing stent of the mid LCX 02/18/13 (16) Morbid obesity Status: Chronic Reason for Consult Date of Consultation: 03/27/19 Reason for Consultation: Hypotension History of Present Illness: The patient is a 58 year old M, with past medical history listed below, who presented to [facility] on 03/27/2019 secondary to not feeling quite right. Patient reportedly had some nausea and cough, but no reported fever. Patient had come from a shelter. Patient is confused and mother is a very poor historian, so details are relatively unclear. Reportedly in the ER, patient had a chest x-ray showing mild CHF and then was noted to have a decrease in blood pressure into the 70s systolic. Patient was given fluid boluses with some improvement. Laboratory data did show a worsening in renal function along with a leukocytosis. Patient reportedly had an indwelling catheter that was not allowing for drainage of urine, so this was replaced. UA subsequently showed signs of infection. Patient was placed on IV Rocephin and admitted to the intensive care unit for further evaluation on his baseline 4 L nasal cannula oxygen. Patient and mother are unable to provide much reliable history. Patient has had multiple admissions in the past with infectious etiology including influenza a and B and a Serratia UTI. Patient states that he believes he is seen a urologist in the past, but is unaware of the physician's name. He believes it was in [place]. Patient is unclear on why he has a chronic Goetz, but mother reports that he is in a shelter secondary to immobility following a hip fracture. Unable to obtain a full review of systems at this time. Past Medical History Past Medical History (Chronic Problems): Chronic Problems (Last Reviewed 07/09/18 @ 23:48 by Mick Choi MD) Acute exacerbation of congestive heart failure (Chronic) COPD exacerbation (Chronic) CAD (coronary artery disease) (Chronic) Diastolic CHF (Chronic) Anxiety and depression (Chronic) DAVION (obstructive sleep apnea) (Chronic) Presence of stent in coronary artery (Chronic) PTCA/BSM of Mid CX and PTCA of OM2 08/31/06; PTCA/PELON of the mid RCA 08/06/10; Thrombectomy and angioplasty of the pre existing stent of the mid LCX 02/18/13 Hypertension (Chronic) Hyperlipidemia (Chronic) Atherosclerotic heart disease of [place] coronary artery without angina pectoris (Chronic) PTCA/BSM of Mid CX and PTCA of OM2 08/31/06; PTCA/PELON of the mid RCA 08/06/10; Thrombectomy and angioplasty of the pre existing stent of the mid LCX 02/18/13 COPD (chronic obstructive pulmonary disease) (Chronic) Morbid obesity (Chronic) Medical History: Medical History (Last Reviewed 07/09/18 @ 23:48 by Mick Choi MD) Acute WA, inferior wall (Acute) I21.19 Acute inferolateral myocardial infarction (Acute) I21.19 Hypertension (Chronic) I10 Hyperlipidemia (Chronic) E78.5 Atherosclerotic heart disease of [place] coronary artery without angina pectoris (Chronic) I25.10 PTCA/BSM of Mid CX and PTCA of OM2 08/31/06; PTCA/PELON of the mid RCA 08/06/10; Thrombectomy and angioplasty of the pre existing stent of the mid LCX 02/18/13 COPD (chronic obstructive pulmonary disease) (Chronic) J44.9 Tobacco use disorder (Resolved) F17.200 Morbid obesity (Chronic) E66.01 DDD (degenerative disc disease) Metabolic syndrome E88.81 DAVION (obstructive sleep apnea) G47.33 RLS (restless legs syndrome) G25.81 Open breast wound (Inactive) S21.009A Pure hypercholesterolemia (Inactive) E78.00 Respiratory failure with hypoxia and hypercapnia (Inactive) J96.91, J96.92 UTI (urinary tract infection) (Inactive) N39.0 Allergies rofecoxib Adverse Reaction (Unknown, Verified 03/27/19 08:29) Unknown Home Medications: Ambulatory Orders Medication Instructions Recorded Clopidogrel Bisulfate [Plavix] 75 mg PO DAILY 02/11/13 Isosorbide Mononitrate [Imdur] 30 mg PO DAILY 02/11/13 Nitroglycerin (INPATIENT USE) 0.4 mg SUBLINGUAL Q5M PRN 02/11/13 [Nitrostat] Gabapentin 600 mg PO BID 12/20/13 Sertraline HCl [Zoloft] 100 mg PO DAILY 03/06/14 Ipratropium/Albuterol Sulfate 3 ml INHALATION BID 12/20/15 [Duoneb] Lisinopril [Zestril] 5 mg PO DAILY 12/28/16 Methadone HCl 10 mg PO Q8H 12/28/16 Ondansetron HCl [Zofran] 4 mg PO BID 12/28/16 Acetaminophen [Tylenol] 650 mg PO Q4H PRN PRN 05/17/17 Oxycodone [Oxyir] 5 mg PO BID 05/17/17 fludrocortisone 0.1 mg tablet 0.1 mg PO QDAY 10/26/17 ipratropium-albuterol 0.5 mg-3 3 ml INHALATION Q6H PRN 10/26/17 mg(2.5 mg base)/3 mL nebulization soln morphine 30 mg immediate release 30 mg PO BID tab 10/26/17 tablet tizanidine 2 mg tablet 2 mg PO TID 10/26/17 Fluticasone 0.05% [Flonase Nasal 1 spray NASAL DAILY 03/14/18 [place]] Magnesium Hydroxide [Milk Of 30 ml PO DAILY PRN PRN 03/14/18 Magnesia] Pravastatin [Pravachol] 80 mg PO DAILY 03/14/18 Spironolactone [Aldactone] 25 mg PO BID 03/14/18 metformin 500 mg tablet 1,000 mg PO BID tab 04/23/18 tamsulosin 0.4 mg capsule 0.4 mg PO BID cap 04/23/18 Ergocalciferol [Vitamin D] 50,000 unit PO Q7D 07/09/18 Famotidine [Pepcid] 20 mg PO QHS 11/26/18 Ferrous Sulfate 325 mg PO DAILY 11/26/18 Finasteride 5 mg PO DAILY 11/26/18 Guaifenesin [Mucinex] 600 mg PO BID 11/26/18 Ipratropium/Albuterol Sulfate 3 ml INHALATION BID PRN PRN 11/26/18 [Duoneb] Nystatin [Nyamyc] 30 gm TP QHS 11/26/18 Acetaminophen [Tylenol Tablet] 650 mg PO Q6H PRN PRN tab 11/29/18 Allopurinol [Zyloprim] 100 mg PO DAILY tab 11/29/18 Aspirin [Aspirin, Baby] 81 mg PO DAILY@0800 tab.chew 11/29/18 Bumetanide [Bumex] 2 mg PO DAILY tab 11/29/18 Calcium Carbonate/Vitamin D3 1 ea PO BID 03/27/19 [Calcium 600 + Vit D Caplet] DiphenhydrAMINE [Benadryl] 50 mg PO QHS PRN 03/27/19 Fluticasone/Vilanterol [Breo 1 ea IH DAILY 03/27/19 Ellipta Inhaler] Guaifenesin [Cough Syrup] 10 ml PO Q6H PRN PRN 03/27/19 Guaifenesin [Robitussin] 20 ml PO Q4H PRN PRN 03/27/19 Lorazepam [Ativan] 1 mg PO QHS 03/27/19 Menthol [Biofreeze] 1 applic TP DAILY 03/27/19 Mupirocin Calcium [Bactroban Cream] 1 applic TOPICAL BID 03/27/19 Nystatin Powder [Mycostatin Powder] 1 applic TOPICAL QHS 03/27/19 Oxymetazoline HCl [Nasal [place]] 30 ml NS 4X/DAY PRN 03/27/19 Phenazopyridine HCl [Pyridium] 200 mg PO TID 03/27/19 Prednisone 20 mg PO DAILY 03/27/19 Senna [Senokot] 1 tab PO BID 03/27/19 Surgical History: Surgical History (Last Reviewed 07/09/18 @ 23:48 by Mick Choi MD) Presence of stent in coronary artery (Chronic) Z95.5 PTCA/BSM of Mid CX and PTCA of OM2 08/31/06; PTCA/PELON of the mid RCA 08/06/10; Thrombectomy and angioplasty of the pre existing stent of the mid LCX 02/18/13 Postsurgical percutaneous transluminal coronary angioplasty (PTCA) status Z98.61 PTCA/BSM of Mid CX and PTCA of OM2 08/31/06; PTCA/PELON of the mid RCA 08/06/10; Thrombectomy and angioplasty of the pre existing stent of the mid LCX 02/18/13 History of inguinal hernia repair Z98.890, Z87.19 History of tonsillectomy Z90.89 Surgical History: - - Thyroidectomy, Septoplasty, Cardiac PCI x 4 2007, R Inguinal hernia repair 2012, T+A. Psychiatric History: Anxiety, Depression Lives: Residential Smoking Status: Former smoker Tobacco Use: Non-smoker Alcohol: None Drugs: None - *Family History Sibling Family History: Family History (Last Reviewed 07/09/18 @ 23:48 by Mick Choi MD) Father Myocardial infarction, Onset Age: 39 Brother Hypertension Uncle CAD (coronary artery disease) Uncle Myocardial infarction History Items: Hypertension Maternal Family History: Family History (Last Reviewed 07/09/18 @ 23:48 by Mick Choi MD) Father Myocardial infarction, Onset Age: 39 Brother Hypertension Uncle CAD (coronary artery disease) Uncle Myocardial infarction History Items: Cancer - skin CA Paternal Family History: Family History (Last Reviewed 07/09/18 @ 23:48 by Mick Choi MD) Father Myocardial infarction, Onset Age: 39 Brother Hypertension Uncle CAD (coronary artery disease) Uncle Myocardial infarction History Items: Heart Disease Review of Systems Unable to obtain accurate/complete ROS d/t: Poor historian Patient Problems: Active and Suspected Problems (Last Reviewed 07/09/18 @ 23:48 by Mick Choi MD) Cystitis (Acute) Sepsis (Acute) Objective: Chest x-ray was personally reviewed and did show some cardiomegaly with mild cephalization. No effusions appreciated. - Physical Exam Vitals/I&O's: Vital Signs Temp Pulse Resp BP Pulse Ox 37.2 C 76 15 78/48 L 95 03/27/19 12:05 03/27/19 12:05 03/27/19 12:05 03/27/19 12:05 03/27/19 12:05 Oxygen Flow Rate (L/min) 4 Oxygen Delivery Method Nasal Cannula Weight: 154 kg Body Mass Index (BMI) 47.3 Finger Stick Blood Glucose 159 Intake and Output for Last 24 Hours 03/25/19 03/26/19 03/27/19 23:59 23:59 23:59 Intake Total 657.25 / 657.25 Balance 657.25 / 657.25 General: Alert, Cooperative, No apparent distress, Confused, Disoriented, - - No conversational dyspnea. Nasal cannula in place. Morbidly obese. HEENT: Atraumatic, PERRLA, EOMI, Normocephalic, - - No scleral icterus or injection noted. Oral: Moist Mucosa, No Gingival or Mucosal Lesions/ Ulcerations Neck: Supple, No JVD, No Nodes, Trachea Midline Lungs: No rhonchi, No wheeze, No rales, Diminished, - - Symmetric expansion. Cardiovascular: Regular rate, Regular Rhythm, Normal S1, Normal S2, No murmurs, No rub noted, No Gallop, - - Distant heart sounds secondary to body habitus Abdomen: Bowel Sounds Present, Soft, Non Tender, Non-Distended, Obese Extremities: No clubbing, No cyanosis, Capillary Refill Less than 3 Seconds, Edema - 2+ lower extremities Skin: No rashes, No breakdown Musculoskeletal: No Tenderness to Palpation of Joints or Extremities Lymphatic: No Cervical, Supraclavicular, or Inguinal Adenopathy Neurological: Cranial nerves II-XII grossly intact, Neuro grossly intact, Motor Exam 5/5 strength throughout Psych/Mental Status: Flat Affect Laboratory Results 03/27/19 09:00: WBC 13.8 H, RBC 3.64 L, Hgb 10.1 L, Hct 31.6 L, MCV 86.8, MCH 27.7, MCHC 32.0, RDW Std Deviation 47.6 H, RDW Coeff of [place] 15.0 H, Plt Count 180, MPV 8.7, Immature Gran % (Auto) 0.600, Neut % (Auto) 89.0 H, Lymph % (Auto) 6.3 L, [place] % (Auto) 3.3, Eos % (Auto) 0.4, Baso % (Auto) 0.4, Absolute Neuts (auto) 12.3 H, Absolute Lymphs (auto) 0.87, Nucleated RBC % 0 03/27/19 09:00: PT 13.9, INR 1.1, APTT 36.7 H 03/27/19 09:00: Sodium 128 L, Potassium 5.3 H, Chloride 91 L, Carbon Dioxide 31.0, Anion Gap 6, BUN 38 H, Creatinine 3.14 H, Estim Creat Clear Calc 26.98, Est GFR (MDRD) Af Amer 26 L, Est GFR (MDRD) Non-Af 22 L, BUN/Creatinine Ratio 12.1, Glucose 101, Calcium 9.8, Total Bilirubin 0.60, AST 27, ALT 37, Alkaline Phosphatase 125 H, Total Protein 6.9, Albumin 2.7 L, Globulin 4.2, Albumin/Globulin Ratio 0.6 L 03/27/19 09:00: Lactic Acid 1.5 03/27/19 09:00: B-Natriuretic Peptide 44.5 03/27/19 11:10: Urine Color Yellow, Urine Clarity Sl. Cloudy, Urine pH 5.0, Ur Specific [place] 1.020, Urine Protein 30 H, Urine Glucose (UA) Normal, Urine Ketones 5 H, Urine Occult Blood 250 H, Urine Nitrite Negative, Urine Bilirubin 3 H, Urine Urobilinogen Normal, Ur Leukocyte Esterase 500 H, Urine RBC 25-50 SEEN, Urine WBC 25-50 SEEN, Ur Squamous Epith Cells 0-5 SEEN, Urine Bacteria 2+, Urine Mucus 0 SEEN 03/27/19 14:30: Troponin I Pending Clinical Impression(s) from Imaging Studies Chest X-Ray 03/27/19 08:35 IMPRESSION: Vascular congestion in keeping with a mild degree of CHF. Cardiomegaly. Electronically Signed: Howie Dong, at 9:37 EST , Service support , Current Medications Acetaminophen (Tylenol) 650 mg PO Q6H PRN PRN PRN Reason: Pain Score 1-3/Temp > 100.7 F Al Hydroxide/Mg Hydroxide (Mylanta Ii) 30 ml PO Q6H PRN PRN PRN Reason: Gastric Burning Albuterol Sulfate (Ventolin Aerosols) 2.5 mg INHALATION Q2H PRN PRN PRN Reason: SOB/Wheezing Albuterol/Ipratropium (Duoneb) 3 ml INHALATION Q4H PRN PRN Reason: SOB &/OR WHEEZING Allopurinol (Zyloprim) 100 mg PO DAILYCM [facility] Aspirin (Aspirin, Baby) 81 mg PO DAILY@0800 [facility] Clopidogrel Bisulfate (Plavix) 75 mg PO DAILY [facility] Ergocalciferol (Vitamin D) 50,000 unit PO Q7D [facility] Famotidine (Pepcid) 20 mg PO QHS [facility] Ferrous Sulfate (Ferrous Sulfate) 325 mg PO DAILYCM [facility] Finasteride (Proscar) 5 mg PO DAILY [facility] Fluticasone Propionate (Flonase Nasal [place]) 1 spray NASAL DAILY [facility] Heparin Sodium (Porcine) (Heparin Na) 5,000 unit SC Q8 [facility] Hydrocortisone Sodium Succinate (Solu-Cortef) 100 mg IV Q8 [facility] Sodium Chloride () 1,000 mls @ 150 mls/hr IV .Q6H40M [facility] Last Admin: 03/27/19 11:43 Dose: 150 mls/hr Documented by: Ceftriaxone Sodium (Rocephin) 1 gm in 50 mls @ 100 mls/hr IV Q24 [facility] Sodium Chloride () 250 mls @ 15 mls/hr IV .[id number] PRN PRN Reason: Saline Flush Lorazepam (Ativan) 0.5 mg PO QHS [facility] Magnesium Hydroxide (Milk Of Magnesia) 30 ml PO DAILY PRN PRN PRN Reason: Constipation Nitroglycerin (Nitrostat) 0.4 mg SUBLINGUAL Q5M PRN PRN Reason: Chest Pain Non-Formulary Medication (Calcium Carbonate/Vitamin D3 [Calcium 600-Vit D3 400 Caplet]) 1 ea PO BID [facility] Non-Formulary Medication (Fluticasone/Vilanterol) 1 ea IH DAILY [facility] Non-Formulary Medication (Methadone Hcl) 5 mg PO Q8H [facility] Nystatin (Mycostatin Powder) 1 applic TOPICAL QHS [facility]; Protocol Ondansetron HCl (Zofran) 4 mg IV Q8H PRN PRN PRN Reason: NAUSEA/VOMITING Pravastatin Sodium (Pravachol) 80 mg PO DAILY [facility] Senna (Senokot) tablet PO BID [facility] Sodium Chloride () 10 - 40 ml IV UD PRN PRN Reason: SALINE FLUSH Assessment/Plan Active and Suspected Problems (Last Reviewed 07/09/18 @ 23:48 by Mick Choi MD) Cystitis (Acute) Sepsis (Acute) RECOMMENDATIONS: 1. Continue empiric antibiotics 2. Fluid boluses as indicated 3. Obtain renal ultrasound 4. Wean oxygen as tolerated 5. Sliding scale insulin 6. Possible BiPAP overnight IMPRESSIONS: 1. Severe sepsis secondary to UTI secondary to chronic Goetz Patient reportedly has not been on antibiotics in the recent past. Patient has had multiple cultures that are positive with sensitivities to ceftriaxone. This is a reasonable option for now. Continue to monitor. Patient reportedly was having a nondraining Goetz, so postobstructive process may be contributing to overall condition. Goetz has been changed. Patient may benefit from urology evaluation as an in versus outpatient pending results of renal ultrasound. Fluid challenges as appropriate. 2. Acute metabolic encephalopathy secondary to UTI Patient reportedly does have a history of becoming confused with acute infection. Patient is not able to provide much history at this time. We will continue to address electrolytes. Nursing delirium protocol. 3. Acute on chronic kidney disease stage III/hyperkalemia Baseline creatinine appears to be approximately 1.1. Patient's presenting creatinine is 3.14. Clinical suspicion for both prerenal and postrenal etiologies. Patient is given fluid challenges with some response. Patient is also had his Goetz changed and reportedly was blocked. Will obtain a renal ultrasound for evaluation of possible renal stone versus hydronephrosis. Cannot rule out the patient requiring nephrostomy tubes. Patient may benefit from evaluation by urology as an end versus outpatient pending the results of the renal ultrasound. Will attempt to hold off on treating hyperkalemia. Patient does not have any significant EKG changes at this time. 4. Hypertension/super morbid obesity/chronic opiate dependence/poor history/shelter resident/chronic diastolic CHF Complicates care, management, recovery and prognosis. Okay to continue with baseline opiate therapy. May need BiPAP rescue with sleep, but will have to monitor pulse ox continuously. Patient will be at risk for development of congestive heart failure. TIME: 32 minutes critical care time spent addressing patient's hypotension secondary to severe sepsis, metabolic encephalopathy, acute kidney injury, review of all data and collaboration with care team. (1:30 PM to 2:50 PM) Code Visit 9xxxx: [id number] Critical care first hour
[2019-03-27] MEDS: Heparin Injection (Vial) 5,000 UNIT/ML VIAL 5000 UNIT SC ×2 (15:34→21:23)
[2019-03-27] MEDS: 0.9% Normal Saline 1,000 ML 999 ML IV (15:34)
[2019-03-27] MEDS: Hydrocortisone Sod Succinate 100 MG/2 ML Vial IV ×2 (15:35→21:25)
[2019-03-27 18:21] LABS: Urine Sodium 71 mmol/L (Not Establ.)
[2019-03-27] MEDS: Albuterol 2.5 MG/3 ML VIAL.NEB. INHALATION (19:36)
[2019-03-27] MEDS: Nystatin Powder 15gm Bottle 1 APPLIC TOPICAL (21:23)
[2019-03-27] MEDS: Pravastatin 80 MG Tablet PO (21:24)
[2019-03-27] MEDS: Senna Tablet 1 TABLET PO (21:24)
[2019-03-27] MEDS: Famotidine 20 MG Tablet PO (21:25)
[2019-03-27] MEDS: LORazepam 0.5 MG Tablet PO (21:28)
[2019-03-27] MEDS: 0.9% Saline Lock 10 ML Syringe IV (21:29)
[2019-03-28] VITALS (18 sets, daily range): BP systolic 90–126; BP diastolic 34–60; PULSE 64–79; RESP 12–20; TEMP 36.2–36.7; O2SAT 94–96
[2019-03-28 04:21] LABS: Absolute Lymphocyte Count 0.33 X10^3/uL (0.83-4.51); Absolute Neutrophil Count 8.7 X10^3/uL (2.0-7.7); Basophil# 0.02 X10^3/uL; Basophil% 0.2 % (0-1); Hemoglobin 10.9 g/dL (13.0-16.5); Lymphocyte # 0.33 X10^3/ul (4.0); Lymphocyte % 3.5 % (19-41); Mean Corp Hgb Conc 32.1 g/dL (32-36); Mean Corpuscular Hgb 27.4 pg (27.0-32.0); Mean Corpuscular Volume 85.4 fL (80-94); Mean Platelet Vol. 8.3 fl (6.2-12.0); Monocyte# 0.17 X10^3/uL; Monocyte% 1.8 % (0-10); NRBC Flagged by Analyzer 0 % (0-5); Neutrophil # 8.72 X10^3/uL (2.7-7.7); Neutrophil % 93.5 % (47-70); POSITIVE DIFFERENTIAL YES; Platelet Count 171 K/mm3 (150-450); RBC Distribution Width CV 14.5 % (11.6-14.6); RBC Distribution Width SD 44.8 fl (35.1-43.9); Red Blood Count 3.98 M/mm3 (4.6-6.2); White Blood Count 9.3 K/mm3 (4.4-11.0)
[2019-03-28 04:24] LABS: Differential Indicated SCAN CRITERIA MET
[2019-03-28 04:36] LABS: ALB/GLOB Ratio 0.6 RATIO (0.9-2.4); AST(SGOT) 36 U/L (15-37); Alanine Aminotransfer ALT/SGPT 38 U/L (16-61); Albumin, Serum 2.6 g/dL (3.2-5.0); Alkaline Phosphatase 131 U/L (45-117); Anion Gap 6 (5-15); BUN 32 mg/dL (7-18); BUN/Creat Ratio 17.7 RATIO (10-20); Calcium,Total 9.1 mg/dL (8.5-10.1); Chloride 99 mmol/L (98-107); Creatinine, Serum 1.81 mg/dL (0.70-1.30); EST Glomerular Filtration Rate 41 mL/min (>60); Est Glom Filt Rate - Afr Amer 50 mL/min (>60); Globulin 4.7 g/dL (2.2-4.2); Glucose 129 mg/dL (74-106); Potassium 4.8 mmol/L (3.5-5.1); Protein, Total 7.3 g/dL (6.4-8.2); Sodium Level 136 mmol/L (136-145)
[2019-03-28] MEDS: Hydrocortisone Sod Succinate 100 MG/2 ML Vial IV ×3 (05:53→21:05)
[2019-03-28] MEDS: 0.9% Saline Lock 10 ML Syringe IV ×3 (05:53→21:11)
[2019-03-28] MEDS: Heparin Injection (Vial) 5,000 UNIT/ML VIAL 5000 UNIT SC ×3 (05:53→21:05)
[2019-03-28] MEDS: Albuterol 2.5 MG/3 ML VIAL.NEB. INHALATION ×3 (06:51→18:40)
--- NOTE | 2019-03-28 07:04 | PCM.PN.INT ---
Subjective: Patient did well overnight. Patient did receive 1 fluid bolus secondary to hypotension, but change in Goetz has led to significant urine output. Patient reports no significant chest pain, abdominal pain or shortness of breath. General: Alert, Cooperative, No apparent distress, - - Morbidly obese. Speaking in full sentences. HEENT: Atraumatic, PERRLA, EOMI, Normocephalic, - - No scleral icterus or injection noted Oral: Moist Mucosa, No Gingival or Mucosal Lesions/ Ulcerations Neck: Supple, No JVD, No Nodes, Trachea Midline Lungs: No rhonchi, No wheeze, No rales, Diminished Cardiovascular: Regular rate, Regular Rhythm, Normal S1, Normal S2, No murmurs, No rub noted, No Gallop Abdomen: Bowel Sounds Present, Soft, Non Tender, Non-Distended, Obese Extremities: No clubbing, No cyanosis, Capillary Refill Less than 3 Seconds, Edema - 2+ lower extremities Skin: No rashes, No breakdown Musculoskeletal: No Tenderness to Palpation of Joints or Extremities Lymphatic: No Cervical, Supraclavicular, or Inguinal Adenopathy Neurological: Cranial nerves II-XII grossly intact, Neuro grossly intact, Motor Exam 5/5 strength throughout Psych/Mental Status: Normal Affect, Appropriate Vital Signs Temp Pulse Resp BP Pulse Ox 36.3 C L 66 17 126/55 H 94 03/28/19 04:00 03/28/19 06:00 03/28/19 06:00 03/28/19 06:00 03/28/19 06:00 Oxygen Flow Rate (L/min) 4 Oxygen Delivery Method Nasal Cannula Weight: 148.8 kg Body Mass Index (BMI) 47.3 Finger Stick Blood Glucose 159 Intake and Output for Last 24 Hours 03/26/19 03/27/19 03/28/19 23:59 23:59 23:59 Intake Total 3947.25 / 3947.25 350 / 350 Output Total 4100 / 4100 2800 / 2800 Balance -152.75 / -152.75 -2450 / -2450 Labs (Last 48 Hours) 03/27/19 03/27/19 03/27/19 09:00 09:00 09:00 WBC 13.8 H RBC 3.64 L Hgb 10.1 L Hct 31.6 L MCV 86.8 MCH 27.7 MCHC 32.0 RDW Std Deviation 47.6 H RDW Coeff of [place] 15.0 H Plt Count 180 MPV 8.7 Immature Gran % (Auto) 0.600 Neut % (Auto) 89.0 H Lymph % (Auto) 6.3 L [place] % (Auto) 3.3 Eos % (Auto) 0.4 Baso % (Auto) 0.4 Absolute Neuts (auto) 12.3 H Absolute Lymphs (auto) 0.87 Nucleated RBC % 0 PT 13.9 INR 1.1 APTT 36.7 H Sodium 128 L Potassium 5.3 H Chloride 91 L Carbon Dioxide 31.0 Anion Gap 6 BUN 38 H Creatinine 3.14 H Estim Creat Clear Calc 26.98 Est GFR (MDRD) Af Amer 26 L Est GFR (MDRD) Non-Af 22 L BUN/Creatinine Ratio 12.1 Glucose 101 Lactic Acid Calcium 9.8 Total Bilirubin 0.60 AST 27 ALT 37 Alkaline Phosphatase 125 H Troponin I B-Natriuretic Peptide Total Protein 6.9 Albumin 2.7 L Globulin 4.2 Albumin/Globulin Ratio 0.6 L Urine Color Urine Clarity Urine pH Ur Specific [place] Urine Protein Urine Glucose (UA) Urine Ketones Urine Occult Blood Urine Nitrite Urine Bilirubin Urine Urobilinogen Ur Leukocyte Esterase Urine RBC Urine WBC Ur Squamous Epith Cells Urine Bacteria Urine Mucus Ur Random Sodium Urine Creatinine 03/27/19 03/27/19 03/27/19 09:00 09:00 11:10 WBC RBC Hgb Hct MCV MCH MCHC RDW Std Deviation RDW Coeff of [place] Plt Count MPV Immature Gran % (Auto) Neut % (Auto) Lymph % (Auto) [place] % (Auto) Eos % (Auto) Baso % (Auto) Absolute Neuts (auto) Absolute Lymphs (auto) Nucleated RBC % PT INR APTT Sodium Potassium Chloride Carbon Dioxide Anion Gap BUN Creatinine Estim Creat Clear Calc Est GFR (MDRD) Af Amer Est GFR (MDRD) Non-Af BUN/Creatinine Ratio Glucose Lactic Acid 1.5 Calcium Total Bilirubin AST ALT Alkaline Phosphatase Troponin I B-Natriuretic Peptide 44.5 Total Protein Albumin Globulin Albumin/Globulin Ratio Urine Color Yellow Urine Clarity Sl. Cloudy Urine pH 5.0 Ur Specific [place] 1.020 Urine Protein 30 H Urine Glucose (UA) Normal Urine Ketones 5 H Urine Occult Blood 250 H Urine Nitrite Negative Urine Bilirubin 3 H Urine Urobilinogen Normal Ur Leukocyte Esterase 500 H Urine RBC 25-50 SEEN Urine WBC 25-50 SEEN Ur Squamous Epith Cells 0-5 SEEN Urine Bacteria 2+ Urine Mucus 0 SEEN Ur Random Sodium Urine Creatinine 03/27/19 03/27/19 03/27/19 14:30 17:40 17:40 WBC RBC Hgb Hct MCV MCH MCHC RDW Std Deviation RDW Coeff of [place] Plt Count MPV Immature Gran % (Auto) Neut % (Auto) Lymph % (Auto) [place] % (Auto) Eos % (Auto) Baso % (Auto) Absolute Neuts (auto) Absolute Lymphs (auto) Nucleated RBC % PT INR APTT Sodium Potassium Chloride Carbon Dioxide Anion Gap BUN Creatinine Estim Creat Clear Calc Est GFR (MDRD) Af Amer Est GFR (MDRD) Non-Af BUN/Creatinine Ratio Glucose Lactic Acid Calcium Total Bilirubin AST ALT Alkaline Phosphatase Troponin I < 0.015 < 0.015 B-Natriuretic Peptide Total Protein Albumin Globulin Albumin/Globulin Ratio Urine Color Urine Clarity Urine pH Ur Specific [place] Urine Protein Urine Glucose (UA) Urine Ketones Urine Occult Blood Urine Nitrite Urine Bilirubin Urine Urobilinogen Ur Leukocyte Esterase Urine RBC Urine WBC Ur Squamous Epith Cells Urine Bacteria Urine Mucus Ur Random Sodium Urine Creatinine 19.90 03/27/19 03/27/19 03/28/19 17:40 20:00 04:10 WBC 9.3 RBC 3.98 L Hgb 10.9 L Hct 34.0 L MCV 85.4 MCH 27.4 MCHC 32.1 RDW Std Deviation 44.8 H RDW Coeff of [place] 14.5 Plt Count 171 MPV 8.3 Immature Gran % (Auto) 1.000 H Neut % (Auto) 93.5 H Lymph % (Auto) 3.5 L [place] % (Auto) 1.8 Eos % (Auto) 0.0 Baso % (Auto) 0.2 Absolute Neuts (auto) 8.7 H Absolute Lymphs (auto) 0.33 L Nucleated RBC % 0 PT INR APTT Sodium Potassium Chloride Carbon Dioxide Anion Gap BUN Creatinine Estim Creat Clear Calc Est GFR (MDRD) Af Amer Est GFR (MDRD) Non-Af BUN/Creatinine Ratio Glucose Lactic Acid Calcium Total Bilirubin AST ALT Alkaline Phosphatase Troponin I < 0.015 B-Natriuretic Peptide Total Protein Albumin Globulin Albumin/Globulin Ratio Urine Color Urine Clarity Urine pH Ur Specific [place] Urine Protein Urine Glucose (UA) Urine Ketones Urine Occult Blood Urine Nitrite Urine Bilirubin Urine Urobilinogen Ur Leukocyte Esterase Urine RBC Urine WBC Ur Squamous Epith Cells Urine Bacteria Urine Mucus Ur Random Sodium 71 Urine Creatinine 03/28/19 04:10 WBC RBC Hgb Hct MCV MCH MCHC RDW Std Deviation RDW Coeff of [place] Plt Count MPV Immature Gran % (Auto) Neut % (Auto) Lymph % (Auto) [place] % (Auto) Eos % (Auto) Baso % (Auto) Absolute Neuts (auto) Absolute Lymphs (auto) Nucleated RBC % PT INR APTT Sodium 136 Potassium 4.8 Chloride 99 Carbon Dioxide 31.0 Anion Gap 6 BUN 32 H Creatinine 1.81 H Estim Creat Clear Calc 46.80 Est GFR (MDRD) Af Amer 50 L Est GFR (MDRD) Non-Af 41 L BUN/Creatinine Ratio 17.7 Glucose 129 H Lactic Acid Calcium 9.1 Total Bilirubin 0.40 AST 36 ALT 38 Alkaline Phosphatase 131 H Troponin I B-Natriuretic Peptide Total Protein 7.3 Albumin 2.6 L Globulin 4.7 H Albumin/Globulin Ratio 0.6 L Urine Color Urine Clarity Urine pH Ur Specific [place] Urine Protein Urine Glucose (UA) Urine Ketones Urine Occult Blood Urine Nitrite Urine Bilirubin Urine Urobilinogen Ur Leukocyte Esterase Urine RBC Urine WBC Ur Squamous Epith Cells Urine Bacteria Urine Mucus Ur Random Sodium Urine Creatinine Clinical Impression(s) from Imaging Studies Chest X-Ray 03/27/19 08:35 IMPRESSION: Vascular congestion in keeping with a mild degree of CHF. Cardiomegaly. Electronically Signed: Howie Dong at 9:37 EST , Service support , Renal Ultrasound 03/27/19 14:34 IMPRESSION: Nonspecific renal parenchymal disease. No evidence for hydronephrosis Incidental finding of nonspecific splenomegaly Electronically Signed: Pete Bran MD at 17:58 EST , Service support , Medical Necessity - Tobacco Use Smoking Status: Former smoker Tobacco Use: Non-smoker Assessment/Plan All Active Problems (Last Reviewed 07/09/18 @ 23:48 by Mick Choi MD) Acute and chronic respiratory failure with hypoxia (Acute) COPD with acute exacerbation (Acute) Lactic acidosis (Acute) Hypotension arterial (Acute) Acute kidney injury (Acute) Respiratory failure with hypoxia and hypercapnia (Acute) Acute encephalopathy (Acute) Heart failure (Acute) Severe sepsis (Acute) Complicated UTI (urinary tract infection) (Acute) Hypokalemia (Acute) Hyponatremia (Acute) Cystitis (Acute) Sepsis (Acute) Acute ID, inferior wall (Acute) Acute inferolateral myocardial infarction (Acute) Tobacco use disorder (Resolved) RECOMMENDATIONS: 1. Continue empiric antibiotics 2. Wean oxygen as tolerated 3. Continue sliding scale insulin 4. Likely okay to reinitiate baseline medications 5. Okay to leave the intensive care unit from my perspective 6. Possible BiPAP overnight IMPRESSIONS: 1. Severe sepsis secondary to UTI secondary to chronic Goetz Patient reportedly has not been on antibiotics in the recent past. Patient has had multiple cultures that are positive with sensitivities to ceftriaxone. This is a reasonable option for now. Continue to monitor. Patient appears to be in a polyuric phase of ATN. Continue to monitor closely. Patient may benefit from a urology evaluation as an outpatient. 2. Acute metabolic encephalopathy secondary to UTI Appears to be somewhat improved. Patient is still not a great historian, but answers appropriately. 3. Acute on chronic kidney disease stage III/hyperkalemia Baseline creatinine appears to be approximately 1.1. Patient's presenting creatinine is 3.14. Clinical suspicion for both prerenal and postrenal etiologies. Patient is given fluid challenges with some response. Patient is also had his Goetz changed and reportedly was blocked. Renal ultrasound shows no hydronephrosis or stones. Patient appears to be in a polyuric phase of ATN. Patient may benefit from evaluation by urology as an outpatient given the results of the renal ultrasound. 4. Hypertension/super morbid obesity/chronic opiate dependence/poor history/detention resident/chronic diastolic CHF Complicates care, management, recovery and prognosis. Okay to continue with baseline opiate therapy. May need BiPAP rescue with sleep, but will have to monitor pulse ox continuously. Patient will be at risk for development of congestive heart failure. Patient is on his chronic supplemental oxygen requirements Code Visit Inpatient E&M: 81285 [facility] Hosp L3
--- NOTE | 2019-03-28 07:31 | PN_ITS ---
Patient Problems: Active and Suspected Problems (Last Reviewed 07/09/18 @ 23:48 by Mick Choi MD) Cystitis (Acute) Sepsis (Acute) Subjective: Follow-up on hypertension, severe sepsis Patient was seen and examined. He is alert oriented x3. No acute events overnight. Manual blood pressure was lower than the electronic questions. Overall he appears improved. Copious urine output overnight. Denied any fever, chills or abdominal discomfort. Objective: Physical exam: General: Alert, Cooperative, No apparent distress, - - super morbidly obese, on 3L oxygen HEENT: Atraumatic, PERRLA, EOMI, Normocephalic Oral: Moist Mucosa Neck: Supple Lungs: Clear to auscultation, Normal air movement Cardiovascular: Regular rate, Regular Rhythm, Normal S1, Normal S2, No murmurs Abdomen: Bowel Sounds Present, Soft, Non Tender, Non-Distended, No Hepato- splenomegaly Extremities: Edema - bilateral +1 Skin: No rashes Musculoskeletal: No Tenderness to Palpation of Joints or Extremities Lymphatic: No Cervical, Supraclavicular, or Inguinal Adenopathy Neurological: Cranial nerves II-XII grossly intact, Neuro grossly intact Psych/Mental Status: Normal Affect, Appropriate Vitals/I&O's: Vital Signs Temp Pulse Resp BP Pulse Ox 97.4 F L 66 17 126/55 H 94 03/28/19 04:00 03/28/19 06:00 03/28/19 06:00 03/28/19 06:00 03/28/19 06:00 Oxygen Flow Rate (L/min) 4 Oxygen Delivery Method Nasal Cannula Weight: 148.8 kg Body Mass Index (BMI) 47.3 Finger Stick Blood Glucose 159 Intake and Output for Last 24 Hours 03/26/19 03/27/19 03/28/19 23:59 23:59 23:59 Intake Total 3947.25 / 3947.25 350 / 350 Output Total 4100 / 4100 2800 / 2800 Balance -152.75 / -152.75 -2450 / -2450 Laboratory Results 03/27/19 09:00: WBC 13.8 H, RBC 3.64 L, Hgb 10.1 L, Hct 31.6 L, MCV 86.8, MCH 27.7, MCHC 32.0, RDW Std Deviation 47.6 H, RDW Coeff of [place] 15.0 H, Plt Count 180, MPV 8.7, Immature Gran % (Auto) 0.600, Neut % (Auto) 89.0 H, Lymph % (Auto) 6.3 L, [place] % (Auto) 3.3, Eos % (Auto) 0.4, Baso % (Auto) 0.4, Absolute Neuts (auto) 12.3 H, Absolute Lymphs (auto) 0.87, Nucleated RBC % 0 03/27/19 09:00: PT 13.9, INR 1.1, APTT 36.7 H 03/27/19 09:00: Sodium 128 L, Potassium 5.3 H, Chloride 91 L, Carbon Dioxide 31.0, Anion Gap 6, BUN 38 H, Creatinine 3.14 H, Estim Creat Clear Calc 26.98, Est GFR (MDRD) Af Amer 26 L, Est GFR (MDRD) Non-Af 22 L, BUN/Creatinine Ratio 12.1, Glucose 101, Calcium 9.8, Total Bilirubin 0.60, AST 27, ALT 37, Alkaline Phosphatase 125 H, Total Protein 6.9, Albumin 2.7 L, Globulin 4.2, Albumin/Globulin Ratio 0.6 L 03/27/19 09:00: Lactic Acid 1.5 03/27/19 09:00: B-Natriuretic Peptide 44.5 03/27/19 11:10: Urine Color Yellow, Urine Clarity Sl. Cloudy, Urine pH 5.0, Ur Specific [place] 1.020, Urine Protein 30 H, Urine Glucose (UA) Normal, Urine Ketones 5 H, Urine Occult Blood 250 H, Urine Nitrite Negative, Urine Bilirubin 3 H, Urine Urobilinogen Normal, Ur Leukocyte Esterase 500 H, Urine RBC 25-50 SEEN, Urine WBC 25-50 SEEN, Ur Squamous Epith Cells 0-5 SEEN, Urine Bacteria 2+, Urine Mucus 0 SEEN 03/27/19 14:30: Troponin I < 0.015 03/27/19 17:40: Troponin I < 0.015 03/27/19 17:40: Urine Creatinine 19.90 03/27/19 17:40: Ur Random Sodium 71 03/27/19 20:00: Troponin I < 0.015 03/28/19 04:10: WBC 9.3, RBC 3.98 L, Hgb 10.9 L, Hct 34.0 L, MCV 85.4, MCH 27.4, MCHC 32.1, RDW Std Deviation 44.8 H, RDW Coeff of [place] 14.5, Plt Count 171, MPV 8.3, Immature Gran % (Auto) 1.000 H, Neut % (Auto) 93.5 H, Lymph % (Auto) 3.5 L, [place] % (Auto) 1.8, Eos % (Auto) 0.0, Baso % (Auto) 0.2, Absolute Neuts (auto) 8.7 H, Absolute Lymphs (auto) 0.33 L, Nucleated RBC % 0 03/28/19 04:10: Sodium 136, Potassium 4.8, Chloride 99, Carbon Dioxide 31.0, Anion Gap 6, BUN 32 H, Creatinine 1.81 H, Estim Creat Clear Calc 46.80, Est GFR (MDRD) Af Amer 50 L, Est GFR (MDRD) Non-Af 41 L, BUN/Creatinine Ratio 17.7, Glucose 129 H, Calcium 9.1, Total Bilirubin 0.40, AST 36, ALT 38, Alkaline Phosp hatase 131 H, Total Protein 7.3, Albumin 2.6 L, Globulin 4.7 H, Albumin/Globulin Ratio 0.6 L Current Medications Acetaminophen (Tylenol) 650 mg PO Q6H PRN PRN PRN Reason: Pain Score 1-3/Temp > 100.7 F Al Hydroxide/Mg Hydroxide (Mylanta Ii) 30 ml PO Q6H PRN PRN PRN Reason: Gastric Burning Albuterol Sulfate (Ventolin Aerosols) 2.5 mg INHALATION Q6HWA.RT [facility] Last Admin: 03/28/19 06:51 Dose: 2.5 mg Documented by: Albuterol/Ipratropium (Duoneb) 3 ml INHALATION Q4H PRN PRN Reason: SOB &/OR WHEEZING Allopurinol ([facility]oprim) [facility] Aspirin (Aspirin, Baby) 81 mg PO DAILY@0800 [facility] Calcium/Vitamin D (Os-Roberto 500mg + D) 1 tablet [facility] Last Admin: 03/27/19 16:36 Dose: Not Given Documented by: Clopidogrel Bisulfate (Plavix) 75 mg PO DAILY [facility] Ergocalciferol (Vitamin D) 50,000 unit PO Howell@1000 [facility] Famotidine (Pepcid) 20 mg PO QHS [facility] Last Admin: 03/27/19 21:25 Dose: 20 mg Documented by: Ferrous Sulfate (Ferrous Sulfate) 325 [facility] Finasteride (Proscar) 5 mg PO DAILY [facility] Fluticasone Propionate (Flonase Nasal Bazine) 1 spray NASAL DAILY [facility] Heparin Sodium (Porcine) (Heparin Na) 5,000 unit SC Q8 [facility] Last Admin: 03/28/19 05:53 Dose: 5,000 unit Documented by: Hydrocortisone Sodium Succinate (Solu-Cortef) 100 mg IV Q8 [facility] Last Admin: 03/28/19 05:53 Dose: 100 mg Documented by: Ceftriaxone Sodium (Rocephin) 1 gm in 50 mls @ 100 mls/hr IV Q24 [facility] Sodium Chloride () 250 mls @ 15 mls/hr IV .[id number] PRN PRN Reason: Saline Flush Lorazepam (Ativan) 0.5 mg PO QHS [facility] Last Admin: 03/27/19 21:28 Dose: 0.5 mg Documented by: Magnesium Hydroxide (Milk Of Magnesia) 30 ml PO DAILY PRN PRN PRN Reason: Constipation Methadone HCl () 5 mg PO Q8 [facility] Last Admin: 03/28/19 05:52 Dose: 5 mg Documented by: Nitroglycerin (Nitrostat) 0.4 mg SUBLINGUAL Q5M PRN PRN Reason: Chest Pain Nystatin (Mycostatin Powder) 1 applic TOPICAL QHS [facility]; Protocol Last Admin: 03/27/19 21:23 Dose: 1 applicatio Documented by: Ondansetron HCl (Zofran) 4 mg IV Q8H PRN PRN PRN Reason: NAUSEA/VOMITING Pravastatin Sodium (Pravachol) 80 mg PO QHS [facility] Last Admin: 03/27/19 21:24 Dose: 80 mg Documented by: Senna (Senokot) 1 tablet PO BID [facility] Last Admin: 03/27/19 21:24 Dose: 1 tablet Documented by: Sodium Chloride () 10 - 40 ml IV UD PRN PRN Reason: SALINE FLUSH Last Admin: 03/28/19 05:53 Dose: 30 ml Documented by: STROKE Vital Signs/Narrative: Vital Signs Temp Pulse Resp BP Pulse Ox 03/28/19 06:00 66 17 126/55 H 94 03/28/19 05:00 69 19 H 111/53 L 95 03/28/19 04:00 97.4 F L 71 15 113/48 L 96 Medical Necessity - Tobacco Use Smoking Status: Former smoker Tobacco Use: Non-smoker Assessment/Plan All Active Problems (Last Reviewed 07/09/18 @ 23:48 by Mick Choi MD) Acute and chronic respiratory failure with hypoxia (Acute) COPD with acute exacerbation (Acute) Lactic acidosis (Acute) Hypotension arterial (Acute) Acute kidney injury (Acute) Respiratory failure with hypoxia and hypercapnia (Acute) Acute encephalopathy (Acute) Heart failure (Acute) Severe sepsis (Acute) Complicated UTI (urinary tract infection) (Acute) Hypokalemia (Acute) Hyponatremia (Acute) Cystitis (Acute) Sepsis (Acute) Acute OR, inferior wall (Acute) Acute inferolateral myocardial infarction (Acute) Tobacco use disorder (Resolved) 58 year old M with multiple comorbidities, including hypertension, hyperlipidemia, anxiety/depression, type II DM, super morbid obesity, resident in a [facility], immobile who was acting confused yesterday had some associated cough and nausea. 1. Acute metabolic encephalopathy likely secondary to underlying UTI, resolved, Continue to monitor mentation 2. Hypotension likely secondary to dehydration/adrenal insufficiency Blood pressures are improved. Off IV fluids, continue IV hydrocortisone 3. Severe sepsis secondary to Acute complicated UTI, POA H/o serratia, blood and urine cultures are pending Will continue on IV ceftriaxone Repeat blood work in am 4.VARSHA on CKD stage 3, post-renal from obstructin of catheter, improving admitting creatinine is 3.14, baseline creatinine is around 1.1 Today today is 1.81, FeNa 8.8% The ultrasound is unremarkable. 2D echo shows EF of 65% no diastolic dysfunction 5. Hyperkalemia with acute kidney injury, resolved Blood work in a.m. 6. Hypertension, fairly controlled We will continue to monitor and may resume home meds if blood pressures improved 7. Chronic opioid dependence, on methadone, morphine and oxycodone Will continue to hold morphine, oxycodone on account of hypotension, Continue on methadone dose to 5 mg p.o. q. 8 I discussed with patient about tapering off some of his opioid; he sounded amendable to that. 8. Super morbid obesity, BMI 48.5, lifestyle modification recommended 9. DVT prophylaxis with heparin subcu 10. GI prophylaxis with famotidine 11. Code Status - Full code per [place] records Code Visit Inpatient E&M: 77281 Subs Hosp L2
[2019-03-28] MEDS: Senna Tablet 1 TABLET PO ×2 (08:35→21:05)
[2019-03-28] MEDS: Aspirin 81 MG TAB.CHEW PO (08:35)
[2019-03-28] MEDS: Clopidogrel Bisulfate 75 MG Tablet PO (08:35)
[2019-03-28] MEDS: Ferrous Sulfate 325 MG Tablet PO (08:35)
[2019-03-28] MEDS: Fluticasone 0.05% 1 SPRAY NASAL.SRY NASAL (08:36)
[2019-03-28] MEDS: Finasteride 5 MG Tablet PO (08:37)
[2019-03-28] MEDS: Allopurinol 100 MG Tablet PO (08:37)
[2019-03-28] MEDS: Calcium Carb/Vitamin D 1 TABLET Tablet PO ×2 (08:44→17:29)
[2019-03-28] MEDS: Ceftriaxone 1 GM/50 ML BAG IV (09:18)
--- NOTE | 2019-03-28 09:27 | CASEMGMT ---
Addendum entered by Georgia Navarro 03/28/19 13:28: Physician in agreement w/palliative referral when pt returns to [facility]. SW called [facility], spoke w/Viry and faxed referral for palliative care to follow up w/facility and pt's mother [facility]. LIANE Bonilla Addendum entered by Georgia Navarro 03/28/19 10:53: SW spoke w/pt and pt's mother about palliative care. Both agreeable to further information. SW explained will let physician know to put on discharge instructions when pt goes back to [facility]. Pt and pt's mother state understanding. SW will also call palliative care to give them initial information on pt. LIANE Bonilla Original Note: SW called [facility], message left w/telephone operator receptionist letting her know pt is not yet ready to return, will fax updates. She states that all of the admissions staff are in a training, will pass on the information. RAMSEY faxed updates, will continue to follow. 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 LIANE Bonilla
[2019-03-28] MEDS: Pravastatin 80 MG Tablet PO (21:05)
[2019-03-28] MEDS: Famotidine 20 MG Tablet PO (21:05)
[2019-03-28] MEDS: LORazepam 0.5 MG Tablet PO (21:10)
[2019-03-28] MEDS: Nystatin Powder 15gm Bottle 1 APPLIC TOPICAL (21:14)
[2019-03-29 02:19] VITALS: BP 138/60; PULSE 65; RESP 18; TEMP 36.5; O2SAT 97
[2019-03-29 03:07] VITALS: PULSE 64
[2019-03-29 04:32] LABS: Absolute Lymphocyte Count 0.94 X10^3/uL (0.83-4.51); Absolute Neutrophil Count 10.6 X10^3/uL (2.0-7.7); Basophil# 0.02 X10^3/uL; Basophil% 0.2 % (0-1); Hematocrit 39.2 % (40-54); Hemoglobin 12.2 g/dL (13.0-16.5); Lymphocyte # 0.94 X10^3/ul (4.0); Lymphocyte % 7.8 % (19-41); Mean Corp Hgb Conc 31.1 g/dL (32-36); Mean Corpuscular Hgb 27.2 pg (27.0-32.0); Mean Corpuscular Volume 87.5 fL (80-94); Mean Platelet Vol. 8.6 fl (6.2-12.0); Monocyte# 0.43 X10^3/uL; Monocyte% 3.6 % (0-10); NRBC Flagged by Analyzer 0 % (0-5); Neutrophil # 10.56 X10^3/uL (2.7-7.7); Neutrophil % 87.3 % (47-70); Platelet Count 232 K/mm3 (150-450); RBC Distribution Width CV 14.6 % (11.6-14.6); RBC Distribution Width SD 46.5 fl (35.1-43.9); Red Blood Count 4.48 M/mm3 (4.6-6.2); White Blood Count 12.1 K/mm3 (4.4-11.0)
[2019-03-29 04:44] LABS: Anion Gap 11 (5-15); BUN 24 mg/dL (7-18); Calcium,Total 9.7 mg/dL (8.5-10.1); Chloride 98 mmol/L (98-107); EST Glomerular Filtration Rate 51 mL/min (>60); Est Glom Filt Rate - Afr Amer 62 mL/min (>60); Estimated Creatinine Clearance 56.48 ml/min; Glucose 128 mg/dL (74-106); Potassium 4.3 mmol/L (3.5-5.1); Sodium Level 139 mmol/L (136-145)
[2019-03-29] MEDS: Hydrocortisone Sod Succinate 100 MG/2 ML Vial IV (05:07)
[2019-03-29] MEDS: 0.9% Saline Lock 10 ML Syringe IV (05:07)
[2019-03-29] MEDS: Heparin Injection (Vial) 5,000 UNIT/ML VIAL 5000 UNIT SC (05:07)
--- NOTE | 2019-03-29 06:17 | PCM.PN.INT ---
Subjective: The patient was seen and examined at the bedside this morning. Events from the last 24 hours have been reviewed. The patient is currently afebrile, hemodynamically stable and maintaining appropriate oxygen saturations on room air. The patient denies the presence of abdominal pain. Objective: The patient's most recent lab work, culture data and imaging studies have all been personally reviewed. Surface echocardiogram dated March 27, 2019 revealed normal LV size and thickness with an ejection fraction of 65%. Blood cultures are pending. Urine Gram stain was positive for a gram-negative ke. General: Alert, Cooperative, No apparent distress, - - Morbidly obese. HEENT: Atraumatic, PERRLA, Normocephalic Oral: No Gingival or Mucosal Lesions/ Ulcerations Neck: Supple, No Nodes, Trachea Midline Lungs: No rhonchi, No wheeze, No rales, Diminished Cardiovascular: Regular rate, Regular Rhythm, Normal S1, Normal S2, No murmurs Abdomen: Bowel Sounds Present, Soft, Non Tender, Obese Extremities: No clubbing, No cyanosis, Edema Skin: No breakdown Musculoskeletal: No Tenderness to Palpation of Joints or Extremities Lymphatic: No Cervical, Supraclavicular, or Inguinal Adenopathy Neurological: Cranial nerves II-XII grossly intact, Neuro grossly intact Psych/Mental Status: Normal Affect, Appropriate Vital Signs Temp Pulse Resp BP Pulse Ox 97.7 F L 64 18 138/60 H 97 03/29/19 02:19 03/29/19 03:07 03/29/19 02:19 03/29/19 02:19 03/29/19 02:19 Oxygen Flow Rate (L/min) 3 Oxygen Delivery Method Room Air Weight: 328 lb 14.875 oz Body Mass Index (BMI) 47.3 Finger Stick Blood Glucose 159 Intake and Output for Last 24 Hours 03/27/19 03/28/19 03/29/19 23:59 23:59 23:59 Intake Total 3947.25 / 3947.25 1360 / 1360 560 / 560 Output Total 4100 / 4100 4600 / 4600 1150 / 1150 Balance -152.75 / -152.75 -3240 / -3240 -590 / -590 Labs (Last 48 Hours) 03/27/19 03/27/19 03/27/19 09:00 09:00 09:00 WBC 13.8 H RBC 3.64 L Hgb 10.1 L Hct 31.6 L MCV 86.8 MCH 27.7 MCHC 32.0 RDW Std Deviation 47.6 H RDW Coeff of [place] 15.0 H Plt Count 180 MPV 8.7 Immature Gran % (Auto) 0.600 Neut % (Auto) 89.0 H Lymph % (Auto) 6.3 L Coleman % (Auto) 3.3 Eos % (Auto) 0.4 Baso % (Auto) 0.4 Absolute Neuts (auto) 12.3 H Absolute Lymphs (auto) 0.87 Nucleated RBC % 0 PT 13.9 INR 1.1 APTT 36.7 H Sodium 128 L Potassium 5.3 H Chloride 91 L Carbon Dioxide 31.0 Anion Gap 6 BUN 38 H Creatinine 3.14 H Estim Creat Clear Calc 26.98 Est GFR (MDRD) Af Amer 26 L Est GFR (MDRD) Non-Af 22 L BUN/Creatinine Ratio 12.1 Glucose 101 Lactic Acid Calcium 9.8 Total Bilirubin 0.60 AST 27 ALT 37 Alkaline Phosphatase 125 H Troponin I B-Natriuretic Peptide Total Protein 6.9 Albumin 2.7 L Globulin 4.2 Albumin/Globulin Ratio 0.6 L Urine Color Urine Clarity Urine pH Ur Specific [place] Urine Protein Urine Glucose (UA) Urine Ketones Urine Occult Blood Urine Nitrite Urine Bilirubin Urine Urobilinogen Ur Leukocyte Esterase Urine RBC Urine WBC Ur Squamous Epith Cells Urine Bacteria Urine Mucus Ur Random Sodium Urine Creatinine 03/27/19 03/27/19 03/27/19 09:00 09:00 11:10 WBC RBC Hgb Hct MCV MCH MCHC RDW Std Deviation RDW Coeff of [place] Plt Count MPV Immature Gran % (Auto) Neut % (Auto) Lymph % (Auto) Coleman % (Auto) Eos % (Auto) Baso % (Auto) Absolute Neuts (auto) Absolute Lymphs (auto) Nucleated RBC % PT INR APTT Sodium Potassium Chloride Carbon Dioxide Anion Gap BUN Creatinine Estim Creat Clear Calc Est GFR (MDRD) Af Amer Est GFR (MDRD) Non-Af BUN/Creatinine Ratio Glucose Lactic Acid 1.5 Calcium Total Bilirubin AST ALT Alkaline Phosphatase Troponin I B-Natriuretic Peptide 44.5 Total Protein Albumin Globulin Albumin/Globulin Ratio Urine Color Yellow Urine Clarity Sl. Cloudy Urine pH 5.0 Ur Specific [place] 1.020 Urine Protein 30 H Urine Glucose (UA) Normal Urine Ketones 5 H Urine Occult Blood 250 H Urine Nitrite Negative Urine Bilirubin 3 H Urine Urobilinogen Normal Ur Leukocyte Esterase 500 H Urine RBC 25-50 SEEN Urine WBC 25-50 SEEN Ur Squamous Epith Cells 0-5 SEEN Urine Bacteria 2+ Urine Mucus 0 SEEN Ur Random Sodium Urine Creatinine 03/27/19 03/27/19 03/27/19 14:30 17:40 17:40 WBC RBC Hgb Hct MCV MCH MCHC RDW Std Deviation RDW Coeff of [place] Plt Count MPV Immature Gran % (Auto) Neut % (Auto) Lymph % (Auto) Coleman % (Auto) Eos % (Auto) Baso % (Auto) Absolute Neuts (auto) Absolute Lymphs (auto) Nucleated RBC % PT INR APTT Sodium Potassium Chloride Carbon Dioxide Anion Gap BUN Creatinine Estim Creat Clear Calc Est GFR (MDRD) Af Amer Est GFR (MDRD) Non-Af BUN/Creatinine Ratio Glucose Lactic Acid Calcium Total Bilirubin AST ALT Alkaline Phosphatase Troponin I < 0.015 < 0.015 B-Natriuretic Peptide Total Protein Albumin Globulin Albumin/Globulin Ratio Urine Color Urine Clarity Urine pH Ur Specific [place] Urine Protein Urine Glucose (UA) Urine Ketones Urine Occult Blood Urine Nitrite Urine Bilirubin Urine Urobilinogen Ur Leukocyte Esterase Urine RBC Urine WBC Ur Squamous Epith Cells Urine Bacteria Urine Mucus Ur Random Sodium Urine Creatinine 19.90 03/27/19 03/27/19 03/28/19 17:40 20:00 04:10 WBC 9.3 RBC 3.98 L Hgb 10.9 L Hct 34.0 L MCV 85.4 MCH 27.4 MCHC 32.1 RDW Std Deviation 44.8 H RDW Coeff of [place] 14.5 Plt Count 171 MPV 8.3 Immature Gran % (Auto) 1.000 H Neut % (Auto) 93.5 H Lymph % (Auto) 3.5 L Coleman % (Auto) 1.8 Eos % (Auto) 0.0 Baso % (Auto) 0.2 Absolute Neuts (auto) 8.7 H Absolute Lymphs (auto) 0.33 L Nucleated RBC % 0 PT INR APTT Sodium Potassium Chloride Carbon Dioxide Anion Gap BUN Creatinine Estim Creat Clear Calc Est GFR (MDRD) Af Amer Est GFR (MDRD) Non-Af BUN/Creatinine Ratio Glucose Lactic Acid Calcium Total Bilirubin AST ALT Alkaline Phosphatase Troponin I < 0.015 B-Natriuretic Peptide Total Protein Albumin Globulin Albumin/Globulin Ratio Urine Color Urine Clarity Urine pH Ur Specific [place] Urine Protein Urine Glucose (UA) Urine Ketones Urine Occult Blood Urine Nitrite Urine Bilirubin Urine Urobilinogen Ur Leukocyte Esterase Urine RBC Urine WBC Ur Squamous Epith Cells Urine Bacteria Urine Mucus Ur Random Sodium 71 Urine Creatinine 03/28/19 03/29/19 03/29/19 04:10 04:20 04:20 WBC 12.1 H RBC 4.48 L Hgb 12.2 L Hct 39.2 L MCV 87.5 MCH 27.2 MCHC 31.1 L RDW Std Deviation 46.5 H RDW Coeff of [place] 14.6 Plt Count 232 MPV 8.6 Immature Gran % (Auto) 1.100 H Neut % (Auto) 87.3 H Lymph % (Auto) 7.8 L Coleman % (Auto) 3.6 Eos % (Auto) 0.0 Baso % (Auto) 0.2 Absolute Neuts (auto) 10.6 H Absolute Lymphs (auto) 0.94 Nucleated RBC % 0 PT INR APTT Sodium 136 139 Potassium 4.8 4.3 Chloride 99 98 Carbon Dioxide 31.0 30.0 Anion Gap 6 11 BUN 32 H 24 H Creatinine 1.81 H 1.50 H Estim Creat Clear Calc 46.80 56.48 Est GFR (MDRD) Af Amer 50 L 62 Est GFR (MDRD) Non-Af 41 L 51 L BUN/Creatinine Ratio 17.7 16.0 Glucose 129 H 128 H Lactic Acid Calcium 9.1 9.7 Total Bilirubin 0.40 AST 36 ALT 38 Alkaline Phosphatase 131 H Troponin I B-Natriuretic Peptide Total Protein 7.3 Albumin 2.6 L Globulin 4.7 H Albumin/Globulin Ratio 0.6 L Urine Color Urine Clarity Urine pH Ur Specific [place] Urine Protein Urine Glucose (UA) Urine Ketones Urine Occult Blood Urine Nitrite Urine Bilirubin Urine Urobilinogen Ur Leukocyte Esterase Urine RBC Urine WBC Ur Squamous Epith Cells Urine Bacteria Urine Mucus Ur Random Sodium Urine Creatinine Microbiology 03/27/19 11:10 Urine Catheter - Catheter Urine Culture - Preliminary Gram negative ke Clinical Impression(s) from Imaging Studies Chest X-Ray 03/27/19 08:35 IMPRESSION: Vascular congestion in keeping with a mild degree of CHF. Cardiomegaly. Electronically Signed: Howie Dong, at 9:37 EST , Service support , Renal Ultrasound 03/27/19 14:34 IMPRESSION: Nonspecific renal parenchymal disease. No evidence for hydronephrosis Incidental finding of nonspecific splenomegaly Electronically Signed: Pete Bran MD at 17:58 EST , Service support , Medical Necessity - Tobacco Use Smoking Status: Former smoker Tobacco Use: Non-smoker Assessment/Plan All Active Problems (Last Reviewed 07/09/18 @ 23:48 by Mick Choi MD) Acute and chronic respiratory failure with hypoxia (Acute) COPD with acute exacerbation (Acute) Lactic acidosis (Acute) Hypotension arterial (Acute) Acute kidney injury (Acute) Respiratory failure with hypoxia and hypercapnia (Acute) Acute encephalopathy (Acute) Heart failure (Acute) Severe sepsis (Acute) Complicated UTI (urinary tract infection) (Acute) Hypokalemia (Acute) Hyponatremia (Acute) Cystitis (Acute) Sepsis (Acute) Acute AR, inferior wall (Acute) Acute inferolateral myocardial infarction (Acute) Tobacco use disorder (Resolved) RECOMMENDATIONS: 1. Continue antimicrobials, pending finalized culture results. 2. Encourage incentive spirometer use and mobilize patient as tolerated. IMPRESSIONS: 1. Severe sepsis secondary to UTI secondary to chronic Go[place] Continue current supportive measures and tailor antibiotics to to finalize culture data. The patient remains hemodynamically stable. 2. Acute metabolic encephalopathy secondary to UTI Resolved at this time. Appears at baseline from a mentation perspective. 3. Acute on chronic kidney disease stage III/hyperkalemia Clinical suspicion for both prerenal and postrenal etiologies. Creatinine has improved. 4. Hypertension/super morbid obesity/chronic opiate dependence/poor history/snf resident/chronic diastolic CHF Complicates care, management, recovery and prognosis. Continue home medications as indicated. This note was generated with Chamateation software. It may contain incorrect words, spelling, and punctuation that were not noted in checking the note before signing. Code Visit Inpatient E&M: 92604 Subs Hosp L2
[2019-03-29 06:44] VITALS: PULSE 72; RESP 19; O2SAT 97
[2019-03-29] MEDS: Albuterol 2.5 MG/3 ML VIAL.NEB. INHALATION ×2 (06:44→13:04)
--- NOTE | 2019-03-29 07:16 | PCM.PN.HOSP ---
Patient Problems: Active and Suspected Problems (Last Reviewed 07/09/18 @ 23:48 by Mick Choi MD) Cystitis (Acute) Sepsis (Acute) Vitals/I&O's: Vital Signs Temp Pulse Resp BP Pulse Ox 97.7 F L 64 18 138/60 H 97 03/29/19 02:19 03/29/19 03:07 03/29/19 02:19 03/29/19 02:19 03/29/19 02:19 Oxygen Flow Rate (L/min) 3 Oxygen Delivery Method Room Air Weight: 149.2 kg Body Mass Index (BMI) 47.3 Finger Stick Blood Glucose 159 Intake and Output for Last 24 Hours 03/27/19 03/28/19 03/29/19 23:59 23:59 23:59 Intake Total 3947.25 / 3947.25 1360 / 1360 560 / 560 Output Total 4100 / 4100 4600 / 4600 1150 / 1150 Balance -152.75 / -152.75 -3240 / -3240 -590 / -590 Microbiology Past 72 Hours 03/27/19 11:10 Urine Catheter - Catheter Urine Culture - Preliminary Gram negative ke Laboratory Results 03/29/19 04:20: WBC 12.1 H, RBC 4.48 L, Hgb 12.2 L, Hct 39.2 L, MCV 87.5, MCH 27.2, MCHC 31.1 L, RDW Std Deviation 46.5 H, RDW Coeff of [place] 14.6, Plt Count 232, MPV 8.6, Immature Gran % (Auto) 1.100 H, Neut % (Auto) 87.3 H, Lymph % (Auto) 7.8 L, [place] % (Auto) 3.6, Eos % (Auto) 0.0, Baso % (Auto) 0.2, Absolute Neuts (auto) 10.6 H, Absolute Lymphs (auto) 0.94, Nucleated RBC % 0 03/29/19 04:20: Sodium 139, Potassium 4.3, Chloride 98, Carbon Dioxide 30.0, Anion Gap 11, BUN 24 H, Creatinine 1.50 H, Estim Creat Clear Calc 56.48, Est GFR (MDRD) Af Amer 62, Est GFR (MDRD) Non-Af 51 L, BUN/Creatinine Ratio 16.0, Glucose 128 H, Calcium 9.7 Current Medications Acetaminophen (Tylenol) 650 mg PO Q6H PRN PRN PRN Reason: Pain Score 1-3/Temp > 100.7 F Al Hydroxide/Mg Hydroxide (Mylanta Ii) 30 ml PO Q6H PRN PRN PRN Reason: Gastric Burning Albuterol Sulfate (Ventolin Aerosols) 2.5 mg INHALATION Q6HWA.RT [facility] Last Admin: 03/29/19 06:44 Dose: 2.5 mg Documented by: Albuterol/Ipratropium (Duoneb) 3 ml INHALATION Q4H PRN PRN Reason: SOB &/OR WHEEZING [facility] ([facility]oprim) [facility] Last Admin: 03/28/19 08:37 Dose: 100 mg Documented by: Aspirin (Aspirin, Baby) 81 mg PO DAILY@0800 [facility] Last Admin: 03/28/19 08:35 Dose: 81 mg Documented by: Calcium/Vitamin D (Os-Roberto 500mg + D) [facility] tablet [facility] Last Admin: 03/28/19 17:29 Dose: 1 tablet Documented by: Clopidogrel Bisulfate (Plavix) 75 mg PO DAILY [facility] Last Admin: 03/28/19 08:35 Dose: 75 mg Documented by: Ergocalciferol (Vitamin D) 50,000 unit PO Ohwell@1000 [facility] Famotidine (Pepcid) 20 mg PO QHS [facility] Last Admin: 03/28/19 21:05 Dose: 20 mg Documented by: Ferrous Sulfate (Ferrous Sulfate) 325 mg [facility] Last Admin: 03/28/19 08:35 Dose: 325 mg Documented by: Finasteride (Proscar) 5 mg PO DAILY [facility] Last Admin: 03/28/19 08:37 Dose: 5 mg Documented by: Fluticasone Propionate (Flonase Nasal Shubuta) 1 spray NASAL DAILY [facility] Last Admin: 03/28/19 08:36 Dose: 1 spray Documented by: Heparin Sodium (Porcine) (Heparin Na) 5,000 unit SC Q8 [facility] Last Admin: 03/29/19 05:07 Dose: 5,000 unit Documented by: Hydrocortisone Sodium Succinate (Solu-Cortef) 100 mg IV Q8 [facility] Last Admin: 03/29/19 05:07 Dose: 100 mg Documented by: Ceftriaxone Sodium (Rocephin) 1 gm in 50 mls @ 100 mls/hr IV Q24 [facility] Last Infusion: 03/28/19 09:48 Dose: Infused Documented by: Sodium Chloride () 250 mls @ 15 mls/hr IV .[id number] PRN PRN Reason: Saline Flush Lorazepam (Ativan) 0.5 mg PO QHS [facility] Last Admin: 03/28/19 21:10 Dose: 0.5 mg Documented by: Magnesium Hydroxide (Milk Of Magnesia) 30 ml PO DAILY PRN PRN PRN Reason: Constipation Methadone HCl () 5 mg PO Q8 [facility] Last Admin: 03/29/19 05:12 Dose: 5 mg Documented by: Nitroglycerin (Nitrostat) 0.4 mg SUBLINGUAL Q5M PRN PRN Reason: Chest Pain Nutritional Formula (Lactose Free) (Ensure Enlive) 120 ml PO TIDCM [facility] Nystatin (Mycostatin Powder) 1 applic TOPICAL QHS [facility]; Protocol Last Admin: 03/28/19 21:14 Dose: 1 applicatio Documented by: Ondansetron HCl (Zofran) 4 mg IV Q8H PRN PRN PRN Reason: NAUSEA/VOMITING Pravastatin Sodium (Pravachol) 80 mg PO QHS [facility] Last Admin: 03/28/19 21:05 Dose: 80 mg Documented by: Senna (Senokot) 1 tablet PO BID [facility] Last Admin: 03/28/19 21:05 Dose: 1 tablet Documented by: Sodium Chloride () 10 - 40 ml IV UD PRN PRN Reason: SALINE FLUSH Last Admin: 03/29/19 05:07 Dose: 10 ml Documented by: Medical Necessity - Tobacco Use Smoking Status: Former smoker Tobacco Use: Non-smoker Assessment/Plan All Active Problems (Last Reviewed 07/09/18 @ 23:48 by Mick Choi MD) Acute and chronic respiratory failure with hypoxia (Acute) COPD with acute exacerbation (Acute) Lactic acidosis (Acute) Hypotension arterial (Acute) Acute kidney injury (Acute) Respiratory failure with hypoxia and hypercapnia (Acute) Acute encephalopathy (Acute) Heart failure (Acute) Severe sepsis (Acute) Complicated UTI (urinary tract infection) (Acute) Hypokalemia (Acute) Hyponatremia (Acute) Cystitis (Acute) Sepsis (Acute) Acute ID, inferior wall (Acute) Acute inferolateral myocardial infarction (Acute) Tobacco use disorder (Resolved)
[2019-03-29 07:31] VITALS: PULSE 67
[2019-03-29 08:22] VITALS: BP 115/58; PULSE 66; RESP 17; TEMP 36.6; O2SAT 96
[2019-03-29] MEDS: Calcium Carb/Vitamin D 1 TABLET Tablet PO (09:08)
[2019-03-29] MEDS: Finasteride 5 MG Tablet PO (09:08)
[2019-03-29] MEDS: Fluticasone 0.05% 1 SPRAY NASAL.SRY NASAL (09:09)
[2019-03-29] MEDS: Senna Tablet 1 TABLET PO (09:09)
[2019-03-29] MEDS: Allopurinol 100 MG Tablet PO (09:09)
[2019-03-29] MEDS: Ferrous Sulfate 325 MG Tablet PO (09:10)
[2019-03-29] MEDS: Aspirin 81 MG TAB.CHEW PO (09:10)
[2019-03-29] MEDS: Clopidogrel Bisulfate 75 MG Tablet PO (09:10)
[2019-03-29] MEDS: Ceftriaxone 1 GM/50 ML BAG IV (09:14)
--- NOTE | 2019-03-29 10:43 | CASEMGMT ---
Addendum entered by Georgia Navarro 03/29/19 11:38: SW faxed discharge instructions to [facility] for palliative referral and to [facility]. No further needs anticipated. LIANE Bonilla Addendum entered by Georgia Navarro 03/29/19 11:17: Pt is actually ready for discharge today. RAMSEY set up 1pm ambulance w/[facility]. RAMSEY let RN here, Admissions at [facility], and pt and his mother who is in the room know the time. RAMSEY also let [facility] that pt is leaving today at 1pm. Once all discharge instructions are completed SW will fax them. LIANE Bonilla Original Note: RAMSEY spoke shawn/Stuart at [facility], let her know pt may return on the weekend. SW also let her know that a palliative care referral was made to see pt at the facility. Stuart states understanding. RAMSEY also spoke w/Laila at [facility], she is trying to get in touch w/pt's mother to set up an appointment for next week. She requested the discharge instructions be faxed once pt is discharged. RAMSEY placed green sheet w/transport form on chart, on there wrote for the d/c instructions to be sent to [facility] for the palliative care referral. LIANE Bonilla
--- NOTE | 2019-03-29 11:14 | PCM.TXEXTCAR ---
- Diet 03/27/19 19:48 Diet: Cardiac/Low Cholesterol Is pt able to select menu?: Yes - Routine Orders/Code Status O2 Liters per Minute: 2-4 L O2 Frequency: Continuous Keep PO Greater than or Equal to (%): 92 Routine Lab Work: CBC - within 3 days, BMP - within 3 days Code Status: Full Code - Wound(s) RIGHT ANTERIOR THIGH Wound Type: Pressure Injury Dressing Change: Wet to Dry Dressing - Therapies Weight Bearing: Weight bearing as tolerated Physical Therapy: Eval and Treat Occupational Therapy: Eval and Treat - Problem/Diagnosis (1) Complicated UTI (urinary tract infection) Status: Acute Current Visit: No (2) Hyponatremia Status: Acute Current Visit: No (3) CAD (coronary artery disease) Status: Chronic Current Visit: No (4) Anxiety and depression Status: Chronic Current Visit: No (5) DAVION (obstructive sleep apnea) Status: Chronic Current Visit: No (6) Hypertension Status: Chronic Current Visit: No (7) Hyperlipidemia Status: Chronic Current Visit: No - Allergies/Procedures Done in Hospital Allergies/Adverse Reactions: Allergies rofecoxib Adverse Reaction (Unknown, Verified 03/27/19 08:29) Unknown Procedures: 2-D Echocardiogram - Type of Care/Length of Stay Estimated LOS: Convalescent Care Less Than 30 days Type of Care Needed: Skilled Rehab Potential: Good Prognosis: Good - Additional Orders/Day of Discharge Additional Orders: Take note of changes to your medications. Continue to hydrate yourself. Consider resuming Bumex on 03/31/19. May resume Aldactone and Lisinopril if repeat BMP shows improvement. His last Cr was 1.80. His baseline Cr is 1.1. Continue to hold sedatives. May resume meds if needed. Day of Discharge: 03/29/19 - Dietary and Speech Recommendations Dietitian Recommendations/Changes: Rec cardiac, low sodium diet w/ fluid restriction as indicated. - Follow Up Care Primary Care Physician: NOT,DEFINED [NON-STAFF] -
--- NOTE | 2019-03-29 11:24 | PCM.DC.SUM ---
Discharge Date and Diagnosis Date of Admission: 03/27/19 Date of Discharge: 03/29/19 - Primary Discharge Diagnosis Active and Suspected Problems (Last Reviewed 07/09/18 @ 23:48 by Mick Choi MD) Hypotension, not septic shock Acute metabolic encephalopathy Severe sepsis Acute complicated UTI VARSHA on CKD stage III Hyperkalemia - Secondary Discharge Diagnosis Chronic Problems (Last Reviewed 07/09/18 @ 23:48 by Mick Choi MD) Acute exacerbation of congestive heart failure (Chronic) COPD exacerbation (Chronic) CAD (coronary artery disease) (Chronic) Diastolic CHF (Chronic) Anxiety and depression (Chronic) DAVION (obstructive sleep apnea) (Chronic) Presence of stent in coronary artery (Chronic) PTCA/BSM of Mid CX and PTCA of OM2 08/31/06; PTCA/PELON of the mid RCA 08/06/10; Thrombectomy and angioplasty of the pre existing stent of the mid LCX 02/18/13 Hypertension (Chronic) Hyperlipidemia (Chronic) Atherosclerotic heart disease of [place] coronary artery without angina pectoris (Chronic) PTCA/BSM of Mid CX and PTCA of OM2 08/31/06; PTCA/PELON of the mid RCA 08/06/10; Thrombectomy and angioplasty of the pre existing stent of the mid LCX 02/18/13 COPD (chronic obstructive pulmonary disease) (Chronic) Morbid obesity (Chronic) Hospital Course and Treatment Imaging Results: Clinical Impression(s) from Imaging Studies Chest X-Ray 03/27/19 08:35 IMPRESSION: Vascular congestion in keeping with a mild degree of CHF. Cardiomegaly. Electronically Signed: Howie Dong, at 9:37 EST , Service support , Renal Ultrasound 03/27/19 14:34 IMPRESSION: Nonspecific renal parenchymal disease. No evidence for hydronephrosis Incidental finding of nonspecific splenomegaly Electronically Signed: Pete Bran MD at 17:58 EST , Service support , Critical care Operations: None Procedures: 2-D Echocardiogram Summary of Care Provided: 58 year old M with multiple comorbidities, including hypertension, hyperlipidemia, anxiety/depression, type II DM, super morbid obesity, resident in a custodial, admitting with confusion. He was also complaining of cough with some shortness of breath. His management was as follows: 1. Acute metabolic encephalopathy likely secondary to UTI, medication side effects, resolved, 2. Hypotension likely secondary to dehydration/adrenal insufficiency, managed on IV fluids Not secondary to septic shock. Patient was not persistent despite IV fluids. He did not receive optimal IV fluids because of questionable CHF exacerbation BP improved with gentle IV fluid and IV hydrocortisone Charge of some of his home medications with a note to the nursing facility to monitor for blood pressures and slowly reintroduce medications 3. Severe sepsis secondary to Acute blood test/enterococcus complicated UTI, POA Had a chronic indwelling urethral catheter. Sepsis was secondary to the presence of the ureteral catheter. H/o serratia, blood cultures were negative. Urine cultures grew Enterobacter and enterococcus Managed on IV ceftriaxone and discharged on p.o. Cipro per urine culture and sensitivity. 4.VARSHA on CKD stage 3, post-renal from obstruction of catheter, improving admitting creatinine is 3.14, baseline creatinine is around 1.1 FeNa 8.8%. Urine output improved with flushing of his [place] catheter and his creatinine at discharge was 1.50. He was encouraged to keep hydrating himself. He needs to repeat blood work daily in 3 days. 5. Hyperkalemia with acute kidney injury, resolved 6. Hypertension, fairly controlled, home medications were held on account of hypotension and was slowly resumed Slow reintroduction of BP meds held will still need to be reevaluated in the custodial. We will continue to monitor and may resume home meds if blood pressures improved 7. Chronic opioid dependence, on methadone, morphine and oxycodone Morphine, oxycodone were held on account of hypotension, He was discharged on only methadone 10 mg p.o. q. 8. 8. Super morbid obesity, BMI 48.5, lifestyle modification recommended Subjective: On the day of discharge, patient was seen and examined. Patient complains of poor sleep in the hospital. Denied any dizziness or palpitation or shortness of breath. Objective: Physical exam: General: Alert, Cooperative, No apparent distress, - - super morbidly obese, on 3L oxygen HEENT: Atraumatic, PERRLA, EOMI, Normocephalic Oral: Moist Mucosa Neck: Supple Lungs: Clear to auscultation, Normal air movement Cardiovascular: Regular rate, Regular Rhythm, Normal S1, Normal S2, No murmurs Abdomen: Bowel Sounds Present, Soft, Non Tender, Non-Distended, No Hepato-splenomegaly Extremities: Edema - bilateral +1 Skin: No rashes Musculoskeletal: No Tenderness to Palpation of Joints or Extremities Lymphatic: No Cervical, Supraclavicular, or Inguinal Adenopathy Neurological: Cranial nerves II-XII grossly intact, Neuro grossly intact Psych/Mental Status: Normal Affect, Appropriate - Physical Exam Vitals/I&O's: Vital Signs Temp Pulse Resp BP Pulse Ox 97.8 F 66 17 115/58 L 96 03/29/19 08:22 03/29/19 08:22 03/29/19 08:22 03/29/19 08:22 03/29/19 08:22 Oxygen Flow Rate (L/min) 4 Oxygen Delivery Method Nasal Cannula Weight: 149.2 kg Body Mass Index (BMI) 47.3 Finger Stick Blood Glucose 159 Intake and Output for Last 24 Hours 03/27/19 03/28/19 03/29/19 23:59 23:59 23:59 Intake Total 3947.25 / 3947.25 1360 / 1360 610 / 610 Output Total 4100 / 4100 4600 / 4600 1150 / 1150 Balance -152.75 / -152.75 -3240 / -3240 -540 / -540 Microbiology Past 72 Hours 03/27/19 09:02 Blood Culture (Wb) - Left Forearm Blood Culture - Preliminary No growth in 48 hours. 03/27/19 09:00 Blood Culture (Wb) - Right Forearm Blood Culture - Preliminary No growth in 48 hours. 03/27/19 11:10 Urine Catheter - Catheter Urine Culture - Preliminary Enterobacter cloacae complex GPC Poss Enterococcus sp Laboratory Results 03/29/19 04:20: WBC 12.1 H, RBC 4.48 L, Hgb 12.2 L, Hct 39.2 L, MCV 87.5, MCH 27.2, MCHC 31.1 L, RDW Std Deviation 46.5 H, RDW Coeff of [place] 14.6, Plt Count 232, MPV 8.6, Immature Gran % (Auto) 1.100 H, Neut % (Auto) 87.3 H, Lymph % (Auto) 7.8 L, [place] % (Auto) 3.6, Eos % (Auto) 0.0, Baso % (Auto) 0.2, Absolute Neuts (auto) 10.6 H, Absolute Lymphs (auto) 0.94, Nucleated RBC % 0 03/29/19 04:20: Sodium 139, Potassium 4.3, Chloride 98, Carbon Dioxide 30.0, Anion Gap 11, BUN 24 H, Creatinine 1.50 H, Estim Creat Clear Calc 56.48, Est GFR (MDRD) Af Amer 62, Est GFR (MDRD) Non-Af 51 L, BUN/Creatinine Ratio 16.0, Glucose 128 H, Calcium 9.7 Current Medications Acetaminophen (Tylenol) 650 mg PO Q6H PRN PRN PRN Reason: Pain Score 1-3/Temp > 100.7 F Al Hydroxide/Mg Hydroxide (Mylanta Ii) 30 ml PO Q6H PRN PRN PRN Reason: Gastric Burning Albuterol Sulfate (Ventolin Aerosols) 2.5 mg INHALATION Q6HWA.RT [facility] Last Admin: 03/29/19 06:44 Dose: 2.5 mg Documented by: Albuterol/Ipratropium (Duoneb) 3 ml INHALATION Q4H PRN PRN Reason: SOB &/OR WHEEZING Allopurin[facility] ([facility]oprim) [facility] Last Admin: 03/29/19 09:09 Dose: 100 mg Documented by: Aspirin (Aspirin, Baby) 81 mg PO DAILY@0800 [facility] Last Admin: 03/29/19 09:10 Dose: 81 mg Documented by: Calcium/Vitamin D (Os-Roberto 500mg + D) [facility] tablet [facility] Last Admin: 03/29/19 09:08 Dose: 1 tablet Documented by: Clopidogrel Bisulfate (Plavix) 75 mg PO DAILY [facility] Last Admin: 03/29/19 09:10 Dose: 75 mg Documented by: Ergocalciferol (Vitamin D) 50,000 unit PO Howell@1000 [facility] Famotidine (Pepcid) 20 mg PO QHS [facility] Last Admin: 03/28/19 21:05 Dose: 20 mg Documented by: Ferrous Sulfate (Ferrous Sulfate) 325 [facility] Last Admin: 03/29/19 09:10 Dose: 325 mg Documented by: Finasteride (Proscar) 5 mg PO DAILY [facility] Last Admin: 03/29/19 09:08 Dose: 5 mg Documented by: Fluticasone Propionate (Flonase Nasal [place]) 1 spray NASAL DAILY [facility] Last Admin: 03/29/19 09:09 Dose: 1 spray Documented by: Heparin Sodium (Porcine) (Heparin Na) 5,000 unit SC Q8 [facility] Last Admin: 03/29/19 05:07 Dose: 5,000 unit Documented by: Hydrocortisone Sodium Succinate (Solu-Cortef) 100 mg IV Q8 [facility] Last Admin: 03/29/19 05:07 Dose: 100 mg Documented by: Sodium Chloride () 250 mls @ 15 mls/hr IV .[id number] PRN PRN Reason: Saline Flush Ciprofloxacin (Cipro) 400 mg in 200 mls @ 200 mls/hr IV Q12 [facility] Lorazepam (Ativan) 0.5 mg PO QHS [facility] Last Admin: 03/28/19 21:10 Dose: 0.5 mg Documented by: Magnesium Hydroxide (Milk Of Magnesia) 30 ml PO DAILY PRN PRN PRN Reason: Constipation Methadone HCl () 5 mg PO Q8 [facility] Last Admin: 03/29/19 05:12 Dose: 5 mg Documented by: Nitroglycerin (Nitrostat) 0.4 mg SUBLINGUAL Q5M PRN PRN Reason: Chest Pain Nutritional Formula (Lactose Free) (Ensure Enlive) 120 ml PO TIDCM [facility] Last Admin: 03/29/19 09:10 Dose: 120 ml Documented by: Nystatin (Mycostatin Powder) 1 applic TOPICAL QHS [facility]; Protocol Last Admin: 03/28/19 21:14 Dose: 1 applicatio Documented by: Ondansetron HCl (Zofran) 4 mg IV Q8H PRN PRN PRN Reason: NAUSEA/VOMITING Pravastatin Sodium (Pravachol) 80 mg PO QHS [facility] Last Admin: 03/28/19 21:05 Dose: 80 mg Documented by: Senna (Senokot) 1 tablet PO BID [facility] Last Admin: 03/29/19 09:09 Dose: 1 tablet Documented by: Sodium Chloride () 10 - 40 ml IV UD PRN PRN Reason: SALINE FLUSH Last Admin: 03/29/19 05:07 Dose: 10 ml Documented by: Discharge Diet: Low fat/ Low Cholesterol, 2000 mg Sodium Diet Discharge Activity: Return to Normal Activity Home Medications: Medications to take at Discharge RX: Clopidogrel Bisulfate [Plavix] 75 mg PO DAILY 02/11/13 RX: Isosorbide Mononitrate [Imdur] 30 mg PO DAILY 02/11/13 RX: Nitroglycerin (INPATIENT USE) [Nitrostat] 0.4 mg SUBLINGUAL Q5M PRN 02/11/13 RX: Sertraline HCl [Zoloft] 100 mg PO DAILY 03/06/14 RX: Methadone HCl 10 mg PO Q8H 12/28/16 RX: Ondansetron HCl [Zofran] 4 mg PO BID 12/28/16 RX: Acetaminophen [Tylenol] 650 mg PO Q4H PRN PRN 05/17/17 fludrocortisone 0.1 mg tablet 0.1 mg PO QDAY 10/26/17 ipratropium-albuterol 0.5 mg-3 mg(2.5 mg base)/3 mL nebulization soln 3 ml INHALATION Q6H PRN 10/26/17 RX: Fluticasone 0.05% [Flonase Nasal [place]] 1 spray NASAL DAILY 03/14/18 RX: Magnesium Hydroxide [Milk Of Magnesia] 30 ml PO DAILY PRN PRN 03/14/18 RX: Pravastatin [Pravachol] 80 mg PO DAILY 03/14/18 metformin 500 mg tablet 1,000 mg PO BID tab 04/23/18 tamsulosin 0.4 mg capsule 0.4 mg PO BID cap 04/23/18 RX: Ergocalciferol [Vitamin D] 50,000 unit PO Q7D 07/09/18 RX: Famotidine [Pepcid] 20 mg PO QHS 11/26/18 RX: Ferrous Sulfate 325 mg PO DAILY 11/26/18 RX: Finasteride 5 mg PO DAILY 11/26/18 RX: Ipratropium/Albuterol Sulfate [Duoneb] 3 ml INHALATION BID PRN PRN 11/26/18 RX: Nystatin [Nyamyc] 30 gm TP QHS 11/26/18 RX: Acetaminophen [Tylenol Tablet] 650 mg PO Q6H PRN PRN tab 11/29/18 RX: Allopurinol [Zyloprim] 100 mg PO DAILY tab 11/29/18 RX: Aspirin [Aspirin, Baby] 81 mg PO DAILY@0800 tab.chew 11/29/18 RX: Calcium Carbonate/Vitamin D3 [Calcium 600-Vit D3 400 Caplet] 1 ea PO BID 03/27/19 RX: Fluticasone/Vilanterol [Breo Ellipta 100-25 Mcg INH] 1 ea IH DAILY 03/27/19 RX: Guaifenesin [Cough Syrup] 10 ml PO Q6H PRN PRN 03/27/19 RX: Lorazepam [Ativan] 1 mg PO QHS 03/27/19 RX: Menthol [Biofreeze] 1 applic TP DAILY 03/27/19 RX: Nystatin Powder [Mycostatin Powder] 1 applic TOPICAL QHS 03/27/19 RX: Oxymetazoline HCl [Nasal [place]] 30 ml NS 4X/DAY PRN 03/27/19 RX: Phenazopyridine HCl [Pyridium] 200 mg PO TID 03/27/19 RX: Prednisone 20 mg PO DAILY 03/27/19 RX: Senna [Senokot] 1 tab PO BID 03/27/19 Ciprofloxacin [Cipro] 500 mg PO BID #14 tab 03/29/19 RX: Acetaminophen [Tylenol Tablet] 650 mg PO Q6H PRN PRN tab 03/29/19 RX: Ensure Enlive 120 ml PO TIDCM liquid 03/29/19 Following Prescrptions Were Given to Patient: Ciprofloxacin [Cipro] 500 mg PO BID #14 tab Primary Care Physician: NOT,DEFINED [NON-STAFF] - Disposition: Nursing Home facility Minutes spent on discharge:: 4 Patient Condition:: Stable Medical Necessity - Tobacco Use Smoking Status: Former smoker Tobacco Use: Non-smoker Meaningful Use Info Meaningful Use Diagnoses (Choose all that apply): None applicable Code Visit Inpatient E&M: 94178 Disch Hosp
[2019-03-29 13:04] VITALS: PULSE 61; RESP 16
== END 2019-03-29 14:40 | disposition skilled nursing facility (03) | DRG 466 ==
LOC: ED 11:39 → ICU 12:08
PROVIDERS: Admitting Provider Internal Medicine; Emergency Provider Emergency Medicine; Family Provider Family Medicine; PCP Family Medicine; Referring Provider Internal Medicine; Visit Provider Internal Medicine
DX: T83.511A Infection and inflammatory reaction due to indwelling urethral catheter, initial encounter (principal); N17.9 Acute kidney failure, unspecified; E87.5 Hyperkalemia; F11.20 Opioid dependence, uncomplicated; E66.01 Morbid (severe) obesity due to excess calories; Z68.42 Body mass index [BMI] 45.0-49.9, adult; Y84.6 Urinary catheterization as the cause of abnormal reaction of the patient, or of later complication, without mention of misadventure at the time of the procedure; A41.9 Sepsis, unspecified organism; G93.41 Metabolic encephalopathy; N18.3 Chronic kidney disease, stage 3 (moderate); I13.0 Hypertensive heart and chronic kidney disease with heart failure and stage 1 through stage 4 chronic kidney disease, or unspecified chronic kidney disease; I95.9 Hypotension, unspecified; R65.20 Severe sepsis without septic shock; F32.9 Major depressive disorder, single episode, unspecified; F41.9 Anxiety disorder, unspecified; G47.33 Obstructive sleep apnea (adult) (pediatric); E78.5 Hyperlipidemia, unspecified; I25.10 Atherosclerotic heart disease of native coronary artery without angina pectoris; J44.9 Chronic obstructive pulmonary disease, unspecified; B95.2 Enterococcus as the cause of diseases classified elsewhere; B96.89 Other specified bacterial agents as the cause of diseases classified elsewhere; I50.30 Unspecified diastolic (congestive) heart failure; E11.22 Type 2 diabetes mellitus with diabetic chronic kidney disease; Z95.5 Presence of coronary angioplasty implant and graft; Z79.84 Long term (current) use of oral hypoglycemic drugs
CPT/HCPCS: 51702; 71045; 76770; 80048; 80053; 81001; 82570; 83605; 83880; 84300; 84484; 85025; 85610; 85730; 87040; 87077; 87086; 87088; 87186; 93005; 93306; 94640; 97162; 97802; 99251; 99285; J7030; J7050; Q9957; A4216; C8929; G0463